=== PATIENT | male | born 1955 | race Caucasian/White ===

== ENCOUNTER → 2016-08-29 | Outpatient (CLI) | payer OTHER ==
[~2016-08-29] MED LIST: ABL15 PO; AMIT75TA2 PO; ESCI1TAB10 PO; LTHCR300 PO; NCDT21 TD; PRD20 PO; VNTHFA/IN INH; WLLSR150 PO
[2016-08-29 14:38] LABS: BASO % 1.1 %; BASO ABS # 0.08 K/uL (0-0.2); COMPLETE YES; EOS % 3.7 %; IG% 0.3 %; LYMPH % 25.2 %; LYMPH ABS # 1.86 K/uL (1.2-3.4); MEAN CELL VOLUME 98.2 fL (80-100); MEAN CORPUSCULAR HEMOGLOBIN 32.4 pg (25-34); MEAN PLATELET VOLUME 9.7 fL (7.4-10.4); MONO % 6.4 %; NEUT % 63.3 %; PLATELET COUNT 374 K/uL (130-400); RED BLOOD COUNT 4.38 M/uL (4.7-6.1); WHITE BLOOD COUNT 7.37 K/uL (4.8-10.8)
[2016-08-29 15:12] LABS: BLOOD UREA NITROGEN 16 mg/dl (7-18); CARBON DIOXIDE 33 mmol/L (21-32); CHLORIDE 106 mmol/L (98-107); POTASSIUM 4.2 mmol/L (3.5-5.1); SODIUM 143 mmol/L (136-145)
== END | disposition home or self-care (01) ==
LOC: C.LAB1850 13:49
PROVIDERS: ATTEND Psychiatry & Neurology Psychiatry
DX: F25.9 Schizoaffective disorder, unspecified (principal); Z51.81 Encounter for therapeutic drug level monitoring; Z79.899 Other long term (current) drug therapy

== ENCOUNTER → 2017-02-05 | Outpatient (CLI) | payer OTHER ==
[2017-02-05 17:27] LABS: THYROID STIMULATING HORMONE 5.95 uIu/ml (0.300-4.500)
== END | disposition home or self-care (01) ==
LOC: C.LAB1850 15:25
PROVIDERS: ATTEND Psychiatry & Neurology Neurology
DX: R25.1 Tremor, unspecified (principal)

== ENCOUNTER → 2017-05-22 | Outpatient (CLI) | payer OTHER ==
[2017-05-22 17:20] LABS: BASO % 0.5 %; BASO ABS # 0.04 K/uL (0-0.2); EOS % 4.1 %; HEMATOCRIT 38.8 % (42-52); HEMOGLOBIN 13.1 g/dL (14.0-18.0); IG# 0.02 K/uL (0.00-0.02); LYMPH % 16.9 %; LYMPH ABS # 1.25 K/uL (1.2-3.4); MEAN CELL VOLUME 97.7 fL (80-100); MEAN CORPUSCULAR HGB CONC 33.8 g/dl (32-36); MEAN PLATELET VOLUME 10.2 fL (7.4-10.4); MONO % 6.9 %; MONO ABS # 0.51 K/uL (0.11-0.59); NEUT % 71.3 %; NEUT ABS # 5.28 K/uL (1.4-6.5); PLATELET COUNT 312 K/uL (130-400); RED CELL DISTRIBUTION WIDTH CV 14.2 % (11.5-14.5); RED CELL DISTRIBUTION WIDTH SD 51.4 fL (36.4-46.3)
[2017-05-22 17:51] LABS: ALBUMIN 3.1 gm/dl (3.4-5.0); ALT/SGPT 36 U/L (12-78); AST/SGOT 23 U/L (15-37); BLOOD UREA NITROGEN 13 mg/dl (7-18); CALCIUM 8.8 mg/dl (8.5-10.1); CARBON DIOXIDE 30 mmol/L (21-32); CHOLESTEROL 132 mg/dl (0-200); CREATININE 1.03 mg/dl (0.60-1.40); GLUCOSE 87 mg/dl (70-99); SODIUM 138 mmol/L (136-145)
[2017-05-22 17:59] LABS: ALKALINE PHOSPHATASE 74 U/L (45-117); LDL CHOLESTEROL CALCULATED 65 mg/dl; TOTAL PROTEIN 6.3 gm/dl (6.4-8.2)
== END | disposition home or self-care (01) ==
LOC: C.LAB1850 16:15
PROVIDERS: ATTEND Physician Assistant
DX: F28 Other psychotic disorder not due to a substance or known physiological condition (principal)

== ENCOUNTER → 2017-05-23 | Outpatient (CLI) | payer OTHER | END | disposition home or self-care (01) | LOC: C.LABBFT 15:46 | PROVIDERS: ATTEND Physician Assistant Medical | DX: D64.9 Anemia, unspecified (principal) ==

== ENCOUNTER 2018-05-28 05:23 | Inpatient (IN) ==
--- NOTE | 2018-05-21 14:33 | Anesthesiology Consultation ---
Date of Service May 21, 2018 Assessment & Plan (1) Encounter for pre-operative examination: Plan: - PCP= 04/29/18= "medically cleared for left nephrectomy.. pending preop labs are stable and pending pulmonary clearance." Preop labs stable. - Pulmonary= 05/15/18= "severe COPD.. s/p prednisone taper 04/2018. "He will need postoperative pulmonary toilet and we would be happy to see him in consult at that time.. some degree of pulmonary arterial pCO2 elevation.. Nonetheless in light of the risk of malignancy of the kidney, this surgery likely needs to be done. I think it is probable he can have the surgery without requiring post- operative mechanical ventilation, but I cannot say that without certainty." Notes history of substance abuse problems; recommend caution with narcotic use. Chart Review Chart Review: Acceptable Risk for Surgery and Patient seen in Pre Admission Testing Teaching & Discussion Pre-Anesthesia Teaching/Discussion Notes: Instructed NPO after midnight before surgery,except medications with 15 cc of water. Medication instructions provided according to the PAT guidelines. History Surgery Operation Date: 05/28/18 07:50 Proposed Procedures p Left Robot Assisted Laparoscopic Partial Nephrectomy, - Diaz Johns MD s Diagnostic Laparoscopic with Enterolysis - Sung Khan, Height/Weight Height: 6 ft Weight: 62.6 kg Allergies Allergy/AdvReac Type Severity Reaction Status Date / Time morphine AdvReac Severe FEELING OF Verified 05/21/18 15:52 "DYING" Medications Home Medications Medication Instructions Recorded Confirmed Last Taken albuterol sulfate 3 ml CONTINUOUS NEBULIZATION QID 02/27/18 05/20/18 03/27/18 PRN amitriptyline 75 mg PO HS 02/27/18 05/20/18 03/27/18 aripiprazole [Abilify] 20 mg PO QAM 02/27/18 05/20/18 03/27/18 bupropion HCl 150 mg PO QAM 02/27/18 05/20/18 03/27/18 escitalopram oxalate 20 mg PO QAM 02/27/18 05/20/18 03/27/18 fluticasone-vilanterol [Breo 1 inh INHALATION DAILY 02/27/18 05/20/18 03/27/18 Ellipta] levothyroxine 50 mcg PO QAM 02/27/18 05/20/1818 primidone 50 mg PO HS 02/27/18 05/20/18 03/27/18 tiotropium bromide [Spiriva 2 puff INHALATION QAM 03/28/18 05/20/18 03/27/18 Respimat] albuterol sulfate [Ventolin HFA] 2 puff INHALATION QID PRN 05/20/18 05/20/18 Unknown fluticasone 2 spray INTRANASAL DAILY PRN 05/20/18 05/20/18 Unknown lithium carbonate 2 tab PO QAM 05/20/18 05/20/18 Unknown lithium carbonate 450 mg PO HS 05/20/18 05/20/18 Unknown Past Medical History Medical History Anxiety Renal mass COPD (chronic obstructive pulmonary disease) STABLE Irritable bowel syndrome Hypoxia Small bowel obstruction (Acute) PARTIAL 03/2018- TREATED CONSERVATIVELY Anemia Depression Hypothyroidism Left renal mass On home oxygen therapy 4L O2 5 TIMES/DAY WITH ACTIVITY Schizo affective schizophrenia FOLLOWS WITH COUNSELOR MONTHLY Past Family History Family History Father Diabetes Past Surgical History Surgical History History of appendectomy WITH EXPLORATORY SURGERY History of colonoscopy History of tooth extraction Past Anesthesia History No Hx of Anesthesia Complications and No Family Hx of Anesthesia Complications History of PONV No Motion Sickness Screening History of Motion Sickness: Yes (RARE) Social History Smoking Status: Former smoker Smoking cigarettes per day: QUIT 2015; PRIOR 1/2PPD X 45 YEARS Do You Dip or Chew Tobacco: No Hx Alcohol Use: Yes Alcohol type: hard liquor alcohol intake frequency: 0-2 drinks per day Alcohol Intake Frequency Comment: 1 WINE COOLER/DAILY Hx Substance Use: No substance use type: does not use Exercise / Class Metabolic Activity III < 4 Walking/Shop/Light housework Review of Systems Patient denies chest pain, shortness of breath, palpitations. Physical Exam Vital Signs VITALS BP 107/72 P 80 TEMP 98.0 SP02 98%RA RESP 20 Full neck and c-spine range of motion. Full TMJ range of motion. TMD 4 finger breaths Mallampati Score 1 Dentition: several missing molars/sides, poor dentition Lungs: diffuse inspiratory/expiratory wheezes Cardiac: regular rate and rhythm, no murmurs noted Spine: normal Carotid arteries: negative bruit Extremities: no edema Testing Electrocardiogram Date: 04/29/18 SR at 82 bpm. Low voltage QRS. Chest X-Ray Date: 05/21/18 Findings: + NAD Emphysema without acute process. Pulmonary Function Test Date: 01/28/18 Severe obstructive pattern. 31% improvement with bronchodilator in FEV1 suggesting partially reversible obstructive airway disease. Laboratory Results Blood Type A Positive 05/21/18 14:42 Antibody Screen NEGATIVE 05/21/18 14:42 Urine Color Dark Yellow 05/21/18 Unknown Urine Appearance Clear (Clear) 05/21/18 Unknown Urine pH 7.5 (4.5-7.5) 05/21/18 Unknown Ur Specific [place] 1.014 (1.000-1.030) 05/21/18 Unknown Urine Protein Negative (Negative) 05/21/18 Unknown Urine Glucose (UA) Negative (Negative) 05/21/18 Unknown Urine Ketones Negative (Negative) 05/21/18 Unknown Urine Nitrite Negative (Negative) 05/21/18 Unknown Ur Leukocyte Esterase Negative (Negative) 05/21/18 Unknown 04/29/18 WBC 8.1 H/H 13.6/42.3 PLATELETS 337 SODIUM 138 POTASSIUM 4.1 CHLORIDE 104 CO2 34 BUN 15 CREATININE 1.33 GLUCOSE 81
--- NOTE | 2018-05-21 14:39 | PAT Medication Instructions ---
Medication Instructions Date of Service May 21, 2018 Home Medications albuterol sulfate 3 ml CONTINUOUS NEBULIZATION QID amitriptyline 75 mg PO HS aripiprazole [Abilify] 20 mg PO QAM bupropion HCl 150 mg PO QAM escitalopram oxalate 20 mg PO QAM fluticasone-vilanterol [Breo 1 inh INHALATION DAILY levothyroxine 50 mcg PO QAM primidone 50 mg PO HS tiotropium bromide [Spiriva 2 puff INHALATION QAM albuterol sulfate [Ventolin HFA] 2 puff INHALATION QID PRN fluticasone 2 spray INTRANASAL DAILY PRN lithium carbonate 2 tab PO QAM lithium carbonate 450 mg PO HS Continue as directed albuterol sulfate 3 ml CONTINUOUS NEBULIZATION QID amitriptyline 75 mg PO HS aripiprazole [Abilify] 20 mg PO QAM bupropion HCl 150 mg PO QAM escitalopram oxalate 20 mg PO QAM fluticasone-vilanterol [Breo 1 inh INHALATION DAILY levothyroxine 50 mcg PO QAM primidone 50 mg PO HS tiotropium bromide [Spiriva 2 puff INHALATION QAM albuterol sulfate [Ventolin HFA] 2 puff INHALATION QID PRN (use if needed; please bring with you to hospital day of surgery if possible) fluticasone 2 spray INTRANASAL DAILY PRN (if needed) lithium carbonate 2 tab PO QAM lithium carbonate 450 mg PO HS Other Notes If you have any questions please call us at [phone] or [phone] or [phone] or [phone]
--- NOTE | 2018-05-21 15:15 | XRay Report ---
XR chest Pre-admission PA/Lat HISTORY: 63 years-old Male pat preoperative exam. Chronic shortness of breath COMPARISON: Chest radiograph 6 04/26/2016 TECHNIQUE: PA and lateral views of the chest FINDINGS: Hyperinflation with diaphragmatic flattening and increased lucency of the lung mendez suggestive of e mphysema. Cardiomediastinal and hilar silhouettes are within normal limits. No pneumothorax, pleural effusion, overt pulmonary edema or focal airspace consolidation. Bones appear grossly intact. IMPRESSION: Emphysema without acute process. The above report was generated using voice recognition software. It may contain grammatical, syntax o r spelling errors. Electronically signed by: Giovanny Raza M.D. 05/21/2018 3:14 PM
[2018-05-21 16:00] LABS: Appearance Urine Clear (Clear); Bilirubin Urine Negative (Negative); Color Urine Dark Yellow; Glucose Urine UA Negative (Negative); Ketones Urine Negative (Negative); Leukocyte Esterase Urine Negative (Negative); Nitrite Urine Negative (Negative); Protein Urine Negative (Negative); Specific Gravity Urine 1.014 (1.000-1.030); Urobilinogen Urine Negative (Negative); pH Urine 7.5 (4.5-7.5)
[2018-05-28] MEDS ORDERED: CEFAZOLIN 2000MG 2,000 MG/15 ML SYR IV SCH (06:00)
[2018-05-28] MEDS ORDERED: ACETAMINOPHEN 1000 MG/100 ML IV IV SCH (06:00)
[2018-05-28] MEDS ORDERED: LR 15ML/HR IV SCH (06:00)
[2018-05-28] MEDS ORDERED: fentaNYL citrate 100 MCG/2 ML VIAL ONE (06:31)
[2018-05-28] MEDS ORDERED: NEOSTIGMINE METHYLSULFATE 5 MG/5 ML SYR ONE (06:31)
[2018-05-28] MEDS ORDERED: ONDANSETRON INJ 2 MG/ML 2 ML VIAL ONE (06:31)
[2018-05-28] MEDS ORDERED: MIDAZOLAM HCL 1 MG/ML 2ML VIAL ONE (06:31)
[2018-05-28] MEDS ORDERED: LIDOCAINE HCL 2% 2 ML VIAL/AMP(20MG/ML) INFIL ONE (06:31)
[2018-05-28] MEDS ORDERED: PROPOFOL IV EMULSION 10 MG/ML 20 ML VIAL IV ONE (06:31)
[2018-05-28] MEDS ORDERED: DEXAMETHASONE SOD INJ 4 MG/ML VIAL ONE (06:31)
[2018-05-28] MEDS ORDERED: GLYCOPYRROLATE 0.2 MG/ML VIAL ONE ×2 (06:31→08:33)
--- NOTE | 2018-05-28 06:45 | History & Physical Bridge Note ---
Date of Service May 28, 2018 History & Physical Bridge Note I have examined the patient, reviewed the History & Physical and in the interval since the performance of the History & Physical I have noted the following changes of clinical significance: no changes noted
[2018-05-28] MEDS ORDERED: BUPIVACAINE 0.5 % 5 MG/1 ML MPF 30ML VIAL ONE (06:51)
[2018-05-28] MEDS ORDERED: ALBUT/IPRATROP 3MG/0.5MG NEB 3 ML VIAL NEB STA (06:57)
[2018-05-28] MEDS ORDERED: ATROPINE SULFATE 0.1 MG/ML 10ML SYR IV PRN (07:05)
[2018-05-28] MEDS ORDERED: ONDANSETRON INJ 2 MG/ML 2 ML VIAL IV PRN (07:05)
[2018-05-28] MEDS ORDERED: ePHEDrine sulfate 50 MG/ML AMP IV PRN (07:05)
[2018-05-28] MEDS ORDERED: fentaNYL citrate 100 MCG/2 ML VIAL IV PRN (07:05)
[2018-05-28] MEDS ORDERED: HYDROmorphone INJ 1 MG/ML SYRINGE IV PRN (07:05)
[2018-05-28] MEDS ORDERED: PHENYLEPHRINE 100MCG/ML 5ML SYR ONE (08:31)
[2018-05-28] MEDS ORDERED: ePHEDrine sulfate 50 MG/ML AMP ONE (08:31)
[2018-05-28] MEDS ORDERED: ROCURONIUM BROMIDE 10 MG/ML 5 ML VIAL ONE (08:33)
--- NOTE | 2018-05-28 09:16 | Operative Report ---
Post Operative Report Pre & Post Diagnosis Operation Date: 05/28/18 07:30 Pre-Op Diagnosis: Left Renal Mass recurrent SBO Procedure Operation Date: 05/28/18 07:30 Actual Procedures p Left Robot-Assisted Laparoscopic Partial Nephrectomy - Dr. Johns(Left) - MD brisa Parry Diagnostic Laparoscopic with Enterolysis;release of SBO;partial small bowel resection - Dr. Khan - Sung Khan DO Surgeon Sung Khan, Public Health Aide celestino Cooper, Diaz Johns Estimated Blood Loss 5 Findings Consistent with Post-Op Diagnosis Specimens portion of small bowel Description of Procedure After informed consent was obtained the patient was taken the operating room and placed in the supine position. After successful intubation a Thayer catheter was placed and the patient was placed in a right lateral decubitus position position by Dr. Johns for his partial nephrectomy. The entire abdominal area as well as flank was sterilely prepped and draped in usual fashion. We began with a supraumbilical incision with a 15 blade scalpel and carried this down through soft tissue using cautery. The anterior rectus fascia was opened using cautery and 2 #0 Vicryl stay sutures were placed. The peritoneum was entered with blunt finger penetration a finger sweep performed. A 12 mm Elmore trocar was placed in the abdomen was insufflated to 18 mmHg. Laparoscope was inserted and the abdomen was examined 360 degrees. There was a area where it was obvious that his small bowel obstructions were occurring. There is a single loop of small bowel tightly adhesed to the lower midline near the terminal ileum. There were also a few adhesions to the large bowel but clearly the small bowel adhesion was the source of his recurrent small bowel obstructions. We placed a left lateral 7 mm port a left upper quadrant 7 mm port and a mid abdominal 5 mm port under direct vision. We used traction countertraction and sharp scissor lysis to tediously take down these adhesions. There came a point where I had no choice but to take some of the serosa as the adhesions were just too adherent. Eventually I was able to take down all of the adhesions. No other intra-abdominal abnormalities were noted. Because of the serosal injury as well as the abnormal appearance to this area of small bowel I decided to resect this small portion of bowel. We were able to slightly extend the camera port and deliver the small bowel out through this. I used a Apportable brown cartridge 60 mm staplers to transect the small bowel on either side of the abnormal area. We then used a clamp cut and tie method using 0 Vicryl ties to take down the mesentery. This piece of small bowel was passed off to be sent to pathology. I then performed a side to side small bowel anastomosis again with a brown cartridge 60 mm ALVARO. The common enterotomy was also closed using the same ALVARO. 3-0 [address] was [address] to place a crotch stitch. 2-0 Vicryl was used to close the mesenteric defect. The anastomosis was widely patent with no evidence of ischemia. This was placed back into the abdominal cavity. We then closed the fascia using 0 Vicryl in a running fashion. We replaced the Elmore trocar and reinsufflated the abdomen we reinserted the camera and looked around the abdomen and saw no other gross abnormalities. Dr. Johns did assist throughout my portion of the case and we subsequently turned the case over to him for him to proceed with a robotic partial nephrectomy. Please see his dictation for the remainder of the case. I attest to the content of the Intraoperative Record and any orders documented therein. Any exceptions are noted below.
[2018-05-28] MEDS ORDERED: PHENYLEPHRINE HCL 10 MG/ML VIAL ONE (09:38)
[2018-05-28] MEDS ORDERED: MANNITOL 25% 12.5 GM/50 ML VIAL IV ONE ×2 (10:38→10:45)
[2018-05-28] MEDS ORDERED: TISSEEL FIBRIN SEALANT 10ML TOP ONE (11:03)
[2018-05-28] MEDS ORDERED: SURGICEL ABSORB HEMOSTAT 2IN X 14IN TOP ONE (11:03)
--- NOTE | 2018-05-28 11:46 | Operative Report ---
Post Operative Report Pre & Post Diagnosis Operation Date: 05/28/18 07:30 Pre-Op Diagnosis: Left Renal Mass, Recurrent Small bowel obstruction Post-Op Diagnosis: Left Renal Mass, Recurrent small bowel obstruction Procedure Operation Date: 05/28/18 07:30 Actual Procedures p Left Robot-Assisted Laparoscopic Partial Nephrectomy - Dr. Johns(Left) - Diaz Johns MD s Diagnostic Laparoscopic with Enterolysis, release of small bowel obstruction, partion small bowel resection - Sung Khan, Surgeon Diaz Johns MD Heating [employer] Cooling Systems Engineer celestino Cooper, Diaz Johns Estimated Blood Loss 105 (Bill= 5mL, Andreas= 100 mL) Findings Consistent with Post-Op Diagnosis Specimens L renal mass, fat overlying tumor Description of Procedure Left robot assisted partial nephrectomy I attest to the content of the Intraoperative Record and any orders documented therein. Any exceptions are noted below.
[2018-05-28] MEDS ORDERED: METOCLOPRAMIDE HCL INJ 5 MG/ML 2 ML VIAL IV PRN (11:57)
--- NOTE | 2018-05-28 11:58 | XRay Report ---
XR KUB CLINICAL HISTORY: PORT KUB FOR INCORRECT COUNT IN OR COMPARISON STUDY: 03/30/2018 FINDINGS: There is a surgical drain in the left upper quadrant. There is a nasogastric tube within th e distal esophagus. There is increased fecal load throughout the colon. There is pre-existing wire wi thin the low soft tissue pelvis as well as overlying the L3-L4 level lumbar spine. These again a shiva cute. IMPRESSION: 1. Surgical drain in the left upper quadrant. 2. Nasogastric tube distal esophagus. 3. No evidence for radiopaque metallic instrument. The above report was generated using voice recognition software. It may contain grammatical, syntax or spelling errors. Electronically signed by: Miguel Mauricio M.D. 05/28/2018 11:56 AM
[2018-05-28 12:18] LABS: Basophils # (auto) 0.02 K/uL (0-0.2); Basophils % (auto) 0.1 %; Eosinophils # (auto) 0.01 K/uL (0-0.5); Eosinophils % (auto) 0.1 %; Hematocrit (blood only) 34.8 % (42-52); Hemoglobin 11.2 g/dL (14.0-18.0); Immature Granulocytes # (auto) 0.05 K/uL (0.00-0.02); Immature Granulocytes % (auto) 0.3 %; Lymphocytes # (auto) 0.53 K/uL (1.2-3.4); Mean Corpuscular Hgb Conc 32.2 g/dL (32-36); Mean Corpuscular Volume 101.2 fL (80-100); Mean Platelet Volume 9.1 fL (7.4-10.4); Monocytes # (auto) 0.23 K/uL (0.11-0.59); Monocytes % (auto) 1.3 %; Neutrophils # (auto) 16.71 K/uL (1.4-6.5); Neutrophils % (auto) 95.2 %; Platelet Count 276 K/uL (130-400); RDW Coefficient of Variation 14.2 % (11.5-14.5); RDW Standard Deviation 52.6 fL (36.4-46.3); Red Blood Count 3.44 M/uL (4.7-6.1); White Blood Count 17.55 K/uL (4.8-10.8)
[2018-05-28 12:39] LABS: BUN Creatinine Ratio 9.8 (10-20); Calcium 8.1 mg/dl (8.5-10.1); Creatinine Clr Calc Pharmacy 56.8 ml/min; Est GFR (African American) 79.7; Est GFR (Non-African American) 68.8; Potassium 4.8 mmol/L (3.5-5.1)
--- NOTE | 2018-05-28 13:09 | Anesthesiology Progress Note ---
Date of Service May 28, 2018 Anesthesia Post Procedure Vital Signs Vital Signs: Temp Pulse Pulse Resp BP Pulse Ox 05/28/18 13:00 87 16 109/62 92 05/28/18 12:50 79 13 108/62 96 05/28/18 12:40 81 14 108/64 98 05/28/18 12:30 79 13 102/61 97 05/28/18 12:20 77 13 98/58 L 98 05/28/18 12:10 79 13 92/51 L 97 05/28/18 12:03 97.9 F 77 77 13 100/60 100 05/28/18 06:11 98.2 F 70 18 134/84 95 Notes Mental Status: alert / awake / arousable and participated in evaluation Patient Amnestic to Procedure: Yes Nausea / Vomiting: adequately controlled Pain: adequately controlled Airway Patency, RR, SpO2: stable & adequate BP & HR: stable & adequate Hydration State: stable & adequate Anesthetic Complications: no major complications apparent and Pt Satisfied with anesthetic care
[2018-05-28] MEDS ORDERED: ALBUTEROL 0.083% NEBU SOLN 3 ML VIAL INH PRN (13:53)
[2018-05-28] MEDS ORDERED: FLUTICASONE PROPIONATE NA SPR 16 GM BTL PRN (13:53)
[2018-05-28] MEDS ORDERED: ALBUTEROL HFA 8 GM INHALER INH PRN (13:53)
--- NOTE | 2018-05-28 14:02 | Progress Note ---
Date of Service May 28, 2018 Subjective Patient seen in PM rounds. Still somnolent, c/o LUQ pain. Mild to mod discomfort. Good respiratory excursion Soft, ND, inc c/d/i, no guarding. S1 S2 Postop labs noted, Cr wnl. Intraop events discussed with patient. A/P Patient POD#0 s/p L robotic partial nephrectomy. Seen borderline hypotension postop will add Toradol PRN to pain regimen. Pending next dose of IV Tylenol. Care d/w nursing. Likely DC NGT tomorrow, start clears. Physical Exam 2 Vital Signs (Past 24 Hours): Last Vital Signs Temp 36.6 C 05/28/18 13:20 Pulse 70 05/28/18 13:20 Resp 14 05/28/18 13:20 BP 102/54 L 05/28/18 13:20 Pulse Ox 91 05/28/18 13:20
[2018-05-28] MEDS ORDERED: ACETAMINOPHEN 1000 MG/100 ML IV IV ONE (14:45)
--- NOTE | 2018-05-28 14:58 | Operative Report ---
DATE OF OPERATION: 05/28/2018 PREOPERATIVE DIAGNOSES: Left 2 cm anterior renal mass, history of small bowel obstruction. POSTOPERATIVE DIAGNOSES: Left 2 cm anterior renal mass, history of small bowel obstruction, bowel adhesions. PROCEDURE: Left-sided robot-assisted laparoscopic partial nephrectomy. SURGEON: Diaz Johns MD. ASSISTANTS: Selena Uribe CRNP. Assistants were present throughout the case for manipulation of laparoscopic instruments, exchange of robotic instruments, suction, retraction of tissues, retrieval of specimen, and overall patient safety. ANESTHESIA: General anesthesia with endotracheal intubation plus local at port sites. Estimated blood loss for this portion of the case is 100 mL. INTRAVENOUS FLUIDS: 1600 mL crystalloid. Specimens sent to pathology are fat overlying the tumor and left renal mass. Drains left in place include a #10 GARLAND drain in the left paracolic gutter and Thayer catheter to gravity drainage. FINDINGS: Excellent renal closure with no bleeding or other abnormalities. Bowel anatomy per general surgical portion of the case. Copious amounts of stool within the descending colon consistent with the patient's history of bowel obstruction and an incomplete prep. Warm ischemia time of 12 minutes. BRIEF HISTORY: Mr. Moore is a pleasant 63-year-old male whom I have seen at the time of a hospitalization for small bowel obstruction when a CT scan imaging demonstrated a left anterior renal mass. Contrast study suggests a renal cell carcinoma. After allowing for an adequate amount of time since the resolution of his last acute bowel episode, patient is being brought in for a robotic partial nephrectomy. A laparoscopic lysis of adhesions is being planned concurrently with Dr. Khan of general surgery. His portion of the surgery initiated the case and will be dictated separately. Please see urologic H and P for further details regarding our portion of the case. Preoperative IV Tylenol was provided for analgesia and cephalosporins used for antibiotic coverage. SCDs used for DVT prophylaxis. OPERATION PROCEDURE: Patient was properly identified and brought into the operative suite after identification of appropriate consent on the chart. General anesthesia with endotracheal intubation was initiated. The patient was prepped and draped in standard fashion for this procedure. Patient was prepped and draped in standard fashion for this procedure that was in a left flank up flexed position of the bed with all pressure points generously padded. Thayer catheter was placed in sterile fashion at the initiation of the case with drainage of clear urine. A Royal trocar was placed near the midline in the upper abdomen by the general surgical service, and laparoscopic lysis of adhesions was undertaken. Small bowel resection was undertaken. Please see the general surgical portion of the case for further details. After this was complete, patient had two 7 mm robotic ports and a 5 mm additional port placed in the subcostal line. Two 12 mm ports were placed under direct visualization laparoscopically for assistance with the robotic portion. The Royal was left in place at the site of closure. A small incision made to allow for resection of the small bowel per the general surgical service. From this point, the surgery was taken over by our service. Robot was brought in and docked, and a 30 degree down lens was used to visualize the abdomen. A set of hot scissors and bipolar were used for manipulation, and the patient was noted to have a firm colon with formed stool in the descending colon. This was likely felt to be due to an incomplete prep from his longstanding history of bowel issues and obstruction. However, the colon was still able to be mobilized without difficulties along the white line of Toldt. The patient's thin body habitus allowed for easy identification of the anatomic structures. The patient was noted to have several left upper quadrant adhesions between the omentum, the bowel, and the abdominal wall, which were easily dropped to allow for access to the retroperitoneum. Spleen was identified and mobilized laterally by division of its attachments to the sidewall. The kidney was identified, and the tumor was clearly visible in Gerota fascia. A significant amount of retroperitoneal inflammation originating from the bowel was noted and appreciated, but this was able to be bypassed without difficulties. The patient's hilum was easily identified, and therefore, the lower pole was partially dissected free simply to allow for lateral traction on the kidney. Hilum was skeletonized. The patient was noted to have an early branching renal artery with a division into an anterior upper pole and posterior lower pole branch early on. The lower pole branch was clearly found to be outside of the feeding area of the patient's tumor, and therefore, the need was not felt to clamp it. The 2 upper pole branches were both dissected free to allow for control using vascular bulldogs. Seeing that the lower pole was going to be left off clamp, decision was made not to place a venous clamp. The Gerota fascia was entered, and a small amount of fat overlying the tumor was dissected free and handed off for pathologic analysis. The edges of the tumor were marked. An intraoperative ultrasound was used to ensure a lack of abnormalities below the surface of the renal parenchyma. The tumor was noted to be primarily exophytic with no significant lateral progression underneath the capsule. Mannitol was then provided intravenously, and the upper pole vessels were double clamped as described. Blanching encompassing the entirety of the renal lesion was noted. Scissors were used to promptly dissect the tumor free. Cold scissors used to promptly divide the capsule and begin the dissection. Venous backbleeding was appreciated but no arterial bleeding was noted. Great care was taken to avoid any violation of the tumor capsule, which was able to be visualized in its deepest aspects and was noted to be intact. After the tumor was dissected free from the kidney, this was placed within the confines of the pelvis for retrieval later in the case. V-Loc sutures backloaded with the Weck clips, and Lapra-Tys that had been placed within the abdomen were used to close the renal defect. Renal artery was unclamped for a total of 12 minutes of warm ischemia time. Excellent hemostasis was appreciated at the level of the renal defect. Specimen was placed within an EndoCatch bag for retrieval at the end of the case and brought up through the Royal port for retrieval later. FloSeal tissue sealant was placed within the confines of the renal defect and around the hilum. This was followed by a layer of Surgicel and then by Tisseel tissue sealant to cover the capsule and the Surgicel. Again, excellent hemostasis was appreciated. Colon was returned to its normal anatomic location. The inferior most robotic port was removed, and #10 GARLAND drain was brought in via this port. This was placed within the paracolic gutter on the left hand side and secured using a permanent suture at the level of the skin. Robotic instruments were removed, and robot was de-docked. Ports were removed, and abdomen was desufflated. The specimen was able to pass via the Royal port defect without the need for further enlargement. Seeing the patient's thin body habitus, all port sites were able to be closed at the level of the fascia using 0 Vicryl suture on a UR-5 or a UR-6 needle. Skin was closed using 4-0 Monocryl and Dermabond at all sites. Flexion was removed from the table prior to the completion of closure. Anesthesia was reversed. The patient was transferred to the recovery room in stable condition. Seeing the patient's history of bowel difficulties, an NG tube was placed at the beginning of the case and will be left in place overnight. FOLLOWUP CARE: Patient will be admitted to the floor for standard postoperative management. We will plan on discontinuation of the NG tube tomorrow with slow dietary advancement. Lab work and advancement of activity over the course of the patient's inpatient stay. I attest to the content of the Intraoperative Record and any orders documented therein. Any exception s are noted below.
[2018-05-28] MEDS ORDERED: FAMOTIDINE 20 MG in SYRINGE 3 ML IV SCH (16:00)
[2018-05-28] MEDS: KETOROLAC TROMETHAMINE 15 MG/ML VIAL IV PRN ×2 (16:18→23:39)
[2018-05-28] MEDS: ARIPiprazole 10 MG TAB PO SCH (16:30)
[2018-05-28] MEDS: ESCITALOPRAM OXALATE 20 MG TAB PO SCH (16:30)
[2018-05-28] MEDS: LITHIUM CARBONATE 450 MG TABCR PO SCH (16:31)
[2018-05-28] MEDS: CEFAZOLIN 2000MG 2,000 MG/15 ML SYR IV SCH ×2 (16:32→23:40)
[2018-05-28] MEDS: LITHIUM CARBONATE SLOW REL 300 MG TAB PO SCH (16:34)
[2018-05-28] MEDS: BuPROPion SR 150 MG TABCR PO SCH (16:36)
[2018-05-28] MEDS: HYDROmorphone INJ 0.5 MG/0.5 ML SYR IV PRN (19:31)
[2018-05-28] MEDS: LACTATED RINGER'S 1,000 ML IV SCH (19:31)
[2018-05-28] MEDS: TIOTROPIUM BROMIDE 5 PUFF/90 MCG INH INH SCH (19:32)
[2018-05-28] MEDS: DOCUSATE SODIUM 100 MG CAP PO SCH (21:51)
[2018-05-28] MEDS: AMITRIPTYLINE HCL 25 MG TAB PO SCH (21:52)
[2018-05-28] MEDS: FAMOTIDINE 20 MG in SYRINGE 3 ML IV SCH (21:52)
[2018-05-28] MEDS: PRIMIDONE 50 MG TAB PO SCH (21:53)
[2018-05-28] MEDS: ACETAMINOPHEN 1,000 MG/100 ML VIAL IV SCH (21:54)
[2018-05-29] MEDS: LACTATED RINGER'S 1,000 ML IV SCH ×2 (05:58→15:23)
[2018-05-29] MEDS: LEVOTHYROXINE SODIUM 50 MCG TABLET PO SCH (06:10)
[2018-05-29] MEDS: ACETAMINOPHEN 1,000 MG/100 ML VIAL IV SCH (06:22)
--- NOTE | 2018-05-29 07:19 | Surgery Progress Note ---
Date of Service May 29, 2018 Assessment & Plan (1) Renal mass: (2) Small bowel obstruction: POD 1 doing well will d/c NGT and start clears increase activity Dr. Wolfe covering for weekend. Subjective pt doing well and states he got rest last night. pain control adequate Physical Exam 2 Vital Signs (Past 24 Hours): Last Vital Signs Temp 36.7 C 05/29/18 04:15 Pulse 78 05/29/18 04:15 Resp 18 05/29/18 04:15 BP 92/51 L 05/29/18 04:15 Pulse Ox 95 05/29/18 04:15 Physical Exam: alert. NAD expected abdominal ttp. NGT with small amount bilious
[2018-05-29 07:47] LABS: Basophils # (auto) 0.02 K/uL (0-0.2); Basophils % (auto) 0.2 %; Eosinophils # (auto) 0.09 K/uL (0-0.5); Eosinophils % (auto) 0.7 %; Hematocrit (blood only) 32.8 % (42-52); Hemoglobin 10.6 g/dL (14.0-18.0); Immature Granulocytes # (auto) 0.04 K/uL (0.00-0.02); Immature Granulocytes % (auto) 0.3 %; Lymphocytes # (auto) 1.19 K/uL (1.2-3.4); Lymphocytes % (auto) 8.9 %; Mean Corpuscular Hgb Conc 32.3 g/dL (32-36); Mean Corpuscular Volume 100.9 fL (80-100); Mean Platelet Volume 8.8 fL (7.4-10.4); Monocytes # (auto) 0.82 K/uL (0.11-0.59); Monocytes % (auto) 6.2 %; Neutrophils # (auto) 11.17 K/uL (1.4-6.5); Neutrophils % (auto) 83.7 %; Platelet Count 290 K/uL (130-400); RDW Standard Deviation 51.6 fL (36.4-46.3); Red Blood Count 3.25 M/uL (4.7-6.1); White Blood Count 13.33 K/uL (4.8-10.8)
[2018-05-29] MEDS: OXYCODONE HCL IR 5 MG TAB (IMMEDIATE RELEASE) PO PRN ×3 (07:59→18:35)
[2018-05-29] MEDS: CEFAZOLIN 2000MG 2,000 MG/15 ML SYR IV SCH (07:59)
[2018-05-29 08:17] LABS: BUN Creatinine Ratio 9.1 (10-20); Creatinine Clr Calc Pharmacy 49.8 ml/min; Est GFR (African American) 67.9; Est GFR (Non-African American) 58.6; Potassium 4.4 mmol/L (3.5-5.1)
[2018-05-29] MEDS: KETOROLAC TROMETHAMINE 15 MG/ML VIAL IV PRN ×3 (09:06→23:05)
[2018-05-29] MEDS: ARIPiprazole 10 MG TAB PO SCH (09:17)
[2018-05-29] MEDS: ESCITALOPRAM OXALATE 20 MG TAB PO SCH (09:17)
[2018-05-29] MEDS: LITHIUM CARBONATE SLOW REL 300 MG TAB PO SCH (09:17)
[2018-05-29] MEDS: DOCUSATE SODIUM 100 MG CAP PO SCH ×2 (09:17→21:12)
[2018-05-29] MEDS: TIOTROPIUM BROMIDE 5 PUFF/90 MCG INH INH SCH (09:18)
[2018-05-29] MEDS: BuPROPion SR 150 MG TABCR PO SCH (09:19)
[2018-05-29] MEDS: FAMOTIDINE 20 MG in SYRINGE 3 ML IV SCH ×2 (09:23→21:14)
--- NOTE | 2018-05-29 10:00 | Urology Progress Note ---
Date of Service May 29, 2018 Assessment & Plan (1) Renal mass: POD #1 s/p L robotic partial nephrectomy. Progressing appropriately. Cr WNL. Pain controlled. Continue clears and monitor for nausea. OOB to chair with assist. Will likely DC Culver later today or tomorrow, will wean IVF with continued toleration of clears. Subjective 63 YO male POD #1 s/p L robotic partial nephrectomy. Patient reports feeling well this morning. +Mild diffuse abdominal pain, offers no other complaints. Denies fever/chills. NG discontinued by general surgery this morning, patient tolerating small sips of clears at this time. States that culver catheter is not bothersome. Review of Systems All systems reviewed & are unremarkable except as noted in HPI & below Physical Exam 2 Vital Signs (Past 24 Hours): Last Vital Signs Temp 36.9 C 05/29/18 08:12 Pulse 70 05/29/18 08:12 Resp 19 05/29/18 08:12 BP 114/64 05/29/18 08:12 Pulse Ox 98 05/29/18 08:12 Physical Exam: WN/WD NAD. Resp effort normal. No edema. No JVD. Abdomen: soft +incision tenderness. Incisions appear well approximated, no warmth or redness, surgical glue intact. GARLAND drain intact, patent. : culver intact, patent, draining straw yellow urine. No gross hematuria noted. A&O x3, appropriate affect.
--- NOTE | 2018-05-29 10:38 | Anesthesiology Progress Note ---
Date of Service May 29, 2018 Anesthesia Post Procedure Vital Signs Vital Signs: Temp Pulse Pulse Pulse Resp BP BP 05/29/18 08:12 36.9 C 70 19 114/64 05/29/18 04:15 36.7 C 78 18 92/51 L 05/28/18 23:37 37.2 C 89 20 98/50 L 05/28/18 19:27 107/58 L 05/28/18 19:13 37.2 C 81 18 105/58 L 05/28/18 16:48 81 14 108/60 05/28/18 15:43 36.6 C 89 12 106/53 L 05/28/18 14:43 91 H 16 108/64 05/28/18 14:13 83 16 101/62 05/28/18 13:45 36.6 C 88 14 92/50 L 05/28/18 13:20 36.6 C 70 14 102/54 L 05/28/18 13:10 86 13 105/58 L 05/28/18 13:00 87 16 109/62 05/28/18 12:50 79 13 108/62 05/28/18 12:40 81 14 108/64 05/28/18 12:30 79 13 102/61 05/28/18 12:20 77 13 98/58 L 05/28/18 12:10 79 13 92/51 L 05/28/18 12:03 36.6 C 77 77 13 100/60 Pulse Ox 05/29/18 08:12 98 05/29/18 04:15 95 05/28/18 23:37 97 05/28/18 19:27 05/28/18 19:13 97 05/28/18 16:48 96 05/28/18 15:43 92 05/28/18 14:43 95 05/28/18 14:13 95 05/28/18 13:45 100 05/28/18 13:20 91 05/28/18 13:10 91 05/28/18 13:00 92 05/28/18 12:50 96 05/28/18 12:40 98 05/28/18 12:30 97 05/28/18 12:20 98 05/28/18 12:10 97 05/28/18 12:03 100 Pain Intensity Medial Abdomen: Pain Intensity: 7 Notes Mental Status: alert / awake / arousable and participated in evaluation Patient Amnestic to Procedure: Yes Nausea / Vomiting: adequately controlled Pain: adequately controlled Airway Patency, RR, SpO2: stable & adequate BP & HR: stable & adequate Hydration State: stable & adequate Anesthetic Complications: no major complications apparent and Pt Satisfied with anesthetic care
[2018-05-29] MEDS ORDERED: CHLORASEPTIC 1.4% SOLN 180 ML BTL MT PRN (11:58)
[2018-05-29] MEDS ORDERED: ACETAMINOPHEN 1,000 MG/100 ML VIAL IV PRN (12:26)
[2018-05-29] MEDS: AMITRIPTYLINE HCL 25 MG TAB PO SCH (21:12)
[2018-05-29] MEDS: LITHIUM CARBONATE 450 MG TABCR PO SCH (21:12)
[2018-05-29] MEDS: HEPARIN SOD 5,000 UNIT/0.5 ML VIAL SQ SCH (21:12)
[2018-05-29] MEDS: PRIMIDONE 50 MG TAB PO SCH (21:12)
[2018-05-30] MEDS: LACTATED RINGER'S 1,000 ML IV SCH (01:22)
[2018-05-30] MEDS: HYDROmorphone INJ 0.5 MG/0.5 ML SYR IV PRN (03:40)
[2018-05-30] MEDS: LEVOTHYROXINE SODIUM 50 MCG TABLET PO SCH (05:38)
[2018-05-30] MEDS: OXYCODONE HCL IR 5 MG TAB (IMMEDIATE RELEASE) PO PRN ×3 (05:43→21:57)
[2018-05-30 06:49] LABS: Basophils # (auto) 0.02 K/uL (0-0.2); Basophils % (auto) 0.2 %; Eosinophils # (auto) 0.32 K/uL (0-0.5); Eosinophils % (auto) 2.8 %; Hematocrit (blood only) 32.7 % (42-52); Hemoglobin 10.7 g/dL (14.0-18.0); Immature Granulocytes # (auto) 0.05 K/uL (0.00-0.02); Immature Granulocytes % (auto) 0.4 %; Lymphocytes # (auto) 1.07 K/uL (1.2-3.4); Lymphocytes % (auto) 9.4 %; Mean Corpuscular Hgb Conc 32.7 g/dL (32-36); Mean Corpuscular Volume 99.7 fL (80-100); Mean Platelet Volume 8.9 fL (7.4-10.4); Monocytes # (auto) 0.54 K/uL (0.11-0.59); Monocytes % (auto) 4.7 %; Neutrophils # (auto) 9.44 K/uL (1.4-6.5); Neutrophils % (auto) 82.5 %; Platelet Count 291 K/uL (130-400); RDW Coefficient of Variation 13.7 % (11.5-14.5); RDW Standard Deviation 49.8 fL (36.4-46.3); Red Blood Count 3.28 M/uL (4.7-6.1); White Blood Count 11.44 K/uL (4.8-10.8)
--- NOTE | 2018-05-30 06:51 | Progress Note ---
Date of Service May 30, 2018 Assessment & Plan (1) Small bowel obstruction: cont full liquids, encourage ambulation await improved GI function to adv diet ileus would not be unexpected Subjective on full liquids- no flatus or bm no emesis Physical Exam 2 Vital Signs (Past 24 Hours): Last Vital Signs Temp 36.7 C 05/29/18 23:15 Pulse 81 05/29/18 23:15 Resp 16 05/29/18 23:15 BP 118/70 05/29/18 23:15 Pulse Ox 96 05/29/18 23:15 abd- some distention, decreased bowel sounds min pain
[2018-05-30 07:28] LABS: Albumin Level 2.3 gm/dl (3.4-5.0); BUN Creatinine Ratio 8.7 (10-20); Calcium 7.9 mg/dl (8.5-10.1); Est GFR (African American) 85.2; Est GFR (Non-African American) 73.5; Magnesium 2.1 mg/dl (1.8-2.4); Potassium 3.9 mmol/L (3.5-5.1)
[2018-05-30 07:30] LABS: Albumin Globulin Ratio 0.9 (0.9-2); Bilirubin,Total 0.3 mg/dl (0.2-1); Globulin 2.5 gm/dl (2.5-4.0); Phosphorus 2.1 mg/dl (2.5-4.9); Total Protein 4.8 gm/dl (6.4-8.2)
[2018-05-30] MEDS: KETOROLAC TROMETHAMINE 15 MG/ML VIAL IV PRN ×2 (07:55→15:47)
[2018-05-30] MEDS ORDERED: POTASSIUM PHOSPHATE 15 MMOL in SODIUM CHLORIDE 0.9% 250 ML IV ONE (08:30)
--- NOTE | 2018-05-30 08:30 | Urology Progress Note ---
Date of Service May 30, 2018 Assessment & Plan (1) Renal mass: POD #2 s/p L robotic partial nephrectomy, lap MOHAN and SB resection Progressing appropriately. Cr WNL. Pain controlled. Will provide dulcolax supp - colon with copious stool intraop likely due to incomplete prep with bowel scarring. Will try regular diet, ambulation. DC IVF with good PO intake. Repeat TOV today. Seen prior unsteadiness and BP (currently improved) will hold on tamsulosin for now. Possible DC later today or tomorrow - significant snowfall expected this PM, if not by midday, likely tomorrow. Patient vocalizes understanding of the treatment plan. Subjective 63 yo male POD#2 s/p L robotic partial nephrectomy, lap MOHAN with SB resection. He reports he is doing well with full liquids, no emesis or nausea, + appetite. He notes no BM yet, ambulatory in halls, comfortable on current pain regimen. Gen Surg notes appreciated. No other c/o. Hb and Cr stable. Thayer placed OVN for inability to void. BP improved. Constitutional: no fever and no chills Eyes: no eye pain Ear, Nose, Mouth, Throat: no ear pain Respiratory: no cough and no hemoptysis Cardiovascular: no chest pain Gastrointestinal: no nausea and no vomiting Genitourinary (Male): no hematuria Musculoskeletal: no neck pain Integumentary: no acne and no boil Physical Exam 2 Vital Signs (Past 24 Hours): Last Vital Signs Temp 36.8 C 05/30/18 06:58 Pulse 83 05/30/18 06:58 Resp 18 05/30/18 06:58 BP 134/77 05/30/18 06:58 Pulse Ox 91 05/30/18 06:58 Constitutional: + thin Neck: trachea midline; no anterior neck swelling Respiratory: normal respiratory effort; no respiratory distress Cardiovascular: Vessels: radial pulses present Gastrointestinal (Abdomen): Inspection/Auscultation: abdomen normal to inspection Percussion/Palpation: abdomen soft; abdomen nontender nondistended, inc c/d/i Skin: normal turgor Neurologic: awake; not obtunded Results & Data Laboratory Results Laboratory Results - last 24 hr 05/30/18 05/30/18 06:34 06:34 WBC 11.44 H RBC 3.28 L Hgb 10.7 L Hct 32.7 L MCV 99.7 MCH 32.6 MCHC 32.7 RDW Std Deviation 49.8 H RDW Coeff of Josie 13.7 Plt Count 291 MPV 8.9 Immature Gran % (Auto) 0.4 Neut % (Auto) 82.5 Lymph % (Auto) 9.4 [place] % (Auto) 4.7 Eos % (Auto) 2.8 Baso % (Auto) 0.2 Immature Gran # (Auto) 0.05 H Neut # (Auto) 9.44 H Lymph # (Auto) 1.07 L [place] # (Auto) 0.54 Eos # (Auto) 0.32 Baso # (Auto) 0.02 Sodium 140 Potassium 3.9 Chloride 106 Carbon Dioxide 29 Anion Gap 5.0 BUN 9 Creatinine 1.07 Est Cr Clr Drug Dosing 60.0 Est GFR ( Amer) 85.2 Est GFR (Non-Af Amer) 73.5 BUN/Creatinine Ratio 8.7 L Glucose 94 Calcium 7.9 L Phosphorus 2.1 L Magnesium 2.1 Total Bilirubin 0.3 AST 23 ALT 22 Alkaline Phosphatase 46 Total Protein 4.8 L Albumin 2.3 L Globulin 2.5 Albumin/Globulin Ratio 0.9
[2018-05-30] MEDS ORDERED: BISACODYL 10 MG SUPP PR STA (08:38)
[2018-05-30] MEDS: ESCITALOPRAM OXALATE 20 MG TAB PO SCH (09:02)
[2018-05-30] MEDS: BuPROPion SR 150 MG TABCR PO SCH (09:02)
[2018-05-30] MEDS: LITHIUM CARBONATE SLOW REL 300 MG TAB PO SCH (09:03)
[2018-05-30] MEDS: ARIPiprazole 10 MG TAB PO SCH (09:03)
[2018-05-30] MEDS: TIOTROPIUM BROMIDE 5 PUFF/90 MCG INH INH SCH (09:04)
[2018-05-30] MEDS: HEPARIN SOD 5,000 UNIT/0.5 ML VIAL SQ SCH ×2 (09:05→20:45)
[2018-05-30] MEDS: FAMOTIDINE 20 MG in SYRINGE 3 ML IV SCH ×2 (09:10→20:44)
[2018-05-30] MEDS: DOCUSATE SODIUM 100 MG CAP PO SCH ×2 (11:30→20:42)
[2018-05-30] MEDS: AMITRIPTYLINE HCL 25 MG TAB PO SCH (20:42)
[2018-05-30] MEDS: LITHIUM CARBONATE 450 MG TABCR PO SCH (20:43)
[2018-05-30] MEDS: PRIMIDONE 50 MG TAB PO SCH (20:43)
[2018-05-31] MEDS: LACTATED RINGER'S 1,000 ML IV SCH (00:02)
[2018-05-31] MEDS: OXYCODONE HCL IR 5 MG TAB (IMMEDIATE RELEASE) PO PRN ×4 (02:11→16:46)
[2018-05-31] MEDS: LEVOTHYROXINE SODIUM 50 MCG TABLET PO SCH (06:30)
[2018-05-31 06:50] LABS: Basophils # (auto) 0.02 K/uL (0-0.2); Basophils % (auto) 0.2 %; Eosinophils % (auto) 2.9 %; Hematocrit (blood only) 37.9 % (42-52); Hemoglobin 12.3 g/dL (14.0-18.0); Immature Granulocytes # (auto) 0.02 K/uL (0.00-0.02); Immature Granulocytes % (auto) 0.2 %; Lymphocytes % (auto) 10.5 %; Mean Corpuscular Hgb Conc 32.5 g/dL (32-36); Mean Platelet Volume 9.3 fL (7.4-10.4); Monocytes # (auto) 0.81 K/uL (0.11-0.59); Monocytes % (auto) 7.7 %; Neutrophils # (auto) 8.27 K/uL (1.4-6.5); Neutrophils % (auto) 78.5 %; Platelet Count 366 K/uL (130-400); RDW Coefficient of Variation 13.7 % (11.5-14.5); RDW Standard Deviation 49.6 fL (36.4-46.3); Red Blood Count 3.83 M/uL (4.7-6.1); White Blood Count 10.52 K/uL (4.8-10.8)
--- NOTE | 2018-05-31 07:41 | Surgery Progress Note ---
Date of Service May 31, 2018 Assessment & Plan (1) Small bowel obstruction: 05/31/2018 POD 3 s/p Left Robot-Assisted Laparoscopic Partial Nephrectomy - Diaz Johns MD s/p Diagnostic Laparoscopic with Enterolysis;release of SBO;partial small bowel resection - Sung Khan, Patient doing very well WBC within normal limits. Afebrile. Pain controlled with PO pain medication. +voiding on own, +passing flatus, +BM (loose) Tolerating regular diet. Incisions clean, dry, intact. dermabond. GARLAND drain in place. Continue ambulation. Return precautions reviewed with patient. Possible discharge later today. Discharge per primary team. 05/30/2018 cont full liquids, encourage ambulation await improved GI function to adv diet ileus would not be unexpected Subjective Patient resting comfortably in bed +voiding on own, +passing flatus, +BM. Pain is controlled with PO pain medication. Physical Exam 2 Vital Signs (Past 24 Hours): Last Vital Signs Temp 36.6 C 05/31/18 07:05 Pulse 82 05/31/18 07:05 Resp 16 05/31/18 07:05 BP 140/90 05/31/18 07:05 Pulse Ox 98 05/31/18 07:05 Gastrointestinal (Abdomen): Inspection/Auscultation: + abdominal surgical incision (abdominal incisions with dermabond in place, clean, dry, intact. No signs of infection. ) and + abdominal surgical drain present (drain (left) with serosang drainage- drain dressing removed, dry- new drain dressing placed. ); abdomen not distended Percussion/Palpation: abdomen soft; abdomen nontender and no guarding
[2018-05-31] MEDS: ARIPiprazole 10 MG TAB PO SCH (08:49)
[2018-05-31] MEDS: DOCUSATE SODIUM 100 MG CAP PO SCH ×2 (08:49→22:18)
[2018-05-31] MEDS: ESCITALOPRAM OXALATE 20 MG TAB PO SCH (08:49)
[2018-05-31] MEDS: BuPROPion SR 150 MG TABCR PO SCH (08:49)
[2018-05-31] MEDS: HEPARIN SOD 5,000 UNIT/0.5 ML VIAL SQ SCH (08:50)
[2018-05-31] MEDS: TIOTROPIUM BROMIDE 5 PUFF/90 MCG INH INH SCH (08:50)
[2018-05-31] MEDS: LITHIUM CARBONATE SLOW REL 300 MG TAB PO SCH (08:50)
[2018-05-31] MEDS: HYDROmorphone INJ 0.5 MG/0.5 ML SYR IV PRN (10:14)
[2018-05-31] MEDS: FAMOTIDINE 20 MG in SYRINGE 3 ML IV SCH ×2 (10:14→22:26)
--- NOTE | 2018-05-31 11:07 | Urology Progress Note ---
Date of Service May 31, 2018 Assessment & Plan (1) Renal mass: POD #3 s/p L robotic partial nephrectomy, lap MOHAN and SB resection Doing well. Labwork stable, pain controlled Will check a bladder scan, but avoid culver if possible. Rx for tamsulosin for outpatient use, patient warned regarding orthostasis, side effects reviewed. He will discuss his past balance issues (he notes he does not get dizzy) with PMD on DC. On discussing DC plan patient notes he drove himself to hospital today. As noted he needs a ride - he will try to arrange. Home care reviewed, encouraged to have someone check on him, limitations emphasized in postop period. Contact service with questions or concerns. DC GARLAND drain. Patient vocalizes understanding of the treatment plan. Subjective 63 yo male POD#3 s/p L robotic partial nephrectomy, lap MOHAN with SB resection. He reports he is doing well with regular, no emesis or nausea, + appetite. + BM , ambulatory in halls, comfortable on current pain regimen. Gen Surg notes appreciated. No other c/o. Hb and Cr stable. He notes he has been voiding spontaneously since his second TOV with slow stream. Notes L flank pain with cough and activity, expected. Physical Exam 2 Vital Signs (Past 24 Hours): Last Vital Signs Temp 36.6 C 05/31/18 07:05 Pulse 82 05/31/18 07:05 Resp 16 05/31/18 07:05 BP 140/90 05/31/18 07:05 Pulse Ox 98 05/31/18 07:05 Constitutional: + thin Neck: trachea midline; no anterior neck swelling Respiratory: normal respiratory effort; no respiratory distress Cardiovascular: Vessels: radial pulses present Gastrointestinal (Abdomen): Inspection/Auscultation: abdomen normal to inspection Percussion/Palpation: abdomen soft; abdomen nontender inc c/d/ i with dermabond Skin: normal turgor Neurologic: awake; not obtunded Results & Data Laboratory Results Laboratory Results - last 24 hr 05/31/18 06:31 WBC 10.52 RBC 3.83 L Hgb 12.3 L Hct 37.9 L MCV 99.0 MCH 32.1 MCHC 32.5 RDW Std Deviation 49.6 H RDW Coeff of Josie 13.7 Plt Count 366 MPV 9.3 Immature Gran % (Auto) 0.2 Neut % (Auto) 78.5 Lymph % (Auto) 10.5 [place] % (Auto) 7.7 Eos % (Auto) 2.9 Baso % (Auto) 0.2 Immature Gran # (Auto) 0.02 Neut # (Auto) 8.27 H Lymph # (Auto) 1.10 L [place] # (Auto) 0.81 H Eos # (Auto) 0.30 Baso # (Auto) 0.02
[2018-05-31] MEDS ORDERED: LIDOCAINE HCL 1% 20 ML VIAL INFIL ONE (21:31)
[2018-05-31] MEDS: AMITRIPTYLINE HCL 25 MG TAB PO SCH (22:17)
[2018-05-31] MEDS: PRIMIDONE 50 MG TAB PO SCH (22:19)
[2018-05-31] MEDS: LITHIUM CARBONATE 450 MG TABCR PO SCH (22:19)
[2018-05-31] MEDS ORDERED: HYDROmorphone INJ 1 MG/ML SYRINGE IV STA (22:38)
[2018-05-31] MEDS ORDERED: LORazepam 1 MG/2 ML VIAL IV ONE (22:45)
--- NOTE | 2018-05-31 23:22 | Procedure Note ---
Procedure Note Date of Service May 31, 2018 Notified by nursing staff of events since patient last seen. Per previous orders patient's GARLAND drain was removed at 11:00 this morning and a sterile dressing placed with gauze and reinforced pending discharge home. Patient's ride arrived later in the evening but at this point the patient was found to be covered in serosanguineous dressing which it drained through his dressing soaking his clothing. Removal of the dressing demonstrated fatty tissue protruding from the patient's incision. This was from the 7 mm inferior most robotic port incision which had been used for placement of the GARLAND drain intraoperatively. Patient was seen by Dr. Howard Wolfe who felt that this represented an omental herniation through the port site and contacted myself. Patient remained quite stable throughout these findings. On evaluation of the patient he was noted to be in no acute distress with good respiratory excursion and stable vital signs. Area in question was inspected and an incarcerated hernia of omental tissue approximately 3-4 cm in length and 2 cm wide was appreciated. This tissue was noted to be non-necrotic and viable. Patient was noted to be exceptionally thin in the operating room with his fascia directly under the skin and very little subcutaneous fat. Seen this previous finding patient was offered correction of this problem at the bedside with intravenous sedation using Dilaudid and Ativan and a local plain anesthesia at the site of the port. Patient was amenable and consent was obtained. Preoperative diagnosis: Omental fat hernia at laparoscopic port site. Postoperative diagnosis: Same. Procedure: Excision of herniated omental fat and repair of port site hernia. Surgeon: Dr. Diaz Johns. Preschool Lead Teacher: Dr. Howadr Wolfe. Anesthesia: Local 15 cc of 1% Xylocaine plain with intravenous sedation with Dilaudid 1 mg IV and Ativan 1 mg IV. Estimated blood loss: 5 cc. Specimen sent to pathology: Excised port site fat. Findings: Excision of bland, viable port site fat with excellent hemostasis and good closure of the hernia site. Complications: None. Brief history: As noted above. Procedure: Patient was properly identified and informed consent was reviewed with the patient and witnessed by nursing staff prior to intervention. Betadine prep was performed and allowed to dry and sterile towels were used for a sterile field. 1% Xylocaine was instilled circumferentially around the port site and in a limited fashion into the omentum after drawing back with a lack of bloody return on the syringe. 2-0 Vicryl ties were used to tie off the plain fat. No large vascular structures, bowel or other worrisome contents were present. 2 ties were placed around the entire pedicle and 2 additional ties were placed after dividing the pedicle into on each half. Fat was excised and sent for pathologic analysis. Skin incision was enlarged slightly to allow for inspection of the fascia. The shortness stump was able to be coaxed into the abdominal cavity after appreciating excellent hemostasis at the site of division. Fascia was clearly visible and instilled with plain lidocaine as well. A [id number] suture was performed using 0 Vicryl suture with complete closure of the fascial defect. 2 interrupted 0 Vicryl sutures were used at the level of the skin to close the skin incision. Excellent hemostasis was appreciated throughout the procedure. Follow-up care: Will provide coverage with Ancef intravenously and Flagyl oral. We will add antibiotics to the patient's discharge medication, monitor the patient overnight and likely discharge home tomorrow when convenient for the patient from a logistical standpoint. Patient tolerated the procedure well without complaints and vocalized good understanding of the events and treatment plan.
[2018-06-01] MEDS: HEPARIN SOD 5,000 UNIT/0.5 ML VIAL SQ SCH ×2 (00:02→08:32)
[2018-06-01] MEDS: CEFAZOLIN 2000MG 2,000 MG/15 ML SYR IV SCH ×3 (01:10→13:44)
[2018-06-01] MEDS: metroNIDAZOLE 500 MG TAB PO SCH ×2 (01:11→08:28)
[2018-06-01] MEDS: LEVOTHYROXINE SODIUM 50 MCG TABLET PO SCH (06:16)
[2018-06-01 06:21] LABS: Basophils # (auto) 0.01 K/uL (0-0.2); Basophils % (auto) 0.1 %; Eosinophils # (auto) 0.24 K/uL (0-0.5); Eosinophils % (auto) 2.9 %; Hematocrit (blood only) 34.2 % (42-52); Hemoglobin 11.2 g/dL (14.0-18.0); Immature Granulocytes # (auto) 0.01 K/uL (0.00-0.02); Immature Granulocytes % (auto) 0.1 %; Lymphocytes # (auto) 0.88 K/uL (1.2-3.4); Lymphocytes % (auto) 10.6 %; Mean Corpuscular Hgb Conc 32.7 g/dL (32-36); Mean Corpuscular Volume 99.1 fL (80-100); Mean Platelet Volume 8.7 fL (7.4-10.4); Monocytes # (auto) 0.78 K/uL (0.11-0.59); Monocytes % (auto) 9.4 %; Neutrophils # (auto) 6.36 K/uL (1.4-6.5); Neutrophils % (auto) 76.9 %; Platelet Count 329 K/uL (130-400); RDW Coefficient of Variation 13.6 % (11.5-14.5); RDW Standard Deviation 49.3 fL (36.4-46.3); Red Blood Count 3.45 M/uL (4.7-6.1); White Blood Count 8.28 K/uL (4.8-10.8)
--- NOTE | 2018-06-01 08:08 | Urology Progress Note ---
Date of Service June 01, 2018 Assessment & Plan (1) Renal mass: POD #4 s/p L robotic partial nephrectomy, lap MOHAN and SB resection, POD#1 s/p excision of herniated fat, closure of port site hernia. Doing well. Labwork stable, pain controlled His postop care and expected course is reviewed. Will proceed with DC home today after lunch, add antibiotic coverage due to hernia reduction. Worrisome signs and symptoms reviewed. Patient vocalizes understanding of the treatment plan. Subjective 63 yo male POD#4 s/p L robotic partial nephrectomy, lap MOHAN with SB resection, POD#1 s/p exision of herniated fat and closure of port site. He reports he is doing well since last night, no f/c/n/v or other new events. His appetite remains unchanged with good activity, no complaints. He has been covered with Ancef and Flagyl since bedside procedure. He denies significant drainage from closed port site. Afebrile, labwork remains stable, no WBC Physical Exam 2 Vital Signs (Past 24 Hours): Last Vital Signs Temp 36.6 C 06/01/18 07:43 Pulse 76 06/01/18 07:43 Resp 16 06/01/18 07:43 BP 137/75 06/01/18 07:43 Pulse Ox 97 06/01/18 07:43 Constitutional: + thin Neck: trachea midline; no anterior neck swelling Respiratory: normal respiratory effort; no respiratory distress Cardiovascular: Vessels: radial pulses present Gastrointestinal (Abdomen): Inspection/Auscultation: abdomen normal to inspection Percussion/Palpation: abdomen soft; abdomen nontender inc c/d/i , LLQ port site with 0 vicryl x 2, no redness or erythema. Skin: normal turgor Neurologic: awake; not obtunded Results & Data Laboratory Results Laboratory Results - last 48 hr 05/31/18 06/01/18 06:31 06:06 WBC 10.52 8.28 RBC 3.83 L 3.45 L Hgb 12.3 L 11.2 L Hct 37.9 L 34.2 L MCV 99.0 99.1 MCH 32.1 32.5 MCHC 32.5 32.7 RDW Std Deviation 49.6 H 49.3 H RDW Coeff of Josie 13.7 13.6 Plt Count 366 329 MPV 9.3 8.7 Immature Gran % (Auto) 0.2 0.1 Neut % (Auto) 78.5 76.9 Lymph % (Auto) 10.5 10.6 [place] % (Auto) 7.7 9.4 Eos % (Auto) 2.9 2.9 Baso % (Auto) 0.2 0.1 Immature Gran # (Auto) 0.02 0.01 Neut # (Auto) 8.27 H 6.36 Lymph # (Auto) 1.10 L 0.88 L [place] # (Auto) 0.81 H 0.78 H Eos # (Auto) 0.30 0.24 Baso # (Auto) 0.02 0.01
[2018-06-01] MEDS: OXYCODONE HCL IR 5 MG TAB (IMMEDIATE RELEASE) PO PRN ×3 (08:26→18:40)
[2018-06-01] MEDS: LITHIUM CARBONATE SLOW REL 300 MG TAB PO SCH (08:28)
[2018-06-01] MEDS: DOCUSATE SODIUM 100 MG CAP PO SCH (08:28)
[2018-06-01] MEDS: BuPROPion SR 150 MG TABCR PO SCH (08:28)
[2018-06-01] MEDS: ESCITALOPRAM OXALATE 20 MG TAB PO SCH (08:28)
[2018-06-01] MEDS: TIOTROPIUM BROMIDE 5 PUFF/90 MCG INH INH SCH (08:29)
[2018-06-01] MEDS: ARIPiprazole 10 MG TAB PO SCH (08:29)
[2018-06-01] MEDS: FAMOTIDINE 20 MG in SYRINGE 3 ML IV SCH (08:44)
--- NOTE | 2018-06-01 09:12 | Surgery Progress Note ---
Date of Service June 01, 2018 Assessment & Plan (1) Small bowel obstruction: POD 4 doing well ok for d/c from my standpoint instructions given. f/u 1-2 weeks. Subjective pt feeling well. fabian diet. no new complaints. pain controlled. Physical Exam 2 Vital Signs (Past 24 Hours): Last Vital Signs Temp 36.6 C 06/01/18 07:43 Pulse 76 06/01/18 07:43 Resp 16 06/01/18 07:43 BP 137/75 06/01/18 07:43 Pulse Ox 97 06/01/18 07:43 Physical Exam: alert/oriented. NAD abd: soft. expected tenderness.
[2018-06-01 15:12] VITALS: PULSE 80; TEMP 97.9; O2SAT 95
[2018-06-01 21:43] VITALS: BP 146/83
--- NOTE | 2018-06-04 10:26 | Coding Query ---
CODING QUERY To promote full compliance with coding requirements relating to patient care, provider participation is requested in all cases of tank officer uncertainty. Please assist us with the question(s) below: Coding Question(s): Patient admitted with intestinal obstruction and renal mass. Procedure -release of adhesions and excision of small intestine. Please check the phrase that describes the serosal injury. Thanks for your help! Romel Hernandez [employer] [facility] Physician's Response(s): The serosal injury was expected based upon the underlying disease process The serosal injury was an unexpected complication Cannot clinically correlate if the serosal injury was expected x____ Other : Please document : The serosa was purposefully cut in order to detach it from the fascia. This was not a complication but was done as part of the procedure. Principal Diagnosis: "that condition established after study, to be chiefly responsible for occasioning the admission of the patient to the hospital for care." Co-Existing Principal Diagnosis: "when two or more diagnoses equally meet the criteria for principal diagnosis as determined by the circumstances of admission , diagnostic work up, and/or therapy provided, and the Alphabetic Index, Tabular List, or another coding guideline does not provide sequencing direction , any one of the diagnoses may be sequenced first." "When the physician has documented what appears to be a current diagnosis in the body of the record, but has not included the diagnosis in the final diagnostic statement, the physician should be asked whether the diagnosis should be added." (Source Coding [facility] 2 QTR90. p3-4) JAIDEN
--- NOTE | 2018-06-17 12:31 | Discharge Summary ---
Date of Service June 17, 2018 Admission HPI Per Admitting Provider Patient with a history of recurrent SBO and L renal mass here for L partial nephrectomy by our service and lap MOHAN by Dr. Khan. Please see H&P for further details Admission Exam (Per Admitting) Constitutional + thin Neck trachea midline; no anterior neck swelling Respiratory normal respiratory effort; no respiratory distress Cardiovascular Vessels: radial pulses present Gastrointestinal (Abdomen) Inspection/Auscultation: abdomen normal to inspection Percussion/Palpation: abdomen soft; abdomen nontender Skin normal turgor Neurologic awake; not obtunded Discharge Data Procedures Performed Operation Date: 05/28/18 07:30 Actual Procedures p Left Robot-Assisted Laparoscopic Partial Nephrectomy - Dr. Johns(Left) - Diaz Johns MD s Diagnostic Laparoscopic with Enterolysis, release of small bowel obstruction, partion small bowel resection - Sung Khan, DO Hospital Course (1) Renal mass: Patient was admitted after L robotic partial nephrectomy, uncomplicated and lap MOHAN with SB resection by Gen Surg. Please see respective OP notes for further details. NGT left in overnight, labs stable postop, diet slowly advanced seen history of SBO. See progress notes for further details. By POD#3 patient was ambulatory, tolerating a regular diet and comfortable on oral pain meds. However, just prior to DC home, seen his thin body habitus he was noted to have herniated a small portion of omentum out his GARLAND site port. This was excised at bedsite and fascia closed. See progress notes and procedure note for further details. Patient was discharged home with antibiotic coverage after lunch the next day. Discharge Instructions See DC instruction list and meds.
--- NOTE | 2018-06-22 09:34 | Coding Query ---
PATHOLOGY To promote full compliance with coding requirements relating to patient care, physician participation is requested in all cases of sight mounter uncertainty. Please assist us with the question(s) below: Please review the Pathology report and please document any relevant diagnosis(es ) below: History of small bowel obstruction Left renal cell carcinoma Thank you MICHELLE Parker [facility] PHYSICIAN: JAIDEN
--- NOTE | 2018-06-22 09:43 | Coding Query ---
CODING QUERY To promote full compliance with coding requirements relating to patient care, provider participation is requested in all cases of chief fishery division uncertainty. Please assist us with the question(s) below: Coding Question(s): Patient s/p partial nephrectomy , before going home found to have small herniated omentum from the GARLAND drain/port site. Please check below the phrase that describes the omental herniation. Thank you. MICHELLE Parker [facility] Physician's Response(s): The omental herniation is an expected complication of the procedure ___X____ The omental herniation is not an expected complication of the procedure Cannot clinicaly correlate if the omental herniation is an expected complication Other: Please document: ___ Principal Diagnosis: "that condition established after study, to be chiefly responsible for occasioning the admission of the patient to the hospital for care." Co-Existing Principal Diagnosis: "when two or more diagnoses equally meet the criteria for principal diagnosis as determined by the circumstances of admission , diagnostic work up, and/or therapy provided, and the Alphabetic Index, Tabular List, or another coding guideline does not provide sequencing direction , any one of the diagnoses may be sequenced first." "When the physician has documented what appears to be a current diagnosis in the body of the record, but has not included the diagnosis in the final diagnostic statement, the physician should be asked whether the diagnosis should be added." (Source Coding Clinic 2 QTR90. p3-4) JAIDEN
== END 2018-06-01 21:43 | disposition home or self-care (01) | DRG 657 ==
LOC: ASU 05:23 → 3W 11:55
DX: F17.200 Nicotine dependence, unspecified, uncomplicated; K43.2 Incisional hernia without obstruction or gangrene; J44.9 Chronic obstructive pulmonary disease, unspecified; C64.2 Malignant neoplasm of left kidney, except renal pelvis; E03.9 Hypothyroidism, unspecified; K56.50 Intestinal adhesions [bands], unspecified as to partial versus complete obstruction; Z88.5 Allergy status to narcotic agent; Y83.8 Other surgical procedures as the cause of abnormal reaction of the patient, or of later complication, without mention of misadventure at the time of the procedure; Z83.3 Family history of diabetes mellitus; Y92.238 Other place in hospital as the place of occurrence of the external cause; M96.89 Other intraoperative and postprocedural complications and disorders of the musculoskeletal system

== ENCOUNTER 2018-06-28 15:34 | Inpatient (IN) ==
[2018-06-28] MEDS ORDERED: methylPREDNISolone 125 MG/2 ML VIAL IV STA (16:20)
[2018-06-28] MEDS ORDERED: ALBUT/IPRATROP 3MG/0.5MG NEB 3 ML VIAL NEB ONE (16:20)
[2018-06-28 16:34] LABS: Hematocrit (blood only) 37.3 % (42-52); Hemoglobin 12.1 g/dL (14.0-18.0); Mean Corpuscular Hgb Conc 32.4 g/dL (32-36); Mean Corpuscular Volume 101.6 fL (80-100); Mean Platelet Volume 9.2 fL (7.4-10.4); Platelet Count 289 K/uL (130-400); RDW Standard Deviation 52.2 fL (36.4-46.3); Red Blood Count 3.67 M/uL (4.7-6.1); White Blood Count 23.44 K/uL (4.8-10.8)
--- NOTE | 2018-06-28 16:54 | XRay Report ---
XR chest 1V portable CLINICAL HISTORY: Atypical chest pain COMPARISON STUDY: No previous studies for comparison. FINDINGS: The patient is hyperinflated. There is no lobar consolidation. There are right lower lung z one interstitial opacities, consistent with an interstitial inflammatory process or asymmetric inters titial edema. No pleural effusions are visualized. IMPRESSION: 1. Right lower lung zone interstitial opacities, consistent with an interstitial inflammatory process or asymmetric interstitial edema. Electronically signed by: Max Blair M.D. 06/28/2018 4:53 PM
[2018-06-28 16:57] LABS: Alanine Aminotransferase 51 U/L (12-78); Alkaline Phosphatase 76 U/L (45-117); BUN Creatinine Ratio 23.7 (10-20); Bilirubin,Total 0.2 mg/dl (0.2-1); Blood Urea Nitrogen 32 mg/dl (7-18); Calcium 7.6 mg/dl (8.5-10.1); Carbon Dioxide 27 mmol/L (21-32); Chloride 104 mmol/L (98-107); Est GFR (African American) 64.3; Est GFR (Non-African American) 55.5; Globulin 3.1 gm/dl (2.5-4.0); Glucose 244 mg/dl (70-99); Total Protein 6.1 gm/dl (6.4-8.2); Troponin I < 0.015 ng/ml (0-0.045)
[2018-06-28 16:59] LABS: Basophils # (auto) 0.04 K/uL (0-0.2); Basophils % (auto) 0.2 %; Eosinophils # (auto) 0.12 K/uL (0-0.5); Eosinophils % (auto) 0.5 %; Immature Granulocytes # (auto) 0.07 K/uL (0.00-0.02); Immature Granulocytes % (auto) 0.3 %; Lymphocytes # (auto) 0.49 K/uL (1.2-3.4); Lymphocytes % (auto) 2.1 %; Monocytes # (auto) 1.08 K/uL (0.11-0.59); Monocytes % (auto) 4.6 %; Neutrophils # (auto) 21.64 K/uL (1.4-6.5); Neutrophils % (auto) 92.3 %
[2018-06-28 17:00] LABS: Potassium 5.1 mmol/L (3.5-5.1); Sodium 138 mmol/L (136-145)
[2018-06-28 17:04] LABS: Aspartate Aminotransferase 28 U/L (15-37); Magnesium 2.2 mg/dl (1.8-2.4)
[2018-06-28 17:13] LABS: Base Excess VBG 1.4 mEq/L; pH VBG 7.4 (7.36-7.41)
[2018-06-28] MEDS ORDERED: VANCOMYCIN CONSULT ACTIVE PRN ×2 (17:21→22:11)
[2018-06-28] MEDS ORDERED: VANCOMYCIN HCL 1,000 MG/270 ML BAG IV STA (17:21)
[2018-06-28] MEDS ORDERED: PIPERACILL/TAZOBAC CONSULT ACTIVE PRN ×2 (17:21→22:11)
[2018-06-28] MEDS: PIPERACILLIN/TAZOBACTAM 4.5 GM/120 ML BAG IV ONE ×2 (17:59→18:24)
[2018-06-28 18:15] LABS: Influenza A virus by PCR Neg for Influ A (Neg); Influenza B virus by PCR Neg for Influ B (Neg)
--- NOTE | 2018-06-28 18:33 | CT Scan Report ---
ADDENDUM Addendum: Correlation is made with a CT scan of the abdomen and pelvis the same day. The queried retroperitoneal/mesenteric mass, likely represents unopacified bowel loops. As stated in the CT report, the examination is difficult to interpret due to the marked paucity of intra-abdominal fat and the lack of bowel opacification Electronically signed by: Max Blair M.D. 06/28/2018 6:[address] ANGIOGRAM OF THE CHEST CLINICAL HISTORY: Atypical chest pain. Possible pulmonary embolism. ANNUAL CHEST X-RAY COMPARISON STUDY: Chest x-ray dated 06/28/2018 TECHNIQUE: Following the IV administration of 93 mL of Optiray-320, CT angiogram of the thorax was pe rformed from the thoracic inlet to the lung bases utilizing the pulmonary embolus protocol. Images ar e reviewed in the axial, sagittal, and coronal planes. IV contrast was administered without complicat ion. MIP imaging was performed. A dose lowering technique was utilized adhering to the principles of ALARA. CT DOSE: FINDINGS: No pathologically enlarged axillary mediastinal or hilar lymph nodes were visualized. There was no evidence of thoracic aortic dilatation. There were no pulmonary artery filling defects to indicate acute pulmonary embolism. No pleural effusions are visualized. There is severe pulmonary emphysema. There are dependent right lower lobe likely atelectatic although an infectious/inflammatory process cannot be excluded. There are scattered bilateral pulmonary nodul es, none of which exceed 4 mm. The visualized portions the upper abdomen reveal an equivocal retroperitoneal/mesenteric mass encasin g superior mesenteric artery branches. IMPRESSION: 1. No evidence of acute pulmonary embolism 2. Severe pulmonary emphysema 3. Scattered tiny bilateral pulmonary nodules, none of which exceed 4 mm. A 12 month follow-up is opt ional 4. Dependent right basilar opacities statistically atelectatic 5. Equivocal retroperitoneal/mesenteric Electronically signed by: Max Blair M.D. 06/28/2018 6:31 PM
--- NOTE | 2018-06-28 18:40 | CT Scan Report ---
CT abd pelvis IV con only CLINICAL HISTORY: Shortness of breath, abdominal pain, leukocytosis. COMPARISON STUDY: 03/28/2018, 02/27/2018 TECHNIQUE: Patient was scanned in a dynamic helical fashion during intravenous administration of 93 c c of Optiray 320. A dose lowering technique was utilized adhering to the principles of ALARA. CT DOSE: 548.45 mGy.cm FINDINGS: Lower chest: There is severe pulmonary emphysema. There are dependent right lower lobe airspace opaci ties, likely atelectatic. Liver: There is a to small to characterize 5 mm hypodensity within the right lobe of the liver unchan ged the prior study and likely benign. Gallbladder: Unremarkable. Spleen: Normal in size and attenuation. Pancreas: Unremarkable. Adrenal glands: Unremarkable. Kidneys: There are postsurgical/posttreatment changes involving the midpole the left kidney. This is the site of a previously suspected renal cell carcinoma. Bowel: Evaluation the bowel is difficult given the lack of orally administered contrast and the diffu se paucity of intra-abdominal fat. There is fecal retention. Clinical correlation regards to constipa tion is recommended. There are no definite transition zones indicate bowel obstruction. The previousl y queried retroperitoneal/mesenteric mass likely represents unopacified bowel loops. The appendix is not visualized. There is no acute diverticulitis. Peritoneum: There is no intraperitoneal free air or abdominal ascites. Vasculature: The abdominal aorta is normal in course and caliber. Adenopathy: None. Pelvic viscera: There is mild bladder distention. There is mild prostamegaly Skeletal structures: No destructive osseous lesions are seen. IMPRESSION: 1. Difficult study to interpret due to the lack of orally administered contrast and the marked composite engineer ior intra-abdominal fat 2. Dependent right lower lobe airspace opacities likely atelectatic 3. No evidence of bowel obstruction. No evidence of free air 4. The queried possible retroperitoneal/mesenteric mass as described on the chest CT likely reflects unopacified bowel loops 5. Posttreatment changes involving the left kidney 6. Pulmonary emphysema 7. Fecal retention. Correlate clinically in regards to constipation. Electronically signed by: Max Blair M.D. 06/28/2018 6:39 PM
--- NOTE | 2018-06-28 20:06 | Emergency Department Note ---
Entered by Allen Toussaint acting as a scribe for History of Present Illness General Chief complaint: Shortness of Breath/Dyspnea Time Seen by Provider: 06/28/18 16:15 Source: patient Limitations: no limitations History of Present Illness Onset (ago): hour(s) 1 Location: chest Pain Consistency: + constant Quality: + constant Exacerbated By: + movement Associated symptoms: + shortness of breath Treatments prior to arrival: other (nebulizer and inhaler) The patient is a 63 year old male who presents to the Emergency Room with complaints of constant SOB starting an hour ago. The patient states he works at night and sleeps during the day. He notes he got up from bed and walked down the steps where he started to feel shortness of breath. He states he used his inhalers and nebulizers but they did not help. The patient notes he has COPD. He states he was at [facility] a week ago to get a partial nephrectomy and get some adhesions removed. He states Dr. Johns and Dr. Khan performed the surgery. The patient denies taking any water pills. Home Medications Home Medications Medication Instructions Recorded Confirmed Type albuterol sulfate 3 ml INHALATION Q4 PRN 02/27/18 06/28/18 History amitriptyline 75 mg PO HS 02/27/18 06/28/18 History aripiprazole [Abilify] 20 mg PO QAM 02/27/18 06/28/18 History bupropion HCl 150 mg PO QAM 02/27/18 06/28/18 History escitalopram oxalate 20 mg PO QAM 02/27/18 06/28/18 History fluticasone-vilanterol [Breo 1 inh INHALATION DAILY 02/27/18 06/28/18 History Ellipta] levothyroxine 50 mcg PO QAM 02/27/18 06/28/18 History primidone 50 mg PO QAM 02/27/18 06/28/18 History tiotropium bromide [Spiriva 2 puff INHALATION QAM 03/28/18 06/28/18 History Respimat] albuterol sulfate [Ventolin HFA] 2 puff INHALATION QID PRN 05/20/18 06/28/18 History fluticasone 2 spray INTRANASAL DAILY PRN 05/20/18 06/28/18 History lithium carbonate 2 tab PO QAM 05/20/18 06/28/18 History lithium carbonate 450 mg PO HS 05/20/18 06/28/18 History tamsulosin 0.4 mg PO HS #30 cap 05/31/18 06/28/18 Rx docusate sodium [Colace] 100 mg PO DAILY 06/28/18 06/28/18 History primidone 100 mg PO HS 06/28/18 06/28/18 History Allergies Allergy/AdvReac Type Severity Reaction Status Date / Time morphine AdvReac Severe FEELING OF Verified 06/28/18 16:10 "DYING" Past Med/Surg History Medical History Anxiety Renal mass COPD (chronic obstructive pulmonary disease) STABLE Irritable bowel syndrome Hypoxia Small bowel obstruction (Acute) PARTIAL 03/2018- TREATED CONSERVATIVELY Anemia Depression Hypothyroidism Left renal mass On home oxygen therapy 4L O2 5 TIMES/DAY WITH ACTIVITY Schizo affective schizophrenia FOLLOWS WITH COUNSELOR MONTHLY Surgical History H/O partial nephrectomy S/P small bowel resection History of appendectomy WITH EXPLORATORY SURGERY History of colonoscopy History of tooth extraction Family History Father Diabetes Social History Current Living Situation: Alone Current Living Situation Comment: [facility] Other Information That Helps Us Care for You: No Feels Safe at Home: Yes Safety Concerns: Feels Safe At This Time Smoking Status: Former smoker Do You Dip or Chew Tobacco: No Second Hand Exposure: No Tobacco Cessation Education Requested by Patient: No Hx Alcohol Use: Yes Alcohol type: other Alcohol Intake Frequency: a few times a week Hx Substance Use: No Beliefs That Will Affect Care: None Preferred Language: Malaysian Communication Ability: Effective Server Assistant Required: Yes Review of Systems See HPI for pertinent positives & negatives. and A total of 10 systems reviewed and were otherwise negative Physical Exam Vital Signs Vital Signs - 24 hr 06/28/18 15:41 06/28/18 15:47 06/28/18 15:56 Temperature 37.1 C Temperature Source Oral Sepsis Recent Fever Within 48 Hours No Sepsis New/Unexplained Change in Mental Status No Sepsis Action Taken by Nursing No Action Required Pulse Rate 104 H 102 H 103 H Pulse Rate [Apical] Pulse Rhythm [Apical] Pulse Strength [Apical] Respiratory Rate 22 20 Respiratory Effort / Characteristics Non-Labored Respiratory Depth Normal Respiratory Pattern Regular Blood Pressure 114/68 114/68 Blood Pressure [Right Arm] Blood Pressure Mean 83 83 Blood Pressure Mean [Right Arm] Blood Pressure Position Sitting Blood Pressure Position [Right Arm] Pulse Oximetry 95 90 94 Oxygen Delivery Method Room Air Nasal Cannula Oxygen Flow Rate 0 06/28/18 16:00 06/28/18 16:06 06/28/18 16:10 Temperature Temperature Source Sepsis Recent Fever Within 48 Hours Sepsis New/Unexplained Change in Mental Status Sepsis Action Taken by Nursing Pulse Rate 102 H 103 H Pulse Rate [Apical] 103 H Pulse Rhythm [Apical] Pulse Strength [Apical] Respiratory Rate 20 20 21 Respiratory Effort / Characteristics Non-Labored Respiratory Depth Normal Respiratory Pattern Regular Blood Pressure Blood Pressure [Right Arm] Blood Pressure Mean Blood Pressure Mean [Right Arm] Blood Pressure Position Blood Pressure Position [Right Arm] Pulse Oximetry 94 95 95 Oxygen Delivery Method Nasal Cannula Oxygen Flow Rate 3 06/28/18 16:20 06/28/18 16:23 06/28/18 16:27 Temperature Temperature Source Sepsis Recent Fever Within 48 Hours Sepsis New/Unexplained Change in Mental Status Sepsis Action Taken by Nursing Pulse Rate 103 H 104 H Pulse Rate [Apical] Pulse Rhythm [Apical] Pulse Strength [Apical] Respiratory Rate 21 17 Respiratory Effort / Characteristics Respiratory Depth Respiratory Pattern Blood Pressure 106/57 L Blood Pressure [Right Arm] Blood Pressure Mean 73 Blood Pressure Mean [Right Arm] Blood Pressure Position Blood Pressure Position [Right Arm] Pulse Oximetry 94 95 95 Oxygen Delivery Method Nasal Cannula Oxygen Flow Rate 3 06/28/18 16:29 06/28/18 16:30 06/28/18 16:31 Temperature Temperature Source Sepsis Recent Fever Within 48 Hours Sepsis New/Unexplained Change in Mental Status Sepsis Action Taken by Nursing Pulse Rate 104 H 105 H Pulse Rate [Apical] 103 H Pulse Rhythm [Apical] Pulse Strength [Apical] Respiratory Rate 18 18 19 Respiratory Effort / Characteristics Non-Labored Respiratory Depth Normal Respiratory Pattern Regular Blood Pressure 101/53 L Blood Pressure [Right Arm] 106/57 L Blood Pressure Mean 69 Blood Pressure Mean [Right Arm] 73 Blood Pressure Position Blood Pressure Position [Right Arm] Sitting Pulse Oximetry 94 95 Oxygen Delivery Method Nasal Cannula Oxygen Flow Rate 3 06/28/18 16:40 06/28/18 16:50 06/28/18 17:00 Temperature Temperature Source Sepsis Recent Fever Within 48 Hours Sepsis New/Unexplained Change in Mental Status Sepsis Action Taken by Nursing Pulse Rate 104 H 102 H 96 H Pulse Rate [Apical] Pulse Rhythm [Apical] Pulse Strength [Apical] Respiratory Rate 19 18 23 Respiratory Effort / Characteristics Respiratory Depth Respiratory Pattern Blood Pressure Blood Pressure [Right Arm] Blood Pressure Mean Blood Pressure Mean [Right Arm] Blood Pressure Position Blood Pressure Position [Right Arm] Pulse Oximetry 95 95 Oxygen Delivery Method Oxygen Flow Rate 06/28/18 17:01 06/28/18 17:05 06/28/18 17:09 Temperature Temperature Source Sepsis Recent Fever Within 48 Hours Sepsis New/Unexplained Change in Mental Status Sepsis Action Taken by Nursing Pulse Rate 99 H Pulse Rate [Apical] 99 H 105 H Pulse Rhythm [Apical] Pulse Strength [Apical] Respiratory Rate 18 18 18 Respiratory Effort / Characteristics Non-Labored Spontaneous Non-Labored Respiratory Depth Normal Respiratory Pattern Regular Blood Pressure 98/47 L Blood Pressure [Right Arm] 104/49 L Blood Pressure Mean 64 Blood Pressure Mean [Right Arm] 67 Blood Pressure Position Blood Pressure Position [Right Arm] Sitting Pulse Oximetry 96 96 99 Oxygen Delivery Method Nasal Cannula Nebulizer Oxygen Flow Rate 2 06/28/18 17:10 06/28/18 17:11 06/28/18 17:20 Temperature Temperature Source Sepsis Recent Fever Within 48 Hours Sepsis New/Unexplained Change in Mental Status Sepsis Action Taken by Nursing Pulse Rate 101 H 101 H 100 H Pulse Rate [Apical] Pulse Rhythm [Apical] Pulse Strength [Apical] Respiratory Rate 20 21 Respiratory Effort / Characteristics Respiratory Depth Respiratory Pattern Blood Pressure 104/49 L Blood Pressure [Right Arm] Blood Pressure Mean 67 Blood Pressure Mean [Right Arm] Blood Pressure Position Blood Pressure Position [Right Arm] Pulse Oximetry 99 95 Oxygen Delivery Method Oxygen Flow Rate 06/28/18 17:30 06/28/18 17:31 06/28/18 17:40 Temperature Temperature Source Sepsis Recent Fever Within 48 Hours Sepsis New/Unexplained Change in Mental Status Sepsis Action Taken by Nursing Pulse Rate 93 H 95 H 100 H Pulse Rate [Apical] Pulse Rhythm [Apical] Pulse Strength [Apical] Respiratory Rate 17 20 16 Respiratory Effort / Characteristics Respiratory Depth Respiratory Pattern Blood Pressure 103/55 L Blood Pressure [Right Arm] Blood Pressure Mean 71 Blood Pressure Mean [Right Arm] Blood Pressure Position Blood Pressure Position [Right Arm] Pulse Oximetry 100 98 Oxygen Delivery Method Oxygen Flow Rate 06/28/18 17:50 06/28/18 18:00 06/28/18 18:01 Temperature Temperature Source Sepsis Recent Fever Within 48 Hours Sepsis New/Unexplained Change in Mental Status Sepsis Action Taken by Nursing Pulse Rate 95 H 91 H Pulse Rate [Apical] Pulse Rhythm [Apical] Pulse Strength [Apical] Respiratory Rate 19 19 Respiratory Effort / Characteristics Respiratory Depth Respiratory Pattern Blood Pressure 122/60 Blood Pressure [Right Arm] Blood Pressure Mean 80 Blood Pressure Mean [Right Arm] Blood Pressure Position Blood Pressure Position [Right Arm] Pulse Oximetry 99 99 Oxygen Delivery Method Oxygen Flow Rate 06/28/18 18:19 06/28/18 18:20 06/28/18 18:30 Temperature Temperature Source Sepsis Recent Fever Within 48 Hours Sepsis New/Unexplained Change in Mental Status Sepsis Action Taken by Nursing Pulse Rate 99 H 93 H Pulse Rate [Apical] Pulse Rhythm [Apical] Pulse Strength [Apical] Respiratory Rate 21 15 Respiratory Effort / Characteristics Respiratory Depth Respiratory Pattern Blood Pressure Blood Pressure [Right Arm] Blood Pressure Mean Blood Pressure Mean [Right Arm] Blood Pressure Position Blood Pressure Position [Right Arm] Pulse Oximetry 96 96 Oxygen Delivery Method Oxygen Flow Rate 06/28/18 18:31 06/28/18 18:40 06/28/18 18:50 Temperature Temperature Source Sepsis Recent Fever Within 48 Hours Sepsis New/Unexplained Change in Mental Status Sepsis Action Taken by Nursing Pulse Rate 95 H 94 H 93 H Pulse Rate [Apical] Pulse Rhythm [Apical] Pulse Strength [Apical] Respiratory Rate 13 17 15 Respiratory Effort / Characteristics Respiratory Depth Respiratory Pattern Blood Pressure 111/60 Blood Pressure [Right Arm] Blood Pressure Mean 77 Blood Pressure Mean [Right Arm] Blood Pressure Position Blood Pressure Position [Right Arm] Pulse Oximetry 98 97 96 Oxygen Delivery Method Oxygen Flow Rate 06/28/18 19:30 06/28/18 20:44 06/28/18 21:01 Temperature Temperature Source Sepsis Recent Fever Within 48 Hours Sepsis New/Unexplained Change in Mental Status Sepsis Action Taken by Nursing Pulse Rate 87 Pulse Rate [Apical] 93 H 81 Pulse Rhythm [Apical] Regular Regular Pulse Strength [Apical] Normal Normal Respiratory Rate 14 18 20 Respiratory Effort / Characteristics Non-Labored Non-Labored Respiratory Depth Normal Normal Respiratory Pattern Regular Regular Blood Pressure 100/58 L Blood Pressure [Right Arm] 108/65 97/58 L Blood Pressure Mean 72 Blood Pressure Mean [Right Arm] 79 71 Blood Pressure Position Blood Pressure Position [Right Arm] Lying Lying Pulse Oximetry 97 95 Oxygen Delivery Method Nasal Cannula Nasal Cannula Oxygen Flow Rate 2 1 06/28/18 22:11 06/28/18 22:29 06/28/18 23:00 Temperature 36.3 C L Temperature Source Oral Sepsis Recent Fever Within 48 Hours Sepsis New/Unexplained Change in Mental Status Sepsis Action Taken by Nursing Pulse Rate Pulse Rate [Apical] 79 78 Pulse Rhythm [Apical] Pulse Strength [Apical] Respiratory Rate 18 16 Respiratory Effort / Characteristics Non-Labored Spontaneous Non-Labored Spontaneous Non-Labored Spontaneous Respiratory Depth Normal Normal Respiratory Pattern Regular Regular Blood Pressure Blood Pressure [Right Arm] 114/69 Blood Pressure Mean Blood Pressure Mean [Right Arm] 84 Blood Pressure Position Blood Pressure Position [Right Arm] Pulse Oximetry 98 97 Oxygen Delivery Method Nasal Cannula Nasal Cannula Nasal Cannula Oxygen Flow Rate 1 1 1 GENERAL: Awake, alert, chronically ill-appearing, in no distress HENT: Normocephalic, atraumatic. Oropharynx with dry mucous membranes and otherwise unremarkable. EYES: Normal conjunctiva. Sclera non-icteric. NECK: Supple. No nuchal rigidity. FROM. No JVD. RESPIRATORY: Scattered wheezes and rhonchi. CARDIAC: Tachycardic rate, normal rhythm. Extremities warm and well perfused. Pulses equal. ABDOMEN: Soft. Slight distention of abdomen but non-tender. No rebound or guarding. No masses. RECTAL: Deferred. MUSCULOSKELETAL: Chest examination reveals no tenderness. The back is symmetrical on inspection without obvious abnormality. There is no CVA tenderness to palpation. No joint edema. LOWER EXTREMITIES: Calves are equal size bilaterally and non-tender. No edema. No discoloration. NEURO: Normal sensorium. No sensory or motor deficits noted. SKIN: No rash or jaundice noted. Appropriately healing surgical wounds. Course 1617: Past medical records reviewed. The patient was evaluated in room B12B, and a complete history and physical examination were performed. 2006: I reviewed the patient's case with Dalia Melendez [facility] Hospitalist. She will evaluate the patient for further management. Administered Medications Discontinued Medications Albuterol (Duoneb) 12 ml NEB ONE ONE Stop: 06/28/18 16:21 Last Admin: 06/28/18 17:04 Dose: 12 ml Piperacillin Sod/Tazobactam Sod (Zosyn) 4.5 gm in 120 mls @ 240 mls/hr IV NOW ONE Stop: 06/28/18 17:50 Last Infusion: 06/28/18 19:00 Dose: 0 mls/hr Admin: 06/28/18 18:24 Dose: 240 mls/hr Vancomycin HCl (Vancomycin Hcl) 1,000 mg in 270 mls @ 125 mls/hr IV NOW STA Stop: 06/28/18 19:30 Last Infusion: 06/28/18 21:14 Dose: 0 mls/hr Admin: 06/28/18 18:59 Dose: 125 mls/hr Methylprednisolone (Solumedrol) 125 mg IV NOW STA Stop: 06/28/18 16:21 Last Admin: 06/28/18 16:27 Dose: 125 mg Medical Decision Making Differential Diagnosis Differential diagnosis: Etiologies such as infections, reactive airway disease, COPD, pneumonia, pleural effusion, pulmonary edema, ARDS, pneumothorax, CHF, cardiac ischemia, cardiac tamponade, dysrhythmia, anemia, pulmonary embolism, musculoskeletal, gastrointestinal process, as well as others were entertained. Medical Records Attestation: I reviewed the patient's medical records. Home Medications Current Medication List: was personally reviewed by me Laboratory Data Attestation: I reviewed the patient's lab results. Result diagrams: 06/28/18 16:12 06/28/18 16:12 Lab Results 06/28/18 06/28/18 06/28/18 Range/Units 16:12 16:12 16:12 WBC 23.44 H (4.8-10.8) K/uL RBC 3.67 L (4.7-6.1) M/uL Hgb 12.1 L (14.0-18.0) g/dL Hct 37.3 L (42-52) % MCV 101.6 H (80-100) fL MCH 33.0 (25-34) pg MCHC 32.4 (32-36) g/dL RDW Std Deviation 52.2 H (36.4-46.3) fL RDW Coeff of Josie 14.0 (11.5-14.5) % Plt Count 289 (130-400) K/uL MPV 9.2 (7.4-10.4) fL Immature Gran % (Auto) 0.3 % Neut % (Auto) 92.3 % Lymph % (Auto) 2.1 % [place] % (Auto) 4.6 % Eos % (Auto) 0.5 % Baso % (Auto) 0.2 % Immature Gran # (Auto) 0.07 H (0.00-0.02) K/uL Neut # (Auto) 21.64 H (1.4-6.5) K/uL Lymph # (Auto) 0.49 L (1.2-3.4) K/uL [place] # (Auto) 1.08 H (0.11-0.59) K/uL Eos # (Auto) 0.12 (0-0.5) K/uL Baso # (Auto) 0.04 (0-0.2) K/uL VBG pH (7.36-7.41) VBG pCO2 (38-50) mmHg VBG pO2 mmHg VBG HCO3 mmol/L VBG O2 Saturation % VBG Base Excess mEq/L Barometric Pressure mm/Hg Sodium 138 (136-145) mmol/L Potassium 5.1 (3.5-5.1) mmol/L Chloride 104 (98-107) mmol/L Carbon Dioxide 27 (21-32) mmol/L Anion Gap 7.0 (3-11) BUN 32 H (7-18) mg/dl Creatinine 1.35 (0.6-1.4) mg/dl Est Cr Clr Drug Dosing 58.0 ml/min Est GFR ( Amer) 64.3 Est GFR (Non-Af Amer) 55.5 BUN/Creatinine Ratio 23.7 H (10-20) Glucose 244 H (70-99) mg/dl Lactate (0.4-2.0) mmol/L Calcium 7.6 L (8.5-10.1) mg/dl Phosphorus 2.4 L (2.5-4.9) mg/dl Magnesium 2.2 (1.8-2.4) mg/dl Total Bilirubin 0.2 (0.2-1) mg/dl AST 28 (15-37) U/L ALT 51 (12-78) U/L Alkaline Phosphatase 76 (45-117) U/L Troponin I < 0.015 (0-0.045) ng/ml Total Protein 6.1 L (6.4-8.2) gm/dl Albumin 3.0 L (3.4-5.0) gm/dl Globulin 3.1 (2.5-4.0) gm/dl Albumin/Globulin Ratio 1.0 (0.9-2) Lipase 116 (73-393) U/L Procalcitonin (0-0.5) ng/ml [place] 1.2 (0.6-1.2) mmol/L Influenza Type A (PCR) (Neg) Influenza Type B (PCR) (Neg) 06/28/18 06/28/18 06/28/18 Range/Units 16:12 17:00 17:28 WBC (4.8-10.8) K/uL RBC (4.7-6.1) M/uL Hgb (14.0-18.0) g/dL Hct (42-52) % MCV (80-100) fL MCH (25-34) pg MCHC (32-36) g/dL RDW Std Deviation (36.4-46.3) fL RDW Coeff of Josie (11.5-14.5) % Plt Count (130-400) K/uL MPV (7.4-10.4) fL Immature Gran % (Auto) % Neut % (Auto) % Lymph % (Auto) % [place] % (Auto) % Eos % (Auto) % Baso % (Auto) % Immature Gran # (Auto) (0.00-0.02) K/uL Neut # (Auto) (1.4-6.5) K/uL Lymph # (Auto) (1.2-3.4) K/uL [place] # (Auto) (0.11-0.59) K/uL Eos # (Auto) (0-0.5) K/uL Baso # (Auto) (0-0.2) K/uL VBG pH 7.40 (7.36-7.41) VBG pCO2 43 (38-50) mmHg VBG pO2 66 mmHg VBG HCO3 26 mmol/L VBG O2 Saturation 93.0 % VBG Base Excess 1.4 mEq/L Barometric Pressure 729.3 mm/Hg Sodium (136-145) mmol/L Potassium (3.5-5.1) mmol/L Chloride (98-107) mmol/L Carbon Dioxide (21-32) mmol/L Anion Gap (3-11) BUN (7-18) mg/dl Creatinine (0.6-1.4) mg/dl Est Cr Clr Drug Dosing ml/min Est GFR ( Amer) Est GFR (Non-Af Amer) BUN/Creatinine Ratio (10-20) Glucose (70-99) mg/dl Lactate (0.4-2.0) mmol/L Calcium (8.5-10.1) mg/dl Phosphorus (2.5-4.9) mg/dl Magnesium (1.8-2.4) mg/dl Total Bilirubin (0.2-1) mg/dl AST (15-37) U/L ALT (12-78) U/L Alkaline Phosphatase (45-117) U/L Troponin I (0-0.045) ng/ml Total Protein (6.4-8.2) gm/dl Albumin (3.4-5.0) gm/dl Globulin (2.5-4.0) gm/dl Albumin/Globulin Ratio (0.9-2) Lipase (73-393) U/L Procalcitonin 0.17 (0-0.5) ng/ml [place] (0.6-1.2) mmol/L Influenza Type A (PCR) Neg for Influ A (Neg) Influenza Type B (PCR) Neg for Influ B (Neg) 06/28/18 Range/Units 17:50 WBC (4.8-10.8) K/uL RBC (4.7-6.1) M/uL Hgb (14.0-18.0) g/dL Hct (42-52) % MCV (80-100) fL MCH (25-34) pg MCHC (32-36) g/dL RDW Std Deviation (36.4-46.3) fL RDW Coeff of Josie (11.5-14.5) % Plt Count (130-400) K/uL MPV (7.4-10.4) fL Immature Gran % (Auto) % Neut % (Auto) % Lymph % (Auto) % [place] % (Auto) % Eos % (Auto) % Baso % (Auto) % Immature Gran # (Auto) (0.00-0.02) K/uL Neut # (Auto) (1.4-6.5) K/uL Lymph # (Auto) (1.2-3.4) K/uL [place] # (Auto) (0.11-0.59) K/uL Eos # (Auto) (0-0.5) K/uL Baso # (Auto) (0-0.2) K/uL VBG pH (7.36-7.41) VBG pCO2 (38-50) mmHg VBG pO2 mmHg VBG HCO3 mmol/L VBG O2 Saturation % VBG Base Excess mEq/L Barometric Pressure mm/Hg Sodium (136-145) mmol/L Potassium (3.5-5.1) mmol/L Chloride (98-107) mmol/L Carbon Dioxide (21-32) mmol/L Anion Gap (3-11) BUN (7-18) mg/dl Creatinine (0.6-1.4) mg/dl Est Cr Clr Drug Dosing ml/min Est GFR ( Amer) Est GFR (Non-Af Amer) BUN/Creatinine Ratio (10-20) Glucose (70-99) mg/dl Lactate 1.4 (0.4-2.0) mmol/L Calcium (8.5-10.1) mg/dl Phosphorus (2.5-4.9) mg/dl Magnesium (1.8-2.4) mg/dl Total Bilirubin (0.2-1) mg/dl AST (15-37) U/L ALT (12-78) U/L Alkaline Phosphatase (45-117) U/L Troponin I (0-0.045) ng/ml Total Protein (6.4-8.2) gm/dl Albumin (3.4-5.0) gm/dl Globulin (2.5-4.0) gm/dl Albumin/Globulin Ratio (0.9-2) Lipase (73-393) U/L Procalcitonin (0-0.5) ng/ml [place] (0.6-1.2) mmol/L Influenza Type A (PCR) (Neg) Influenza Type B (PCR) (Neg) Imaging Data Radiologist's Impression: Radiology results as stated below per my review and the radiologist's interpretation: XR chest 1V portable CLINICAL HISTORY: Atypical chest pain COMPARISON STUDY: No previous studies for comparison. FINDINGS: The patient is hyperinflated. There is no lobar consolidation. There are right lower lung zone interstitial opacities, consistent with an interstitial inflammatory process or asymmetric interstitial edema. No pleural effusions are visualized. IMPRESSION: 1. Right lower lung zone interstitial opacities, consistent with an interstitial inflammatory process or asymmetric interstitial edema. Electronically signed by: Max Blair M.D. 06/28/2018 4:53 PM ADDENDUM Addendum: Correlation is made with a CT scan of the abdomen and pelvis the same day. The queried retroperitoneal/mesenteric mass, likely represents unopacified bowel loops. As stated in the CT report, the examination is difficult to interpret due to the marked paucity of intra-abdominal fat and the lack of bowel opacification Electronically signed by: Max Blair M.D. 06/28/2018 6:[address] ANGIOGRAM OF THE CHEST CLINICAL HISTORY: Atypical chest pain. Possible pulmonary embolism. ANNUAL CHEST X-RAY COMPARISON STUDY: Chest x-ray dated 06/28/2018 TECHNIQUE: Following the IV administration of 93 mL of Optiray-320, CT angiogram of the thorax was performed from the thoracic inlet to the lung bases utilizing the pulmonary embolus protocol. Images are reviewed in the axial, sagittal, and coronal planes. IV contrast was administered without complication. MIP imaging was performed. A dose lowering technique was utilized adhering to the principles of ALARA. CT DOSE: FINDINGS: No pathologically enlarged axillary mediastinal or hilar lymph nodes were visualized. There was no evidence of thoracic aortic dilatation. There were no pulmonary artery filling defects to indicate acute pulmonary embolism. No pleural effusions are visualized. There is severe pulmonary emphysema. There are dependent right lower lobe likely atelectatic although an infectious/inflammatory process cannot be excluded. There are scattered bilateral pulmonary nodules, none of which exceed 4 mm. The visualized portions the upper abdomen reveal an equivocal retroperitoneal/ mesenteric mass encasing superior mesenteric artery branches. IMPRESSION: 1. No evidence of acute pulmonary embolism 2. Severe pulmonary emphysema 3. Scattered tiny bilateral pulmonary nodules, none of which exceed 4 mm. A 12 month follow-up is optional 4. Dependent right basilar opacities statistically atelectatic 5. Equivocal retroperitoneal/mesenteric Electronically signed by: Max Blair M.D. 06/28/2018 6:[address] abd pelvis IV con only CLINICAL HISTORY: Shortness of breath, abdominal pain, leukocytosis. COMPARISON STUDY: 03/28/2018, 02/27/2018 TECHNIQUE: Patient was scanned in a dynamic helical fashion during intravenous administration of 93 cc of Optiray 320. A dose lowering technique was utilized adhering to the principles of ALARA. CT DOSE: 548.45 mGy.cm FINDINGS: Lower chest: There is severe pulmonary emphysema. There are dependent right lower lobe airspace opacities, likely atelectatic. Liver: There is a to small to characterize 5 mm hypodensity within the right lobe of the liver unchanged the prior study and likely benign. Gallbladder: Unremarkable. Spleen: Normal in size and attenuation. Pancreas: Unremarkable. Adrenal glands: Unremarkable. Kidneys: There are postsurgical/posttreatment changes involving the midpole the left kidney. This is the site of a previously suspected renal cell carcinoma. Bowel: Evaluation the bowel is difficult given the lack of orally administered contrast and the diffuse paucity of intra-abdominal fat. There is fecal retention. Clinical correlation regards to constipation is recommended. There are no definite transition zones indicate bowel obstruction. The previously queried retroperitoneal/mesenteric mass likely represents unopacified bowel loops. The appendix is not visualized. There is no acute diverticulitis. Peritoneum: There is no intraperitoneal free air or abdominal ascites. Vasculature: The abdominal aorta is normal in course and caliber. Adenopathy: None. Pelvic viscera: There is mild bladder distention. There is mild prostamegaly Skeletal structures: No destructive osseous lesions are seen. IMPRESSION: 1. Difficult study to interpret due to the lack of orally administered contrast and the marked posterior intra-abdominal fat 2. Dependent right lower lobe airspace opacities likely atelectatic 3. No evidence of bowel obstruction. No evidence of free air 4. The queried possible retroperitoneal/mesenteric mass as described on the chest CT likely reflects unopacified bowel loops 5. Posttreatment changes involving the left kidney 6. Pulmonary emphysema 7. Fecal retention. Correlate clinically in regards to constipation. Electronically signed by: Max Blair M.D. 06/28/2018 6:39 PM ECG Data Attestation: I personally reviewed and interpreted this ECG as follows: Indication: SOB/dyspnea Rate (beats per minute): 102 Findings: + other (normal axis); no acute ischemic change Blood Pressure Blood Pressure Findings: Normal blood pressure Blood Pressure Disposition: further management by hospitalist GISEL Narrative The patient is a 63-year-old gentleman with a past medical history of COPD, schizophrenia, recent partial nephrectomy and lysis of adhesions for bowel obstruction in May who presents emergency department with acute onset shortness of breath per hpi. On arrival the patient is ill-appearing but no acute distress, afebrile with heart rate in the 110s and vital signs otherwise stable. On exam the patient appears clinically dry. He has scattered wheezes and rhonchi. He has mild abdominal distention that is soft and nontender with well-healing postsurgical scars. EKG with sinus tachycardia and otherwise no evidence of ischemia. WBC with leukocytosis of 23K, with neutrophil predominance new from May. VBG unremarkable. Chemistry without acidosis. Lactate within normal limits. Troponin negative. [place] within normal limits. Flu negative. Chest x-ray suspicious for right lower lobe pneumonia, which are further seen on CT and given the patient's leukocytosis likely infectious. CT abdomen pelvis without acute findings. Patient was treated empirically with Zosyn and vancomycin given his leukocytosis and recent hospitalization and surgical procedure/instrumentation. The patient is feeling improved after IV fluid hydration, Solu-Medrol, continuous DuoNeb. Case was discussed with Dr. Melendez, [facility] hospitalist, who will evaluate the patient for admission. Impression & Plan Pneumonia Discharge Plan Visit Data *Final* Discharge Date/Time: 06/28/18 21:42 Chief Complaint: Shortness of Breath/Dyspnea ED Provider: Sai Rodriguez Discharge Problem: Pneumonia Patient Disposition: Admitted As Inpatient Discharge Instructions Interventions: ED Discharge Assessment Last Done: 06/28/18 21:42 The scribe's documentation has been prepared under my direction and personally reviewed by me in its entirety. I confirm that the note above accurately reflects all work, treatment, procedures, and medical decision making performed by me.
--- NOTE | 2018-06-28 20:57 | History & Physical Report ---
Date of Service June 28, 2018 Assessment & Plan (1) COPD exacerbation: Patient with 2-3 days progressive SOB. Diffuse wheezing on physical exam with prolonged expiratory phase. Maintaining saturation. Possible PNA -Admit to medical floor -DuoNebs q 4 hours -Albuterol q2hr PRN -Solumedrol 30mg IV TID -Supplemental O2 as needed (2) Pneumonia: ?PNA vs atelectasis noted on CT. Patient with leukocytosis, WBC=23.4. Denies fevers/chills/sweats/cough. He was recently hospitalized for partial nephrectomy and partial small bowel resection, at risk for PNA -Admit to medical floor as above -Obtain procalcitonin -Sputum gram stain and culture -Follow results of blood cultures -IS q 2 hours while awake -Empiric antibiotics with Vancomycin and Zosyn (3) Anxiety: Patient calm presently. -Continue Escitalopram -Continue Bupropion (4) Hypothyroidism: Chronic. -Continue Synthroid -Check TSH (5) Schizoaffective disorder: Stable mood and affect. Patient appropriate -Continue [place], level therapeutic -Continue Abilify -Continue Amitryptyline -Delirium prevention strategies (6) Anemia: Macrocytic anemia. H/H near baseline. No active bleeding. B12 and Folate have been checked in May 2017 and were within normal limits -Continue to monitor -CBC in AM F/E/N - NSS at 125mL/hr x 2 liters, monitor electrolytes and correct as needed, regular diet as tolerated. Colace and Miralax PRN bowel management. Ppx - Lovenox Code - Full Dispo - Admit to medical floor History of Present Illness Chief Complaint: Shortness of breath Primary Care Provider: Viral Gonzalez MD Mr. Moore is a 63yo male with history of COPD presenting with 2-3 days of progressive shortness of breath. He states he has been wheezing more as well. Denies, cough/fevers/chills/sweats. Denies CP/palpitations/nausea/vomiting/ diarrhea or constipation. Denies sick contacts or recent. He has been taking his Albuterol inhaler at home with mild relief in SOB. Patient with history of left renal mass. He was recently admitted to [facility] and had a robot-assisted laparoscopic partial nephrectomy performed on 05/28/[address] Johns. He also had laparoscopic lysis of adhesions and partial small bowel resection performed by General Surgery for release of a SBO. He was discharged home in stable condition on 06/17/17. He states that he has been doing well since then. He has been eating well, moving his bowels. No other complaints at this time. ER Course: Albuterol, Solumedrol, Vancomycin, Zosyn. Allergies Allergy/AdvReac Type Severity Reaction Status Date / Time morphine AdvReac Severe FEELING OF Verified 06/28/18 16:10 "DYING" Home Medications Home Medications Medication Instructions Recorded Confirmed Type albuterol sulfate 3 ml INHALATION Q4 PRN 02/27/18 06/28/18 History amitriptyline 75 mg PO HS 02/27/18 06/28/18 History aripiprazole [Abilify] 20 mg PO QAM 02/27/18 06/28/18 History bupropion HCl 150 mg PO QAM 02/27/18 06/28/18 History escitalopram oxalate 20 mg PO QAM 02/27/18 06/28/18 History fluticasone-vilanterol [Breo 1 inh INHALATION DAILY 02/27/18 06/28/18 History Ellipta] levothyroxine 50 mcg PO QAM 02/27/18 06/28/18 History primidone 50 mg PO QAM 02/27/18 06/28/18 History tiotropium bromide [Spiriva 2 puff INHALATION QAM 03/28/18 06/28/18 History Respimat] albuterol sulfate [Ventolin HFA] 2 puff INHALATION QID PRN 05/20/18 06/28/18 History fluticasone 2 spray INTRANASAL DAILY PRN 05/20/18 06/28/18 History lithium carbonate 2 tab PO QAM 05/20/18 06/28/18 History lithium carbonate 450 mg PO HS 05/20/18 06/28/18 History tamsulosin 0.4 mg PO HS #30 cap 05/31/18 06/28/18 Rx docusate sodium [Colace] 100 mg PO DAILY 06/28/18 06/28/18 History primidone 100 mg PO HS 06/28/18 06/28/18 History Past Med/Surg History Medical History Anxiety Renal mass COPD (chronic obstructive pulmonary disease) STABLE Irritable bowel syndrome Hypoxia Small bowel obstruction (Acute) PARTIAL 03/2018- TREATED CONSERVATIVELY Anemia Depression Hypothyroidism Left renal mass On home oxygen therapy 4L O2 5 TIMES/DAY WITH ACTIVITY Schizo affective schizophrenia FOLLOWS WITH COUNSELOR MONTHLY Surgical History H/O partial nephrectomy S/P small bowel resection History of appendectomy WITH EXPLORATORY SURGERY History of colonoscopy History of tooth extraction Family History Father Diabetes Social History Current Living Situation: Alone Current Living Situation Comment: [facility] Feels Safe at Home: Yes Smoking Status: Former smoker Cigarettes per Day: QUIT 2015; PRIOR 1/2PPD X 45 YEARS Hx Alcohol Use: Yes Alcohol type: hard liquor Alcohol Intake Frequency: 0-2 drinks per day Hx Substance Use: No Beliefs That Will Affect Care: None Preferred Language: Angolan Review of Systems All systems reviewed & are unremarkable except as noted in HPI & below Physical Exam 2 Vital Signs (Past 24 Hours): Last Vital Signs Temp 37.1 C 06/28/18 15:47 Pulse 81 06/28/18 20:44 Resp 18 06/28/18 20:44 BP 97/58 L 06/28/18 20:44 Pulse Ox 95 06/28/18 20:44 Physical Exam: General: patient resting comfortably, NAD, non-toxic in appearance, AA&O x 4, somnolent but arousable, poorly kempt Skin: warm, dry, intact, no rashes or lesions HEENT: NC/AT, PERRL, EOMI, anicteric sclera, conjunctiva without injection, external ear normal to inspection and nontender, nares patent, dry mucus membranes, dentition intact, no oropharyngeal lesions, neck supple, trachea midline, no LAD, no thyromegaly, no JVD Heart: +S1/S2, regular, no m/r/g Lungs: diminished air entry bilaterally, prolonged expiratory phase with diffuse end expiratory wheezes Abd: +BS, soft, NT/ND, no masses/organomegaly/ascites Ext: warm, 2+ pulses in UE/LE bilaterally, no clubbing/cyanosis or edema Neuro: nonfocal, patient AA&O x 4, speech intact, no facial droop, moving all extremities on command with equal strength 5/5 Results & Data Laboratory Results Lab Results 06/28/18 06/28/18 06/28/18 Range/Units 16:12 16:12 16:12 WBC 23.44 H (4.8-10.8) K/uL RBC 3.67 L (4.7-6.1) M/uL Hgb 12.1 L (14.0-18.0) g/dL Hct 37.3 L (42-52) % MCV 101.6 H (80-100) fL MCH 33.0 (25-34) pg MCHC 32.4 (32-36) g/dL RDW Std Deviation 52.2 H (36.4-46.3) fL RDW Coeff of Josie 14.0 (11.5-14.5) % Plt Count 289 (130-400) K/uL MPV 9.2 (7.4-10.4) fL Immature Gran % (Auto) 0.3 % Neut % (Auto) 92.3 % Lymph % (Auto) 2.1 % [place] % (Auto) 4.6 % Eos % (Auto) 0.5 % Baso % (Auto) 0.2 % Immature Gran # (Auto) 0.07 H (0.00-0.02) K/uL Neut # (Auto) 21.64 H (1.4-6.5) K/uL Lymph # (Auto) 0.49 L (1.2-3.4) K/uL [place] # (Auto) 1.08 H (0.11-0.59) K/uL Eos # (Auto) 0.12 (0-0.5) K/uL Baso # (Auto) 0.04 (0-0.2) K/uL VBG pH (7.36-7.41) VBG pCO2 (38-50) mmHg VBG pO2 mmHg VBG HCO3 mmol/L VBG O2 Saturation % VBG Base Excess mEq/L Barometric Pressure mm/Hg Sodium 138 (136-145) mmol/L Potassium 5.1 (3.5-5.1) mmol/L Chloride 104 (98-107) mmol/L Carbon Dioxide 27 (21-32) mmol/L Anion Gap 7.0 (3-11) BUN 32 H (7-18) mg/dl Creatinine 1.35 (0.6-1.4) mg/dl Est Cr Clr Drug Dosing 58.0 ml/min Est GFR ( Amer) 64.3 Est GFR (Non-Af Amer) 55.5 BUN/Creatinine Ratio 23.7 H (10-20) Glucose 244 H (70-99) mg/dl Lactate (0.4-2.0) mmol/L Calcium 7.6 L (8.5-10.1) mg/dl Magnesium 2.2 (1.8-2.4) mg/dl Total Bilirubin 0.2 (0.2-1) mg/dl AST 28 (15-37) U/L ALT 51 (12-78) U/L Alkaline Phosphatase 76 (45-117) U/L Troponin I < 0.015 (0-0.045) ng/ml Total Protein 6.1 L (6.4-8.2) gm/dl Albumin 3.0 L (3.4-5.0) gm/dl Globulin 3.1 (2.5-4.0) gm/dl Albumin/Globulin Ratio 1.0 (0.9-2) Lipase 116 (73-393) U/L [place] 1.2 (0.6-1.2) mmol/L Influenza Type A (PCR) (Neg) Influenza Type B (PCR) (Neg) 06/28/18 06/28/18 06/28/18 Range/Units 17:00 17:28 17:50 WBC (4.8-10.8) K/uL RBC (4.7-6.1) M/uL Hgb (14.0-18.0) g/dL Hct (42-52) % MCV (80-100) fL MCH (25-34) pg MCHC (32-36) g/dL RDW Std Deviation (36.4-46.3) fL RDW Coeff of Josie (11.5-14.5) % Plt Count (130-400) K/uL MPV (7.4-10.4) fL Immature Gran % (Auto) % Neut % (Auto) % Lymph % (Auto) % [place] % (Auto) % Eos % (Auto) % Baso % (Auto) % Immature Gran # (Auto) (0.00-0.02) K/uL Neut # (Auto) (1.4-6.5) K/uL Lymph # (Auto) (1.2-3.4) K/uL [place] # (Auto) (0.11-0.59) K/uL Eos # (Auto) (0-0.5) K/uL Baso # (Auto) (0-0.2) K/uL VBG pH 7.40 (7.36-7.41) VBG pCO2 43 (38-50) mmHg VBG pO2 66 mmHg VBG HCO3 26 mmol/L VBG O2 Saturation 93.0 % VBG Base Excess 1.4 mEq/L Barometric Pressure 729.3 mm/Hg Sodium (136-145) mmol/L Potassium (3.5-5.1) mmol/L Chloride (98-107) mmol/L Carbon Dioxide (21-32) mmol/L Anion Gap (3-11) BUN (7-18) mg/dl Creatinine (0.6-1.4) mg/dl Est Cr Clr Drug Dosing ml/min Est GFR ( Amer) Est GFR (Non-Af Amer) BUN/Creatinine Ratio (10-20) Glucose (70-99) mg/dl Lactate 1.4 (0.4-2.0) mmol/L Calcium (8.5-10.1) mg/dl Magnesium (1.8-2.4) mg/dl Total Bilirubin (0.2-1) mg/dl AST (15-37) U/L ALT (12-78) U/L Alkaline Phosphatase (45-117) U/L Troponin I (0-0.045) ng/ml Total Protein (6.4-8.2) gm/dl Albumin (3.4-5.0) gm/dl Globulin (2.5-4.0) gm/dl Albumin/Globulin Ratio (0.9-2) Lipase (73-393) U/L [place] (0.6-1.2) mmol/L Influenza Type A (PCR) Neg for Influ A (Neg) Influenza Type B (PCR) Neg for Influ B (Neg) Diagnostic Findings XR chest 1V portable CLINICAL HISTORY: Atypical chest pain COMPARISON STUDY: No previous studies for comparison. FINDINGS: The patient is hyperinflated. There is no lobar consolidation. There are right lower lung zone interstitial opacities, consistent with an interstitial inflammatory process or asymmetric interstitial edema. No pleural effusions are visualized. IMPRESSION: 1. Right lower lung zone interstitial opacities, consistent with an interstitial inflammatory process or asymmetric interstitial edema. Electronically signed by: Max Blair M.D. 06/28/2018 4:53 PM Dictated: 06/28/181651 Transcribed: 06/28/181651 Addendum: Correlation is made with a CT scan of the abdomen and pelvis the same day. The queried retroperitoneal/mesenteric mass, likely represents unopacified bowel loops. As stated in the CT report, the examination is difficult to interpret due to the marked paucity of intra-abdominal fat and the lack of bowel opacification Electronically signed by: Max Blair M.D. 06/28/2018 6:[address] ANGIOGRAM OF THE CHEST CLINICAL HISTORY: Atypical chest pain. Possible pulmonary embolism. ANNUAL CHEST X-RAY COMPARISON STUDY: Chest x-ray dated 06/28/2018 TECHNIQUE: Following the IV administration of 93 mL of Optiray-320, CT angiogram of the thorax was performed from the thoracic inlet to the lung bases utilizing the pulmonary embolus protocol. Images are reviewed in the axial, sagittal, and coronal planes. IV contrast was administered without complication. MIP imaging was performed. A dose lowering technique was utilized adhering to the principles of ALARA. CT DOSE: FINDINGS: No pathologically enlarged axillary mediastinal or hilar lymph nodes were visualized. There was no evidence of thoracic aortic dilatation. There were no pulmonary artery filling defects to indicate acute pulmonary embolism. No pleural effusions are visualized. There is severe pulmonary emphysema. There are dependent right lower lobe likely atelectatic although an infectious/inflammatory process cannot be excluded. There are scattered bilateral pulmonary nodules, none of which exceed 4 mm. The visualized portions the upper abdomen reveal an equivocal retroperitoneal/ mesenteric mass encasing superior mesenteric artery branches. IMPRESSION: 1. No evidence of acute pulmonary embolism 2. Severe pulmonary emphysema 3. Scattered tiny bilateral pulmonary nodules, none of which exceed 4 mm. A 12 month follow-up is optional 4. Dependent right basilar opacities statistically atelectatic 5. Equivocal retroperitoneal/mesenteric Electronically signed by: Max Blair M.D. 06/28/2018 6:31 PM Dictated: 06/28/181838 Transcribed: 06/28/181838 CT abd pelvis IV con only CLINICAL HISTORY: Shortness of breath, abdominal pain, leukocytosis. COMPARISON STUDY: 03/28/2018, 02/27/2018 TECHNIQUE: Patient was scanned in a dynamic helical fashion during intravenous administration of 93 cc of Optiray 320. A dose lowering technique was utilized adhering to the principles of ALARA. CT DOSE: 548.45 mGy.cm FINDINGS: Lower chest: There is severe pulmonary emphysema. There are dependent right lower lobe airspace opacities, likely atelectatic. Liver: There is a to small to characterize 5 mm hypodensity within the right lobe of the liver unchanged the prior study and likely benign. Gallbladder: Unremarkable. Spleen: Normal in size and attenuation. Pancreas: Unremarkable. Adrenal glands: Unremarkable. Kidneys: There are postsurgical/posttreatment changes involving the midpole the left kidney. This is the site of a previously suspected renal cell carcinoma. Bowel: Evaluation the bowel is difficult given the lack of orally administered contrast and the diffuse paucity of intra-abdominal fat. There is fecal retention. Clinical correlation regards to constipation is recommended. There are no definite transition zones indicate bowel obstruction. The previously queried retroperitoneal/mesenteric mass likely represents unopacified bowel loops. The appendix is not visualized. There is no acute diverticulitis. Peritoneum: There is no intraperitoneal free air or abdominal ascites. Vasculature: The abdominal aorta is normal in course and caliber. Adenopathy: None. Pelvic viscera: There is mild bladder distention. There is mild prostamegaly Skeletal structures: No destructive osseous lesions are seen. IMPRESSION: 1. Difficult study to interpret due to the lack of orally administered contrast and the marked posterior intra-abdominal fat 2. Dependent right lower lobe airspace opacities likely atelectatic 3. No evidence of bowel obstruction. No evidence of free air 4. The queried possible retroperitoneal/mesenteric mass as described on the chest CT likely reflects unopacified bowel loops 5. Posttreatment changes involving the left kidney 6. Pulmonary emphysema 7. Fecal retention. Correlate clinically in regards to constipation. Electronically signed by: Max Blair M.D. 06/28/2018 6:39 PM Dictated: 06/28/181830 Transcribed: 02/17/19 1831 ECG Additional Comments: Sinus tachycardia Otherwise normal ECG When compared with ECG of 28-MAR-2018 11:04, Criteria for Septal infarct are no longer Present Code Status & VTE Plan Code Status full VTE Prophylaxis Plan VTE Prophylaxis will be ordered: Yes Critical Care Time Critical Care Time: No _ (1) Pneumonia Aspiration pneumonia type: Laterality: right Lung location: lower lobe of lung Pneumonia type: due to unspecified organism Qualified Code(s): J18.1 - Lobar pneumonia, unspecified organism (2) Hypothyroidism Hypothyroidism type: acquired Qualified Code(s): E03.9 - Hypothyroidism, unspecified (3) Schizoaffective disorder Schizoaffective disorder type: unspecified Qualified Code(s): F25.9 - Schizoaffective disorder, unspecified (4) Anemia Anemia type: unspecified type Qualified Code(s): D64.9 - Anemia, unspecified
[2018-06-28] MEDS ORDERED: ALBUTEROL 0.5% NEB SOLN 2.5 MG/0.5 ML VIAL NEB PRN (22:11)
[2018-06-28] MEDS ORDERED: FLUTICASONE PROPIONATE NA SPR 16 GM BTL NAE PRN (22:11)
[2018-06-28] MEDS ORDERED: POLYETHYLENE (MIRALAX) 17 GM PACK PO PRN (22:11)
[2018-06-28] MEDS ORDERED: ACETAMINOPHEN 325 MG TAB PO PRN (22:11)
[2018-06-28] MEDS ORDERED: VANCOMYCIN HCL 1,000 MG in SODIUM CHLORIDE 0.9% 250 ML IV ONE (22:30)
[2018-06-28 22:53] LABS: Phosphorus 2.4 mg/dl (2.5-4.9)
[2018-06-28] MEDS: ALBUT/IPRATROP 3MG/0.5MG NEB 3 ML VIAL NEB SCH (23:00)
[2018-06-28 23:31] LABS: Prothrombin Time 10.5 Seconds (9.0-12.0)
[2018-06-29] MEDS: LITHIUM CARBONATE 450 MG TABCR PO SCH ×2 (00:09→21:52)
[2018-06-29] MEDS: AMITRIPTYLINE HCL 25 MG TAB PO SCH ×2 (00:09→21:50)
[2018-06-29] MEDS: PRIMIDONE 50 MG TAB PO SCH ×3 (00:10→21:51)
[2018-06-29] MEDS: TAMSULOSIN HCL 0.4 MG CAP PO SCH ×2 (00:10→21:50)
[2018-06-29] MEDS: methylPREDNISolone 30 MG in SYRINGE 0 ML IV SCH ×2 (00:11→07:49)
[2018-06-29] MEDS: PIPERACILLIN/TAZOBACTAM 3.375 GM in DEXTROSE 5% 100 ML IV SCH ×4 (00:26→23:27)
[2018-06-29] MEDS: ALBUT/IPRATROP 3MG/0.5MG NEB 3 ML VIAL NEB SCH ×6 (03:00→23:07)
[2018-06-29] MEDS: LEVOTHYROXINE SODIUM 50 MCG TABLET PO SCH (05:40)
[2018-06-29 05:50] LABS: Basophils # (auto) 0.01 K/uL (0-0.2); Hematocrit (blood only) 35.8 % (42-52); Hemoglobin 11.8 g/dL (14.0-18.0); Immature Granulocytes # (auto) 0.07 K/uL (0.00-0.02); Immature Granulocytes % (auto) 0.3 %; Lymphocytes # (auto) 0.62 K/uL (1.2-3.4); Lymphocytes % (auto) 3.1 %; Mean Corpuscular Volume 99.7 fL (80-100); Mean Platelet Volume 9.2 fL (7.4-10.4); Monocytes # (auto) 0.59 K/uL (0.11-0.59); Monocytes % (auto) 2.9 %; Neutrophils # (auto) 19.01 K/uL (1.4-6.5); Neutrophils % (auto) 93.7 %; Platelet Count 270 K/uL (130-400); RDW Coefficient of Variation 13.8 % (11.5-14.5); RDW Standard Deviation 50.3 fL (36.4-46.3); Red Blood Count 3.59 M/uL (4.7-6.1)
[2018-06-29 06:17] LABS: BUN Creatinine Ratio 22.8 (10-20); Calcium 7.8 mg/dl (8.5-10.1); Creatinine Clr Calc Pharmacy 70.5 ml/min; Est GFR (African American) 100.9; Est GFR (Non-African American) 87.1; Potassium 4.3 mmol/L (3.5-5.1)
[2018-06-29] MEDS ORDERED: SODIUM PHOSPHATE 3 MMOL/1 ML INFUSION IV STA (06:28)
[2018-06-29] MEDS ORDERED: SODIUM PHOSPHATE 6 MMOL in 0.9 % SODIUM CHLORIDE 100 ML IV ONE (06:45)
[2018-06-29] MEDS: ENOXAPARIN INJ 40 MG/0.4 ML SYR SQ SCH (07:48)
[2018-06-29] MEDS: LITHIUM CARBONATE SLOW REL 300 MG TAB PO SCH (07:49)
[2018-06-29] MEDS: ESCITALOPRAM OXALATE 20 MG TAB PO SCH (07:49)
[2018-06-29] MEDS: ARIPiprazole 10 MG TAB PO SCH (07:49)
[2018-06-29] MEDS: DOCUSATE SODIUM 100 MG CAP PO SCH (07:49)
[2018-06-29] MEDS: BuPROPion SR 150 MG TABCR PO SCH (07:49)
[2018-06-29] MEDS ORDERED: VANCOMYCIN HCL 1,000 MG in SODIUM CHLORIDE 0.9% 250 ML IV SCH (12:00)
--- NOTE | 2018-06-29 12:24 | Hospitalist Progress Note ---
Date of Service June 29, 2018 Assessment & Plan (1) COPD exacerbation: Patient with 2-3 days progressive shortness of breath. Diffuse wheezing on physical exam with prolonged expiratory phase continues. Maintaining saturation. CT chest on 06/28 showed right basilar opacities with elevated WBC. Treating for pneumonia as well (see below). - Continue Zosyn - Continue DuoNebs q 4 hours - Continue Albuterol q2hr PRN - Switch steroid to oral - Supplemental O2 as needed (2) Pneumonia: CTA chest on 06/28 showed possible PNA vs atelectasis. Patient with initial leukocytosis, WBC=23.4 on admission. Procalcitonin was 0.17 on admission. Sputum Gram stain from 06/29 showed many Gram(-) coccobaccili. MRSA swab from 06/29 negative. - Follow sputum culture - Follow results of blood cultures from 06/28 - Empiric antibiotics with Zosyn (3) Anxiety: Patient calm presently. - Continued escitalopram - Continued Bupropion (4) Hypothyroidism: Chronic. No signs of hypo-/hyperthyroidism. - Continued home Synthroid 50 mcg (5) Schizoaffective disorder: Stable mood and affect. Patient appropriate. 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 - Continued [place], level therapeutic - Continued Abilify - Continued Amitryptyline - Delirium prevention strategies (6) Anemia: Macrocytic anemia. Hemoglobin near baseline of 12. No active bleeding. B12 and folate were checked in May 2017 and were within normal limits. (7) DVT prophylaxis: Lovenox 40mg daily Subjective Feeling better today. Almost 100% improved from respiratory standpoint. Reports no fevers/chills, chest pain, abdominal pain, nausea, or vomiting. Physical Exam 2 Vital Signs (Past 24 Hours): Last Vital Signs Temp 36.7 C 06/29/18 07:36 Pulse 65 06/29/18 11:02 Resp 14 06/29/18 11:02 BP 97/58 L 06/29/18 09:48 Pulse Ox 94 06/29/18 11:02 Constitutional: WD/WN, vitals as above Eyes: EOM intact bilaterally; no conjunctival abnormality ENMT: external ear and nose normal, oropharynx normal Neck: trachea midline, no thyromegaly normal visual inspection Respiratory: + labored breathing; no respiratory distress Auscultation: + wheezes (Diffuse) Cardiovascular: RRR, no murmur, no edema Gastrointestinal (Abdomen): Inspection/Auscultation: abdomen normal to inspection; abdomen not distended Musculoskeletal: no cyanosis or clubbing, extremities motor strength 5/5 Skin: no rashes, warm and dry Neurologic: moves all extremities and awake Psychiatric: Orientation: alert, oriented to person and cooperative _ (1) Pneumonia Aspiration pneumonia type: Laterality: right Lung location: lower lobe of lung Pneumonia type: due to unspecified organism Qualified Code(s): J18.1 - Lobar pneumonia, unspecified organism (2) Hypothyroidism Hypothyroidism type: acquired Qualified Code(s): E03.9 - Hypothyroidism, unspecified (3) Schizoaffective disorder Schizoaffective disorder type: unspecified Qualified Code(s): F25.9 - Schizoaffective disorder, unspecified (4) Anemia Anemia type: unspecified type Iron deficiency anemia type: Vitamin B12 deficiency anemia type: Folate deficiency anemia type: Bone marrow failure anemia type: Hemolytic anemia type: Other causes of anemia: Chronic kidney disease stage: Qualified Code(s): D64.9 - Anemia, unspecified
[2018-06-30] MEDS: ALBUT/IPRATROP 3MG/0.5MG NEB 3 ML VIAL NEB SCH ×3 (03:20→10:44)
[2018-06-30] MEDS: LEVOTHYROXINE SODIUM 50 MCG TABLET PO SCH (06:03)
[2018-06-30 06:52] LABS: Hematocrit (blood only) 36.5 % (42-52); Hemoglobin 11.8 g/dL (14.0-18.0); Mean Corpuscular Hgb Conc 32.3 g/dL (32-36); Mean Corpuscular Volume 99.2 fL (80-100); Mean Platelet Volume 9.5 fL (7.4-10.4); Platelet Count 284 K/uL (130-400); RDW Coefficient of Variation 14.1 % (11.5-14.5); RDW Standard Deviation 50.7 fL (36.4-46.3); Red Blood Count 3.68 M/uL (4.7-6.1); White Blood Count 13.06 K/uL (4.8-10.8)
[2018-06-30] MEDS: ENOXAPARIN INJ 40 MG/0.4 ML SYR SQ SCH (07:25)
[2018-06-30] MEDS: LITHIUM CARBONATE SLOW REL 300 MG TAB PO SCH (07:25)
[2018-06-30] MEDS: PIPERACILLIN/TAZOBACTAM 3.375 GM in DEXTROSE 5% 100 ML IV SCH (07:25)
[2018-06-30 07:26] LABS: Creatinine Clr Calc Pharmacy 63.6 ml/min; Est GFR (African American) 89.2; Est GFR (Non-African American) 76.9
[2018-06-30] MEDS: ARIPiprazole 10 MG TAB PO SCH (07:26)
[2018-06-30] MEDS: BuPROPion SR 150 MG TABCR PO SCH (07:26)
[2018-06-30] MEDS: ESCITALOPRAM OXALATE 20 MG TAB PO SCH (07:26)
[2018-06-30] MEDS: DOCUSATE SODIUM 100 MG CAP PO SCH (07:26)
[2018-06-30] MEDS: PRIMIDONE 50 MG TAB PO SCH (07:29)
--- NOTE | 2018-06-30 15:34 | Discharge Summary ---
Date of Service June 30, 2018 Admission HPI Per Admitting Provider Mr. Moore is a 63yo male with history of COPD presenting with 2-3 days of progressive shortness of breath. He states he has been wheezing more as well. Denies, cough/fevers/chills/sweats. Denies CP/palpitations/nausea/vomiting/ diarrhea or constipation. Denies sick contacts or recent. He has been taking his Albuterol inhaler at home with mild relief in SOB. Patient with history of left renal mass. He was recently admitted to [facility] and had a robot-assisted laparoscopic partial nephrectomy performed on 05/28/[address] Johns. He also had laparoscopic lysis of adhesions and partial small bowel resection performed by General Surgery for release of a SBO. He was discharged home in stable condition on 06/17/17. He states that he has been doing well since then. He has been eating well, moving his bowels. No other complaints at this time. ER Course: Albuterol, Solumedrol, Vancomycin, Zosyn. Principal Diagnosis COPD exacerbation, possibly due to pneumonia Discharge Exam Constitutional WD/WN, vitals as above Eyes EOM intact bilaterally; no conjunctival abnormality ENMT external ear and nose normal, oropharynx normal Neck trachea midline, no thyromegaly normal visual inspection Respiratory + labored breathing; no respiratory distress Auscultation: + wheezes (Diffuse) Cardiovascular RRR, no murmur, no edema Gastrointestinal (Abdomen) Inspection/Auscultation: abdomen normal to inspection; abdomen not distended Musculoskeletal no cyanosis or clubbing, extremities motor strength 5/5 Skin no rashes, warm and dry Neurologic moves all extremities and awake Psychiatric Orientation: alert, oriented to person and cooperative Discharge Data Allergies Allergy/AdvReac Type Severity Reaction Status Date / Time morphine AdvReac Severe FEELING OF Verified 06/28/18 16:10 "DYING" Consultations 06/28/18 19:37 ED Decision to Admit Stat Ordered Studies 06/28/18 17:19 CT angio chest PE protocol Stat 06/28/18 17:49 CT abd pelvis IV con only Stat Hospital Course (1) COPD exacerbation: Patient with 2-3 days progressive shortness of breath. Diffuse wheezing on physical exam with prolonged expiratory phase on admission. CT chest on showed right basilar opacities with elevated WBC. Treating for pneumonia as well (see below). - Zosyn inpatient -> Switched to Augmentin on discharge x 3 more days. - IV switched to oral steroid on discharge. - Sputum culture from 06/28 grew moderate Gram(-) coccobacilli, possibly H. influenza. Antibiotic should cover this, will follow final culture read and reach out if not sensitive to Augmentin. - Discussed good inhaler usage (2) Pneumonia: CTA chest on 06/28 showed possible PNA vs atelectasis. Patient with initial leukocytosis, WBC=23.4 on admission. Procalcitonin was 0.17 on admission. Sputum Gram stain from 06/29 showed many Gram(-) coccobaccili. MRSA swab from 06/29 negative. - Follow sputum culture (see above) - Follow results of blood cultures from 06/28; no growth on discharge. (3) Anxiety: Patient calm presently. - Continued escitalopram - Continued Bupropion (4) Hypothyroidism: Chronic. No signs of hypo-/hyperthyroidism. - Continued home Synthroid 50 mcg (5) Schizoaffective disorder: Stable mood and affect. Patient appropriate. Has outpatient mental health case checker. - Continued [place], level therapeutic - Continued Abilify - Continued Amitryptyline - Delirium prevention strategies (6) Anemia: Macrocytic anemia. Hemoglobin near baseline of 12. No active bleeding. B12 and folate were checked in May 2017 and were within normal limits. (7) DVT prophylaxis: Lovenox 40mg daily Total Time Total Time Spent Total Time Spent (In Minutes): 40 Total Time Includes: Examination of the Patient, Discharge Planning and Medication Reconciliation Discharge Plan Discharge Items Patient Disposition: Home - Self-Care Reason For Visit: COPD EXACERBATION Discharge Diagnosis: COPD exacerbation Condition: Good Discharge Goals: Decrease discomfort and Improve function Activity: Resume your previous activity Non-emergency contact: Primary Care Provider and [employer] Call non-emergency contact if: your symptoms worsen and your temperature is above 100.5 Follow-up/Referrals: Dane Gonzalez MD [Primary Care Provider] - 07/07/18 2:30 pm (Please, follow up with Dr. Gonzalez on FridayJuly 07 at 2:30 pm. *If you need to change this appointment, call the office at [phone].) Mustapha Valdez DO [Physician] - 07/10/18 8:45 am (Please, follow up at [facility] Pulmonology Office with Dr. Valdez's retail assistant, Xiomara Duke PA-C, on FridayJuly 10 at 8:45 am. *This office is located in [address] of [facility] - big building next to this hospital. If you need to change this appointment, call the office at [phone].) Diet: Regular Addtl Provider Instructions: Mr. Moore, You were admitted to the hospital for shortness of breath that we were concerned was a COPD exacerbation. We were also worried about an area of possible pneumonia on your chest CT scan. We gave you antibiotics and breathing treatments, and your breathing got better in 2 days. We are discharging you on a few more days worth of antibiotics, and we feel your breathing will continue to improve. Take your first dose of antibiotic (Augmentin) tonight, then twice a day until it is gone. I am also giving you a few days of steroids to help reduce the lung inflammation. Take your first dose (2 tablets) tomorrow morning, then take it until it is gone. As we discussed, you should take the Breo Ellipta and the Spiriva every day. These are "maintenance medications" which are meant to make every day's breathing better. They are not meant to be only used when your breathing is bad. They will help you feel better every day. The inhalers that we talked about (the ProAir and Ventolin inhalers) and your nebulizer are all "rescue" medications. (They are all albuterol as the active medication.) They are meant to help improve your breathing when you are feeling extra shortness of breath while at work. Please come back to the hospital if you are having more shortness of breath, cough, fevers, pain, or other concerning symptoms. Prescriptions: New prednisone 20 mg tablet 40 mg PO DAILY 3 Days Qty: 6 RF: 0 amoxicillin-pot clavulanate [Augmentin] 875-125 mg tablet 1 tab PO BID Qty: 6 RF: 0 Continue tiotropium bromide [Spiriva Respimat] 1.25 mcg/actuation Mist 2 puff Inhalation QAM RF: 0 aripiprazole [Abilify] 20 mg Tablet 20 mg PO QAM RF: 0 albuterol sulfate 2.5 mg /3 mL (0.083 %) Solution For Nebulization 3 ml Inhalation Q4 PRN (Reason: Shortness Of Breath Or Wheezing) RF: 0 amitriptyline 75 mg Tablet 75 mg PO HS RF: 0 fluticasone-vilanterol [Breo Ellipta] 200-25 mcg/dose Blister With Device 1 inh INHALATION DAILY RF: 0 bupropion HCl 150 mg Tablet Sustained-Release 12 Hr 150 mg PO QAM RF: 0 escitalopram oxalate 20 mg Tablet 20 mg PO QAM RF: 0 levothyroxine 50 mcg Tablet 50 mcg PO QAM RF: 0 primidone 50 mg Tablet 50 mg PO QAM RF: 0 lithium carbonate 450 mg Tablet Extended Release 450 mg PO HS RF: 0 lithium carbonate 300 mg tablet extended release 2 tab PO QAM RF: 0 albuterol sulfate [Ventolin HFA] 90 mcg/actuation Hfa Aerosol Inhaler 2 puff INHALATION QID PRN (Reason: SHORT OF BREATH) RF: 0 fluticasone 50 mcg/actuation [place],Suspension 2 spray INTRANASAL DAILY PRN (Reason: Congestion) RF: 0 tamsulosin 0.4 mg capsule 0.4 mg PO HS Qty: 30 RF: 2 primidone 50 mg Tablet 100 mg PO HS RF: 0 docusate sodium [Colace] 100 mg capsule 100 mg PO DAILY RF: 0 Stand-Alone Forms: [facility] Discharge Orders: Discharge Order (Routine); Ordered 06/30/18 Ordered By: Mike Johns Admission Data Admit Date/Time: 06/28/18 20:55 Attending Provider: Mike Johns Admit Provider: Eliza Melendez Primary Care Provider: Dane Gonzalez Other Providers: Mike Johns Service: Medical Other Interventions: Discharge Summary Assessment (RN) Last Done: 06/30/18 13:43 DC Date/Time DO NOT enter until pt leaves facility: 06/30/18 14:20
== END 2018-06-30 14:20 | disposition home or self-care (01) | DRG 190 ==
LOC: ED 15:34 → 4W 20:55 → SUATTDRO 20:55 → 4W 21:42

== ENCOUNTER 2018-10-14 13:34 | Inpatient (IN) ==
[2018-10-14] MEDS ORDERED: ALBUT/IPRATROP 3MG/0.5MG NEB 3 ML VIAL INH STA (13:50)
[2018-10-14] MEDS ORDERED: LEVOFLOXACIN/D5W 750 MG/150 ML BAG IV SCH (14:00)
[2018-10-14] MEDS ORDERED: SODIUM CHLORIDE 0.9% 1000ML 1,000 ML IV SCH (14:00)
[2018-10-14] MEDS: MAGNESIUM SULFATE / D5W 1 GM/100 ML BAG IV SCH ×2 (14:07→14:49)
--- NOTE | 2018-10-14 14:22 | XRay Report ---
XR chest 1V portable HISTORY: 63 years-old Male Dyspnea acute shortness of breath COMPARISON: Chest radiograph 06/28/2018, CTA chest 06/28/2018 TECHNIQUE: Portable AP view the chest FINDINGS: Cardiac silhouette is normal in size. Severe emphysema with chronic interstitial coarsening. Patchy a lveolar opacities of the right infrahilar lung and right lung base. Degenerative changes of the shoul ders and spine. No pneumothorax or large pleural effusion. IMPRESSION: 1. Alveolar opacities of the right infrahilar lung and right lung base are suggestive of pneumonia or aspiration pneumonitis. Follow-up imaging to document resolution is recommended. 2. Severe emphysema with chronic interstitial coarsening. The above report was generated using voice recognition software. It may contain grammatical, syntax o r spelling errors. Electronically signed by: Giovanny Raza M.D. 10/14/2018 2:21 PM
[2018-10-14 14:26] LABS: Oxygen Saturation VBG 89.2 %; pH VBG 7.4 (7.36-7.41)
[2018-10-14 14:30] LABS: Basophils # (auto) 0.03 K/uL (0-0.2); Basophils % (auto) 0.2 %; Eosinophils # (auto) 0.13 K/uL (0-0.5); Eosinophils % (auto) 0.9 %; Hematocrit (blood only) 39.3 % (42-52); Hemoglobin 13.2 g/dL (14.0-18.0); Immature Granulocytes # (auto) 0.03 K/uL (0.00-0.02); Immature Granulocytes % (auto) 0.2 %; Lymphocytes # (auto) 0.95 K/uL (1.2-3.4); Lymphocytes % (auto) 6.9 %; Mean Corpuscular Hgb Conc 33.6 g/dL (32-36); Mean Platelet Volume 9.8 fL (7.4-10.4); Monocytes # (auto) 0.57 K/uL (0.11-0.59); Monocytes % (auto) 4.2 %; Neutrophils # (auto) 11.99 K/uL (1.4-6.5); Neutrophils % (auto) 87.6 %; Platelet Count 298 K/uL (130-400); RDW Coefficient of Variation 14.3 % (11.5-14.5); RDW Standard Deviation 51.2 fL (36.4-46.3); Red Blood Count 4.05 M/uL (4.7-6.1)
[2018-10-14 14:42] LABS: Partial Thromboplastin Ratio 0.8; Partial Thromboplastin Time 20.8 Seconds (21.0-31.0); Prothrombin Time 10.1 Seconds (9.0-12.0)
[2018-10-14 14:48] LABS: Alanine Aminotransferase 26 U/L (12-78); Albumin Level 3.2 gm/dl (3.4-5.0); Aspartate Aminotransferase 17 U/L (15-37); BUN Creatinine Ratio 31.9 (10-20); Blood Urea Nitrogen 35 mg/dl (7-18); Calcium 8.6 mg/dl (8.5-10.1); Carbon Dioxide 26 mmol/L (21-32); Chloride 106 mmol/L (98-107); Creatinine Clr Calc Pharmacy 59.3 ml/min; Est GFR (African American) 81.5; Est GFR (Non-African American) 70.3; Glucose 132 mg/dl (70-99); Magnesium 2.2 mg/dl (1.8-2.4); Sodium 139 mmol/L (136-145)
[2018-10-14 14:53] LABS: Albumin Globulin Ratio 1.2 (0.9-2); Alkaline Phosphatase 70 U/L (45-117); Bilirubin,Total 0.2 mg/dl (0.2-1); Globulin 2.8 gm/dl (2.5-4.0); Troponin I < 0.015 ng/ml (0-0.045)
--- NOTE | 2018-10-14 15:20 | History & Physical Report ---
Date of Service October 14, 2018 Assessment & Plan (1) Acute and chronic respiratory failure with hypoxia: (2) COPD (chronic obstructive pulmonary disease): (3) COPD exacerbation: - Admit to med surg with tele - Likely emphysema mixed with chronic respiratory failure. - Hr elevated in low 100s, possibly secondary to albuterol - Solumedrol IV 60 mg Q8h now - pt received levaquin in the ER, will continue on azithromycin for antiinflammatory properties - no QT prolongation on EKG. - CXR appears more fibrotic vs infectious but will cover for possible superimposed infection 1. Alveolar opacities of the right infrahilar lung and right lung base are suggestive of pneumonia or aspiration pneumonitis. Follow-up imaging to document resolution is recommended. 2. Severe emphysema with chronic interstitial coarsening. - WBC minimally elevated 13.7, will trend with am cbc - Continue levalbuterol Q4H and prn sob - Pulmonology consulted, follows with Dr. Valdez as an outpt. - Typically wears 2-5 L O2 with exertion and via oximask as he is a mouth breather, does not wear at night however he would likely benefit from continuous O2. (4) Hypothyroidism: - Continue levothyroxine (5) Schizoaffective disorder: - Continue on multiple psychotropic medications - reviewed with the patient at beside. - Follows with Cristina at [facility] as outpatient - Pt does not currently see a counselor but I have recommended that he follow up with one at [place] as there are counselors there. - Cont abilify 20 mg daily, lexapro 10 mg daily, wellbutrin 150 mg daily, lithium 600 mg QAM and 450 QPM, zoloft 50 mg QAM. Pt reports lexapro was reduced by half and zoloft was started about 1 month ago - possible that he is weaning between medications. - Continue primidone 150 mg HS for benign essential tremor (6) Anxiety: - Meds as above. (7) Anemia: - Hgb stable at 13.2, follow am cbc (8) DVT prophylaxis: - teds, scds, lovenox subq History of Present Illness Primary Care Provider: Viral Gonzalez MD This is a 63 yo M with PMHx of COPD, acute on chronic hypoxic respiratory failure, schizoaffective disorder, anxiety, depression who presents with acute onset of hypoxia. Patient woke up this morning was feeling extremely short of breath like he could not breathe deeply therefore called EMS. Patient denies any recent cough, sputum production, sick contacts, fever, chills. He does take Ventolin and Brio Ellipta inhalers regularly and use them today. Patient did not take any of his other morning medication. He states his breathing has improved since being in the ER. He received a dose of Levaquin IV. Patient denies any chest pain, palpitation, flutter, heaviness, headache. 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 Allergies Allergy/AdvReac Type Severity Reaction Status Date / Time morphine AdvReac Severe FEELING OF Verified 10/14/18 14:35 "DYING" Home Medications Home Medications Medication Instructions Recorded Confirmed Type Breo Ellipta 1 inh INHALATION HS 02/27/18 10/14/18 History albuterol sulfate 3 ml INHALATION Q4 PRN 02/27/18 10/14/18 History amitriptyline 75 mg PO HS 02/27/18 10/14/18 History aripiprazole [Abilify] 20 mg PO QAM 02/27/18 10/14/18 History bupropion HCl 150 mg PO QAM 02/27/18 10/14/18 History escitalopram oxalate 10 mg PO QAM 02/27/18 10/14/18 History levothyroxine 50 mcg PO QAM 02/27/18 10/14/18 History primidone 50 mg PO QPM 02/27/18 10/14/18 History Spiriva Respimat 2 puff INHALATION QAM 03/28/18 10/14/18 History albuterol sulfate [Ventolin HFA] 2 puff INHALATION QID PRN 05/20/18 10/14/18 History fluticasone propionate 2 spray INTRANASAL DAILY PRN 05/20/18 10/14/18 History lithium carbonate 2 tab PO QAM 05/20/18 10/14/18 History lithium carbonate 450 mg PO HS 05/20/18 10/14/18 History primidone 100 mg PO HS 06/28/18 10/14/18 History Zoloft 50 mg PO DAILY 10/14/18 10/14/18 History Past Med/Surg History Medical History Acute and chronic respiratory failure with hypoxia Anxiety Renal mass COPD (chronic obstructive pulmonary disease) STABLE Irritable bowel syndrome Hypoxia Small bowel obstruction (Acute) PARTIAL 03/2018- TREATED CONSERVATIVELY Anemia Depression Hypothyroidism Left renal mass On home oxygen therapy 4L O2 5 TIMES/DAY WITH ACTIVITY Schizo affective schizophrenia FOLLOWS WITH COUNSELOR MONTHLY Surgical History H/O partial nephrectomy left History of appendectomy WITH EXPLORATORY SURGERY History of colonoscopy History of tooth extraction Hx of inguinal hernia repair S/P small bowel resection Family History Father Diabetes Other No family history of adverse response to anesthesia Social History Preferred Language: British Communication Ability: Effective Visual Impairment: Limited Beliefs That Will Affect Care: None Current Living Situation: Alone Current Living Situation Comment: [facility] Feels Safe at Home: Yes Smoking Status: Former smoker Cigarettes Per Day: QUIT 2015; PRIOR 1/2PPD X 45 YEARS Second Hand Exposure: No Hx Alcohol Use: Yes Alcohol type: other Hx Substance Use: No Review of Systems Review of Systems: Constitutional: No fever, sweats or chills Eyes: No diplopia, no worsening or blurred vision ENT: normal hearing, no trouble swallowing Respiratory: As per HPI. + Breathing currently improved. No cough, sputum, dyspnea at rest or on exertion Cardiovascular: No chest pain, tightness or palpitations Abdomen: No pain, nausea, vomiting, diarrhea or constipation Musculoskeletal: No joint pain, calf pain, swelling Neurologic: No weakness, numbness/tingling, or balance problems Psychiatric: No anxiety or depression Skin: No rash or itch Physical Exam Physical Exam: General: awake, alert, no apparent distress Head: Normocephalic, atraumatic ENT: PERRL, EOMI, no pharyngeal exudate, mucous membranes moist Chest: on 5 L via NC, + expiratory wheeze, barrel chest, no rhonchi or rales. Cardiac: Regular rhythm, mildly tachycardic with heart rate at 103 at bedside, no murmur, no JVD, normal peripheral pulses, good capillary refill Abdominal: NABS x 4 quadrants, soft, nontender to palpation, no rebound, guarding or tenderness Extremities: Normal inspection, no peripheral edema or erythema, calfs nontender to palpation Psych: Pleasant mood and affect, fast speaking Neuro: AAO x 3, strength intact bilaterally and related 5/5, no motor deficits, speech is clear, no peripheral sensory deficits Skin: no rash or erythema Results & Data Vital Signs (Past 12 Hours) Vital Signs Temp Pulse Pulse Resp BP Pulse Ox 10/14/18 14:31 103 H 23 97 10/14/18 14:30 104 H 23 108/66 97 10/14/18 14:18 103 H 26 H 90 10/14/18 14:17 102 H 29 H 115/70 93 10/14/18 14:00 111 H 24 88 L 10/14/18 13:50 36.9 C 107 H 22 115/87 91 10/14/18 13:45 111 H 23 90 10/14/18 13:42 91 10/14/18 13:40 112 H 22 115/87 91 Diagnostic Findings XR chest 1V portable HISTORY: 63 years-old Male Dyspnea acute shortness of breath COMPARISON: Chest radiograph 06/28/2018, CTA chest 06/28/2018 TECHNIQUE: Portable AP view the chest FINDINGS: Cardiac silhouette is normal in size. Severe emphysema with chronic interstitial coarsening. Patchy alveolar opacities of the right infrahilar lung and right lung base. Degenerative changes of the shoulders and spine. No pneumothorax or large pleural effusion. IMPRESSION: 1. Alveolar opacities of the right infrahilar lung and right lung base are suggestive of pneumonia or aspiration pneumonitis. Follow-up imaging to document resolution is recommended. 2. Severe emphysema with chronic interstitial coarsening. Code Status & VTE Plan Code Status Full code -discussed with the patient at bedside. Supervising Physician Co-Signing Physician Notes The patient was seen and examined by me and I agree with the assessment and plan done by Magy Horta PA-C. The patient states his shortness of breath started this morning. He denies any cough, fever, chills. He has no acid reflux symptoms or aspiration. Lung sounds are diminished bilaterally with howell expiratory wheezes. Few midline rhonchi with forced cough. No dullness to percussion. No inspiratory rales. Heart rhythm is regular and slightly tachycardic. No significant murmur. Abdomen soft and active bowel sounds, nontender. Extremities reveal no cyanosis clubbing or edema. He appears to have acute exacerbation COPD with acute on chronic respiratory failure. There may be an element of acute bronchitis and he will be treated with a azithromycin in addition to nebulizer treatments and intravenous Solu-Medrol. He has oxygen at home that he uses as needed. Hopefully the oxygen can be weaned off as he improves. (1) Anemia Anemia type: unspecified type Qualified Code(s): D64.9 - Anemia, unspecified (2) Hypothyroidism Hypothyroidism type: acquired Qualified Code(s): E03.9 - Hypothyroidism, unspecified (3) Schizoaffective disorder Schizoaffective disorder type: unspecified Qualified Code(s): F25.9 - Schizoaffective disorder, unspecified (4) COPD (chronic obstructive pulmonary disease) COPD type: emphysema Emphysema type: unspecified Qualified Code(s): J43.9 - Emphysema, unspecified
[2018-10-14] MEDS ORDERED: ONDANSETRON INJ 2 MG/ML 2 ML VIAL IV PRN (15:36)
[2018-10-14] MEDS ORDERED: ACETAMINOPHEN 325 MG TAB PO PRN (15:36)
[2018-10-14] MEDS ORDERED: methylPREDNISolone 60 MG in SYRINGE 0 ML IV SCH (16:00)
[2018-10-14] MEDS ORDERED: LEVALBUTEROL 1.25MG/0.5ML NEB NEB PRN (16:17)
[2018-10-14] MEDS ORDERED: FLUTICASONE PROPIONATE NA SPR 16 GM BTL NAE PRN (16:39)
[2018-10-14] MEDS ORDERED: AZITHROMYCIN 250 MG TAB PO ONE (16:39)
--- NOTE | 2018-10-14 18:13 | Emergency Department Note ---
Entered by Sung Oropeza acting as a scribe for Darrion Gomez MD History of Present Illness General Chief complaint: Shortness of Breath/Dyspnea Time Seen by Provider: 10/14/18 13:42 Source: patient History of Present Illness Onset (ago): minute(s) 30 Location: chest (lungs) Pain Consistency: + constant Quality: + other (shortness of breath) Associated symptoms: + other (appeared blue); no chest pain, no cough and no fever/chills The patient is a 63 year old white male with PMHx COPD, hypothyroidism, schizoaffective disorder, and bowel obstruction who presents to the Emergency Room with complaints of constant shortness of breath beginning 30 minutes ago. The patient reports that he was short of breath after waking up from a nap today. He states that he took an inhaler at home and was told by EMS that he appeared blue. He was given Solu-Medrol and Duoneb by EMS prior to arrival. He denies coughing, fevers, chest pain, history of blood clots, recent travel, leg swelling, abdominal pain, missed medication doses, or recent changes in medications. He states that he does not usually wear oxygen at home, although he occasionally will wear up to 4-5L. He reports that he does not wear CPAP at [facility] and does not have a pulse oximeter. The patient was admitted in June for pneumonia and COPD exacerbation, and he denies any other recent admissions. He states that his skirt maker is Dr. Valdez. Home Medications Home Medications Medication Instructions Recorded Confirmed Type Breo Ellipta 1 inh INHALATION HS 02/27/18 10/14/18 History albuterol sulfate 3 ml INHALATION Q4 PRN 02/27/18 10/14/18 History amitriptyline 75 mg PO HS 02/27/18 10/14/18 History aripiprazole [Abilify] 20 mg PO QAM 02/27/18 10/14/18 History bupropion HCl 150 mg PO QAM 02/27/18 10/14/18 History escitalopram oxalate 10 mg PO QAM 02/27/18 10/14/18 History levothyroxine 50 mcg PO QAM 02/27/18 10/14/18 History primidone 50 mg PO QPM 02/27/18 10/14/18 History Spiriva Respimat 2 puff INHALATION QAM 03/28/18 10/14/18 History albuterol sulfate [Ventolin HFA] 2 puff INHALATION QID PRN 05/20/18 10/14/18 History fluticasone propionate 2 spray INTRANASAL DAILY PRN 05/20/18 10/14/18 History lithium carbonate 2 tab PO QAM 05/20/18 10/14/18 History lithium carbonate 450 mg PO HS 05/20/18 10/14/18 History primidone 100 mg PO HS 06/28/18 10/14/18 History Zoloft 50 mg PO DAILY 10/14/18 10/14/18 History Allergies Allergy/AdvReac Type Severity Reaction Status Date / Time morphine AdvReac Severe FEELING OF Verified 10/14/18 14:35 "DYING" Past Med/Surg History Medical History Acute and chronic respiratory failure with hypoxia Anxiety Renal mass COPD (chronic obstructive pulmonary disease) STABLE Irritable bowel syndrome Hypoxia Small bowel obstruction (Acute) PARTIAL 03/2018- TREATED CONSERVATIVELY Anemia Depression Hypothyroidism Left renal mass On home oxygen therapy 4L O2 5 TIMES/DAY WITH ACTIVITY Schizo affective schizophrenia FOLLOWS WITH COUNSELOR MONTHLY Surgical History H/O partial nephrectomy left History of appendectomy WITH EXPLORATORY SURGERY History of colonoscopy History of tooth extraction Hx of inguinal hernia repair S/P small bowel resection Family History Father Diabetes Other No family history of adverse response to anesthesia Social History Preferred Language: Estonian Communication Ability: Effective Visual Impairment: Limited Pelt [place] Required: No Beliefs That Will Affect Care: None Current Living Situation: Alone Current Living Situation Comment: [facility] Other Information That Helps Us Care for You: No Feels Safe at Home: Yes Safety Concerns: Feels Safe At This Time Smoking Status: Former smoker Tobacco Type: cigarettes Cigarettes Per Day: 10 Do You Dip or Chew Tobacco: No Smoking End Date: 2015 Second Hand Exposure: No Tobacco Cessation Education Requested by Patient: No Hx Alcohol Use: Yes Alcohol type: hard liquor Hx Substance Use: No Review of Systems See HPI for pertinent positives & negatives. and A total of 10 systems reviewed and were otherwise negative Physical Exam Vital Signs Vital Signs - 24 hr 10/14/18 13:40 10/14/18 13:42 10/14/18 13:44 Temperature Temperature Source Sepsis Recent Fever Within 48 Hours Sepsis Action Taken by Nursing Pulse Rate 112 H Pulse Rate [Right Finger] Pulse Rate from SpO2 Sensor 113 H Respiratory Rate 22 Respiratory Effort / Characteristics Labored Respiratory Depth Normal Respiratory Pattern Regular Blood Pressure 115/87 Blood Pressure Mean 96 Pulse Oximetry 91 91 Oxygen Delivery Method Nasal Cannula Nasal Cannula Oxygen Flow Rate 3 4 10/14/18 13:45 10/14/18 13:50 10/14/18 14:00 Temperature 36.9 C Temperature Source Oral Sepsis Recent Fever Within 48 Hours No Sepsis Action Taken by Nursing No Action Required Pulse Rate 111 H 107 H 111 H Pulse Rate [Right Finger] Pulse Rate from SpO2 Sensor 111 H 112 H Respiratory Rate 23 22 24 Respiratory Effort / Characteristics Labored Respiratory Depth Normal Respiratory Pattern Regular Blood Pressure 115/87 Blood Pressure Mean 96 Pulse Oximetry 90 91 88 L Oxygen Delivery Method Nasal Cannula Oxygen Flow Rate 4 10/14/18 14:17 10/14/18 14:18 10/14/18 14:30 Temperature Temperature Source Sepsis Recent Fever Within 48 Hours Sepsis Action Taken by Nursing Pulse Rate 102 H 104 H Pulse Rate [Right Finger] 103 H Pulse Rate from SpO2 Sensor 102 H 104 H Respiratory Rate 29 H 26 H 23 Respiratory Effort / Characteristics Spontaneous Respiratory Depth Respiratory Pattern Blood Pressure 115/70 108/66 Blood Pressure Mean 85 80 Pulse Oximetry 93 90 97 Oxygen Delivery Method Nasal Cannula Oxygen Flow Rate 5 10/14/18 14:31 10/14/18 15:00 10/14/18 15:01 Temperature Temperature Source Sepsis Recent Fever Within 48 Hours Sepsis Action Taken by Nursing Pulse Rate 103 H 103 H 103 H Pulse Rate [Right Finger] Pulse Rate from SpO2 Sensor 103 H 103 H 103 H Respiratory Rate 23 24 22 Respiratory Effort / Characteristics Respiratory Depth Respiratory Pattern Blood Pressure 106/63 Blood Pressure Mean 77 Pulse Oximetry 97 100 100 Oxygen Delivery Method Oxygen Flow Rate 10/14/18 15:30 10/14/18 15:31 Temperature Temperature Source Sepsis Recent Fever Within 48 Hours Sepsis Action Taken by Nursing Pulse Rate 104 H 107 H Pulse Rate [Right Finger] Pulse Rate from SpO2 Sensor 104 H 106 H Respiratory Rate 23 27 H Respiratory Effort / Characteristics Respiratory Depth Respiratory Pattern Blood Pressure 105/59 L Blood Pressure Mean 74 Pulse Oximetry 95 95 Oxygen Delivery Method Oxygen Flow Rate GENERAL: Moderate distress, tachypneic, non-toxic, thin in appearance, wearing glasses. EYE EXAM: Normal conjunctiva. PERRL, no anisocoria and EOM's grossly intact w/o pain. OROPHARYNX: Moist mucus membranes. Grossly normal dentition. NECK: Supple, no nuchal rigidity, no adenopathy, non-tender. No signs of meningismus. LUNGS: Diffuse wheezing throughout, mild tachypnea noted. HEART: NSR, no MRG. ABDOMEN: Abdomen soft, non-tender, normo-active bowel sounds, no masses, no rebound or guarding. BACK: No CVA TTP. SKIN: No rashes and no bruising. UPPER EXTREMITIES: Upper extremities are grossly normal. LOWER EXTREMITIES: No pitting edema. No calf pain. Negative Kannan's sign. NEURO EXAM: A&O x3, cranial nerves II-XII grossly intact, normal speech, moves all 4 extremities on command w/o issue. Course 1345: The patient was evaluated in room B12B. A complete history and physical examination were performed. 1505: I consulted Dr. Shi [facility] Hospitalist. The patient will be reevaluated for hospitalization. Administered Medications Discontinued Medications Albuterol (Duoneb) 12 ml INH NOW STA Stop: 10/14/18 13:51 Last Admin: 10/14/18 14:17 Dose: 12 ml Documented by: [id number] Magnesium Sulfate/Dextrose (Magnesium Sulfate / D5w) 1 gm in 100 mls @ 100 mls/ hr IV Q1H RASHI Stop: 10/14/18 15:59 Last Infusion: 10/14/18 15:53 Dose: 0 mls/hr Documented by: [id number] Admin: 10/14/18 14:49 Dose: 100 mls/hr Documented by: [id number] Infusion: 10/14/18 14:49 Dose: 100 mls/hr Documented by: [id number] Admin: 10/14/18 14:07 Dose: 100 mls/hr Documented by: [id number] Sodium Chloride (Nss 1000ml) 1,000 mls @ 999 mls/hr IV .Q1H1M RASHI Stop: 10/14/18 15:00 Last Infusion: 10/14/18 15:09 Dose: 0 mls/hr Documented by: [id number] Admin: 10/14/18 14:08 Dose: 999 mls/hr Documented by: [id number] Levofloxacin/Dextrose (Levaquin/D5w) 750 mg in 150 mls @ 100 mls/hr IV Q24H COUNTS INCLUDE 234 BEDS AT THE [facility]; Protocol Stop: 10/21/18 13:59 Last Infusion: 10/14/18 15:53 Dose: 0 mls/hr Documented by: [id number] Admin: 10/14/18 14:15 Dose: 100 mls/hr Documented by: [id number] Medical Decision Making Medical Records Attestation: I reviewed the patient's medical records. Home Medications Current Medication List: was personally reviewed by me Laboratory Data Attestation: I reviewed the patient's lab results. Result diagrams: 10/14/18 14:12 10/14/18 14:12 Lab Results 10/14/18 10/14/18 10/14/18 Range/Units 14:11 14:12 14:12 WBC 13.70 H (4.8-10.8) K/uL RBC 4.05 L (4.7-6.1) M/uL Hgb 13.2 L (14.0-18.0) g/dL Hct 39.3 L (42-52) % MCV 97.0 (80-100) fL MCH 32.6 (25-34) pg MCHC 33.6 (32-36) g/dL RDW Std Deviation 51.2 H (36.4-46.3) fL RDW Coeff of Josie 14.3 (11.5-14.5) % Plt Count 298 (130-400) K/uL MPV 9.8 (7.4-10.4) fL Immature Gran % (Auto) 0.2 % Neut % (Auto) 87.6 % Lymph % (Auto) 6.9 % [place] % (Auto) 4.2 % Eos % (Auto) 0.9 % Baso % (Auto) 0.2 % Immature Gran # (Auto) 0.03 H (0.00-0.02) K/uL Neut # (Auto) 11.99 H (1.4-6.5) K/uL Lymph # (Auto) 0.95 L (1.2-3.4) K/uL [place] # (Auto) 0.57 (0.11-0.59) K/uL Eos # (Auto) 0.13 (0-0.5) K/uL Baso # (Auto) 0.03 (0-0.2) K/uL PT 10.1 (9.0-12.0) Seconds INR 1.0 (0.9-1.1) APTT 20.8 L (21.0-31.0) Seconds PTT Ratio 0.8 VBG pH 7.40 (7.36-7.41) VBG pCO2 41 (38-50) mmHg VBG pO2 57 mmHg VBG HCO3 25 mmol/L VBG O2 Saturation 89.2 % VBG Base Excess 0 mEq/L Barometric Pressure 727.1 mm/Hg Sodium (136-145) mmol/L Potassium (3.5-5.1) mmol/L Chloride (98-107) mmol/L Carbon Dioxide (21-32) mmol/L Anion Gap (3-11) BUN (7-18) mg/dl Creatinine (0.6-1.4) mg/dl Est Cr Clr Drug Dosing ml/min Est GFR ( Amer) Est GFR (Non-Af Amer) BUN/Creatinine Ratio (10-20) Glucose (70-99) mg/dl Calcium (8.5-10.1) mg/dl Magnesium (1.8-2.4) mg/dl Total Bilirubin (0.2-1) mg/dl AST (15-37) U/L ALT (12-78) U/L Alkaline Phosphatase (45-117) U/L Troponin I (0-0.045) ng/ml Total Protein (6.4-8.2) gm/dl Albumin (3.4-5.0) gm/dl Globulin (2.5-4.0) gm/dl Albumin/Globulin Ratio (0.9-2) 10/14/18 Range/Units 14:12 WBC (4.8-10.8) K/uL RBC (4.7-6.1) M/uL Hgb (14.0-18.0) g/dL Hct (42-52) % MCV (80-100) fL MCH (25-34) pg MCHC (32-36) g/dL RDW Std Deviation (36.4-46.3) fL RDW Coeff of Josie (11.5-14.5) % Plt Count (130-400) K/uL MPV (7.4-10.4) fL Immature Gran % (Auto) % Neut % (Auto) % Lymph % (Auto) % [place] % (Auto) % Eos % (Auto) % Baso % (Auto) % Immature Gran # (Auto) (0.00-0.02) K/uL Neut # (Auto) (1.4-6.5) K/uL Lymph # (Auto) (1.2-3.4) K/uL [place] # (Auto) (0.11-0.59) K/uL Eos # (Auto) (0-0.5) K/uL Baso # (Auto) (0-0.2) K/uL PT (9.0-12.0) Seconds INR (0.9-1.1) APTT (21.0-31.0) Seconds PTT Ratio VBG pH (7.36-7.41) VBG pCO2 (38-50) mmHg VBG pO2 mmHg VBG HCO3 mmol/L VBG O2 Saturation % VBG Base Excess mEq/L Barometric Pressure mm/Hg Sodium 139 (136-145) mmol/L Potassium 4.0 (3.5-5.1) mmol/L Chloride 106 (98-107) mmol/L Carbon Dioxide 26 (21-32) mmol/L Anion Gap 6.0 (3-11) BUN 35 H (7-18) mg/dl Creatinine 1.11 (0.6-1.4) mg/dl Est Cr Clr Drug Dosing 59.3 ml/min Est GFR ( Amer) 81.5 Est GFR (Non-Af Amer) 70.3 BUN/Creatinine Ratio 31.9 H (10-20) Glucose 132 H (70-99) mg/dl Calcium 8.6 (8.5-10.1) mg/dl Magnesium 2.2 (1.8-2.4) mg/dl Total Bilirubin 0.2 (0.2-1) mg/dl AST 17 (15-37) U/L ALT 26 (12-78) U/L Alkaline Phosphatase 70 (45-117) U/L Troponin I < 0.015 (0-0.045) ng/ml Total Protein 6.0 L (6.4-8.2) gm/dl Albumin 3.2 L (3.4-5.0) gm/dl Globulin 2.8 (2.5-4.0) gm/dl Albumin/Globulin Ratio 1.2 (0.9-2) Imaging Data Radiologist's Impression: Radiology results as stated below per my review and the radiologist's interpretation: XR chest 1V portable HISTORY: 63 years-old Male Dyspnea acute shortness of breath COMPARISON: Chest radiograph 06/28/2018, CTA chest 06/28/2018 TECHNIQUE: Portable AP view the chest FINDINGS: Cardiac silhouette is normal in size. Severe emphysema with chronic interstitial coarsening. Patchy alveolar opacities of the right infrahilar lung and right lung base. Degenerative changes of the shoulders and spine. No pneumothorax or large pleural effusion. IMPRESSION: 1. Alveolar opacities of the right infrahilar lung and right lung base are suggestive of pneumonia or aspiration pneumonitis. Follow-up imaging to document resolution is recommended. 2. Severe emphysema with chronic interstitial coarsening. The above report was generated using voice recognition software. It may contain grammatical, syntax or spelling errors. Electronically signed by: Giovanny Raza M.D. 10/14/2018 2:21 PM ECG Data Attestation: I personally reviewed and interpreted this ECG as follows: Indication: SOB/dyspnea Rate (beats per minute): 111 Rhythm: sinus tachycardia Findings: + other (normal intervals, right axis deviation, no obvious ischemic changes) Blood Pressure Blood Pressure Findings: Normal blood pressure Blood Pressure Disposition: did not require urgent referral MDM Narrative Ancillary records reviewed/Prior records reviewed. Triage nursing summary reviewed. The patient is a 63 year old white male with PMHx COPD, hypothyroidism, schizoaffective disorder, and bowel obstruction who presents to the Emergency Room with complaints of constant shortness of breath beginning 30 minutes ago. Differential diagnosis includes: infections, reactive airway disease, pneumonia, pneumothorax, COPD, CHF, cardiac ischemia, pulmonary embolism, musculoskeletal, gastrointestinal, as well as others were entertained. Patient was seen and evaluated the bedside. The patient had appointment apparently awoke and been very dyspneic and was reportedly blue in color. The patient was administered duo nebs as well as Solu-Medrol in route. On exam the patient is mildly ill in appearance in moderate distress. The patient did have blood work completed along with a blood gas he was given additional hour-long DuoNeb's magnesium and fluids as well as Levaquin. Patient was admitted to the medicine service. Impression & Plan Pneumonia, COPD exacerbation, Respiratory failure with hypoxia Critical Care Time I have personally spent greater than 45 minutes of critical care time in direct management of this patient. This includes bedside care, interpretation of diagnostic studies, and testing, discussion with consultants, patient, and family members, and other require inpatient management activities. This 45 minutes is in excess of all separately billable procedures. Critical Care Time: Yes Total Critical Care Time: 45 Discharge Plan Visit Data *Final* Discharge Date/Time: 10/14/18 16:11 Chief Complaint: Shortness of Breath/Dyspnea ED Provider: Darrion Gomez Discharge Problem: Pneumonia, COPD exacerbation, Respiratory failure with hypoxia Patient Disposition: Admitted As Inpatient Discharge Instructions Interventions: ED Discharge Assessment Last Done: 10/14/18 16:11 Discharge Problem: Pneumonia Qualifiers: Pneumonia type: due to unspecified organism Laterality: right Lung location: unspecified part of lung Qualified Code(s): J18.9 - Pneumonia, unspecified organism Respiratory failure with hypoxia Qualifiers: Chronicity: unspecified Qualified Code(s): J96.91 - Respiratory failure, unspecified with hypoxia The scribe's documentation has been prepared under my direction and personally reviewed by me in its entirety. I confirm that the note above accurately ref lects all work, treatment, procedures, and medical decision making performed by me.
[2018-10-14] MEDS: methylPREDNISolone 60 MG in SYRINGE 0 ML IV SCH (19:15)
[2018-10-14] MEDS: LEVALBUTEROL 1.25MG/0.5ML NEB NEB SCH (20:06)
--- NOTE | 2018-10-14 20:34 | Consultation Report ---
DATE OF CONSULTATION: 10/14/2018 PULMONARY CONSULTATION TIME: 7:40 p.m. REPORT OF CONSULTATION: The patient was seen in room 284 bed 1. He is a 63-year-old male who is known to me from outpatient care. He has severe COPD, which is primarily emphysema. The patient was last seen in my office in July and doing fairly well at that time. He had previously been hospitalized with right lower lobe pneumonia and exacerbation of COPD from 06/28/2018 until 06/30/2018. He did well following that discharge. He states he has been doing well. He does sleep very late in the morning because he often goes to bed late at night. This morning about 11:00 a.m., he awakened and he states he had an imagination that his lungs were smaller. He then developed severe shortness of breath. He was gasping and felt like he was strangling. He denies any vomiting or nausea. He denies reflux. The patient took a Spiriva Respimat not realizing that was not for quick relief. Unfortunately, he did not try his nebulizer which he had at home. I think he may have tried his Ventolin inhaler. Nothing helped. He called 911. He states he was so short of breath he had difficulty giving them his address on the 911 call. He presented to the Emergency Room as such. He has not had any chest pain. He denies chills, fevers or sweats. There has been no sputum production. The patient's heart rate was increased to 112 when first checked and his breathing appeared labored. Gradually he has improved. As part of his evaluation in the Emergency Room, he had a chest x-ray done. This showed a moderate size infiltrate in the right lower lung field suggestive for pneumonia or possible aspiration. His infiltrate he had in June was also in the right lower lobe, but it was less pronounced. Currently, he is feeling better. He is able to talk in full sentences. He is comfortable at rest. He has not expectorated any mucus. PAST SURGICAL HISTORY: 1. Inguinal hernia repair. 2. Appendectomy. 3. Left partial nephrectomy for cancer in May of 2018. 4. Small bowel resection in May of 2018. PAST MEDICAL HISTORY: 1. Schizoaffective disorder. 2. Depression. 3. Anemia. 4. Irritable bowel syndrome. 5. Anxiety. 6. Emphysema. SOCIAL HISTORY: Tobacco none since 2016. Previously one half pack per day for 45 years. ETOH -- between 0 and 2 alcoholic beverages per day. FAMILY HISTORY: Positive for diabetes. 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 MEDICATIONS AT HOME: 1. Neb treatments with albuterol. 2. Ventolin HFA. 3. Amitriptyline. 4. Abilify. 5. Breo Ellipta. 6. Bupropion. 7. Escitalopram. 8. Fluticasone nasal spray. 9. Levothyroxine. 10. [place]. 11. Primidone. 12. Spiriva Respimat. 13. Zoloft. REVIEW OF SYSTEMS: Energy level is only fair. Denies ENT complaints. No trouble swallowing. The patient states he is a vegetarian. I am not sure that he eats a healthy diet. The remainder of the review of systems negative except as noted above. PHYSICAL EXAMINATION: GENERAL: The patient is a 63-year-old male who appeared comfortable. He was cooperative, alert and oriented. He was in no distress at rest. Weight is 61.5 kilograms. BMI is only 18.4. HEENT: The patient wears corrective lenses. Pupils were reactive. Nares mildly congested. Mouth exam showed some remnants of food he was eating from supper. I could not well evaluate the pharynx. No lymph nodes palpable. CHEST: Shows diminished excursions. Heart rate 103. Rhythm regular. Blood pressure 95/62. LUNGS: Lung mendez revealed diffusely diminished breath sounds. They are especially decreased at the right lung base. A few rales are heard in the right lung base. Respiratory rate 20. Temperature 37 degrees. No fevers since coming. Saturation 96% on 3.5 liter nasal cannula. ABDOMEN: Soft. Bowel sounds present. No tenderness to palpation or masses. EXTREMITIES: Showed no cyanosis, clubbing or edema. LABORATORY DATA: White count elevated at 13.7. Hemoglobin 13.2. Platelets 298,000. Coags are unremarkable. Blood gas on nonspecified amount of oxygen and these were venous shows pH 7.40, pCO2 of 41, pO2 of 57. Electrolytes show sodium 139, potassium 4, chloride 106, bicarbonate 26. BUN 35 with a creatinine of 1.1. Albumin 3.2 with total protein 6. IMPRESSIONS: 1. Respiratory failure with hypoxia. 2. Pneumonia, right lower lobe -- community acquired. 3. Severe emphysema. COMMENTS AND RECOMMENDATIONS: The patient is clinically improved. The medication list is not showing any current antibiotics. It appears that he did receive 1 dose of levofloxacin in the Emergency Room. I do believe he needs the usual treatment for community-acquired pneumonia. He does have a very extensive infiltrate. He is ordered methylprednisolone 60 mg IV q. 8. He is ordered Xopenex. We will try and clarify with the pharmacy or the hospitalist team what antibiotic may be ordered for tomorrow, but not showing up as of now. I do follow the patient and will see him in the office following discharge.
[2018-10-14] MEDS ORDERED: PRIMIDONE 50 MG TAB PO SCH (21:00)
[2018-10-14] MEDS: PRIMIDONE 50 MG TAB PO SCH (22:30)
[2018-10-14] MEDS: LITHIUM CARBONATE 450 MG TABCR PO SCH (22:30)
[2018-10-14] MEDS: DOXYCYCLINE HYCLATE 100 MG CAP PO SCH (22:31)
[2018-10-14] MEDS: AMITRIPTYLINE HCL 25 MG TAB PO SCH (22:31)
[2018-10-14] MEDS: guaiFENesin 600 MG TABCR PO SCH (22:31)
[2018-10-15] MEDS: LEVALBUTEROL 1.25MG/0.5ML NEB NEB SCH ×2 (01:55→07:12)
[2018-10-15] MEDS: methylPREDNISolone 60 MG in SYRINGE 0 ML IV SCH ×3 (02:34→18:57)
[2018-10-15] MEDS: LEVOTHYROXINE SODIUM 50 MCG TABLET PO SCH (06:10)
[2018-10-15 06:30] LABS: Hematocrit (blood only) 33.2 % (42-52); Hemoglobin 11.3 g/dL (14.0-18.0); Mean Corpuscular Volume 96.8 fL (80-100); Mean Platelet Volume 9.7 fL (7.4-10.4); Platelet Count 274 K/uL (130-400); RDW Coefficient of Variation 14.4 % (11.5-14.5); RDW Standard Deviation 51.3 fL (36.4-46.3); Red Blood Count 3.43 M/uL (4.7-6.1); White Blood Count 18.34 K/uL (4.8-10.8)
[2018-10-15 07:15] LABS: Albumin Level 2.7 gm/dl (3.4-5.0); BUN Creatinine Ratio 20.6 (10-20); Bilirubin,Total 0.4 mg/dl (0.2-1); Calcium 8.4 mg/dl (8.5-10.1); Creatinine Clr Calc Pharmacy 76.1 ml/min; Est GFR (African American) 83.3; Est GFR (Non-African American) 71.9; Globulin 2.8 gm/dl (2.5-4.0); Potassium 4.2 mmol/L (3.5-5.1); Total Protein 5.5 gm/dl (6.4-8.2)
[2018-10-15] MEDS: LEVALBUTEROL HCL 1.25 MG/3 ML NEB NEB SCH ×3 (08:08→20:35)
[2018-10-15] MEDS: DOXYCYCLINE HYCLATE 100 MG CAP PO SCH ×2 (09:03→20:44)
[2018-10-15] MEDS: cefTRIAXone SODIUM 1,000 MG in DEXTROSE 5% 50 ML IV SCH (09:03)
[2018-10-15] MEDS: guaiFENesin 600 MG TABCR PO SCH ×2 (09:04→20:45)
[2018-10-15] MEDS: BuPROPion SR 150 MG TABCR PO SCH (09:04)
[2018-10-15] MEDS: ESCITALOPRAM OXALATE 10 MG TAB PO SCH (09:04)
[2018-10-15] MEDS: SERTRALINE HCL 50 MG TABLET PO SCH (09:05)
[2018-10-15] MEDS: ARIPiprazole 10 MG TAB PO SCH (09:05)
[2018-10-15] MEDS: LITHIUM CARBONATE SLOW REL 300 MG TAB PO SCH (09:05)
[2018-10-15] MEDS: ENOXAPARIN INJ 40 MG/0.4 ML SYR SQ SCH (09:06)
[2018-10-15] MEDS: SPIRIVA INH SCH (09:07)
--- NOTE | 2018-10-15 18:11 | Progress Note ---
DATE: 10/15/2018 TIME: 5:10 p.m. SUBJECTIVE: The patient indicated that he was feeling better today. He had not had any acute episodes of shortness of breath. He is not coughing and has had no sputum production. However, after I had finished with the patient and gone on to another patient, he had an episode where he became tight and short of breath. I believe it in part was precipitated by anxiety. He had gotten out of bed on his own because he wanted to look in the hallway for a nurse. He had a slight fall in the room. He did not hurt himself. He did, however, get quite tight as soon as this happened. OBJECTIVE: GENERAL: When I first saw the patient, he was comfortable at rest. He was cooperative and alert. He was in no distress. VITAL SIGNS: Temperature 36.6. He has had no fevers. HEART: Heart rate was 94 per minute. Rhythm regular. Blood pressure 102/57. LUNGS: Lung mendez revealed decreased breath sounds. Mild rales heard at the left base. Respiratory rate 20. Saturation on room air was 92%. EXTREMITIES: Showed no cyanosis, clubbing or edema. After I came back and saw the patient was having issues, at that time I listened to him and he was having wheezes bilaterally. There were diminished breath sounds. He did not have a nasal cannula in his room at that time. I checked a pulse ox and it was 83% on room air. He became more comfortable after just a couple of minutes. LABORATORY DATA: White count today up to 18.34. Hemoglobin 11.3. Yesterday's hemoglobin was 13.2. Platelets 274,000. Electrolytes show sodium 140, potassium 4.2, chloride 109, bicarb 28. BUN 23 with a creatinine of 1.09. These are improved from yesterday. IMPRESSION: 1. Acute respiratory failure with hypoxia. 2. Right lower lobe pneumonia ? community acquired. 3. Severe emphysema. COMMENTS AND RECOMMENDATIONS: The patient obviously is still not well. Would continue with the methylprednisolone, ceftriaxone, and doxycycline. Would continue with the neb treatments q. 6. The patient is requesting a Ventolin for rescue. I have no objection to that, but it should not be kept at bedside. It should be kept where nursing would control when he gets it. I would have concern that the patient might excessively utilize it.
[2018-10-15] MEDS: PRIMIDONE 50 MG TAB PO SCH (20:42)
[2018-10-15] MEDS: LITHIUM CARBONATE 450 MG TABCR PO SCH (20:42)
[2018-10-15] MEDS: AMITRIPTYLINE HCL 25 MG TAB PO SCH (20:44)
--- NOTE | 2018-10-15 23:02 | Hospitalist Progress Note ---
Date of Service October 15, 2018 Assessment & Plan (1) Pneumonia: - Admit to med surg with tele - X-ray shows infiltrate which points towards community acquired pneumonia. - Likely emphysema mixed with chronic respiratory failure. - Patient placed on xopenex due to elevated HR. pATIENT WAS ASKING FOR HOME INHALER however explaind to patient easier to administer neb - Solumedrol IV 60 mg Q8h now; will taper down in AM. - pt received levaquin in the ER, will continue on azithromycin for antii nflammatory properties - no QT prolongation on EKG. - CXR appears more fibrotic vs infectious but will cover for possible superimposed infection 1. Alveolar opacities of the right infrahilar lung and right lung base are suggestive of pneumonia or aspiration pneumonitis. Follow-up imaging to document resolution is recommended. 2. Severe emphysema with chronic interstitial coarsening. -Continue antibiotics - Pulmonology consulted, follows with Dr. Valdez as an outpt. (2) Acute and chronic respiratory failure with hypoxia: (3) COPD (chronic obstructive pulmonary disease): (4) COPD exacerbation: - Typically wears 2-5 L O2 with exertion and via oximask as he is a mouth breather, does not wear at night however he would likely benefit from continuous O2. (5) Hypothyroidism: - Continue levothyroxine (6) Schizoaffective disorder: - Continue on multiple psychotropic medications - reviewed with the patient at beside. - Follows with Cristina at [facility] as outpatient - Pt does not currently see a counselor but I have recommended that he follow up with one at [facility] as there are counselors there. - Cont abilify 20 mg daily, lexapro 10 mg daily, wellbutrin 150 mg daily, lithium 600 mg QAM and 450 QPM, zoloft 50 mg QAM. Pt reports lexapro was reduced by half and zoloft was started about 1 month ago - possible that he is weaning between medications. - Continue primidone 150 mg HS for benign essential tremor (7) Anxiety: - Meds as above. (8) Anemia: - Hgb stable at 13.2, down to 11, will monitor. May be hemodilutional. (9) DVT prophylaxis: - teds, scds, lovenox subq Spent 35 minutes in management of patient. This included discussion with building consultant and educating patient. Subjective Patient reports feeling better. He states he normally wheezes at home. Patient currently denies any new symptoms. Patient does not feel at baseline, still short of breath and coughing Review of Systems Review of Systems: All systems reviewed & are unremarkable except as noted in HPI & below Physical Exam Physical Exam: General: awake, alert, no apparent distress Head: Normocephalic, atraumatic ENT: PERRL, EOMI, no pharyngeal exudate, mucous membranes moist Chest: on room air, expiratory wheeze, barrel chest, no rhonchi or rales. Cardiac: Regular rhythm, mildly tachycardic with heart rate at 103 at bedside, no murmur, no JVD, normal peripheral pulses, good capillary refill Abdominal: NABS x 4 quadrants, soft, nontender to palpation, no rebound, guarding or tenderness Extremities: Normal inspection, no peripheral edema or erythema, calfs nontender to palpation Psych: Pleasant mood and affect, fast speaking Neuro: AAO x 3, strength intact bilaterally and related 5/5, no motor deficits, speech is clear, no peripheral sensory deficits Skin: no rash or erythema Results & Data Vital Signs (Past 12 Hours) Vital Signs Temp Pulse Pulse Resp BP Pulse Ox 10/15/18 20:35 80 18 95 10/15/18 20:12 36.8 C 80 20 99/63 L 95 10/15/18 16:05 36.6 C 90 20 102/57 L 92 10/15/18 15:00 81 10/15/18 14:16 65 16 95 10/15/18 12:01 36.4 C L 79 16 98/60 L 99 (1) Anemia Anemia type: unspecified type Qualified Code(s): D64.9 - Anemia, unspecified (2) Hypothyroidism Hypothyroidism type: acquired Qualified Code(s): E03.9 - Hypothyroidism, unspecified (3) Schizoaffective disorder Schizoaffective disorder type: unspecified Qualified Code(s): F25.9 - Schizoaffective disorder, unspecified (4) COPD (chronic obstructive pulmonary disease) COPD type: emphysema Emphysema type: unspecified Qualified Code(s): J43.9 - Emphysema, unspecified (5) Pneumonia Laterality: right Lung location: unspecified part of lung Pneumonia type: due to unspecified organism Qualified Code(s): J18.9 - Pneumonia, unspecified organism
[2018-10-16] MEDS: LEVALBUTEROL HCL 1.25 MG/3 ML NEB NEB SCH ×4 (01:32→18:54)
[2018-10-16] MEDS: methylPREDNISolone 60 MG in SYRINGE 0 ML IV SCH (02:55)
[2018-10-16] MEDS: LEVOTHYROXINE SODIUM 50 MCG TABLET PO SCH (06:02)
[2018-10-16 06:11] LABS: Hematocrit (blood only) 35.9 % (42-52); Mean Corpuscular Hgb Conc 33.4 g/dL (32-36); Mean Corpuscular Volume 98.1 fL (80-100); Mean Platelet Volume 9.8 fL (7.4-10.4); Platelet Count 280 K/uL (130-400); RDW Standard Deviation 53.8 fL (36.4-46.3); Red Blood Count 3.66 M/uL (4.7-6.1); White Blood Count 13.71 K/uL (4.8-10.8)
[2018-10-16 06:51] LABS: Albumin Level 2.9 gm/dl (3.4-5.0); BUN Creatinine Ratio 19.4 (10-20); Calcium 8.8 mg/dl (8.5-10.1); Creatinine Clr Calc Pharmacy 64.5 ml/min; Est GFR (African American) 90.2; Est GFR (Non-African American) 77.9; Potassium 4.5 mmol/L (3.5-5.1)
[2018-10-16 06:54] LABS: Bilirubin,Total 0.2 mg/dl (0.2-1); Total Protein 5.9 gm/dl (6.4-8.2)
[2018-10-16] MEDS: cefTRIAXone SODIUM 1,000 MG in DEXTROSE 5% 50 ML IV SCH (08:33)
[2018-10-16] MEDS: ENOXAPARIN INJ 40 MG/0.4 ML SYR SQ SCH (08:34)
[2018-10-16] MEDS: SPIRIVA INH SCH (08:34)
[2018-10-16] MEDS: guaiFENesin 600 MG TABCR PO SCH ×2 (08:34→21:00)
[2018-10-16] MEDS: ESCITALOPRAM OXALATE 10 MG TAB PO SCH (08:35)
[2018-10-16] MEDS: DOXYCYCLINE HYCLATE 100 MG CAP PO SCH ×2 (08:35→21:00)
[2018-10-16] MEDS: LITHIUM CARBONATE SLOW REL 300 MG TAB PO SCH (08:35)
[2018-10-16] MEDS: ARIPiprazole 10 MG TAB PO SCH (08:35)
[2018-10-16] MEDS: BuPROPion SR 150 MG TABCR PO SCH (08:35)
[2018-10-16] MEDS: SERTRALINE HCL 50 MG TABLET PO SCH (08:36)
[2018-10-16] MEDS ORDERED: methylPREDNISolone 60 MG in SYRINGE 0 ML IV SCH ×3 (10:45→21:00)
--- NOTE | 2018-10-16 11:51 | Progress Note ---
DATE: 10/16/2018 PULMONARY PROGRESS NOTE TIME: 10:45 a.m. SUBJECTIVE: The patient is feeling much better today. He recovered from last evening's shortness of breath episode fairly quickly. He feels refreshed this morning. He states he slept good. Not coughing to any degree. OBJECTIVE: GENERAL: The patient looks comfortable at rest. VITAL SIGNS: Temperature 36.7. HEART: Heart rate 90 per minute, rhythm regular. Blood pressure this morning was 94/55. That is a little lower than he usually is. He is asymptomatic, however. LUNGS: Lung mendez revealed diffusely diminished breath sounds. No active wheeze heard at present. Saturation 93% on room air. Respiratory rate 16. EXTREMITIES: Showed no cyanosis, clubbing, or edema. LABORATORY DATA: White count today 13.71, yesterday was 18.34; hemoglobin 12; platelets 280,000. Electrolytes show sodium 143, potassium 4.5, chloride 111, bicarbonate 27. BUN 20, creatinine 1.02. These are improved. Blood sugar this morning 141. IMPRESSION: 1. Respiratory failure with hypoxia - improved. 2. Pneumonia, right lower lobe - community acquired. 3. Emphysema. COMMENTS AND RECOMMENDATIONS: The patient is looking better. Would change from methylprednisolone to prednisone 40 mg. Would do a 2-step on the patient today. If he does really well he might be ready for discharge today. If not, I would expect he could be likely discharged tomorrow. This would be of course if he does not have any setbacks. He does need to follow up in my office. If he does not go home today, please order a chest x-ray for tomorrow morning that we could assess before discharge.
[2018-10-16] MEDS: PRIMIDONE 50 MG TAB PO SCH (20:59)
[2018-10-16] MEDS: AMITRIPTYLINE HCL 25 MG TAB PO SCH (21:00)
[2018-10-16] MEDS: LITHIUM CARBONATE 450 MG TABCR PO SCH (21:01)
--- NOTE | 2018-10-16 22:53 | Hospitalist Progress Note ---
Date of Service October 16, 2018 Assessment & Plan (1) Pneumonia: - Admit to med surg with tele - X-ray shows infiltrate which points towards community acquired pneumonia. - Likely emphysema mixed with chronic respiratory failure. - Patient placed on xopenex due to elevated HR. pATIENT WAS ASKING FOR HOME INHALER however explaind to patient easier to administer neb - Solumedrol IV 60 mg Q8h now; will taper down in AM. - pt received levaquin in the ER, will continue on azithromycin for antii nflammatory properties - no QT prolongation on EKG. - CXR appears more fibrotic vs infectious but will cover for possible superimposed infection 1. Alveolar opacities of the right infrahilar lung and right lung base are suggestive of pneumonia or aspiration pneumonitis. Follow-up imaging to document resolution is recommended. 2. Severe emphysema with chronic interstitial coarsening. -Continue antibiotics - Pulmonology consulted, follows with Dr. Valdez as an outpt. Switch to oral prednisone. Awaiting 2 step. Would do a 2-step prior to discharge. (2) Acute and chronic respiratory failure with hypoxia: (3) COPD (chronic obstructive pulmonary disease): (4) COPD exacerbation: As noted above, weaned off oxygen. (5) Hypothyroidism: - Continue levothyroxine (6) Schizoaffective disorder: - Continue on multiple psychotropic medications - reviewed with the [place] [facility]. - Follows with Cristina at [facility] as outpatient - Pt does not currently see a counselor but I have recommended that he follow up with one at [place] as there are counselors there. - Cont abilify 20 mg daily, lexapro 10 mg daily, wellbutrin 150 mg daily, lithium 600 mg QAM and 450 QPM, zoloft 50 mg QAM. Pt reports lexapro was reduced by half and zoloft was started about 1 month ago - possible that he is weaning between medications. - Continue primidone 150 mg HS for benign essential tremor (7) Anxiety: - Meds as above. (8) Anemia: - Hgb stable will monitor. (9) DVT prophylaxis: - teds, scds, lovenox subq Spent 25 minutes in management of patient. This included discussion with lactation consultant and educating patient. Subjective Patient is a pleasant 63 yo male who reports feeling better today. His shortness of breath has improved. Patient continues to have intermittent cough Review of Systems Review of Systems: All systems reviewed & are unremarkable except as noted in HPI & below Physical Exam Physical Exam: General: awake, alert, no apparent distress Head: Normocephalic, atraumatic ENT: PERRL, EOMI, no pharyngeal exudate, mucous membranes moist Chest: on room air, decreased expiratory wheeze, barrel chest, no rhonchi or rales. Cardiac: Regular rhythm, regular rate , no murmur, no JVD, normal peripheral pulses, good capillary refill Abdominal: NABS x 4 quadrants, soft, nontender to palpation, no rebound, guarding or tenderness Extremities: Normal inspection, no peripheral edema or erythema, calfs nontender to palpation Psych: Pleasant mood and affect, fast speaking Neuro: AAO x 3, strength intact bilaterally and related 5/5, no motor deficits, speech is clear, no peripheral sensory deficits Skin: no rash or erythema Results & Data Vital Signs (Past 12 Hours) Vital Signs Temp Pulse Pulse Resp BP Pulse Ox 10/16/18 21:11 36.9 C 94 H 18 125/78 95 10/16/18 18:55 97 H 18 97 10/16/18 16:00 93 H 10/16/18 15:52 36.8 C 86 16 118/76 95 10/16/18 14:21 78 18 95 10/16/18 11:10 36.4 C L 80 18 98/62 L 95 (1) Anemia Anemia type: unspecified type Qualified Code(s): D64.9 - Anemia, unspecified (2) Hypothyroidism Hypothyroidism type: acquired Qualified Code(s): E03.9 - Hypothyroidism, unspecified (3) Schizoaffective disorder Schizoaffective disorder type: unspecified Qualified Code(s): F25.9 - Schizoaffective disorder, unspecified (4) COPD (chronic obstructive pulmonary disease) COPD type: emphysema Emphysema type: unspecified Qualified Code(s): J43.9 - Emphysema, unspecified (5) Pneumonia Laterality: right Lung location: unspecified part of lung Pneumonia type: due to unspecified organism Qualified Code(s): J18.9 - Pneumonia, unspecified organism
[2018-10-17] MEDS: LEVALBUTEROL HCL 1.25 MG/3 ML NEB NEB SCH ×4 (02:11→21:13)
[2018-10-17] MEDS: LEVOTHYROXINE SODIUM 50 MCG TABLET PO SCH (06:01)
[2018-10-17 07:02] LABS: Hemoglobin 12.1 g/dL (14.0-18.0); Mean Corpuscular Hgb Conc 32.7 g/dL (32-36); Mean Corpuscular Volume 98.9 fL (80-100); Platelet Count 305 K/uL (130-400); RDW Coefficient of Variation 15.2 % (11.5-14.5); RDW Standard Deviation 55.3 fL (36.4-46.3); Red Blood Count 3.74 M/uL (4.7-6.1); White Blood Count 10.73 K/uL (4.8-10.8)
[2018-10-17 07:35] LABS: Albumin Level 2.9 gm/dl (3.4-5.0); BUN Creatinine Ratio 16.8 (10-20); Calcium 8.6 mg/dl (8.5-10.1); Creatinine Clr Calc Pharmacy 64.3 ml/min; Est GFR (African American) 89.2; Est GFR (Non-African American) 76.9; Potassium 4.2 mmol/L (3.5-5.1)
[2018-10-17 07:37] LABS: Bilirubin,Total 0.3 mg/dl (0.2-1); Globulin 2.8 gm/dl (2.5-4.0); Total Protein 5.7 gm/dl (6.4-8.2)
[2018-10-17] MEDS: SERTRALINE HCL 50 MG TABLET PO SCH (08:53)
[2018-10-17] MEDS: cefTRIAXone SODIUM 1,000 MG in DEXTROSE 5% 50 ML IV SCH (08:53)
[2018-10-17] MEDS: ARIPiprazole 10 MG TAB PO SCH (08:53)
[2018-10-17] MEDS: BuPROPion SR 150 MG TABCR PO SCH (08:54)
[2018-10-17] MEDS: DOXYCYCLINE HYCLATE 100 MG CAP PO SCH ×2 (08:54→21:27)
[2018-10-17] MEDS: guaiFENesin 600 MG TABCR PO SCH ×2 (08:54→21:26)
[2018-10-17] MEDS: LITHIUM CARBONATE SLOW REL 300 MG TAB PO SCH (08:54)
[2018-10-17] MEDS: ESCITALOPRAM OXALATE 10 MG TAB PO SCH (08:54)
[2018-10-17] MEDS: ENOXAPARIN INJ 40 MG/0.4 ML SYR SQ SCH (08:54)
[2018-10-17] MEDS: SPIRIVA INH SCH (08:55)
[2018-10-17] MEDS: predniSONE 20 MG TAB PO SCH (08:55)
--- NOTE | 2018-10-17 13:34 | Progress Note ---
DATE: 10/17/2018 PULMONARY PROGRESS NOTE TIME: 1:15 p.m. SUBJECTIVE: The patient is feeling better. Less short of breath. Minimal cough. He states the speech therapy person spoke with him regarding techniques for swallowing. The patient acknowledged that he has had reflux significantly with some dysphagia in the past, especially for liquids. Denies having the symptoms recently, however. Overall, he is feeling much better. PHYSICAL EXAMINATION: GENERAL: The patient is comfortable at rest. Cooperative, alert and oriented. VITAL SIGNS: Temperature 36.5. Heart rate currently 100 per minute. Rhythm regular. Blood pressure 106/70. LUNGS: Lung mendez revealed mild rales posteriorly, right greater than left. Respiratory rate 18. Saturation 95% on room air. EXTREMITIES: Showed no cyanosis, clubbing or edema. LABORATORY DATA: White count today down to 10.73. White count peaked on October 15 at 18.34. Hemoglobin today 12.1. Platelets 305,000. Electrolytes today, sodium 140, potassium 4.2, chloride 107, bicarbonate 31. BUN 17 with creatinine 1.03. IMPRESSION: 1. Respiratory failure with hypoxia. 2. Right lower lobe pneumonia - community acquired versus aspiration. 3. Emphysema - severe airflow obstruction on pulmonary function test. COMMENTS AND RECOMMENDATIONS: The patient seems to be much improved. He may be ready for discharge. I am going to order a chest x-ray to be done soon to assess this before discharge. I have ordered a 2-step. He has oxygen at home, but this may guide us as to how much oxygen he should use when exerting himself. When he is discharged, would taper the prednisone over the course of about 2 weeks. He should be seen in my office in 1-2 weeks. He obviously will need a followup x-ray until clear.
--- NOTE | 2018-10-17 20:38 | XRay Report ---
XR chest 2V routine CLINICAL HISTORY: 63 years-old Male presenting with f/u lung infiltrates. TECHNIQUE: PA and lateral views of the chest were obtained. COMPARISON: 10/14/2018. FINDINGS: Cardiomediastinal silhouette normal. Previously noted right mid to basilar predominant opacities have significantly decreased and are minimally apparent on the current exam. Lungs remain hyperinflated. No new focal opacity. No pleural effusion or pneumothorax. Osseous structures normal. IMPRESSION: 1. Near-complete resolution of prior right basilar predominant infiltrates. This is compatible with resolving pneumonia. 2. Emphysema. Electronically signed by: Huang Negron M.D. 10/17/2018 8:37 PM
[2018-10-17] MEDS: LITHIUM CARBONATE 450 MG TABCR PO SCH (21:27)
[2018-10-17] MEDS: AMITRIPTYLINE HCL 25 MG TAB PO SCH (21:27)
[2018-10-17] MEDS: PRIMIDONE 50 MG TAB PO SCH (21:28)
--- NOTE | 2018-10-17 23:55 | Hospitalist Progress Note ---
Date of Service October 17, 2018 Assessment & Plan (1) Pneumonia: - Admit to med surg with tele - X-ray shows infiltrate which points towards community acquired pneumonia. - Likely emphysema mixed with chronic respiratory failure. - Patient placed on xopenex due to elevated HR. pATIENT WAS ASKING FOR HOME INHALER however explaind to patient easier to administer neb - Solumedrol IV 60 mg Q8h now; will taper down in AM. - pt received levaquin in the ER, will continue on azithromycin for antii nflammatory properties - no QT prolongation on EKG. - CXR appears more fibrotic vs infectious but will cover for possible superimposed infection 1. Alveolar opacities of the right infrahilar lung and right lung base are suggestive of pneumonia or aspiration pneumonitis. Follow-up imaging to document resolution is recommended. 2. Severe emphysema with chronic interstitial coarsening. -Continue antibiotics - Pulmonology consulted, follows with Dr. Valdez as an outpt. Patient tolerating PO prednisone. Patient is on room air. Will have patient ambulate halls if ok, will consider discharge today or AM. (2) Acute and chronic respiratory failure with hypoxia: (3) COPD (chronic obstructive pulmonary disease): (4) COPD exacerbation: Currently on room air. Improving. (5) Hypothyroidism: - Continue levothyroxine (6) Schizoaffective disorder: - Continue on multiple psychotropic medications - reviewed with the patient at beside. - Follows with Cristina at [facility] as outpatient - Pt does not currently see a counselor but I have recommended that he follow up with one at [facility] as there are counselors there. - Cont abilify 20 mg daily, lexapro 10 mg daily, wellbutrin 150 mg daily, lithium 600 mg QAM and 450 QPM, zoloft 50 mg QAM. Pt reports lexapro was reduced by half and zoloft was started about 1 month ago - possible that he is weaning between medications. - Continue primidone 150 mg HS for benign essential tremor (7) Anxiety: - Meds as above. (8) Anemia: Hemglobin is stable. Will monitor. (9) DVT prophylaxis: - teds, scds, lovenox subq Spent 25 minutes of management of patient. Subjective 63 yo male reports feeling better today. But he does feel somewhat short of loretta ath when he ambulates. He states his wheezing has improved. Review of Systems Review of Systems: All systems reviewed & are unremarkable except as noted in HPI & below Physical Exam Physical Exam: General: awake, alert, no apparent distress Head: Normocephalic, atraumatic ENT: PERRL, EOMI, no pharyngeal exudate, mucous membranes moist Chest: on room air, decreased expiratory wheeze, barrel chest, no rhonchi or rales. Cardiac: Regular rhythm, regular rate , no murmur, no JVD, normal peripheral pulses, good capillary refill Abdominal: NABS x 4 quadrants, soft, nontender to palpation, no rebound, guarding or tenderness Extremities: Normal inspection, no peripheral edema or erythema, calfs nontender to palpation Psych: Pleasant mood and affect, fast speaking Neuro: AAO x 3, strength intact bilaterally and related 5/5, no motor deficits, speech is clear, no peripheral sensory deficits Skin: no rash or erythema Results & Data Vital Signs (Past 12 Hours) Vital Signs Temp Pulse Pulse Pulse Pulse Pulse Pulse 10/17/18 21:13 86 10/17/18 19:00 37.0 C 100 H 10/17/18 16:00 105 H 10/17/18 15:38 36.6 C 68 10/17/18 13:59 85 10/17/18 13:17 104 H 78 78 74 10/17/18 12:00 36.5 C 82 Resp Resp Resp Resp Resp BP BP 10/17/18 21:13 16 10/17/18 19:00 18 125/88 10/17/18 16:00 10/17/18 15:38 20 101/68 10/17/18 13:59 18 10/17/18 13:17 24 26 H 20 18 10/17/18 12:00 18 106/70 Pulse Ox Pulse Ox Pulse Ox Pulse Ox Pulse Ox 10/17/18 21:13 97 10/17/18 19:00 94 10/17/18 16:00 10/17/18 15:38 92 10/17/18 13:59 93 10/17/18 13:17 92 85 L 92 93 10/17/18 12:00 95 (1) Anemia Anemia type: unspecified type Qualified Code(s): D64.9 - Anemia, unspecified (2) Hypothyroidism Hypothyroidism type: acquired Qualified Code(s): E03.9 - Hypothyroidism, unspecified (3) Schizoaffective disorder Schizoaffective disorder type: unspecified Qualified Code(s): F25.9 - Schizoaffective disorder, unspecified (4) COPD (chronic obstructive pulmonary disease) COPD type: emphysema Emphysema type: unspecified Qualified Code(s): J43.9 - Emphysema, unspecified (5) Pneumonia Laterality: right Lung location: unspecified part of lung Pneumonia type: due to unspecified organism Qualified Code(s): J18.9 - Pneumonia, unspecified organism
[2018-10-18] MEDS: LEVALBUTEROL HCL 1.25 MG/3 ML NEB NEB SCH ×4 (02:14→19:15)
[2018-10-18] MEDS: LEVOTHYROXINE SODIUM 50 MCG TABLET PO SCH (06:35)
[2018-10-18] MEDS: cefTRIAXone SODIUM 1,000 MG in DEXTROSE 5% 50 ML IV SCH (08:38)
[2018-10-18] MEDS: SPIRIVA INH SCH (08:39)
[2018-10-18] MEDS: guaiFENesin 600 MG TABCR PO SCH (08:39)
[2018-10-18] MEDS: BuPROPion SR 150 MG TABCR PO SCH (08:39)
[2018-10-18] MEDS: ARIPiprazole 10 MG TAB PO SCH (08:39)
[2018-10-18] MEDS: ESCITALOPRAM OXALATE 10 MG TAB PO SCH (08:39)
[2018-10-18] MEDS: ENOXAPARIN INJ 40 MG/0.4 ML SYR SQ SCH (08:40)
[2018-10-18] MEDS: predniSONE 20 MG TAB PO SCH (08:40)
[2018-10-18] MEDS: SERTRALINE HCL 50 MG TABLET PO SCH (08:40)
[2018-10-18] MEDS: DOXYCYCLINE HYCLATE 100 MG CAP PO SCH ×2 (08:40→17:44)
[2018-10-18] MEDS: LITHIUM CARBONATE SLOW REL 300 MG TAB PO SCH (09:34)
--- NOTE | 2018-10-18 14:24 | Progress Note ---
DATE: 10/18/2018 TIME: 12:50 p.m. SUBJECTIVE: The patient feels very good. Denies shortness of breath. Cough is essentially gone. OBJECTIVE: GENERAL: The patient is comfortable at rest. CARDIAC: Rate 90 per minute. Rhythm regular. Blood pressure 133/78. LUNGS: Lung mendez clear. Decreased breath sounds. Saturation on room air 93%. LABORATORY DATA: Chest x-ray done yesterday shows approximately 90% clearance of the previously noted right lower lobe pneumonia. Significant emphysema noted. IMPRESSIONS: 1. Respiratory failure with hypoxia. 2. Right lower lobe pneumonia ? community acquired ? nearly resolved. 3. Severe emphysema. COMMENTS AND RECOMMENDATIONS: No objection to discharge. The patient had a 2-step done. He desaturates down to 85%. He does well with 2 liters. He should be encouraged to use this when exerting himself. The patient has been on ceftriaxone for 4 days and doxycycline for the same. He should complete a 7-day course of doxycycline. The patient's prednisone is currently at 40 mg daily and can be tapered gradually. Would not take him below 10 mg until he is seen in the office. He should be seen in 1-2 weeks.
--- NOTE | 2018-10-26 07:03 | Discharge Summary ---
Date of Service October 18, 2018 Admission HPI Per Admitting Provider This is a 63 yo M with PMHx of COPD, acute on chronic hypoxic respiratory failure, schizoaffective disorder, anxiety, depression who presents with acute onset of hypoxia. Patient woke up this morning was feeling extremely short of breath like he could not breathe deeply therefore called EMS. Patient denies any recent cough, sputum production, sick contacts, fever, chills. He does take Ventolin and Brio Ellipta inhalers regularly and use them today. Patient did not take any of his other morning medication. He states his breathing has improved since being in the ER. He received a dose of Levaquin IV. Patient denies any chest pain, palpitation, flutter, heaviness, headache. 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 Principal Diagnosis COPD exacerbation Discharge Exam General: awake, alert, no apparent distress Head: Normocephalic, atraumatic ENT: PERRL, EOMI, no pharyngeal exudate, mucous membranes moist Chest: on room air, clear, barrel chest, no rhonchi or rales. Cardiac: Regular rhythm, regular rate , no murmur, no JVD, normal peripheral pulses, good capillary refill Abdominal: NABS x 4 quadrants, soft, nontender to palpation, no rebound, guarding or tenderness Extremities: Normal inspection, no peripheral edema or erythema, calfs nontender to palpation Psych: Pleasant mood and affect, fast speaking Neuro: AAO x 3, strength intact bilaterally and related 5/5, no motor deficits, speech is clear, no peripheral sensory deficits Skin: no rash or erythema Discharge Data Allergies Allergy/AdvReac Type Severity Reaction Status Date / Time morphine AdvReac Severe FEELING OF Verified 10/14/18 14:35 "DYING" Consultations 10/14/18 15:07 ED Decision to Admit Stat 10/14/18 15:39 Consult Pulmonology Routine 10/14/18 15:40 Consult Case Management - Discharge Planning Routine Hospital Course (1) Pneumonia: - Admit to med surg with tele - X-ray shows infiltrate which points towards community acquired pneumonia. - Likely emphysema mixed with chronic respiratory failure. - Patient placed on xopenex due to elevated HR. pATIENT WAS ASKING FOR HOME INHALER however explaind to patient easier to administer neb -Patient required Solumedrol IV and wa stapered to prednisone. - pt received levaquin in the ER, will continue on azithromycin for antiinflammatory properties - no QT prolongation on EKG. - CXR appears more fibrotic vs infectious but will cover for possible superimposed infection 1. Alveolar opacities of the right infrahilar lung and right lung base are suggestive of pneumonia or aspiration pneumonitis. Follow-up imaging to document resolution is recommended. 2. Severe emphysema with chronic interstitial coarsening. -Continue antibiotics - Pulmonology consulted, follows with Dr. Valdez as an outpt. Patient tolerating PO prednisone. Patient is on room air. Patient ambulated the halls and felt back to his baseline. Patient will continue on doxy and cefuroxime. (2) Acute and chronic respiratory failure with hypoxia: (3) COPD (chronic obstructive pulmonary disease): (4) COPD exacerbation: Currently on room air. Improving. (5) Hypothyroidism: - Continue levothyroxine (6) Schizoaffective disorder: - Continue on multiple psychotropic medications - reviewed with the patient at [facility]. - Follows with Cristina at [facility] as outpatient - Pt does not currently see a counselor but I have recommended that he follow up with one at [facility] as there are counselors there. - Cont abilify 20 mg daily, lexapro 10 mg daily, wellbutrin 150 mg daily, lithium 600 mg QAM and 450 QPM, zoloft 50 mg QAM. Pt reports lexapro was reduced by half and zoloft was started about 1 month ago - possible that he is weaning between medications. - Continue primidone 150 mg HS for benign essential tremor (7) Anxiety: - Meds as above. (8) Anemia: Hemglobin is stable. Will monitor. (9) DVT prophylaxis: - teds, scds, lovenox subq Total Time Total Time Spent Total Time Spent (In Minutes): 32 Total Time Includes: Examination of the Patient, Discharge Planning and Medication Reconciliation Discharge Plan Discharge Items Patient Disposition: Home - Self-Care Reason For Visit: ACUTE HYPOXIC RESPIRATORY FAILURE Discharge Diagnosis: COPD exacerbation Discharge Goals: Decrease discomfort Activity: Resume your previous activity Non-emergency contact: Primary Care Provider Call non-emergency contact if: you have any medication questions Follow-up/Referrals: Dane Gonzalez MD [Primary Care Provider] - Diet: Regular Addtl Provider Instructions: Followup with PCP in 1-2 weeks Followup with Pulmonary in 1-2 weeks. Continue doxycycline tonight. Take ceufroxime tomorrow morning. Prescriptions: New doxycycline hyclate 100 mg Capsule 100 mg PO BID Qty: 6 RF: 0 cefuroxime axetil 500 mg tablet 500 mg PO BID Qty: 6 RF: 0 prednisone 10 mg tablet 10 mg PO DAILY Qty: 20 RF: 0 Continued Spiriva Respimat 1.25 mcg/actuation Mist 2 puff Inhalation QAM RF: 0 aripiprazole [Abilify] 20 mg Tablet 20 mg PO QAM RF: 0 albuterol sulfate 2.5 mg /3 mL (0.083 %) Solution For Nebulization 3 ml Inhalation Q4 PRN (Reason: Shortness Of Breath Or Wheezing) RF: 0 amitriptyline 75 mg Tablet 75 mg PO HS RF: 0 Breo Ellipta 200-25 mcg/dose Blister With Device 1 inh INHALATION HS RF: 0 bupropion HCl 150 mg Tablet Sustained-Release 12 Hr 150 mg PO QAM RF: 0 escitalopram oxalate 20 mg Tablet 10 mg PO QAM RF: 0 levothyroxine 50 mcg Tablet 50 mcg PO QAM RF: 0 primidone 50 mg Tablet 50 mg PO QPM RF: 0 lithium carbonate 450 mg Tablet Extended Release 450 mg PO HS RF: 0 lithium carbonate 300 mg tablet extended release 2 tab PO QAM RF: 0 albuterol sulfate [Ventolin HFA] 90 mcg/actuation Hfa Aerosol Inhaler 2 puff INHALATION QID PRN (Reason: SHORT OF BREATH) RF: 0 fluticasone propionate 50 mcg/actuation [place],Suspension 2 spray INTRANASAL DAILY PRN (Reason: Congestion) RF: 0 primidone 50 mg Tablet 100 mg PO HS RF: 0 Zoloft 50 mg 50 mg PO DAILY RF: 0 Stand-Alone Forms: [facility] Discharge Orders: Discharge Order (Routine); Ordered 10/18/18 Ordered By: Delfino Cervantes Admission Data Admit Date/Time: 10/14/18 15:36 Attending Provider: Delfino Cervantes Admit Provider: Howard Shi Primary Care Provider: Dane Gonzalez Other Providers: Mustapha Valdez ; Howard Shi Service: Telemetry Medical Other Interventions: Discharge Summary Assessment (RN) Last Done: 10/18/18 16:18 DC Date/Time DO NOT enter until pt leaves facility: 10/18/18 19:30
== END 2018-10-18 19:30 | disposition home or self-care (01) | DRG 189 ==
LOC: ED 13:34 → 2N 15:36 → SUATTDRO 15:36 → 2N 16:11

== ENCOUNTER 2022-08-16 17:20 | Inpatient (IN) ==
[2022-08-16 17:59] LABS: Base Excess VBG 4.9 mEq/L; HCO3 VBG 33 mmol/L; Oxygen Saturation VBG < 60.0 %; PCO2 VBG 62 mmHg (38-50); PO2 VBG 22 mmHg; pH VBG 7.33 (7.36-7.41)
--- NOTE | 2022-08-16 18:02 | XRay Report ---
XR chest 1V portable CLINICAL HISTORY: sob TECHNIQUE: Single frontal radiograph of the chest was obtained. Comparison: Comparison is made to chest radiograph 01/30/2019 FINDINGS: No lines and tubes are seen. The cardiomediastinal silhouette is normal. Extensive emphysematous daivs ges are seen with biapical scarring. No evidence of pleural effusion or pneumothorax. IMPRESSION: No acute abnormalities and in particular no radiographic evidence of pneumonia. ACT 112: Negative or not required by law. Electronically signed by: Reyes Mitchell M.D. 08/16/2022 6:00 PM
[2022-08-16 18:05] LABS: Basophils # (auto) 0.06 K/uL (0-0.2); Basophils % (auto) 0.7 %; Eosinophils # (auto) 0.15 K/uL (0-0.50); Eosinophils % (auto) 1.8 %; Hematocrit (blood only) 42.2 % (42.0-52.0); Hemoglobin 14.9 g/dl (14.0-18.0); Immature Granulocytes # (auto) 0.02 K/uL (0.01-0.20); Immature Granulocytes % (auto) 0.2 %; Lymphocytes # (auto) 1.07 K/uL (1.2-3.4); Lymphocytes % (auto) 12.5 %; Mean Corpuscular Hemoglobin 33.3 pg (25.0-34.0); Mean Corpuscular Hgb Conc 35.3 g/dL (32.0-36.0); Mean Corpuscular Volume 94.4 fL (80.0-100.0); Mean Platelet Volume 9.5 fL (9.4-12.4); Monocytes # (auto) 0.55 K/uL (0.11-0.59); Monocytes % (auto) 6.4 %; Neutrophils # (auto) 6.68 K/uL (1.40-6.50); Neutrophils % (auto) 78.4 %; Platelet Count 326 K/uL (130-400); RDW Coefficient of Variation 13.2 % (11.5-14.5); RDW Standard Deviation 46.3 fL (36.4-46.3); Red Blood Count 4.47 M/uL (4.70-6.10); White Blood Count 8.53 K/ul (4.8-10.8)
[2022-08-16 18:13] LABS: Lithium 0.5 mmol/L (0.6-1.2)
[2022-08-16 18:18] LABS: Acetaminophen < 3 ug/ml (10-30); Salicylate < 3.0 mg/dl (3.0-30)
[2022-08-16 18:20] LABS: Albumin Globulin Ratio 1.7 (0.9-2); Albumin Level 4.2 gm/dl (3.4-5.0); BUN Creatinine Ratio 21.3 (10-20); Bilirubin,Total 0.3 mg/dl (0.2-1.0); Calcium 9.1 mg/dl (8.6-10.3); Creatinine Clr Calc Pharmacy 64.6 ml/min; Est GFR (African American) 102.5 ml/min; Est GFR (Non-African American) 88.5 ml/min; Globulin 2.5 gm/dl (2.5-4.0); Magnesium 1.9 mg/dl (1.7-2.4); Potassium 3.9 mmol/L (3.5-5.1); Total Protein 6.7 gm/dl (6.0-8.3)
[2022-08-16 18:25] LABS: Troponin I High Sensitivity 7.3 pg/ml (0-20)
--- NOTE | 2022-08-16 19:49 | Emergency Department Note ---
History of Present Illness General Chief complaint: Mental Health Evaluation Stated complaint: MENTAL HEALTH EVAL Time Seen by Provider: 08/16/22 17:25 History of Present Illness Provider complaint: Mental health evaluation 67-year-old male presents emergency department for mental health evaluation. Patient states he is not having any thoughts of wanting hurt himself but his therapist wanted him to be evaluated. Patient states he is a patient with COPD and has seen some mild difficulty breathing. Home Medications Medication Instructions Recorded Confirmed Type lithium carbonate 450 mg 450 mg PO HS 11/27/19 08/16/22 History tablet,extended release colestipol 1 gram tablet 2 g PO BID #60 tabs 04/20/21 08/16/22 Rx Portable Oxygen #1 ea 06/15/21 08/16/22 Rx albuterol sulfate 90 mcg/actuation 2 puff inhalation Q6H PRN SOB #18 10/18/21 08/16/22 Rx aerosol inhaler grams fluticasone propionate 50 1 spray intranasal BID #30 mL 10/22/21 08/16/22 Rx mcg/actuation nasal spray,suspension (Allergy Relief (fluticasone)) azelastine 137 mcg (0.1 %) nasal 2 spray intranasal BID #30 mL 10/23/21 08/16/22 Rx spray aerosol 5-hydroxytryptophan (5-HTP) 100 mg 100 mg PO HS 11/21/21 08/16/22 History capsule (5-HTP) biotin 10,000 mcg capsule 10,000 mcg PO HS 11/21/21 08/16/22 History cholecalciferol (vitamin D3) 125 125 mcg PO HS 11/21/21 08/16/22 History mcg (5,000 unit) capsule copper gluconate 2 mg tablet 2 mg PO HS 11/21/21 08/16/22 History ferrous sulfate 325 mg (65 mg 325 mg PO HS 11/21/21 08/16/22 History iron) tablet (Feosol) melatonin 3 mg capsule 3 mg PO HS 11/21/21 08/16/22 History phenylalanine 500 mg tablet 1,000 mg PO QAM 11/21/21 08/16/22 History (L-Phenylalanine) prasterone (dhea) 50 mg capsule 100 mg PO QAM 11/21/21 08/16/22 History (DHEA) taurine 1,000 mg capsule 1,000 mg PO QAM 11/21/21 08/16/22 History aripiprazole 30 mg tablet (Abilify) 30 mg PO HS 01/17/22 08/16/22 History ascorbic acid (vitamin C) 500 mg 500 mg PO BID 01/17/22 08/16/22 History capsule caffeine 200 mg tablet 200 mg PO PRN PRN Unknown 01/17/22 08/16/22 History [id number] 333 mg-133 3 tab PO HS 01/17/22 08/16/22 History mg-5 mg tablet cholestyramine (with sugar) 4 gram 2 ea PO QA 01/17/22 08/16/22 History powder for susp in a packet daquan extract 500 mg capsule 500 mg PO HS 01/17/22 08/16/22 History multivitamin 1 tab PO HS 01/17/22 08/16/22 History quetiapine 25 mg tablet (Seroquel) 25 mg PO HS 01/17/22 08/16/22 History skullcap 100 mg capsule 1,000 mg PO HS 01/17/22 08/16/22 History theanine 200 mg capsule 400 mg PO HS 01/17/22 08/16/22 History turmeric 400 mg capsule 800 mg PO HS 01/17/22 08/16/22 History vitamin B complex 1 tab PO HS 01/17/22 08/16/22 History vitamin E mixed-tocotrienol 120 0 cap PO QA 01/17/22 08/16/22 History unit-17 mg capsule primidone 250 mg tablet 250 mg PO BID 30 days #60 tabs 02/06/22 08/16/22 Rx ondansetron 4 mg disintegrating 4 mg PO Q6H PRN nausea and 04/20/22 08/16/22 Rx tablet vomiting #14 tabs meclizine 12.5 mg tablet 12.5 mg PO TID PRN dizziness #30 05/20/22 08/16/22 Rx tabs dicyclomine 10 mg capsule 10 mg PO BID PRN Abdominal 08/16/22 08/16/22 History Discomfort escitalopram oxalate 20 mg tablet 20 mg PO QAM 08/16/22 08/16/22 History (Lexapro) fluticasone furoate 100 1 inh inhalation QA 08/16/22 08/16/22 History mcg-vilanterol 25 mcg/dose inhalation powder (Breo Ellipta) levothyroxine 88 mcg tablet 88 mcg PO DAILYBB 08/16/22 08/16/22 History pantoprazole 40 mg tablet,delayed 40 mg PO QAM 08/16/22 08/16/22 History release tamsulosin 0.4 mg capsule 0.4 mg PO HS 08/16/22 08/16/22 History tiotropium bromide 1.25 2 puff inhalation QAM 08/16/22 08/16/22 History mcg/actuation mist for inhalation (Spiriva Respimat) tyrosine 500 mg capsule 1,000 mg PO QAM 08/16/22 08/16/22 History Allergies Allergy/AdvReac Type Severity Reaction Status Date / Time morphine AdvReac Severe FEELING OF Verified 08/16/22 21:43 "DYING" azithromycin AdvReac Mild Diarrhea Verified 08/16/22 21:43 gabapentin AdvReac Mild drowsiness Verified 08/16/22 21:43 Past Med/Surg History Medical History (Updated 08/16/22 @ 23:17 by Darryn Regalado) Anemia Anxiety and depression Clear cell carcinoma of kidney COPD (chronic obstructive pulmonary disease) STABLE COPD with emphysema Deviated nasal septum Essential tremor Herpes simplex History of colon polyps Hx of small bowel obstruction Hypothyroidism Hypoxia On home oxygen therapy O2 AT 2L PRN SHORT OF BREATH Respiratory failure with hypoxia Schizo affective schizophrenia FOLLOWS WITH COUNSELOR MONTHLY Tubular adenoma of colon Surgical History H/O partial nephrectomy LEFT History of appendectomy WITH EXPLORATORY SURGERY History of colonoscopy History of tonsillectomy History of tooth extraction Hx of inguinal hernia repair BILATERAL 10/07/2012 - Dr. Johns S/P small bowel resection Diagnostic lap with enterolysis; release of SBO 05/28/18 - Dr. Khan Family History Father Lymphoma Mother Neoplasm of brain Family/Other Cardiac arrest Other Diabetes Myocardial infarction No family history of adverse response to anesthesia Social History Smoking Status: Never smoker Tobacco Type: Cigarettes Age Started Using Tobacco: 17; Age Quit Using Tobacco: 59; packs per day: 1; Second Hand Exposure: No; Hx Alcohol Use: Yes Alcohol type: wine Alcohol Intake Frequency Comment: Drinks non-alcoholic beer Hx Substance Use: No (Medical Marijuana) Preferred Language: Slovenian Communication Ability: Effective Visual Impairment: Limited Janitorial Account Manager Required: No Beliefs That Will Affect Care: None marital status: Single Current Living Situation: Alone Current Living Situation Comment: town house Feels Safe at Home: Yes Seatbelt Use: always Gender Identity: Male Assistive Devices: Glasses and Oxygen - Continuous Physical Exam Vital Signs Vital Signs - 24 hr 08/16/22 17:22 08/16/22 17:40 08/16/22 17:50 Temperature 36.7 C Temperature Source Temporal Artery Scan Pulse Rate 104 H 91 H Pulse Rate [Right Finger] 91 H Pulse Rate from SpO2 Sensor Respiratory Rate 18 Blood Pressure 144/84 H Blood Pressure [Right Arm] 157/102 H Blood Pressure Mean 104 Blood Pressure Mean [Right Arm] 120 Pulse Oximetry 96 99 Oxygen Delivery Method Room Air Room Air Sepsis Recent Fever Within 48 Hours No Sepsis New/Unexplained Change in Mental Status No Sepsis Action Taken by Nursing No Action Required 08/16/22 17:41 08/16/22 17:50 08/16/22 18:00 Temperature Temperature Source Pulse Rate 92 H 86 83 Pulse Rate [Right Finger] Pulse Rate from SpO2 Sensor 92 H 86 84 Respiratory Rate 19 15 15 Blood Pressure Blood Pressure [Right Arm] Blood Pressure Mean Blood Pressure Mean [Right Arm] Pulse Oximetry 99 98 99 Oxygen Delivery Method Sepsis Recent Fever Within 48 Hours Sepsis New/Unexplained Change in Mental Status Sepsis Action Taken by Nursing 08/16/22 18:10 08/16/22 18:20 08/16/22 18:30 Temperature Temperature Source Pulse Rate 84 80 85 Pulse Rate [Right Finger] Pulse Rate from SpO2 Sensor 85 81 84 Respiratory Rate 20 13 11 L Blood Pressure Blood Pressure [Right Arm] Blood Pressure Mean Blood Pressure Mean [Right Arm] Pulse Oximetry 98 98 97 Oxygen Delivery Method Sepsis Recent Fever Within 48 Hours Sepsis New/Unexplained Change in Mental Status Sepsis Action Taken by Nursing 08/16/22 18:40 08/16/22 18:50 08/16/22 18:55 Temperature Temperature Source Pulse Rate 78 79 81 Pulse Rate [Right Finger] Pulse Rate from SpO2 Sensor 79 79 81 Respiratory Rate 14 11 L 10 L Blood Pressure Blood Pressure [Right Arm] Blood Pressure Mean Blood Pressure Mean [Right Arm] Pulse Oximetry 97 97 96 Oxygen Delivery Method Room Air Sepsis Recent Fever Within 48 Hours Sepsis New/Unexplained Change in Mental Status Sepsis Action Taken by Nursing 08/16/22 18:55 08/16/22 19:00 08/16/22 19:30 Temperature Temperature Source Pulse Rate 78 94 H Pulse Rate [Right Finger] Pulse Rate from SpO2 Sensor 76 93 H Respiratory Rate 14 20 Blood Pressure 132/77 Blood Pressure [Right Arm] Blood Pressure Mean 95 Blood Pressure Mean [Right Arm] Pulse Oximetry 96 97 Oxygen Delivery Method Sepsis Recent Fever Within 48 Hours Sepsis New/Unexplained Change in Mental Status Sepsis Action Taken by Nursing 08/16/22 20:00 08/16/22 20:30 08/16/22 21:00 Temperature Temperature Source Pulse Rate 85 98 H 93 H Pulse Rate [Right Finger] Pulse Rate from SpO2 Sensor 86 95 H 93 H Respiratory Rate 14 14 13 Blood Pressure Blood Pressure [Right Arm] Blood Pressure Mean Blood Pressure Mean [Right Arm] Pulse Oximetry 98 96 98 Oxygen Delivery Method Sepsis Recent Fever Within 48 Hours Sepsis New/Unexplained Change in Mental Status Sepsis Action Taken by Nursing 08/16/22 21:24 08/16/22 21:24 08/16/22 21:30 Temperature Temperature Source Pulse Rate 98 H 98 H Pulse Rate [Right Finger] Pulse Rate from SpO2 Sensor 100 H 98 H Respiratory Rate 20 16 Blood Pressure 145/77 H Blood Pressure [Right Arm] Blood Pressure Mean 99 Blood Pressure Mean [Right Arm] Pulse Oximetry 98 98 Oxygen Delivery Method Sepsis Recent Fever Within 48 Hours Sepsis New/Unexplained Change in Mental Status Sepsis Action Taken by Nursing 08/16/22 21:38 Temperature Temperature Source Pulse Rate 98 H Pulse Rate [Right Finger] Pulse Rate from SpO2 Sensor Respiratory Rate Blood Pressure Blood Pressure [Right Arm] Blood Pressure Mean Blood Pressure Mean [Right Arm] Pulse Oximetry Oxygen Delivery Method Sepsis Recent Fever Within 48 Hours Sepsis New/Unexplained Change in Mental Status Sepsis Action Taken by Nursing Physical Exam GENERAL: oriented to person, place, and time. appears well-developed and well- nourished. HENT: Exam performed. - Head: Normocephalic and atraumatic. EYES: Conjunctivae and EOM are normal. Right eye exhibits no discharge. Left eye exhibits no discharge. No scleral icterus. NECK: Normal range of motion. Neck supple. No JVD present. CV: Normal rate, regular rhythm, normal heart sounds and intact distal pulses. There is no peripheral edema. Palpable radial pulses bue. PULM/CHEST: Effort normal and breath sounds normal. No respiratory distress. No stridor. no wheezes. no rales. ABD: The abdomen is soft. There is no tenderness. NEURO: Motor and sensation grossly intact. SKIN: Skin is warm and dry. He is not diaphoretic. PSYCH: Patient denies suicidal ideation. Course Course 1725: The patient was evaluated in room A5. A complete history and physical exam was performed 1944: Vital signs stable. Patient in no acute respiratory distress. Patient medically cleared. Labs and imaging within normal limits. substation manager Felisa met with the patient and went over the reports that were sent by therapist and the patient has an actual plan on where to kill himself by jumping off of a bridge and made multiple suicidal statements. 302 upheld and patient will be placed for inpatient psychiatric treatment. Patient placed in observation at this time pending placement. 2311: Patient excepted to 3 S. Administered Medications Discontinued Medications Acetaminophen (Acetaminophen 325 Mg Tab) 650 mg PO NOW STA Stop: 08/16/22 22:08 Last Admin: 08/16/22 22:13 Dose: 650 mg Documented By: Medical Decision Making Laboratory Data Attestation: I reviewed the patient's lab results. 08/16/22 17:49 08/16/22 17:49 Lab Results 08/16/22 08/16/22 08/16/22 Range/Units 17:49 17:49 17:49 WBC 8.53 (4.8-10.8) K/ul RBC 4.47 L (4.70-6.10) M/uL Hgb 14.9 (14.0-18.0) g/dl Hct 42.2 (42.0-52.0) % MCV 94.4 (80.0-100.0) fL MCH 33.3 (25.0-34.0) pg MCHC 35.3 (32.0-36.0) g/dL RDW Std Deviation 46.3 (36.4-46.3) fL RDW Coeff of Josie 13.2 (11.5-14.5) % Plt Count 326 (130-400) K/uL MPV 9.5 (9.4-12.4) fL Immature Gran % (Auto) 0.2 % Neut % (Auto) 78.4 % Lymph % (Auto) 12.5 % [place] % (Auto) 6.4 % Eos % (Auto) 1.8 % Baso % (Auto) 0.7 % Neut # (Auto) 6.68 H (1.40-6.50) K/uL Lymph # (Auto) 1.07 L (1.2-3.4) K/uL [place] # (Auto) 0.55 (0.11-0.59) K/uL Eos # (Auto) 0.15 (0-0.50) K/uL Baso # (Auto) 0.06 (0-0.2) K/uL Immature Gran # (Auto) 0.02 (0.01-0.20) K/uL VBG pH (7.36-7.41) VBG pCO2 (38-50) mmHg VBG pO2 mmHg VBG HCO3 mmol/L VBG O2 Saturation % VBG Base Excess mEq/L Sodium 137 (136-145) mmol/L Potassium 3.9 (3.5-5.1) mmol/L Chloride 102 (98-107) mmol/L Carbon Dioxide 30 (21-32) mmol/L Anion Gap 5 (3-11) BUN 19 (6-23) mg/dl Creatinine 0.89 (0.6-1.4) mg/dl Est Cr Clr Drug Dosing 64.6 ml/min Est GFR ( Amer) 102.5 ml/min Est GFR (Non-Af Amer) 88.5 ml/min BUN/Creatinine Ratio 21.3 H (10-20) Glucose 114 H (70-99(Fasting)) mg/dl Calcium 9.1 (8.6-10.3) mg/dl Magnesium 1.9 (1.7-2.4) mg/dl Total Bilirubin 0.3 (0.2-1.0) mg/dl AST 33 (13-39) U/L ALT 39 (7-52) U/L Alkaline Phosphatase 131 H (34-104) U/L Troponin I High Sens 7.3 (0-20) pg/ml Total Protein 6.7 (6.0-8.3) gm/dl Albumin 4.2 (3.4-5.0) gm/dl Globulin 2.5 (2.5-4.0) gm/dl Albumin/Globulin Ratio 1.7 (0.9-2) TSH 2.909 (0.300-4.500) uIu/ml Urine Color Urine Appearance (Clear) Urine pH (4.5-7.5) Ur Specific [place] (1.000-1.030) Urine Protein (Negative) Urine Glucose (UA) (Negative) Urine Ketones (Negative) Urine Blood (Negative) Urine Nitrite (Negative) Urine Bilirubin (Negative) Urine Urobilinogen (Negative) Ur Leukocyte Esterase (Negative) Salicylates (3.0-30) mg/dl Urine Opiates Screen (Neg) Ur Methadone, Qual (Neg) Acetaminophen (10-30) ug/ml Urine Barbiturates (Neg) Ur Phencyclidine (PCP) (Neg) U Amphetamin/Meth Scrn (Neg) MDMA (Ecstasy) Screen (Neg) U Benzodiazepines Scrn (Neg) [place] (0.6-1.2) mmol/L Ur Cocaine Metabolite (Neg) U Marijuana (THC) Screen (Neg) Ethyl Alcohol mg/dL (<10.0) mg/dl SARS-CoV-2, RNA, NAAT (NEGATIVE) 08/16/22 08/16/22 08/16/22 Range/Units 17:49 17:49 17:49 WBC (4.8-10.8) K/ul RBC (4.70-6.10) M/uL Hgb (14.0-18.0) g/dl Hct (42.0-52.0) % MCV (80.0-100.0) fL MCH (25.0-34.0) pg MCHC (32.0-36.0) g/dL RDW Std Deviation (36.4-46.3) fL RDW Coeff of Josie (11.5-14.5) % Plt Count (130-400) K/uL MPV (9.4-12.4) fL Immature Gran % (Auto) % Neut % (Auto) % Lymph % (Auto) % [place] % (Auto) % Eos % (Auto) % Baso % (Auto) % Neut # (Auto) (1.40-6.50) K/uL Lymph # (Auto) (1.2-3.4) K/uL [place] # (Auto) (0.11-0.59) K/uL Eos # (Auto) (0-0.50) K/uL Baso # (Auto) (0-0.2) K/uL Immature Gran # (Auto) (0.01-0.20) K/uL VBG pH 7.33 L (7.36-7.41) VBG pCO2 62 H (38-50) mmHg VBG pO2 22 mmHg VBG HCO3 33 mmol/L VBG O2 Saturation < 60.0 % VBG Base Excess 4.9 mEq/L Sodium (136-145) mmol/L Potassium (3.5-5.1) mmol/L Chloride (98-107) mmol/L Carbon Dioxide (21-32) mmol/L Anion Gap (3-11) BUN (6-23) mg/dl Creatinine (0.6-1.4) mg/dl Est Cr Clr Drug Dosing ml/min Est GFR ( Amer) ml/min Est GFR (Non-Af Amer) ml/min BUN/Creatinine Ratio (10-20) Glucose (70-99(Fasting)) mg/dl Calcium (8.6-10.3) mg/dl Magnesium (1.7-2.4) mg/dl Total Bilirubin (0.2-1.0) mg/dl AST (13-39) U/L ALT (7-52) U/L Alkaline Phosphatase (34-104) U/L Troponin I High Sens (0-20) pg/ml Total Protein (6.0-8.3) gm/dl Albumin (3.4-5.0) gm/dl Globulin (2.5-4.0) gm/dl Albumin/Globulin Ratio (0.9-2) TSH (0.300-4.500) uIu/ml Urine Color Urine Appearance (Clear) Urine pH (4.5-7.5) Ur Specific [place] (1.000-1.030) Urine Protein (Negative) Urine Glucose (UA) (Negative) Urine Ketones (Negative) Urine Blood (Negative) Urine Nitrite (Negative) Urine Bilirubin (Negative) Urine Urobilinogen (Negative) Ur Leukocyte Esterase (Negative) Salicylates < 3.0 L (3.0-30) mg/dl Urine Opiates Screen (Neg) Ur Methadone, Qual (Neg) Acetaminophen < 3 L (10-30) ug/ml Urine Barbiturates (Neg) Ur Phencyclidine (PCP) (Neg) U Amphetamin/Meth Scrn (Neg) MDMA (Ecstasy) Screen (Neg) U Benzodiazepines Scrn (Neg) [place] 0.5 L (0.6-1.2) mmol/L Ur Cocaine Metabolite (Neg) U Marijuana (THC) Screen (Neg) Ethyl Alcohol mg/dL < 10.0 (<10.0) mg/dl SARS-CoV-2, RNA, NAAT (NEGATIVE) 08/16/22 08/16/22 08/16/22 Range/Units 19:46 19:46 Unknown WBC (4.8-10.8) K/ul RBC (4.70-6.10) M/uL Hgb (14.0-18.0) g/dl Hct (42.0-52.0) % MCV (80.0-100.0) fL MCH (25.0-34.0) pg MCHC (32.0-36.0) g/dL RDW Std Deviation (36.4-46.3) fL RDW Coeff of Josie (11.5-14.5) % Plt Count (130-400) K/uL MPV (9.4-12.4) fL Immature Gran % (Auto) % Neut % (Auto) % Lymph % (Auto) % [place] % (Auto) % Eos % (Auto) % Baso % (Auto) % Neut # (Auto) (1.40-6.50) K/uL Lymph # (Auto) (1.2-3.4) K/uL [place] # (Auto) (0.11-0.59) K/uL Eos # (Auto) (0-0.50) K/uL Baso # (Auto) (0-0.2) K/uL Immature Gran # (Auto) (0.01-0.20) K/uL VBG pH (7.36-7.41) VBG pCO2 (38-50) mmHg VBG pO2 mmHg VBG HCO3 mmol/L VBG O2 Saturation % VBG Base Excess mEq/L Sodium (136-145) mmol/L Potassium (3.5-5.1) mmol/L Chloride (98-107) mmol/L Carbon Dioxide (21-32) mmol/L Anion Gap (3-11) BUN (6-23) mg/dl Creatinine (0.6-1.4) mg/dl Est Cr Clr Drug Dosing ml/min Est GFR ( Amer) ml/min Est GFR (Non-Af Amer) ml/min BUN/Creatinine Ratio (10-20) Glucose (70-99(Fasting)) mg/dl Calcium (8.6-10.3) mg/dl Magnesium (1.7-2.4) mg/dl Total Bilirubin (0.2-1.0) mg/dl AST (13-39) U/L ALT (7-52) U/L Alkaline Phosphatase (34-104) U/L Troponin I High Sens (0-20) pg/ml Total Protein (6.0-8.3) gm/dl Albumin (3.4-5.0) gm/dl Globulin (2.5-4.0) gm/dl Albumin/Globulin Ratio (0.9-2) TSH (0.300-4.500) uIu/ml Urine Color Yellow Urine Appearance Clear (Clear) Urine pH 6.0 (4.5-7.5) Ur Specific [place] 1.013 (1.000-1.030) Urine Protein Negative (Negative) Urine Glucose (UA) Negative (Negative) Urine Ketones Negative (Negative) Urine Blood Negative (Negative) Urine Nitrite Negative (Negative) Urine Bilirubin Negative (Negative) Urine Urobilinogen Negative (Negative) Ur Leukocyte Esterase Negative (Negative) Salicylates (3.0-30) mg/dl Urine Opiates Screen Neg (Neg) Ur Methadone, Qual Neg (Neg) Acetaminophen (10-30) ug/ml Urine Barbiturates Pos H (Neg) Ur Phencyclidine (PCP) Neg (Neg) U Amphetamin/Meth Scrn Neg (Neg) MDMA (Ecstasy) Screen Pos H (Neg) U Benzodiazepines Scrn Neg (Neg) [place] (0.6-1.2) mmol/L Ur Cocaine Metabolite Neg (Neg) U Marijuana (THC) Screen Pos H (Neg) Ethyl Alcohol mg/dL (<10.0) mg/dl SARS-CoV-2, RNA, NAAT NEGATIVE (NEGATIVE) Imaging Data Attestation: I personally reviewed and interpreted this imaging study as follows: My Impression: Chest x-ray: Emphysematous changes Radiologist's Impression: Chest X-Ray 08/16/22 17:41 XR chest 1V portable CLINICAL HISTORY: sob TECHNIQUE: Single frontal radiograph of the chest was obtained. Comparison: Comparison is made to chest radiograph 01/30/2019 FINDINGS: No lines and tubes are seen. The cardiomediastinal silhouette is normal. Extensive emphysematous changes are seen with biapical scarring. No evidence of pleural effusion or pneumothorax. IMPRESSION: No acute abnormalities and in particular no radiographic evidence of pneumonia. ACT 112: Negative or not required by law. Electronically signed by: Reyes Mitchell M.D. 08/16/2022 6:00 PM ECG Data Attestation: I personally reviewed and interpreted this ECG as follows: Indication: + SOB/dyspnea Rate (beats per minute): 88 Rhythm: + normal sinus ECG Intervals/blocks: + Normal QRS, + Normal [place] and + Normal QT-c ECG ST segments: + Normal ST segments MDM Narrative 1725: The patient was evaluated in room A5. A complete history and physical exam was performed 1944: Vital signs stable. Patient in no acute respiratory distress. Patient medically cleared. Labs and imaging within normal limits. substation manager Felisa met with the patient and went over the reports that were sent by therapist and the patient has an actual plan on where to kill himself by jumping off of a bridge and made multiple suicidal statements. 302 upheld and patient will be placed for inpatient psychiatric treatment. Patient placed in observation at this time pending placement. 2311: Patient excepted to 3 S. Observation note Indication: Psych eval/placement Patient, with COPD, schizoaffective disorder, anxiety, depression was first seen at 1725 hrs and the observation time began at 1945 hrs and was necessary in order to have psych evaluation completed . Upon re-evaluation, 3 hours and 26 minutes of observation revealed that the patient should be admitted to 3 S. Disposition date and time August 16, 2022 2311. Impression & Plan Depression with suicidal ideation Discharge Plan Visit Data Chief Complaint: Mental Health Evaluation Stated Complaint: MENTAL HEALTH EVAL ED Provider: Darryn Regalado Discharge Problem: Depression with suicidal ideation Patient Disposition: Admitted As Inpatient Forms Stand Alone Forms: My [facility], Suicide Prevention Resources Prescriptions Prescriptions: No Action (DME) Portable Oxygen Misc See Rx Instructions .Route Qty: 1 0RF Rx Instructions: 2L via nc with exertion. [id number] Please provide POC albuterol sulfate 90 mcg/actuation HFA aerosol inhaler 2 puff inhalation Q6H PRN (Reason: SOB) Qty: 18 5RF fluticasone propionate [Allergy Relief (fluticasone)] 50 mcg/actuation spray,suspension 1 spray intranasal BID Qty: 30 2RF Rx Instructions: administer into each nostril meclizine 12.5 mg tablet 12.5 mg PO TID PRN (Reason: dizziness) Qty: 30 1RF primidone 250 mg tablet 250 mg PO BID 30 Days Qty: 60 5RF aripiprazole [Abilify] 30 mg tablet 30 mg PO HS quetiapine [Seroquel] 25 mg tablet 25 mg PO HS caffeine 200 mg tablet 200 mg PO PRN PRN (Reason: Unknown) Rx Instructions: takes up to 10 tablets/day cholestyramine (with sugar) 4 gram powder in packet 2 ea PO QAM ascorbic acid (vitamin C) 500 mg capsule 500 mg PO BID multivitamin Tablet 1 tab PO HS vitamin B complex Tablet 1 tab PO HS skullcap 100 mg capsule 1,000 mg PO HS [id number] mg tablet 3 tab PO HS daquan extract 500 mg capsule 500 mg PO HS vitamin E mixed-tocotrienol 120-17 unit-mg capsule 0 cap PO QAM Rx Instructions: 200-400 iu daily...per pt turmeric 400 mg capsule 800 mg PO HS theanine 200 mg capsule 400 mg PO HS colestipol 1 gram tablet 2 g PO BID Qty: 60 2RF DHEA 50 mg capsule 100 mg PO QAM biotin 10,000 mcg capsule 10,000 mcg PO HS ferrous sulfate [Feosol] 325 mg (65 mg iron) tablet 325 mg PO HS L-Phenylalanine 500 mg tablet 1,000 mg PO QAM cholecalciferol (vitamin D3) 125 mcg (5,000 unit) capsule 125 mcg PO HS copper gluconate 2 mg tablet 2 mg PO HS 5-hydroxytryptophan (5-HTP) [5-HTP] 100 mg capsule 100 mg PO HS taurine 1,000 mg capsule 1,000 mg PO QAM melatonin 3 mg capsule 3 mg PO HS azelastine 137 mcg (0.1 %) aerosol,spray 2 spray INTNAS BID Qty: 30 5RF Patient Comments: USES PRN NASAL CONGESTION Rx Instructions: administer into each nostril lithium carbonate 450 mg tablet extended release 450 mg PO HS fluticasone furoate-vilanterol [Breo Ellipta] 100-25 mcg/dose blister with device 1 inh inhalation QAM Spiriva Respimat 1.25 mcg/actuation mist 2 puff INHALATION QAM pantoprazole 40 mg tablet,delayed release (DR/EC) 40 mg PO QAM escitalopram oxalate [Lexapro] 20 mg tablet 20 mg PO QAM dicyclomine 10 mg capsule 10 mg PO BID PRN (Reason: Abdominal Discomfort) levothyroxine 88 mcg tablet 88 mcg PO DAILYBB tamsulosin 0.4 mg capsule 0.4 mg PO HS tyrosine 500 mg Capsule 1,000 mg PO QAM Rx Instructions: administer on an empty stomach ondansetron 4 mg tablet,disintegrating 4 mg PO Q6H PRN (Reason: nausea and vomiting) Qty: 14 0RF Referrals Referrals: Viral Gonzalez MD [Primary Care Provider] -
[2022-08-16 20:06] LABS: Appearance Urine Clear (Clear); Bilirubin Urine Negative (Negative); Blood Urine Negative (Negative); Color Urine Yellow; Glucose Urine UA Negative (Negative); Ketones Urine Negative (Negative); Leukocyte Esterase Urine Negative (Negative); Nitrite Urine Negative (Negative); Protein Urine Negative (Negative); Specific Gravity Urine 1.013 (1.000-1.030); Urobilinogen Urine Negative (Negative)
[2022-08-16 20:32] LABS: Amphetamines+Metham, Urine Neg (Neg); Barbiturates, Urine Pos (Neg); Benzodiazepine, Urine Neg (Neg); Cocaine, Urine Neg (Neg); MDMA (Ecstacy), Urine Pos (Neg); Methadone, Urine Neg (Neg); Opiate, Urine Neg (Neg); Phencyclidine, Urine Neg (Neg)
[2022-08-16] MEDS ORDERED: ACETAMINOPHEN 325 MG TAB PO STA (22:07)
[2022-08-17] MEDS ORDERED: BISMUTH SUBSALICYLATE LIQD 236 ML PO PRN (01:19)
[2022-08-17] MEDS ORDERED: ACETAMINOPHEN 325 MG TAB PO PRN (01:19)
[2022-08-17] MEDS ORDERED: ALUMINUM/MAGNESIUM SUSP 30 ML UDC PO PRN (01:19)
[2022-08-17] MEDS ORDERED: SODIUM CHLORIDE 0.65% NA SOLN 45 ML (OCEAN) PRN (01:19)
[2022-08-17] MEDS ORDERED: MAGNESIUM HYDROXIDE SUSP 30 ML UDC PO PRN (01:19)
[2022-08-17] MEDS ORDERED: hydrOXYzine HCl 25 MG TAB PO PRN ×2 (01:19)
[2022-08-17] MEDS ORDERED: ARIPiprazole 15 MG TAB PO SCH (01:30)
[2022-08-17] MEDS ORDERED: LITHIUM CARBONATE 450 MG TABCR PO SCH ×2 (01:40→12:30)
[2022-08-17] MEDS ORDERED: QUEtiapine FUMARATE 25 MG TABLET PO SCH (01:45)
[2022-08-17] MEDS ORDERED: ALBUTEROL HFA 8 GM INHALER INH PRN (04:59)
[2022-08-17] MEDS ORDERED: ESCITALOPRAM OXALATE 20 MG TAB PO SCH (09:00)
--- NOTE | 2022-08-17 13:16 | History & Physical ---
Date of Service August 17, 2022 Impression / Recommendations Brody CELIS is a 67 y/o man with a long psychiatric history diagnosed as schizoaffective disorder. He reports obsessive thoughts and a need to answer questions exhaustively, which he believes is the reason "people keep thinking I'm saying I'm suicidal". 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 He has multiple significant medical problems including meningiomas for which he has a follow-up MR scheduled next week. Reviewed with pt his current medication regimen, which includes 2 antipsychotic medications both ordered at bedtime and low-dose lithium with resultant (non- trough) subtherapeutic level of 0.5 mmol/L. Reviewed the inadvisability of using more than one antipsychotic except under very unusual circumstances. Reviewed the known risks of using lithium at any dose, which are often far outweighed by benefits but since he's unlikely to accrue any benefit at such a low blood level the risk-benefit calculus would suggest either stopping it or increasing to a therapeutic level. Pt elected to stop quetiapine and increase lithium to 900 mg/day. We also discussed the possibility that a highter dose of escitalopram might help with his obsessive thoughts, but it appeared inadvisable to make so many changes at once. In my view, pt does not meet criteria for involuntary admission. While I believe he'd benefit from inpatient medication adjustment, he strongly wishes to return home. I've agreed to accede to this desire for discharge. (1) Schizoaffective disorder, bipolar type: (2) Generalized anxiety disorder: Plan The patient was admitted to the [facility] ([facility]) on q15 min checks (behavioral with suicide precautions) for safety. The patient will participate in group, recreational, and milieu therapies and will be offered additional individual and family sessions as clinically appropriate. His status will be changed to observation then he will be discharged. Will discontinue quetiapine. Will increase lithium to 450 mg BID Inventory Assets Strengths: has local supports, motivated for (outpatient) treatment, fair insight, intelligent employed, Needs: safety and stabilization, medication adjustment Suicide Risk Level Suicide Risk Level: Low (q15 min observation checks) Suicide Risk Level Comments: Pt denies any suicidal thoughts, currently or recently Risk Factors Assessment Male: Yes : Yes Do You Have Access To A Gun?: No Health Problems: Yes Mental Health Diagnoses: Yes Substance Use Disorders: No Previous Attempt: No Family History of Suicide: No Previous Psychiatric Hospitalization: Yes Hopelessness: No Protective Factors Assessment Employed: Yes ([employer]) Good Rapport with Provider: Yes Psychiatric History Identifying Data PHILLIP CELIS is a 67-year-old M who currently lives in an apartment alone, has a history of schizoaffective disorder, and was admitted on 08/16/22 23:06 on a 302 involuntary commitment for suicidal statements. Chief Complaint "I just say too much". History of Present Illness As part of my review of the medical record, I read the following ED psychiatric pillowcase cleaner note: "The patient reports he has suicidal thoughts that go through my head, where I would do something that wouldnt make me suffer anymore than I already to, but denies any specific plan or intent to act on them. The patient reports he has COPD, emphysema, brain tumors and lung nodules and has shortness of breath. The patient asked Dr. Regalado to let me off the hook, like a worm when asked what brought him to the ER. 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 The patient states his PA at [employer] called ahead and sent him in because of the suicidal statements and he reports he is careful about what he says about his thoughts, but again states he has no intent in acting on them. The patient denies thoughts of harming others, drug or alcohol use (admits to having a medical marijuana card but states he never gets high from it) and denies access to weapons. Medical clearance explained, 302 petitioning statement received from Cristina Rodríguez PA-C with [employer] and reads: Pt was seen for an apt today. He stated, I wish I were . 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 He stated, The first chance I get for suicide that Im not hurting someone else Im going to take it. I wonder what it would be like to be . My everyday experience is not worth living. Pt has poor ADLs. He is impulsive. Pt has anorexia with documented weight loss. Due to the above, it is medically necessary that pt requires inpatient care." the following note by a second ED psychiatric pillowcase cleaner: "Phillip stated he saw his provider today, Cristina at [facility] and during visit "she always asks about suicide and I told her I think and have thoughts enter my mind. I think she went overboard. I'm not planning to kill myself. The thoughts enter my mind and I dispel them by going for a drive or watch news. The thoughts just enter and just occur to me. I don't dwell on it." Phillip stated he was 302'd two years ago after telling a [employer] feeder driver he was going to kills himself that specific night. He stated "I only told the [employer] person that back then as a pretend way to make stress go away." He stated he was 302'd a second time "because I told crisis I wanted to kill myself." Phillip stated he has been hospitalized at [facility]. He stated he sees Cristina at [facility] for medication management. Phillip stated he takes his medication "religiously." He has a BCM/Daisy through [place] [facility]. Phillip was advised his lithium level was low and he stated "I've tried repeatedly for a higher dosage but she won't prescribe it." Phillip stated he is diagnosed with Schizoaffective Disorder. He stated he has struggled with mental health for over 20 years. Phillip stated "I'm not planning on killing myself but if I get the opportunity I might do it. It's just a form of abstract thinking. When I say opportunity I mean theoretical opportunity. I've had the opportunities I could theoretically crash my car. You know that bridge in [place]? That one near the [place]. I could jump. I don't really enjoy living that much but don't want to end my life. I have COPD and health problems and it would be nice to be free from those things. I don't really enjoy living but don't want to end my life." Phillip denies HI or aggression history. He denies SIB. He denies hallucinations, paranoia, or delusional thinking. He stated he lives alone and drives for [employer]. He stated he uses medical marijuana. He denies alcohol use. He denies abuse or trauma history. He stated he has no family or local supports. He stated he has "a remote friend in [facility]." He stated he has COPD, Meningioma diagnosed 3-4 years ago, and IBS. Phillip stated he is not agreeable with recommendation for inpatient mental health treatment. He acknowledged that he is aware his provider completed a 302 petitioning statement. Spoke with Dr. Regalado - he is not comfortable with discharge due to high risk statements. Spoke with patient and updated on 302 being pursued. Patient stated "is there anyway I can just leave. It's a Friday night and a big weekend for [employer] driving." Explained concerns for his safety and next step of contacting mental health delegate." and the following psychiatric liaison RN note: "Pt. hyperverbal but pleasant and cooperative. Compliant with staff. Oriented x4. Pt. denying suicidal ideation but contradicts statements. Pt. states that he has thoughts about suicide and creates plans but denies being suicidal or has a desire to carry out any plans. He states he tells people about his thoughts and that's what gets him in trouble and has him come into the h ospital. Pt. stated he was inpatient twice around 2017, once at [facility] and once at [facility]. ROIs obtained for current providers Cristina Rodríguez at [facility] for psych medication management, and Viral Gonzalez, pcp. ROIs also for [employer], Zeenat and Dasha Palacios (friend). Current medications reviewed with pt. Denies any drug or alcohol abuse. Pt states he has medical marijuana card." Pt endorses recent history essentially as above. He says he's ruminated about suicide ("along with all sorts of things") for years. These thoughts take the form of intrusive, unwanted thoughts of things he "could do" that would end his life. He finds himself obsessively reviewing things he "might possibly do" under various sets of circumstances that he thinks "are very unlikely... but within the realm of possibility". He often has the thought that he "will" kill himself if exactly some set of circumstances presents itself, but finds these thoughts ego-dystonic and denies any wish to kill himself. Pt evidences an unusually high degree of uncertainty about things that would ordinarily be unambiguous. For example, if asked if he's ever been convicted of a crime he really gave it serious thought before responding, then several minutes later abruptly pointed out that he'd briefly been detained in [place] in the 1969's because someone thought he "didn't look right". He also attempts to cover all eventualities, however remote, when answering questions. He understands that some of his [employer] customers have complained that he talks too much and gave an example of his usual spiel to a new passenger - this was highly overinclusive, and touched on such topics as whether the temperature were comfortable, or perhaps too cold, or maybe too hot; that bottled water was available in the back seat or by request; and on and on. Pt clearly recognizes this as excessive and problematic ("I should really probably just say 'hello, let me know if I can anything to make you more comfortable' or something like that") but seems powerless to avoid trying to cover every situation he can envision arising. Pt also notes that he has often "gotten into trouble for saying too much". He does not recall having discussed the possibility of OCD with anyone in the past. Pt reports 4 lifetime psychiatric admissions and doesn't recall any previous diagnoses other than schizoaffective disorder. He has used many medications, especially antipsychotics and mood stabilizers. He thinks lithium has been the most helpful, at least when he used to take 900 mg/day. He says he's been asking his prescriber to increase the dose from the current 450 mg/day dose. Instead, he says, quetiapine got added to his existing aripiprazole (which he's taken "for years") "to augment it". He reports no change in mood, sleep, appetite, energy, interest, enjoyment, focus/concentration, or activity level recently. Past Psychiatric History Current Psychiatric Diagnosis: Schizoaffective Disorder Previous Psych Admissions: 4, most recently 2019 to [facility] Do You Have Access To A Gun?: No History of Previous Suicide Attempt: No Allergies Allergy/AdvReac Type Severity Reaction Status Date / Time morphine AdvReac Severe FEELING OF Verified 08/16/22 21:43 "DYING" azithromycin AdvReac Mild Diarrhea Verified 08/16/22 21:43 gabapentin AdvReac Mild drowsiness Verified 08/16/22 21:43 Home Medications Medication Instructions Recorded Confirmed Type colestipol 1 gram tablet 2 g PO BID #60 tabs 04/20/21 08/16/22 Rx Portable Oxygen #1 ea 06/15/21 08/16/22 Rx albuterol sulfate 90 mcg/actuation 2 puff inhalation Q6H PRN SOB #18 10/18/21 08/16/22 Rx aerosol inhaler grams fluticasone propionate 50 1 spray intranasal BID #30 mL 10/22/21 08/16/22 Rx mcg/actuation nasal spray,suspension (Allergy Relief (fluticasone)) azelastine 137 mcg (0.1 %) nasal 2 spray intranasal BID #30 mL 10/23/21 08/16/22 Rx spray aerosol 5-hydroxytryptophan (5-HTP) 100 mg 100 mg PO HS 11/21/21 08/16/22 History capsule (5-HTP) cholecalciferol (vitamin D3) 125 125 mcg PO HS 11/21/21 08/16/22 History mcg (5,000 unit) capsule copper gluconate 2 mg tablet 2 mg PO HS 11/21/21 08/16/22 History ferrous sulfate 325 mg (65 mg 325 mg PO HS 11/21/21 08/16/22 History iron) tablet (Feosol) melatonin 3 mg capsule 3 mg PO HS 11/21/21 08/16/22 History aripiprazole 30 mg tablet (Abilify) 30 mg PO HS 01/17/22 08/16/22 History gyoazax-merkumoxx-ikeb 333 mg-133 3 tab PO HS 01/17/22 08/16/22 History mg-5 mg tablet cholestyramine (with sugar) 4 gram 2 ea PO QAM 01/17/22 08/16/22 History powder for susp in a packet turmeric 400 mg capsule 800 mg PO HS 01/17/22 08/16/22 History vitamin B complex 1 tab PO HS 01/17/22 08/16/22 History primidone 250 mg tablet 250 mg PO BID 30 days #60 tabs 02/06/22 08/16/22 Rx ondansetron 4 mg disintegrating 4 mg PO Q6H PRN nausea and 04/20/22 08/16/22 Rx tablet vomiting #14 tabs meclizine 12.5 mg tablet 12.5 mg PO TID PRN dizziness #30 05/20/22 08/16/22 Rx tabs dicyclomine 10 mg capsule 10 mg PO BID PRN Abdominal 08/16/22 08/16/22 History Discomfort escitalopram oxalate 20 mg tablet 20 mg PO QAM 08/16/22 08/16/22 History (Lexapro) fluticasone furoate 100 1 inh inhalation QAM 08/16/22 08/16/22 History mcg-vilanterol 25 mcg/dose inhalation powder (Breo Ellipta) levothyroxine 88 mcg tablet 88 mcg PO DAILYBB 08/16/22 08/16/22 History pantoprazole 40 mg tablet,delayed 40 mg PO QAM 08/16/22 08/16/22 History release tamsulosin 0.4 mg capsule 0.4 mg PO HS 08/16/22 08/16/22 History tiotropium bromide 1.25 2 puff inhalation QAM 08/16/22 08/16/22 History mcg/actuation mist for inhalation (Spiriva Respimat) lithium carbonate 450 mg 450 mg PO BID 30 days #60 tabs 08/17/22 Rx tablet,extended release Family History Family History of: Doesn't Know Family Mental Health History Comment: mother- alcoholism Alcohol History Hx of Alcohol Use Over the Past 12 Months: No AUDIT Total Score: 0 Smoking Use Have You Smoked or Used Tobacco Products in the Last 30 Days: No tobacco type: cigarettes Smoking Status: Never smoker Substance History Hx of Prescription Med Misuse Over the Past 12 Months: No Hx of Over the Counter Med Misuse Over the Past 12 Months: No Hx of Inhalent Misuse Over the Past 12 Months: No Hx of Organic Substance Use Over the Past 12 Months: Yes (medical marijuana - daily) Hx of Illegal Substances/Street Drug Use Over Past 12 Months: No Problems as a Result of Past Substance Use: None Identified Personal History Living Arrangements: Apartment Highest Grade Completed: Some College Highest Grade Completed Comment: High School. 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) Marital Status: Single Number Of Children: 0 Beliefs That Will Affect Care: None Current Legal Problems: No Legal Problems Comment: 1973 was in senior care for "a few hours" because I looked suspicious in [place] Hx Legal Problems: No Patient History Medical History Abnormal brain MRI Abnormal CT scan of lung Abnormal weight loss CRESENCIO (acute kidney injury) Anemia Clear cell carcinoma of kidney Collagenous colitis COPD (chronic obstructive pulmonary disease) STABLE Deviated nasal septum Essential tremor Generalized anxiety disorder Herpes simplex History of colon polyps Hx of small bowel obstruction Hypothyroidism Hypoxia Irritable bowel syndrome Meningioma Multiple pulmonary nodules On home oxygen therapy O2 AT 2L PRN SHORT OF BREATH Prediabetes Respiratory failure with hypoxia Rising PSA level Scar condition and fibrosis of skin Schizoaffective disorder, bipolar type Tubular adenoma of colon Weak urine stream Surgical History H/O partial nephrectomy LEFT History of appendectomy WITH EXPLORATORY SURGERY History of colonoscopy History of tonsillectomy History of tooth extraction Hx of inguinal hernia repair BILATERAL 10/07/2012 - Dr. Johns S/P small bowel resection Diagnostic lap with enterolysis; release of SBO 05/28/18 - Dr. Khan Family History Father Lymphoma Mother Neoplasm of brain Family/Other Cardiac arrest Other Diabetes Myocardial infarction No family history of adverse response to anesthesia Social History Smoking Status: Never smoker Tobacco Type: Cigarettes Age Started Using Tobacco: 17; Age Quit Using Tobacco: 59; packs per day: 1; Second Hand Exposure: No; Hx Alcohol Use: Yes Alcohol type: wine Alcohol Intake Frequency Comment: Drinks non-alcoholic beer Hx Substance Use: No (Medical Marijuana) Preferred Language: Turkish Communication Ability: Effective Visual Impairment: Limited Chief Of Hospital Medicine Required: No Beliefs That Will Affect Care: None marital status: Single Current Living Situation: Alone Current Living Situation Comment: town house Feels Safe at Home: Yes Seatbelt Use: always Gender Identity: Male Assistive Devices: Glasses and Oxygen - Continuous Review of Systems Psychiatric: no depression, no hopelessness, no anhedonia, no abnormal sleep pattern, no change in appetite, no suicidal ideation, no anxiety, no panic attacks, no paranoia and no hallucinations Physical Exam Psychiatric: Orientation: alert, oriented to person, oriented to place, oriented to time and cooperative Apperance: appropriately dressed and + disheveled very thin Eye Contact: good eye contact Motor Behavior: steady gait and station exhibits both an essential hand tremor and orobuccolingual dyskinetic movements Speech: normal rate/rhythm/volume of speech hyper-precise Affect: + constricted affect Mood: + anxious mood; no depressed mood Thought Process: + circumstantial thought process; no flight of ideas and no looseness of associations markedly overinclusive Thought Content: + obsessions and + loneliness; no delusions and no worthlessness Suicidal Thoughts: denies suicidal thoughts, denies suicidal plan and denies suicidal intent Homicidal Thoughts: denies homicidal thoughts Hallucinations: no auditory hallucinations and no visual hallucinations C ognition: recent memory grossly intact, remote memory grossly intact, attention grossly intact and language grossly intact Estimated Intelligence: + above average estimated intelligence Insight: + fair insight Judgment: + limited judgement Vital Signs (Past 24 Hours): Last Vital Signs Temp 36.9 C 08/17/22 06:37 Pulse 77 08/17/22 06:38 Resp 16 08/17/22 06:37 BP 99/63 L 08/17/22 06:38 Pulse Ox 98 08/17/22 01:46 O2 Del Method Room Air 08/17/22 01:46 Exam Statement: A physical exam was performed in the ED for the purposes of medical clearance. I accept that physical as correct and adequate for the purposes of the inpatient physical exam. Results & Data ([facility]) Laboratory Results Laboratory Results - last 24 hr 08/16/22 08/16/22 08/16/22 17:49 17:49 17:49 WBC 8.53 RBC 4.47 L Hgb 14.9 Hct 42.2 MCV 94.4 MCH 33.3 MCHC 35.3 RDW Std Deviation 46.3 RDW Coeff of Josie 13.2 Plt Count 326 MPV 9.5 Immature Gran % (Auto) 0.2 Neut % (Auto) 78.4 Lymph % (Auto) 12.5 [place] % (Auto) 6.4 Eos % (Auto) 1.8 Baso % (Auto) 0.7 Neut # (Auto) 6.68 H Lymph # (Auto) 1.07 L [place] # (Auto) 0.55 Eos # (Auto) 0.15 Baso # (Auto) 0.06 Immature Gran # (Auto) 0.02 VBG pH VBG pCO2 VBG pO2 VBG HCO3 VBG O2 Saturation VBG Base Excess Sodium 137 Potassium 3.9 Chloride 102 Carbon Dioxide 30 Anion Gap 5 BUN 19 Creatinine 0.89 Est Cr Clr Drug Dosing 64.6 Est GFR ( Amer) 102.5 Est GFR (Non-Af Amer) 88.5 BUN/Creatinine Ratio 21.3 H Glucose 114 H Calcium 9.1 Magnesium 1.9 Total Bilirubin 0.3 AST 33 ALT 39 Alkaline Phosphatase 131 H Troponin I High Sens 7.3 Total Protein 6.7 Albumin 4.2 Globulin 2.5 Albumin/Globulin Ratio 1.7 TSH 2.909 Urine Color Urine Appearance Urine pH Ur Specific [place] Urine Protein Urine Glucose (UA) Urine Ketones Urine Blood Urine Nitrite Urine Bilirubin Urine Urobilinogen Ur Leukocyte Esterase Urine Butalbital Salicylates Urine Opiates Screen Ur Methadone, Qual Acetaminophen Urine Barbiturates Ur Phencyclidine (PCP) U Amphetamin/Meth Scrn Urine MDEA MDMA (Ecstasy) Screen MDMA Urine MDMA Urine Amobarbital Urine Pentobarbital Urine Phenobarbital Urine Secobarbital U Benzodiazepines Scrn [place] Ur Cocaine Metabolite U Marijuana (THC) Screen U Marijuana THC Carboxy Drug Screen Comment Ethyl Alcohol mg/dL SARS-CoV-2, RNA, NAAT 08/16/22 08/16/22 08/16/22 17:49 17:49 17:49 WBC RBC Hgb Hct MCV MCH MCHC RDW Std Deviation RDW Coeff of Josie Plt Count MPV Immature Gran % (Auto) Neut % (Auto) Lymph % (Auto) [place] % (Auto) Eos % (Auto) Baso % (Auto) Neut # (Auto) Lymph # (Auto) [place] # (Auto) Eos # (Auto) Baso # (Auto) Immature Gran # (Auto) VBG pH 7.33 L VBG pCO2 62 H VBG pO2 22 VBG HCO3 33 VBG O2 Saturation < 60.0 VBG Base Excess 4.9 Sodium Potassium Chloride Carbon Dioxide Anion Gap BUN Creatinine Est Cr Clr Drug Dosing Est GFR ( Amer) Est GFR (Non-Af Amer) BUN/Creatinine Ratio Glucose Calcium Magnesium Total Bilirubin AST ALT Alkaline Phosphatase Troponin I High Sens Total Protein Albumin Globulin Albumin/Globulin Ratio TSH Urine Color Urine Appearance Urine pH Ur Specific [place] Urine Protein Urine Glucose (UA) Urine Ketones Urine Blood Urine Nitrite Urine Bilirubin Urine Urobilinogen Ur Leukocyte Esterase Urine Butalbital Salicylates < 3.0 L Urine Opiates Screen Ur Methadone, Qual Acetaminophen < 3 L Urine Barbiturates Ur Phencyclidine (PCP) U Amphetamin/Meth Scrn Urine MDEA MDMA (Ecstasy) Screen MDMA Urine MDMA Urine Amobarbital Urine Pentobarbital Urine Phenobarbital Urine Secobarbital U Benzodiazepines Scrn [place] 0.5 L Ur Cocaine Metabolite U Marijuana (THC) Screen U Marijuana THC Carboxy Drug Screen Comment Ethyl Alcohol mg/dL < 10.0 SARS-CoV-2, RNA, NAAT 08/16/22 08/16/22 08/16/22 19:46 19:46 19:46 WBC RBC Hgb Hct MCV MCH MCHC RDW Std Deviation RDW Coeff of Josie Plt Count MPV Immature Gran % (Auto) Neut % (Auto) Lymph % (Auto) [place] % (Auto) Eos % (Auto) Baso % (Auto) Neut # (Auto) Lymph # (Auto) [place] # (Auto) Eos # (Auto) Baso # (Auto) Immature Gran # (Auto) VBG pH VBG pCO2 VBG pO2 VBG HCO3 VBG O2 Saturation VBG Base Excess Sodium Potassium Chloride Carbon Dioxide Anion Gap BUN Creatinine Est Cr Clr Drug Dosing Est GFR ( Amer) Est GFR (Non-Af Amer) BUN/Creatinine Ratio Glucose Calcium Magnesium Total Bilirubin AST ALT Alkaline Phosphatase Troponin I High Sens Total Protein Albumin Globulin Albumin/Globulin Ratio TSH Urine Color Yellow Urine Appearance Clear Urine pH 6.0 Ur Specific [place] 1.013 Urine Protein Negative Urine Glucose (UA) Negative Urine Ketones Negative Urine Blood Negative Urine Nitrite Negative Urine Bilirubin Negative Urine Urobilinogen Negative Ur Leukocyte Esterase Negative Urine Butalbital Pending Salicylates Urine Opiates Screen Neg Ur Methadone, Qual Neg Acetaminophen Urine Barbiturates Pos H Ur Phencyclidine (PCP) Neg U Amphetamin/Meth Scrn Neg Urine MDEA Pending MDMA (Ecstasy) Screen Pos H MDMA Pending Urine MDMA Pending Urine Amobarbital Pending Urine Pentobarbital Pending Urine Phenobarbital Pending Urine Secobarbital Pending U Benzodiazepines Scrn Neg [place] Ur Cocaine Metabolite Neg U Marijuana (THC) Screen Pos H U Marijuana THC Carboxy Pending Drug Screen Comment Pending Ethyl Alcohol mg/dL SARS-CoV-2, RNA, NAAT 08/16/22 Unknown WBC RBC Hgb Hct MCV MCH MCHC RDW Std Deviation RDW Coeff of Josie Plt Count MPV Immature Gran % (Auto) Neut % (Auto) Lymph % (Auto) [place] % (Auto) Eos % (Auto) Baso % (Auto) Neut # (Auto) Lymph # (Auto) [place] # (Auto) Eos # (Auto) Baso # (Auto) Immature Gran # (Auto) VBG pH VBG pCO2 VBG pO2 VBG HCO3 VBG O2 Saturation VBG Base Excess Sodium Potassium Chloride Carbon Dioxide Anion Gap BUN Creatinine Est Cr Clr Drug Dosing Est GFR ( Amer) Est GFR (Non-Af Amer) BUN/Creatinine Ratio Glucose Calcium Magnesium Total Bilirubin AST ALT Alkaline Phosphatase Troponin I High Sens Total Protein Albumin Globulin Albumin/Globulin Ratio TSH Urine Color Urine Appearance Urine pH Ur Specific [place] Urine Protein Urine Glucose (UA) Urine Ketones Urine Blood Urine Nitrite Urine Bilirubin Urine Urobilinogen Ur Leukocyte Esterase Urine Butalbital Salicylates Urine Opiates Screen Ur Methadone, Qual Acetaminophen Urine Barbiturates Ur Phencyclidine (PCP) U Amphetamin/Meth Scrn Urine MDEA MDMA (Ecstasy) Screen MDMA Urine MDMA Urine Amobarbital Urine Pentobarbital Urine Phenobarbital Urine Secobarbital U Benzodiazepines Scrn [place] Ur Cocaine Metabolite U Marijuana (THC) Screen U Marijuana THC Carboxy Drug Screen Comment Ethyl Alcohol mg/dL SARS-CoV-2, RNA, NAAT NEGATIVE Current Inpatient Medications Current Inpatient Medications: Current Inpatient Medications Acetaminophen (Acetaminophen 325 Mg Tab) 650 mg PO Q4H PRN PRN Reason: Headache or Minor Fever Stop: 09/16/22 01:18 Al Hydrox/Mg Hydrox/Simethicone (Aluminum/Magnesium Susp 30 Ml Udc) 30 ml PO Q4H PRN PRN Reason: GI Upset Stop: 09/16/22 01:18 Albuterol (Albuterol Hfa 8 Gm Inhaler) 2 puffs INH Q6 PRN PRN Reason: Shortness Of Breath Stop: 09/16/22 04:58 Aripiprazole (Aripiprazole 15 Mg Tab) 30 mg PO HS RASHI Stop: 09/16/22 01:29 Last Admin: 08/17/22 01:51 Dose: 30 mg Bismuth Subsalicylate (Bismuth Subsalicylate Liqd 236 Ml) 15 ml PO PRN PRN PRN Reason: Loose Stool Stop: 09/16/22 01:18 Escitalopram Oxalate (Escitalopram Oxalate 20 Mg Tab) 20 mg PO QAM RASHI Stop: 09/16/22 08:59 Last Admin: 08/17/22 09:45 Dose: 20 mg Hydroxyzine HCl (Hydroxyzine Hcl 25 Mg Tab) 50 mg PO HSZ PRN PRN Reason: Insomnia Stop: 09/16/22 01:18 Hydroxyzine HCl (Hydroxyzine Hcl 25 Mg Tab) 25 mg PO Q4H PRN PRN Reason: Anxiety Stop: 09/16/22 01:18 [place] Carbonate ([place] Carbonate 450 Mg Tabcr) 450 mg PO BID [facility] Stop: 09/16/22 12:29 Last Admin: 08/17/22 12:29 Dose: 450 mg Magnesium Hydroxide (Magnesium Hydroxide Susp 30 Ml Udc) 30 ml PO DAILY PRN PRN Reason: Constipation Stop: 09/16/22 01:18 Sodium Chloride (Sodium Chloride 0.65% Na Soln 45 Ml ([place])) 1 - 2 sprays NA PRN PRN PRN Reason: Nasal Dryness/Congestion Stop: 09/16/22 01:18
--- NOTE | 2022-08-17 16:40 | Discharge Summary ---
Date of Service August 17, 2022 History of Present Illness As part of my review of the medical record, I read the following ED psychiatric case finisher note: "The patient reports he has suicidal thoughts that go through my head, where I would do something that wouldnt make me suffer anymore than I already to, but denies any specific plan or intent to act on them. The patient reports he has COPD, emphysema, brain tumors and lung nodules and has shortness of breath. The patient asked Dr. Regalado to let me off the hook, like a worm when asked what brought him to the ER. 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 The patient states his PA at [facility] called ahead and sent him in because of the suicidal statements and he reports he is careful about what he says about his thoughts, but again states he has no intent in acting on them. The patient denies thoughts of harming others, drug or alcohol use (admits to having a medical marijuana card but states he never gets high from it) and denies access to weapons. Medical clearance explained, 302 petitioning statement received from Cristina Rodríguez PA-C with [facility] and reads: Pt was seen for an apt today. He stated, I wish I were . I dont have plans to kill myself, but often the thought takes a banbury operator in my mind that the first chance for an easy suicide Im going to take it. He stated, The first chance I get for suicide that Im not hurting someone else Im going to take it. I wonder what it would be like to be . My everyday experience is not worth living. Pt has poor ADLs. He is impulsive. Pt has anorexia with documented weight loss. Due to the above, it is medically necessary that pt requires inpatient care." the following note by a second ED psychiatric case finisher: "[place] stated he saw his provider today, Cristina at [facility] and during visit "she always asks about suicide and I told her I think and have thoughts enter my mind. I think she went overboard. I'm not planning to kill myself. The thoughts enter my mind and I dispel them by going for a drive or watch news. The thoughts just enter and just occur to me. I don't dwell on it." [place] stated he was 302'd two years ago after telling a [employer] tow driver he was going to kills himself that specific night. He stated "I only told the [employer] person that back then as a pretend way to make stress go away." He stated he was 302'd a second time "because I told crisis I wanted to kill myself." [place] stated he has been hospitalized at [place] and [place]. He stated he sees Cristina at [facility] for medication management. [place] stated he takes his medication "religiously." He has a BCM/Daisy through [facility]. Jamaica was advised his lithium level was low and he stated "I've tried repeatedly for a higher dosage but she won't prescribe it." [place] stated he is diagnosed with Schizoaffective Disorder. He stated he has struggled with mental health for over 20 years. [place] stated "I'm not planning on killing myself but if I get the opportunity I might do it. It's just a form of abstract thinking. When I say opportunity I mean theoretical opportunity. I've had the opportunities I could theoretically crash my car. You know that bridge in [place]? That one near the [address]. I could jump. I don't really enjoy living that much but don't want to end my life. I have COPD and health problems and it would be nice to be free from those things. I don't really enjoy living but don't want to end my life." [place] denies HI or aggression history. He denies SIB. He denies hallucinations, paranoia, or delusional thinking. 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 He stated he uses medical marijuana. He denies alcohol use. He denies abuse or trauma history. He stated he has no family or local supports. He stated he has "a remote friend in [facility]." He stated he has COPD, Meningioma diagnosed 3-4 years ago, and IBS. [place] stated he is not agreeable with recommendation for inpatient mental health treatment. He acknowledged that he is aware his provider completed a 302 petitioning statement. Spoke with Dr. Regalado - he is not comfortable with discharge due to high risk statements. Spoke with patient and updated on 302 being pursued. Patient stated "is there anyway I can just leave. It's a Friday night and a big weekend for [employer] driving." Explained concerns for his safety and next step of contacting mental health delegate." and the following psychiatric liaison RN note: "Pt. hyperverbal but pleasant and cooperative. Compliant with staff. Oriented x4. Pt. denying suicidal ideation but contradicts statements. Pt. states that he has thoughts about suicide and creates plans but denies being suicidal or has a desire to carry out any plans. He states he tells people about his thoughts and that's what gets him in trouble and has him come into the hospital. Pt. stated he was inpatient twice around 2017, once at [facility] and once at [facility]. ROIs obtained for current providers Cristina Rodríguez at [facility] for psych medication management, and Viral Gonzalez, pcp. ROIs also for Clerical Grader, Zeenat and Dasha Palacios ( friend). Current medications reviewed with pt. Denies any drug or alcohol abuse. Pt states he has medical marijuana card." Pt endorses recent history essentially as above. He says he's ruminated about suicide ("along with all sorts of things") for years. These thoughts take the form of intrusive, unwanted thoughts of things he "could do" that would end his life. He finds himself obsessively reviewing things he "might possibly do" under various sets of circumstances that he thinks "are very unlikely... but within the realm of possibility". He often has the thought that he "will" kill himself if exactly some set of circumstances presents itself, but finds these thoughts ego-dystonic and denies any wish to kill himself. Pt evidences an unusually high degree of uncertainty about things that would ordinarily be unambiguous. For example, if asked if he's ever been convicted of a crime he really gave it serious thought before responding, then several minutes later abruptly pointed out that he'd briefly been detained in [place] in the 1970's because someone thought he "didn't look right". He also attempts to cover all eventualities, however remote, when answering questions. He understands that some of his [employer] customers have complained that he talks too much and gave an example of his usual spiel to a new passenger - this was highly overinclusive, and touched on such topics as whether the temperature were comfortable, or perhaps too cold, or maybe too hot; that bottled water was available in the back seat or by request; and on and on. Pt clearly recognizes this as excessive and problematic ("I should really probably just say 'hello, let me know if I can anything to make you more comfortable' or something like that") but seems powerless to avoid trying to cover every situation he can envision arising. Pt also notes that he has often "gotten into trouble for saying too much". He does not recall having discussed the possibility of OCD with anyone in the past. Pt reports 4 lifetime psychiatric admissions and doesn't recall any previous diagnoses other than schizoaffective disorder. He has used many medications, especially antipsychotics and mood stabilizers. He thinks lithium has been the most helpful, at least when he used to take 900 mg/day. He says he's been asking his prescriber to increase the dose from the current 450 mg/day dose. Instead, he says, quetiapine got added to his existing aripiprazole (which he's taken "for years") "to augment it". He reports no change in mood, sleep, appetite, energy, interest, enjoyment, focus/concentration, or activity level recently. Physical Exam Psychiatric Orientation: alert, oriented to person, oriented to place, oriented to time and cooperative Apperance: appropriately dressed and + disheveled Eye Contact: good eye contact Motor Behavior: steady gait and station Speech: normal rate/rhythm/volume of speech Affect: + constricted affect Mood: + anxious mood; no depressed mood Thought Process: + circumstantial thought process; no flight of ideas and no looseness of associations Thought Content: + obsessions and + loneliness; no delusions and no worthlessness Suicidal Thoughts: denies suicidal thoughts, denies suicidal plan and denies suicidal intent Homicidal Thoughts: denies homicidal thoughts Hallucinations: no auditory hallucinations and no visual hallucinations Cognition: recent memory grossly intact, remote memory grossly intact, attention grossly intact and language grossly intact Estimated Intelligence: + above average estimated intelligence Insight: + fair insight Judgment: + limited judgement Vital Signs (Past 24 Hours) Last Vital Signs Temp 36.9 C 08/17/22 13:37 Pulse 80 08/17/22 13:37 Resp 16 08/17/22 13:37 BP 137/86 08/17/22 13:37 Pulse Ox 98 08/17/22 13:37 O2 Del Method Room Air 08/17/22 01:46 Principal Diagnosis Schizoaffective Disorder, Bipolar Type Psychiatric Data See daily stay summary. In short, safety was maintained and the patient was cooperative with care. Medication changes included discontinuation of quetiapine and increase of lithium and they tolerated this well. A family session was held and safety plan was completed prior to discharge. Day of Discharge Assessment Today the patient voices readiness for discharge. They note improvement in mood and deny thoughts to harm self or others. Thoughts remain organized and they are improved from admission. There is no evidence of psychosis. They agree to take mediations as prescribed and keep follow-up appointments. They are stable for discharge to outpatient level of care. Transition of Care Transition Of Care Record: was reviewed with the patient Advance Directives Advance Directives Information Provided: No Advance Directives: No Mental Health Advance Directive: No Advance Directives on File: No Living Will: No Power of Billing Supervisor: No Advance Directives Reason:: Declines as Mental Health Visit. Suicide Risk Level Suicide Risk Level Comments: Pt denies any suicidal thoughts, currently or recently Risk Factors Assessment Male: Yes : Yes Do You Have Access To A Gun?: No Health Problems: Yes Mental Health Diagnoses: Yes Substance Use Disorders: No Previous Attempt: No Family History of Suicide: No Previous Psychiatric Hospitalization: Yes Hopelessness: No Protective Factors Assessment Employed: Yes ([employer]) Good Rapport with Provider: Yes Total Time Total Time Spent: Greater Than 30 Minutes Total Time Includes: Examination of the patient, Discharge Planning, Medication Reconciliation, Communication with other providers and As well as ( documentation) Discharge Data Lab Results 08/16/22 08/16/22 08/16/22 17:49 17:49 17:49 WBC 8.53 RBC 4.47 L Hgb 14.9 Hct 42.2 MCV 94.4 MCH 33.3 MCHC 35.3 RDW Std Deviation 46.3 RDW Coeff of Josie 13.2 Plt Count 326 MPV 9.5 Immature Gran % (Auto) 0.2 Neut % (Auto) 78.4 Lymph % (Auto) 12.5 [place] % (Auto) 6.4 Eos % (Auto) 1.8 Baso % (Auto) 0.7 Neut # (Auto) 6.68 H Lymph # (Auto) 1.07 L [place] # (Auto) 0.55 Eos # (Auto) 0.15 Baso # (Auto) 0.06 Immature Gran # (Auto) 0.02 VBG pH VBG pCO2 VBG pO2 VBG HCO3 VBG O2 Saturation VBG Base Excess Sodium 137 Potassium 3.9 Chloride 102 Carbon Dioxide 30 Anion Gap 5 BUN 19 Creatinine 0.89 Est Cr Clr Drug Dosing 64.6 Est GFR ( Amer) 102.5 Est GFR (Non-Af Amer) 88.5 BUN/Creatinine Ratio 21.3 H Glucose 114 H Calcium 9.1 Magnesium 1.9 Total Bilirubin 0.3 AST 33 ALT 39 Alkaline Phosphatase 131 H Troponin I High Sens 7.3 Total Protein 6.7 Albumin 4.2 Globulin 2.5 Albumin/Globulin Ratio 1.7 TSH 2.909 Urine Color Urine Appearance Urine pH Ur Specific [place] Urine Protein Urine Glucose (UA) Urine Ketones Urine Blood Urine Nitrite Urine Bilirubin Urine Urobilinogen Ur Leukocyte Esterase Salicylates Urine Opiates Screen Ur Methadone, Qual Acetaminophen Urine Barbiturates Ur Phencyclidine (PCP) U Amphetamin/Meth Scrn MDMA (Ecstasy) Screen U Benzodiazepines Scrn [place] Ur Cocaine Metabolite U Marijuana (THC) Screen Ethyl Alcohol mg/dL SARS-CoV-2, RNA, NAAT 08/16/22 08/16/22 08/16/22 17:49 17:49 17:49 WBC RBC Hgb Hct MCV MCH MCHC RDW Std Deviation RDW Coeff of Josie Plt Count MPV Immature Gran % (Auto) Neut % (Auto) Lymph % (Auto) [place] % (Auto) Eos % (Auto) Baso % (Auto) Neut # (Auto) Lymph # (Auto) [place] # (Auto) Eos # (Auto) Baso # (Auto) Immature Gran # (Auto) VBG pH 7.33 L VBG pCO2 62 H VBG pO2 22 VBG HCO3 33 VBG O2 Saturation < 60.0 VBG Base Excess 4.9 Sodium Potassium Chloride Carbon Dioxide Anion Gap BUN Creatinine Est Cr Clr Drug Dosing Est GFR ( Amer) Est GFR (Non-Af Amer) BUN/Creatinine Ratio Glucose Calcium Magnesium Total Bilirubin AST ALT Alkaline Phosphatase Troponin I High Sens Total Protein Albumin Globulin Albumin/Globulin Ratio TSH Urine Color Urine Appearance Urine pH Ur Specific [place] Urine Protein Urine Glucose (UA) Urine Ketones Urine Blood Urine Nitrite Urine Bilirubin Urine Urobilinogen Ur Leukocyte Esterase Salicylates < 3.0 L Urine Opiates Screen Ur Methadone, Qual Acetaminophen < 3 L Urine Barbiturates Ur Phencyclidine (PCP) U Amphetamin/Meth Scrn MDMA (Ecstasy) Screen U Benzodiazepines Scrn [place] 0.5 L Ur Cocaine Metabolite U Marijuana (THC) Screen Ethyl Alcohol mg/dL < 10.0 SARS-CoV-2, RNA, NAAT 08/16/22 08/16/22 08/16/22 19:46 19:46 Unknown WBC RBC Hgb Hct MCV MCH MCHC RDW Std Deviation RDW Coeff of Josie Plt Count MPV Immature Gran % (Auto) Neut % (Auto) Lymph % (Auto) [place] % (Auto) Eos % (Auto) Baso % (Auto) Neut # (Auto) Lymph # (Auto) [place] # (Auto) Eos # (Auto) Baso # (Auto) Immature Gran # (Auto) VBG pH VBG pCO2 VBG pO2 VBG HCO3 VBG O2 Saturation VBG Base Excess Sodium Potassium Chloride Carbon Dioxide Anion Gap BUN Creatinine Est Cr Clr Drug Dosing Est GFR ( Amer) Est GFR (Non-Af Amer) BUN/Creatinine Ratio Glucose Calcium Magnesium Total Bilirubin AST ALT Alkaline Phosphatase Troponin I High Sens Total Protein Albumin Globulin Albumin/Globulin Ratio TSH Urine Color Yellow Urine Appearance Clear Urine pH 6.0 Ur Specific [place] 1.013 Urine Protein Negative Urine Glucose (UA) Negative Urine Ketones Negative Urine Blood Negative Urine Nitrite Negative Urine Bilirubin Negative Urine Urobilinogen Negative Ur Leukocyte Esterase Negative Salicylates Urine Opiates Screen Neg Ur Methadone, Qual Neg Acetaminophen Urine Barbiturates Pos H Ur Phencyclidine (PCP) Neg U Amphetamin/Meth Scrn Neg MDMA (Ecstasy) Screen Pos H U Benzodiazepines Scrn Neg [place] Ur Cocaine Metabolite Neg U Marijuana (THC) Screen Pos H Ethyl Alcohol mg/dL SARS-CoV-2, RNA, NAAT NEGATIVE Hospital Course (1) Schizoaffective disorder, bipolar type: (2) Generalized anxiety disorder: Plan The patient was [facility] mental [facility]) on q15 min checks (behavioral with suicide precautions) for safety. The patient will participate in group, recreational, and milieu therapies and will be offered additional individual and family sessions as clinically appropriate. His status will be changed to observation then he will be discharged. Will discontinue quetiapine. Will increase lithium to 450 mg BID Mental Health & Subst Abuse Tx Psychiatrist Name of Psychiatrist: Zohra Rodríguez Psychiatrist's Time of Appointment with Psychiatrist: Bailey resume your normally scheduled appointments. Psychiatric Appointment Comment: [address], [place] [address] Psychiatrist Release of Information: Obtained, Reviewed and Signed Therapist Name of Therapist: None Clerical Grader Name of Clerical Grader: [facility] [place] Phone Number for Clerical Grader: [phone] Case Management Appointment Comment: Please resume your normally scheduled visits. Clerical Grader Release of Information: Obtained, Reviewed and Signed Post Discharge Appointments Primary Care Physician Name Of Family Doctor/PCP: [facility] - Dr. Gonzalez Primary Care Time of Appointment with PCP: Please follow-up with PCP as needed. Provider Appointment Comment: [address] [place] [address] [place] [address] Primary Care Release of Information: Obtained, Reviewed and Signed Contact Information Discharge Discharge Address: [address] [place] [address] Quin Farah, [place] [address] Discharge Plan Discharge Items Patient Disposition: Home - Self-Care Reason For Visit: SCHIZOAFFECTIVE D/O Discharge Diagnosis: Schizoaffective Disorder, Bipolar Type Activity: Resume your previous activity Non-emergency contact: Primary Care Provider and Psychiatrist Call non-emergency contact if: you have any medication questions and your symptoms worsen Follow-up/Referrals: Viral Gonzalez MD [Primary Care Provider] - Diet: Regular Addtl Attending Provider Instructions: SPECIAL CARE INSTRUCTIONS: 1. Follow through with your scheduled aftercare appointments. If unable to keep an appointment, please call to reschedule. 2. Take your medication only as prescribed. Medication should not be changed or stopped without the approval of your doctor. In the event of worsening symptoms or concerns about side effects, contact your doctor immediately. 3. Utilize new healthy coping skills, anger management skills, and stress management skills learned during your hospitalization. Journal feelings and process them with a support person. Identify stressors or situations that may result in relapse, deterioration or inappropriate behaviors and develop a plan to deal with those issues. 4. If your coping skills are ineffective and you are in crisis, contact your outpatient providers for direction. If unable to reach your providers, please call the [facility] CRISIS LINE AT , go to the [facility] walk-in center at [address], [address], [place], or go to the closest Emergency Room. 5. Avoid alcohol and un-prescribed drugs. 6. You have been provided with the Mental Health Advance Directives Pamphlet for your review. 7. Your condition is stable for discharge to outpatient level of care, but recovery is an ongoing process. Ifthoughts to harm yourself or others return, follow the safety plan developed during your stay. Planning for a safe return home includes securing weapons. Our treatment team recommends weaponsbe removed from the home until your outpatient provider reassesses your progress. In rare cases where the items themselvescannot be removed, guns and ammunitionshould be secured separatelyand keys stored by a reliable personoutside of the home. If you were admitted on an involuntary commitment, the police or other legal authorities may be involved in this process. AFTERCARE APPOINTMENTS: * Please call your insurance company prior to your scheduled appointment to confirm your aftercare providers are covered. Take your insurance information to your appointments. WHO TO CALL AND WHEN: Medical Emergencies: For questions or emergencies related to your hospital stay, please contact the Inpatient Behavioral Health Unit at [phone]. A tube carrier is on-call 02/12 for the Behavioral Health Unit for emergencies At any time you feel your situation is an emergency, you may also call 911 immediately. Pending Studies at Discharge: No Stand-Alone Forms: My [facility], Smoking Cessation Medications and DC Order Prescriptions: New lithium carbonate 450 mg Tablet Extended Release 450 mg PO BID 30 Days Qty: 60 0RF Continued (DME) Portable Oxygen Misc See Rx Instructions .Route Qty: 1 0RF Rx Instructions: 2L via nc with exertion. ILENE:99 Please provide POC albuterol sulfate 90 mcg/actuation HFA aerosol inhaler 2 puff inhalation Q6H PRN (Reason: SOB) Qty: 18 5RF fluticasone propionate [Allergy Relief (fluticasone)] 50 mcg/actuation spray,suspension 1 spray intranasal BID Qty: 30 2RF Rx Instructions: administer into each nostril meclizine 12.5 mg tablet 12.5 mg PO TID PRN (Reason: dizziness) Qty: 30 1RF primidone 250 mg tablet 250 mg PO BID 30 Days Qty: 60 5RF aripiprazole [Abilify] 30 mg tablet 30 mg PO HS cholestyramine (with sugar) 4 gram powder in packet 2 ea PO QAM vitamin B complex Tablet 1 tab PO HS [id number] 333-133-5 mg tablet 3 tab PO HS turmeric 400 mg capsule 800 mg PO HS colestipol 1 gram tablet 2 g PO BID Qty: 60 2RF ferrous sulfate [Feosol] 325 mg (65 mg iron) tablet 325 mg PO HS cholecalciferol (vitamin D3) 125 mcg (5,000 unit) capsule 125 mcg PO HS copper gluconate 2 mg tablet 2 mg PO HS 5-hydroxytryptophan (5-HTP) [5-HTP] 100 mg capsule 100 mg PO HS melatonin 3 mg capsule 3 mg PO HS azelastine 137 mcg (0.1 %) aerosol,spray 2 spray INTNAS BID Qty: 30 5RF Patient Comments: USES PRN NASAL CONGESTION Rx Instructions: administer into each nostril fluticasone furoate-vilanterol [Breo Ellipta] 100-25 mcg/dose blister with device 1 inh inhalation QAM Spiriva Respimat 1.25 mcg/actuation mist 2 puff INHALATION QAM pantoprazole 40 mg tablet,delayed release (DR/EC) 40 mg PO QAM escitalopram oxalate [Lexapro] 20 mg tablet 20 mg PO QAM dicyclomine 10 mg capsule 10 mg PO BID PRN (Reason: Abdominal Discomfort) levothyroxine 88 mcg tablet 88 mcg PO DAILYBB tamsulosin 0.4 mg capsule 0.4 mg PO HS ondansetron 4 mg tablet,disintegrating 4 mg PO Q6H PRN (Reason: nausea and vomiting) Qty: 14 0RF Discontinued quetiapine [Seroquel] 25 mg tablet 25 mg PO HS caffeine 200 mg tablet 200 mg PO PRN PRN (Reason: Unknown) Rx Instructions: takes up to 10 tablets/day ascorbic acid (vitamin C) 500 mg capsule 500 mg PO BID multivitamin Tablet 1 tab PO HS skullcap 100 mg capsule 1,000 mg PO HS daquan extract 500 mg capsule 500 mg PO HS theanine 200 mg capsule 400 mg PO HS DHEA 50 mg capsule 100 mg PO QAM biotin 10,000 mcg capsule 10,000 mcg PO HS L-Phenylalanine 500 mg tablet 1,000 mg PO QAM taurine 1,000 mg capsule 1,000 mg PO QAM lithium carbonate 450 mg tablet extended release 450 mg PO HS tyrosine 500 mg Capsule 1,000 mg PO QAM Rx Instructions: administer on an empty stomach Discharge Orders: Discharge Order (Routine); Ordered 08/17/22 Ordered By: Miguel Brady Admission Data Admit Date/Time: 08/16/22 23:06 Attending Provider: Miguel Brady Admit Provider: Miguel Brady Primary Care Provider: Viral Gonzalez Other Providers: Cristina Rodríguez I. Other Interventions: Discharge Summary Assessment (RN) Last Done: 08/17/22 13:37 PSY Interdisciplinary Discharge Planning Last Done: 08/17/22 13:45 Coding Level of Care Code 79206 D/C day mgmt > 30 min Diagnoses Schizoaffective disorder, bipolar type F25.0 Generalized anxiety disorder F41.1 Time Spent (min) 33
--- NOTE | 2022-08-17 21:26 | Electrocardiogram Report ---
Test Reason : Blood Pressure : / mmHG Vent. Rate : 088 BPM Atrial Rate : 088 BPM P-R Int : 152 ms QRS Dur : 090 ms QT Int : 374 ms P-R-T Axes : 086 063 078 degrees QTc Int : 452 ms Normal sinus rhythm Normal ECG When compared with ECG of 11-OCT-2019 20:46, No significant change was found Confirmed by Don Najera ([id number]) on 08/17/2022 9:26:39 PM Referred By: Cristina Rodríguez Confirmed By:Don Najera
== END 2022-08-17 14:16 | disposition home or self-care (01) | DRG 885 ==
LOC: ED 17:20 → 3S 23:06

== ENCOUNTER 2024-05-04 20:43 | Inpatient (IN) ==
--- NOTE | 2024-05-04 21:08 | Emergency Department Note ---
Impression & Plan Lower abdominal pain, COPD (chronic obstructive pulmonary disease), Acute urinary retention, SOB (shortness of breath) ED Provider Note NAME: PHILLIP CELIS AGE: 69 SEX: M : 1955 ARRIVES VIA: Walk-In INFORMANT: [Patient] ED PROVIDER(S): [Patrick Locke MD] CHIEF COMPLAINT: Abdominal pain HISTORY OF PRESENT ILLNESS: The patient is a 69-year-old male who presents with increasing lower abdominal pain and distention. He also feels short of breath with exertion and he states that the abdominal pain seems to also worsen with exertion. He almost feels like he is suffocating. No fever. He does urinate frequently about every hour. No burning with urination. The patient has been referred to urology although, he has not yet been to the appointment. He was referred today to our ER because of his complaints and ongoing issues. The patient has had previous abdominal surgery for a perforated appendix. He also states she has had a partial nephrectomy. PMHx/PSHx/Social Hx: See Below PHYSICAL EXAM: GENERAL: Patient is in no acute distress. HEENT: No acute trauma, normocephalic atraumatic, mucous membranes moist, no nasal congestion. NECK: No stridor, no adenopathy, no meningismus, trachea is midline. LUNGS: Coarse breath sounds bilaterally with breath sounds that are quite diminished. No obvious respiratory distress. HEART: Cannot really assess for cardiac tones as there are significant overriding lung sounds. Heart tones quite distant. ABDOMEN: Somewhat firm, there is some abdominal distention noted. Diffusely mildly tender by my exam. EXTREMITIES: No cyanosis, full range of motion of all the joints without pain or difficulty. No pedal edema. NEUROLOGIC: Oriented x 3, no acute motor or sensory deficits, no focal weakness. SKIN: No jaundice, no diaphoresis. DIFFERENTIAL DIAGNOSIS: Urinary retention, UTI, ascites, bowel obstruction, diverticulitis, pneumonia, electrolyte imbalance, renal or liver failure, among others. EMERGENCY DEPARTMENT PROCEDURES: Postvoid bladder scan showed around 400 cc, moderate retention. MEDICAL DECISION MAKING: There is no leukocytosis or concerning anemia. There is a normal platelet count. There is no renal failure or significant electrolyte abnormality. No concerning liver enzyme elevation. No evidence for pancreatitis. ECG shows a sinus bradycardia, no acute ischemic change. Cardiac enzyme testing x 1 is not consistent with acute cardiac injury. Urinalysis does not show findings of infection. Respiratory bio fire was negative. Chest x-ray shows COPD, no pneumonia or CHF. Bladder scan did show moderate urinary retention. A Thayer catheter was placed with about 600 cc of urine drainage. The patient felt improved after Thayer placement. Abdominal and pelvis CT is currently pending. Patient was given a DuoNeb. A second DuoNeb was given. He was given a liter of IV saline, he received IV Solu-Medrol. Patient presents dyspneic with abdominal distention and pain. He was found to be suffering from a flare of COPD as well as urinary retention. Given the circumstances, I do think a hospital stay would be warranted. I did speak with the patient and case management. The on-call hospitalist was consulted. Prior/Outside records/notes reviewed: Outpatient family practice note from 04/14/2024 describing his complaints, ongoing issues, the plan moving forward. ECG per my interpretation: Indication was shortness of breath. The ECG shows a sinus bradycardia with some PACs. The rate is 58. There is some baseline artifact. No acute ST elevation. No PVCs. The QTc is 398. Continuous Cardiac Monitoring per my interpretation: An order was placed for continuous cardiac monitoring. The monitor shows a rate of 75 with normal sinus rhythm. Imaging/x-ray results per my interpretation: Chest x-ray shows findings of COPD, no CHF or pneumonia. Chronic Medical/Social conditions affecting care: History of COPD. Care/Management discussed with: Case management, the on-call hospitalist. Level of care consideration(s): After review of the information above and other included data: --I believe the patient requires escalation of care to admission DISPOSITION: Admission Past Med/Surg History Problem List (Updated 05/04/24 @ 23:50 by Patrick Locke MD) SOB (shortness of breath) (Acute) Acute urinary retention (Acute) COPD (chronic obstructive pulmonary disease) (Acute) Lower abdominal pain (Acute) Prostate enlargement COVID-19 (Acute) Elevated fasting glucose Anemia Fatigue Schizoaffective disorder, bipolar type (Chronic) Multiple pulmonary nodules Essential tremor (Chronic) Meningioma Tubular adenoma of colon Generalized anxiety disorder (Chronic) Abnormal weight loss Hypothyroidism COPD (chronic obstructive pulmonary disease) (Chronic) STABLE Irritable bowel syndrome Medical History Weak urine stream Prediabetes Scar condition and fibrosis of skin Diarrhea Abnormal CT scan of lung Encounter for completion of form with patient Aphthous ulcer Hx of small bowel obstruction On home oxygen therapy O2 AT 2L PRN SHORT OF BREATH Collagenous colitis Rising PSA level Herpes simplex Drug dependence Deviated nasal septum Clear cell carcinoma of kidney Abnormal brain MRI History of colon polyps Respiratory failure with hypoxia CRESENCIO (acute kidney injury) Hypoxia Surgical History History of tonsillectomy Hx of inguinal hernia repair S/P small bowel resection H/O partial nephrectomy History of colonoscopy History of appendectomy History of tooth extraction Family History Father Lymphoma Mother Neoplasm of brain Family/Other Cardiac arrest Other Diabetes Myocardial infarction No family history of adverse response to anesthesia Social History Smoking Status: Former smoker Tobacco Type: Cigarettes Age Started Using Tobacco: 17; Age Quit Using Tobacco: 59; packs per day: 1; Second Hand Exposure: No; Do You Dip or Chew Tobacco: No; Hx Alcohol Use: Yes Alcohol type: wine Alcohol Intake Frequency Comment: Drinks non-alcoholic beer Hx Substance Use: No (Medical Marijuana) Preferred Language: [place] Communication Ability: Effective Visual Impairment: No Limitations Hearing Ability: Normal Lead Welder Required: No Beliefs That Will Affect Care: None marital status: Single Current Living Situation: Alone Current Living Situation Comment: town house Feels Safe at Home: Yes Childhood Exposure to Second-Hand Smoke: Yes Diet Comment: Meat free caffeine: Yes (pills) Seatbelt Use: always Gender Identity: Male Assistive Devices: Glasses and Oxygen - Continuous Allergies Allergies Allergy/AdvReac Type Severity Reaction Status Date / Time morphine AdvReac Severe FEELING OF Verified 04/15/24 16:33 "DYING" azithromycin AdvReac Intermediate Diarrhea Verified 04/15/24 16:33 gabapentin AdvReac Intermediate drowsiness Verified 04/15/24 16:33 Home Meds Home Medications Medication Instructions Recorded Confirmed copper gluconate 2 mg tablet 2 mg PO HS 11/21/21 04/15/24 ferrous sulfate 325 mg (65 mg 325 mg PO HS 11/21/21 04/15/24 iron) tablet (Feosol) escitalopram oxalate 20 mg tablet 20 mg PO QAM 08/16/22 04/15/24 (Lexapro) cholecalciferol (vitamin D3) 125 62.5 mcg PO DAILY 09/28/22 04/15/24 mcg (5,000 unit) tablet (Vitamin D3) fluticasone propionate 50 1 spray intranasal BID PRN 09/28/22 04/15/24 mcg/actuation nasal Congestion spray,suspension (Allergy Relief (fluticasone)) lithium carbonate 450 mg 450 mg PO BID 09/28/22 04/15/24 tablet,extended release caffeine 200 mg tablet 200 mg PO Q3H 04/11/23 04/15/24 aripiprazole 30 mg tablet 30 mg PO HS 12/29/23 04/15/24 colestipol 1 gram tablet 2 g PO BID PRN Diarrhea 12/29/23 04/15/24 hydroxyzine HCl 10 mg tablet 5 - 10 mg PO DAILY PRN Anxiety 12/29/23 04/15/24 melatonin 3 mg capsule 3 mg PO HS 12/29/23 04/15/24 multivitamin with folic acid 400 1 tab PO DAILY 12/29/23 04/15/24 mcg tablet (Daily-Sigifredo (with folic acid)) pantoprazole 40 mg tablet,delayed 40 mg PO DAILYBB 12/29/23 04/15/24 release bupropion HCl 300 mg 24 hr tablet, 0 mg PO DAILY 01/06/24 04/15/24 extended release turmeric 400 mg capsule 400 mg PO HS 01/15/24 04/15/24 ginkgo biloba 40 mg tablet 40 mg PO DAILY 04/15/24 04/15/24 Previous Rx's Medication Instructions Recorded Portable Oxygen #1 ea 06/15/21 Oxygen Home #1 ea 11/26/22 albuterol sulfate 90 mcg/actuation 2 puff inhalation Q6H PRN 12/31/22 aerosol inhaler Shortness Of Breath #8.5 grams fluticasone furoate 100 1 inh inhalation QAM #60 ea 08/04/23 mcg-vilanterol 25 mcg/dose inhalation powder (Breo Ellipta) tiotropium bromide 1.25 2 puff inhalation QAM #4 grams 08/04/23 mcg/actuation mist for inhalation (Spiriva Respimat) meclizine 12.5 mg tablet See Rx Instructions .Route 09/24/23 .COMPLEX #30 tabs albuterol sulfate 1.25 mg/3 mL 1.25 mg (3 mL) inhalation QID PRN 01/05/24 solution for nebulization shortness of breath or wheezing #75 mL tamsulosin 0.4 mg capsule 0.4 mg PO DAILY #90 caps 03/02/24 ondansetron HCl 4 mg tablet 4 mg PO Q12H PRN nausea and 03/11/24 vomiting #30 tabs levothyroxine 100 mcg tablet 100 mcg PO DAILYBB #90 tabs 03/15/24 amantadine HCl 100 mg capsule 100 mg PO BID #60 caps 03/17/24 primidone 250 mg tablet 250 mg PO BID #60 tabs 03/17/24 lidocaine HCl 2 % mucosal solution 15 ml mucous membrane QID #100 mL 03/18/24 (Lidocaine Viscous) nystatin 100,000 unit/mL oral 5 ml PO QID #200 mL 03/18/24 suspension Results & Data (ED) Vital Signs Vital Signs - 24 hr 05/04/24 20:47 05/04/24 21:12 05/04/24 21:42 Temperature 36.7 C Temperature Source Temporal Artery Scan Pulse Rate 75 62 Pulse Rate [Apical] 60 Pulse Rhythm Regular Pulse Strength Normal Respiratory Rate 18 15 Respiratory Effort / Characteristics Non-Labored Spontaneous Non-Labored Spontaneous Respiratory Depth Normal Normal Respiratory Pattern Regular Regular Blood Pressure 153/92 H Blood Pressure [Right Arm] 133/83 Blood Pressure Mean 112 Blood Pressure Mean [Right Arm] 99 Blood Pressure Position Sitting Pulse Oximetry 98 100 Oxygen Delivery Method Room Air Room Air Sepsis Recent Fever Within 48 Hours No Sepsis New/Unexplained Change in Mental Status N/A Sepsis Action Taken by Nursing No Action Required Home Medications Current Medication List: was personally reviewed by me Laboratory Data Attestation: I reviewed the patient's lab results. 05/04/24 21:09 05/04/24 21:09 Lab Results 05/04/24 05/04/24 Range/Units 21:09 21:30 WBC 9.51 (4.8-10.8) K/ul RBC 4.55 L (4.70-6.10) M/uL Hgb 15.5 (14.0-18.0) g/dl Hct 46.7 (42.0-52.0) % MCV 102.6 H (80.0-100.0) fL MCH 34.1 H (25.0-34.0) pg MCHC 33.2 (32.0-36.0) g/dL RDW Std Deviation 51.9 H (36.4-46.3) fL RDW Coeff of Josie 13.5 (11.5-14.5) % Plt Count 349 (130-400) K/uL MPV 10.2 (9.4-12.4) fL Immature Gran % (Auto) 0.4 % Neut % (Auto) 79.8 % Lymph % (Auto) 10.5 % Dickenson % (Auto) 6.4 % Eos % (Auto) 2.5 % Baso % (Auto) 0.4 % Neut # (Auto) 7.58 H (1.40-6.50) K/uL Lymph # (Auto) 1.00 L (1.20-3.40) K/uL Dickenson # (Auto) 0.61 H (0.11-0.59) K/uL Eos # (Auto) 0.24 (0.00-0.50) K/uL Baso # (Auto) 0.04 (0.00-0.20) K/uL Immature Gran # (Auto) 0.04 (0.01-0.20) K/uL Sodium 136 (136-145) mmol/L Potassium 4.8 (3.5-5.1) mmol/L Chloride 98 (98-107) mmol/L Carbon Dioxide 34 H (21-32) mmol/L Anion Gap 4 (3-11) BUN 22 (6-23) mg/dl Creatinine 1.15 (0.6-1.4) mg/dl Est Cr Clr Drug Dosing 46.7 ml/min eGFR 68.89 BUN/Creatinine Ratio 19.1 (10-20) Glucose 141 H (70-99(Fasting)) mg/dl Calcium 9.2 (8.6-10.3) mg/dl Total Bilirubin 0.4 (0.2-1.0) mg/dl AST 31 (13-39) U/L ALT 38 (7-52) U/L Alkaline Phosphatase 83 (34-104) U/L Troponin I High Sens 5.5 (0-20) pg/ml Total Protein 7.5 (6.0-8.3) gm/dl Albumin 4.6 (3.4-5.0) gm/dl Globulin 2.9 (2.5-4.0) gm/dl Albumin/Globulin Ratio 1.6 (0.9-2) Lipase 45 (11-82) U/L Urine Color Yellow Urine Appearance Clear (Clear) Urine pH 8.5 H (4.5-7.5) Ur Specific Forgan 1.013 (1.000-1.030) Urine Protein Negative (Negative) Urine Glucose (UA) Negative (Negative) Urine Ketones Negative (Negative) Urine Blood Negative (Negative) Urine Nitrite Negative (Negative) Urine Bilirubin Negative (Negative) Urine Urobilinogen Negative (Negative) Ur Leukocyte Esterase Negative (Negative) Adenovirus (PCR) Not Detected (NotDetected) B. pertussis DNA (PCR) Not Detected (NotDetected) B.parapertussis DNA PCR Not Detected (NotDetected) C. pneumoniae DNA (PCR) Not Detected (NotDetected) Coronavirus OC43 (PCR) Not Detected (NotDetected) Coronavirus HKU1 (PCR) Not Detected (NotDetected) Coronavirus 229E (PCR) Not Detected (NotDetected) SARS-CoV-2 (PCR) Not Detected (NotDetected) Coronavirus NL63 (PCR) Not Detected (NotDetected) Human Metapneumovir PCR Not Detected (NotDetected) Influenza Type A (PCR) Not Detected (NotDetected) Influenza Type B (PCR) Not Detected (NotDetected) M. pneumoniae (PCR) Not Detected (NotDetected) Parainfluenza 1 (PCR) Not Detected (NotDetected) Parainfluenza 2 (PCR) Not Detected (NotDetected) Parainfluenza 3 (PCR) Not Detected (NotDetected) Parainfluenza 4 (PCR) Not Detected (NotDetected) RSV (PCR) Not Detected (NotDetected) Entero/Rhino (PCR) Not Detected (NotDetected) Administered Medications Discontinued Medications Albuterol (Albut/Ipratrop 3mg/0.5mg Neb 3 Ml Vial) 3 ml NEB NOW STA; Protocol Stop: 05/04/24 21:05 Last Admin: 05/04/24 21:17 Dose: 3 ml Documented By: CODEY Ioversol (Optiray 320 100ml) 90 ml IV ONCE ONE Stop: 05/04/24 22:21 Last Admin: 05/04/24 22:20 Dose: 90 ml Documented By: ALEJANDRO Lidocaine HCl (Lidocaine 2% Jelly 5 Ml Tube) 5 ml EXT NOW ONE Stop: 05/04/24 21:39 Last Admin: 05/04/24 21:51 Dose: 5 ml Documented By: MED Discharge Plan Visit Data Chief Complaint: Abdominal Pain Stated Complaint: SOB, ABD PAIN, HARD TO WALK, BLOATING ED Provider: Patrick Locke Discharge Problem: Lower abdominal pain, COPD (chronic obstructive pulmonary disease), Acute urinary retention, SOB (shortness of breath) Patient Disposition: Admitted As Inpatient Condition: Fair Forms Stand Alone Forms: [facility] Prescriptions Prescriptions: No Action (DME) Portable Oxygen Misc See Rx Instructions .Route Qty: 1 0RF Rx Instructions: 2L via nc with exertion. ILENE:[id number] Please provide POC (DME) Oxygen Home Liters Per Minute See Rx Instructions .Route Qty: 1 0RF Rx Instructions: oxygen mask and tubing replacement meclizine 12.5 mg tablet See Rx Instructions .ROUTE .COMPLEX Qty: 30 1RF Dose Instruction: Take 1 tablet (12.5mg) by mouth three times a day As Needed for dizziness Rx Instructions: Take 1 tablet (12.5mg) by mouth three times a day As Needed for dizziness. Unable to verify OTC meds at this date/time. albuterol sulfate 1.25 mg/3 mL solution for nebulization 1.25 mg inhalation QID PRN (Reason: shortness of breath or wheezing) Qty: 75 3RF tamsulosin 0.4 mg capsule 0.4 mg PO DAILY Qty: 90 3RF ondansetron HCl 4 mg tablet 4 mg PO Q12H PRN (Reason: nausea and vomiting) Qty: 30 3RF levothyroxine 100 mcg tablet 100 mcg PO DAILYBB Qty: 90 3RF albuterol sulfate 90 mcg/actuation HFA aerosol inhaler 2 puff inhalation Q6H PRN (Reason: Shortness Of Breath) Qty: 8.5 3RF fluticasone furoate-vilanterol [Breo Ellipta] 100-25 mcg/dose blister with device 1 inh inhalation QAM Qty: 60 11RF Spiriva Respimat 1.25 mcg/actuation mist 2 puff INHALATION QAM Qty: 4 11RF turmeric 400 mg capsule 400 mg PO HS Rx Instructions: Unable to verify OTC meds at this date/time. ferrous sulfate [Feosol] 325 mg (65 mg iron) tablet 325 mg PO HS Rx Instructions: Unable to verify OTC meds at this date/time. copper gluconate 2 mg tablet 2 mg PO HS Rx Instructions: Unable to verify OTC meds at this date/time. caffeine 200 mg tablet 200 mg PO Q3H Patient Comments: takes 10 times daily Rx Instructions: Unable to verify OTC meds at this date/time. lidocaine HCl [Lidocaine Viscous] 2 % solution 15 ml mucous membrane QID Qty: 100 1RF nystatin 100,000 unit/mL suspension 5 ml PO QID Qty: 200 0RF Rx Instructions: swish and spit ginkgo biloba 40 mg tablet 40 mg PO DAILY Rx Instructions: give with meal/snack amantadine HCl 100 mg capsule 100 mg PO BID Qty: 60 6RF primidone 250 mg tablet 250 mg PO BID Qty: 60 6RF escitalopram oxalate [Lexapro] 20 mg tablet 20 mg PO QAM lithium carbonate 450 mg tablet extended release 450 mg PO BID cholecalciferol (vitamin D3) [Vitamin D3] 125 mcg (5,000 unit) Tablet 62.5 mcg PO DAILY Rx Instructions: Unable to verify OTC meds at this date/time. fluticasone propionate [Allergy Relief (fluticasone)] 50 mcg/actuation spray,suspension 1 spray intranasal BID PRN (Reason: Congestion) Rx Instructions: administer into each nostril. Unable to verify OTC meds at this date/time. hydroxyzine HCl 10 mg tablet 5 - 10 mg PO DAILY PRN (Reason: Anxiety) pantoprazole 40 mg tablet,delayed release (DR/EC) 40 mg PO DAILYBB aripiprazole 30 mg tablet 30 mg PO HS multivitamin with folic acid [Daily-Sigifredo (with folic acid)] 400 mcg tablet 1 tab PO DAILY Rx Instructions: Unable to verify OTC meds at this date/time. colestipol 1 gram tablet 2 g PO BID PRN (Reason: Diarrhea) melatonin 3 mg capsule 3 mg PO HS Rx Instructions: Unable to verify OTC meds at this date/time. bupropion HCl 300 mg tablet extended release 24 hr 0 mg PO DAILY Rx Instructions: Unable to verify medication at this date/time. Original Directions: 300mg by mouth daily, last filled 11/14/23 x30 day supply Referrals Referrals: Fermin Parikh DO [Primary Care Provider] - Discharge Problem: COPD (chronic obstructive pulmonary disease) Qualifiers: COPD type: unspecified COPD Qualified Code(s): J44.9 - Chronic obstructive pulmonary disease, unspecified
[2024-05-04] MEDS: ALBUT/IPRATROP 3MG/0.5MG NEB 3 ML VIAL NEB STA ×2 (21:17→23:55)
[2024-05-04 21:35] LABS: Basophils # (auto) 0.04 K/uL (0.00-0.20); Basophils % (auto) 0.4 %; Eosinophils # (auto) 0.24 K/uL (0.00-0.50); Eosinophils % (auto) 2.5 %; Hematocrit (blood only) 46.7 % (42.0-52.0); Hemoglobin 15.5 g/dl (14.0-18.0); Immature Granulocytes # (auto) 0.04 K/uL (0.01-0.20); Immature Granulocytes % (auto) 0.4 %; Lymphocytes % (auto) 10.5 %; Mean Corpuscular Hemoglobin 34.1 pg (25.0-34.0); Mean Corpuscular Hgb Conc 33.2 g/dL (32.0-36.0); Mean Corpuscular Volume 102.6 fL (80.0-100.0); Mean Platelet Volume 10.2 fL (9.4-12.4); Monocytes # (auto) 0.61 K/uL (0.11-0.59); Monocytes % (auto) 6.4 %; Neutrophils # (auto) 7.58 K/uL (1.40-6.50); Neutrophils % (auto) 79.8 %; Platelet Count 349 K/uL (130-400); RDW Coefficient of Variation 13.5 % (11.5-14.5); RDW Standard Deviation 51.9 fL (36.4-46.3); Red Blood Count 4.55 M/uL (4.70-6.10); White Blood Count 9.51 K/ul (4.8-10.8)
[2024-05-04 21:46] LABS: Appearance Urine Clear (Clear); Bilirubin Urine Negative (Negative); Blood Urine Negative (Negative); Color Urine Yellow; Glucose Urine UA Negative (Negative); Ketones Urine Negative (Negative); Leukocyte Esterase Urine Negative (Negative); Nitrite Urine Negative (Negative); Protein Urine Negative (Negative); Specific Gravity Urine 1.013 (1.000-1.030); Urobilinogen Urine Negative (Negative); pH Urine 8.5 (4.5-7.5)
[2024-05-04] MEDS: LIDOCAINE 2% JELLY 5 ML TUBE EXT ONE (21:51)
[2024-05-04 21:59] LABS: Albumin Globulin Ratio 1.6 (0.9-2); Albumin Level 4.6 gm/dl (3.4-5.0); BUN Creatinine Ratio 19.1 (10-20); Bilirubin,Total 0.4 mg/dl (0.2-1.0); Calcium 9.2 mg/dl (8.6-10.3); Creatinine Clr Calc Pharmacy 46.7 ml/min; Globulin 2.9 gm/dl (2.5-4.0); Potassium 4.8 mmol/L (3.5-5.1); Total Protein 7.5 gm/dl (6.0-8.3); Troponin I High Sensitivity 5.5 pg/ml (0-20)
[2024-05-04 22:12] LABS: Adenovirus PCR Not Detected (NotDetected); Bordetella parapertussis PCR Not Detected (NotDetected); Bordetella pertussis PCR Not Detected (NotDetected); Chlamydia pneumoniae PCR Not Detected (NotDetected); Coronavirus 229E PCR Not Detected (NotDetected); Coronavirus CoV-2 (COVID19)PCR Not Detected (NotDetected); Coronavirus HKU1 PCR Not Detected (NotDetected); Coronavirus NL63 PCR Not Detected (NotDetected); Coronavirus OC43PCR Not Detected (NotDetected); Human Metapneumovirus PCR Not Detected (NotDetected); Influenza A PCR Not Detected (NotDetected); Influenza B PCR Not Detected (NotDetected); Mycoplasma pneumoniae PCR Not Detected (NotDetected); Parainfluenza Virus 1 PCR Not Detected (NotDetected); Parainfluenza Virus 2 PCR Not Detected (NotDetected); Parainfluenza Virus 3 PCR Not Detected (NotDetected); Parainfluenza Virus 4 PCR Not Detected (NotDetected); Respiratory Syncytial VirusPCR Not Detected (NotDetected); Rhinovirus/Enterovirus PCR Not Detected (NotDetected)
[2024-05-04] MEDS: OPTIRAY 320 100ml IV ONE (22:20)
[2024-05-04] MEDS: methylPREDNISolone 125 MG/2 ML VIAL IV STA (23:52)
[2024-05-04] MEDS: SODIUM CHLORIDE 0.9% 1,000 ML IV ONE (23:54)
--- NOTE | 2024-05-05 00:18 | History & Physical Report ---
Date of Service May 05, 2024 Assessment & Plan (1) Acute on chronic respiratory failure with hypoxia: (2) Acute exacerbation of chronic obstructive pulmonary disease: (3) Anasarca: (4) BPH w urinary obs/LUTS: (5) Acute urinary retention: Plan Acute on chronic respiratory failure with hypoxia/COPD exacerbation/- Received Solu-Medrol 60 mg IV from the ED, will continue 40 mg IV every 8 hours Received DuoNebs x 2 from the ED Duonebs every 4 hours while awake and every 2 hours when necessary. Doxycycline 100 mg IV every 12 hours Pulmicort Respules 0.5 mg inhaled twice daily Mucinex 1200 mg p.o. twice daily Nasal cannula oxygen, titrate to keep pulse ox around 92% Simethicone 80 mg p.o. 4 times daily Anasarca/acute urinary retention/BPH with LUTS- Continue Thayer catheter placed in the ED Follow urine culture and sensitivity Increase tamsulosin from 0.4 to 0.8 mg Received normal saline 1 L from the ED Give furosemide 40 mg IV now, and every morning May need urology consult Stool impaction- Dulcolax suppository now and daily as needed Schizoaffective disorder bipolar type/anxiety and depression- Continue aripiprazole, bupropion, escitalopram, lithium, primidone History of Present Illness Chief Complaint: The patient is referred to the emergency department from an outpatient on-call late this evening, after reporting acute worsening of shortness of breath, lower abdominal pain and distention. Primary Care Provider: Fermin Parikh DO The patient is a 69-year-old male with a past medical history including prostate enlargement, schizoaffective disorder bipolar type, essential tremor, hypothyroidism, COPD, and generalized anxiety disorder. Patient called the on- call service in the outpatient setting due to the above symptoms, and was referred to the ED for assessment. Allergies Allergy/AdvReac Type Severity Reaction Status Date / Time morphine AdvReac Severe FEELING OF Verified 04/15/24 16:33 "DYING" azithromycin AdvReac Intermediate Diarrhea Verified 04/15/24 16:33 gabapentin AdvReac Intermediate drowsiness Verified 04/15/24 16:33 Home Medications Medication Instructions Recorded Confirmed Type Portable Oxygen #1 ea 06/15/21 03/18/24 Rx copper gluconate 2 mg tablet 2 mg PO HS 11/21/21 04/15/24 History ferrous sulfate 325 mg (65 mg 325 mg PO HS 11/21/21 04/15/24 History iron) tablet (Feosol) escitalopram oxalate 20 mg tablet 20 mg PO QAM 08/16/22 04/15/24 History (Lexapro) cholecalciferol (vitamin D3) 125 62.5 mcg PO DAILY 09/28/22 04/15/24 History mcg (5,000 unit) tablet (Vitamin D3) fluticasone propionate 50 1 spray intranasal BID PRN 09/28/22 04/15/24 History mcg/actuation nasal Congestion spray,suspension (Allergy Relief (fluticasone)) lithium carbonate 450 mg 450 mg PO BID 09/28/22 04/15/24 History tablet,extended release Oxygen Home #1 ea 11/26/22 03/18/24 Rx albuterol sulfate 90 mcg/actuation 2 puff inhalation Q6H PRN 12/31/22 04/15/24 Rx aerosol inhaler Shortness Of Breath #8.5 grams caffeine 200 mg tablet 200 mg PO Q3H 04/11/23 04/15/24 History fluticasone furoate 100 1 inh inhalation QAM #60 ea 08/04/23 04/15/24 Rx mcg-vilanterol 25 mcg/dose inhalation powder (Breo Ellipta) tiotropium bromide 1.25 2 puff inhalation QAM #4 grams 08/04/23 04/15/24 Rx mcg/actuation mist for inhalation (Spiriva Respimat) meclizine 12.5 mg tablet See Rx Instructions .Route 09/24/23 04/15/24 Rx .COMPLEX #30 tabs aripiprazole 30 mg tablet 30 mg PO HS 12/29/23 04/15/24 History colestipol 1 gram tablet 2 g PO BID PRN Diarrhea 12/29/23 04/15/24 History hydroxyzine HCl 10 mg tablet 5 - 10 mg PO DAILY PRN Anxiety 12/29/23 04/15/24 History melatonin 3 mg capsule 3 mg PO HS 12/29/23 04/15/24 History multivitamin with folic acid 400 1 tab PO DAILY 12/29/23 04/15/24 History mcg tablet (Daily-Sigifredo (with folic acid)) pantoprazole 40 mg tablet,delayed 40 mg PO DAILYBB 12/29/23 04/15/24 History release albuterol sulfate 1.25 mg/3 mL 1.25 mg (3 mL) inhalation QID PRN 01/05/24 04/15/24 Rx solution for nebulization shortness of breath or wheezing #75 mL bupropion HCl 300 mg 24 hr tablet, 0 mg PO DAILY 01/06/24 04/15/24 History extended release turmeric 400 mg capsule 400 mg PO HS 01/15/24 04/15/24 History tamsulosin 0.4 mg capsule 0.4 mg PO DAILY #90 caps 03/02/24 04/15/24 Rx ondansetron HCl 4 mg tablet 4 mg PO Q12H PRN nausea and 03/11/24 04/15/24 Rx vomiting #30 tabs levothyroxine 100 mcg tablet 100 mcg PO DAILYBB #90 tabs 03/15/24 04/15/24 Rx amantadine HCl 100 mg capsule 100 mg PO BID #60 caps 03/17/24 04/15/24 Rx primidone 250 mg tablet 250 mg PO BID #60 tabs 03/17/24 04/15/24 Rx lidocaine HCl 2 % mucosal solution 15 ml mucous membrane QID #100 mL 03/18/24 04/15/24 Rx (Lidocaine Viscous) nystatin 100,000 unit/mL oral 5 ml PO QID #200 mL 03/18/24 04/15/24 Rx suspension ginkgo biloba 40 mg tablet 40 mg PO DAILY 04/15/24 04/15/24 History Past Med/Surg History Problem List (Updated 05/05/24 @ 02:31 by Solomon Wallace MD) BPH w urinary obs/LUTS Acute on chronic respiratory failure with hypoxia Anasarca SOB (shortness of breath) (Acute) Acute urinary retention (Acute) COPD (chronic obstructive pulmonary disease) (Acute) Lower abdominal pain (Acute) Prostate enlargement COVID-19 (Acute) Elevated fasting glucose Anemia Fatigue Schizoaffective disorder, bipolar type (Chronic) Multiple pulmonary nodules Essential tremor (Chronic) Meningioma Tubular adenoma of colon Generalized anxiety disorder (Chronic) Abnormal weight loss Hypothyroidism COPD (chronic obstructive pulmonary disease) (Chronic) STABLE Irritable bowel syndrome Medical History Weak urine stream Prediabetes Scar condition and fibrosis of skin Diarrhea Abnormal CT scan of lung Encounter for completion of form with patient Aphthous ulcer Hx of small bowel obstruction On home oxygen therapy O2 AT 2L PRN SHORT OF BREATH Collagenous colitis Rising PSA level Herpes simplex Drug dependence Deviated nasal septum Clear cell carcinoma of kidney Abnormal brain MRI History of colon polyps Respiratory failure with hypoxia CRESENCIO (acute kidney injury) Hypoxia Surgical History History of tonsillectomy Hx of inguinal hernia repair S/P small bowel resection H/O partial nephrectomy History of colonoscopy History of appendectomy History of tooth extraction Family History Father Lymphoma Mother Neoplasm of brain Family/Other Cardiac arrest Other Diabetes Myocardial infarction No family history of adverse response to anesthesia Social History Smoking Status: Unknown if ever smoked Tobacco Type: Cigarettes Age Started Using Tobacco: 17; Age Quit Using Tobacco: 59; packs per day: 1; Second Hand Exposure: No; Do You Dip or Chew Tobacco: No; Hx Alcohol Use: No Hx Substance Use: No Preferred Language: Lebanese Communication Ability: Effective Visual Impairment: No Limitations Hearing Ability: Normal Rn Placement Required: No Beliefs That Will Affect Care: None marital status: Single Current Living Situation: Alone Current Living Situation Comment: town house Feels Safe at Home: Yes Childhood Exposure to Second-Hand Smoke: Yes Diet Comment: Meat free caffeine: Yes (pills) Seatbelt Use: always Gender Identity: Male Assistive Devices: Glasses Review of Systems Review of Systems: The patient denies chest pain, palpitations, lower extremity swelling, sore throat, fevers, chills, sweats, nausea, vomiting, diarrhea , constipation, blood in urine or stool, dysuria, urinary frequency or urgency, lightheadedness, dizziness, headache, memory loss, loss of consciousness, rash, abnormal bruising or bleeding, imbalance, focal weakness, numbness or tingling in arms or legs, generalized arthralgias or myalgias, back or neck pain, or night sweats. The review of systems is otherwise negative other than for that already noted above, and at least 10 systems have been reviewed. Physical Exam Physical Exam: The patient is awake, alert and oriented 3, well developed and well nourished, normocephalic and atraumatic, lying in bed and in mild acute respiratory distress. HEENT--PERRL, EOMI, mucous membranes and oropharynx dry. Neck--supple. No JVD. No bruits. Thyroid normal, trachea midline, no adenopathy. Heart--normal S1 and S2. No murmurs, rubs or gallops. Lungs--decreased breath sounds throughout,. Mild respiratory distress, no accessory muscle use. Abdomen--normal bowel sounds and soft. Nontender. Nondistended. Mildly tympanitic Extremities--no cyanosis or clubbing. No edema. Dermatologic--normal skin turgor, normal color, no abnormal lymph nodes, no rash. Neurologic--cranial nerves II through XII grossly intact. Rheumatologic--normal range of motion. Psychiatric--normal affect. Results & Data Results & Data Vital Signs (Past 12 Hours) Vital Signs Temp Pulse Pulse Resp BP BP Pulse Ox 05/04/24 23:58 63 12 123/72 96 05/04/24 21:42 60 15 133/83 100 05/04/24 21:12 62 05/04/24 20:47 36.7 C 75 18 153/92 H 98 O2 Del Method 05/04/24 23:58 Room Air 05/04/24 21:42 Room Air 05/04/24 21:12 05/04/24 20:47 Room Air Laboratory Results Laboratory Results WBC 9.51 K/ul (4.8-10.8) 05/04/24 21:09 RBC 4.55 M/uL (4.70-6.10) L 05/04/24 21:09 Hgb 15.5 g/dl (14.0-18.0) 05/04/24 21:09 Hct 46.7 % (42.0-52.0) 05/04/24 21:09 MCV 102.6 fL (80.0-100.0) H 05/04/24 21:09 MCH 34.1 pg (25.0-34.0) H 05/04/24 21:09 MCHC 33.2 g/dL (32.0-36.0) 05/04/24 21:09 RDW Std Deviation 51.9 fL (36.4-46.3) H 05/04/24 21:09 RDW Coeff of Josie 13.5 % (11.5-14.5) 05/04/24 21:09 Plt Count 349 K/uL (130-400) 05/04/24 21:09 MPV 10.2 fL (9.4-12.4) 05/04/24 21:09 Immature Gran % (Auto) 0.4 % 05/04/24 21:09 Neut % (Auto) 79.8 % 05/04/24 21:09 Lymph % (Auto) 10.5 % 05/04/24 21:09 Lucas % (Auto) 6.4 % 05/04/24 21:09 Eos % (Auto) 2.5 % 05/04/24 21:09 Baso % (Auto) 0.4 % 05/04/24 21:09 Neut # (Auto) 7.58 K/uL (1.40-6.50) H 05/04/24 21:09 Lymph # (Auto) 1.00 K/uL (1.20-3.40) L 05/04/24 21:09 Lucas # (Auto) 0.61 K/uL (0.11-0.59) H 05/04/24 21:09 Eos # (Auto) 0.24 K/uL (0.00-0.50) 05/04/24 21:09 Baso # (Auto) 0.04 K/uL (0.00-0.20) 05/04/24 21:09 Immature Gran # (Auto) 0.04 K/uL (0.01-0.20) 05/04/24 21:09 Sodium 136 mmol/L (136-145) 05/04/24 21:09 Potassium 4.8 mmol/L (3.5-5.1) 05/04/24 21:09 Chloride 98 mmol/L (98-107) 05/04/24 21:09 Carbon Dioxide 34 mmol/L (21-32) H 05/04/24 21:09 Anion Gap 4 (3-11) 05/04/24 21:09 BUN 22 mg/dl (6-23) 05/04/24 21:09 Creatinine 1.15 mg/dl (0.6-1.4) 05/04/24 21:09 Est Cr Clr Drug Dosing 46.7 ml/min 05/04/24 21:09 eGFR 68.89 05/04/24 21:09 BUN/Creatinine Ratio 19.1 (10-20) 05/04/24 21:09 Glucose 141 mg/dl (70-99(Fasting)) H 05/04/24 21:09 Calcium 9.2 mg/dl (8.6-10.3) 05/04/24 21:09 Total Bilirubin 0.4 mg/dl (0.2-1.0) 05/04/24 21:09 AST 31 U/L (13-39) 05/04/24 21:09 ALT 38 U/L (7-52) 05/04/24 21:09 Alkaline Phosphatase 83 U/L (34-104) 05/04/24 21:09 Troponin I High Sens 5.5 pg/ml (0-20) 05/04/24 21:09 Total Protein 7.5 gm/dl (6.0-8.3) 05/04/24 21:09 Albumin 4.6 gm/dl (3.4-5.0) 05/04/24 21:09 Globulin 2.9 gm/dl (2.5-4.0) 05/04/24 21:09 Albumin/Globulin Ratio 1.6 (0.9-2) 05/04/24 21:09 Lipase 45 U/L (11-82) 05/04/24 21:09 Urine Color Yellow 05/04/24 21:30 Urine Appearance Clear (Clear) 05/04/24 21:30 Urine pH 8.5 (4.5-7.5) H 05/04/24 21:30 Ur Specific [place] 1.013 (1.000-1.030) 05/04/24 21:30 Urine Protein Negative (Negative) 05/04/24 21:30 Urine Glucose (UA) Negative (Negative) 05/04/24 21:30 Urine Ketones Negative (Negative) 05/04/24 21:30 Urine Blood Negative (Negative) 05/04/24 21:30 Urine Nitrite Negative (Negative) 05/04/24 21:30 Urine Bilirubin Negative (Negative) 05/04/24 21:30 Urine Urobilinogen Negative (Negative) 05/04/24 21:30 Ur Leukocyte Esterase Negative (Negative) 05/04/24 21:30 Adenovirus (PCR) Not Detected (NotDetected) 05/04/24 21:09 B. pertussis DNA (PCR) Not Detected (NotDetected) 05/04/24 21:09 B.parapertussis DNA PCR Not Detected (NotDetected) 05/04/24 21:09 C. pneumoniae DNA (PCR) Not Detected (NotDetected) 05/04/24 21:09 Coronavirus OC43 (PCR) Not Detected (NotDetected) 05/04/24 21:09 Coronavirus HKU1 (PCR) Not Detected (NotDetected) 05/04/24 21:09 Coronavirus 229E (PCR) Not Detected (NotDetected) 05/04/24 21:09 SARS-CoV-2 (PCR) Not Detected (NotDetected) 05/04/24 21:09 Coronavirus NL63 (PCR) Not Detected (NotDetected) 05/04/24 21:09 Human Metapneumovir PCR Not Detected (NotDetected) 05/04/24 21:09 Influenza Type A (PCR) Not Detected (NotDetected) 05/04/24 21:09 Influenza Type B (PCR) Not Detected (NotDetected) 05/04/24 21:09 M. pneumoniae (PCR) Not Detected (NotDetected) 05/04/24 21:09 Parainfluenza 1 (PCR) Not Detected (NotDetected) 05/04/24 21:09 Parainfluenza 2 (PCR) Not Detected (NotDetected) 05/04/24 21:09 Parainfluenza 3 (PCR) Not Detected (NotDetected) 05/04/24 21:09 Parainfluenza 4 (PCR) Not Detected (NotDetected) 05/04/24 21:09 RSV (PCR) Not Detected (NotDetected) 05/04/24 21:09 Entero/Rhino (PCR) Not Detected (NotDetected) 05/04/24 21:09 Impressions Abdomen/Pelvis CT 05/04/24 20:54 Exam(s): CT ABDOMEN + PELVIS With Contrast IV Amt: 90 cc opti 320 EXAM: CT Abdomen and Pelvis With Intravenous Contrast CLINICAL HISTORY: Reason for exam: lower abd pain. TECHNIQUE: Axial computed tomography images of the abdomen and pelvis with intravenous contrast. Automated exposure control was utilized for the study. A dose lowering technique was utilized adhering to the principles of ALARA. CONTRAST: Patient received 90 cc opti 320 of IV contrast COMPARISON: 01/06/2024 FINDINGS: Motion-induced image degradation limits sensitivity of the exam. Lung bases: Centrilobular emphysema. No mass. No consolidation. ABDOMEN: Evaluation of the abdomen/pelvis is difficult given the paucity of intra-abdominal fat with a crowding of the Liver: Diffuse steatosis. Question chronic liver parenchymal disease. Several small hypodense hepatic lesions are similar to prior exam favor cysts. No solid mass. Gallbladder and bile ducts: A somewhat distended bladder. No calcified stones. No ductal dilation. Pancreas: Not well visualized. No discernible mass or ductal dilation. Spleen: Unremarkable. No splenomegaly. Adrenals: No discernible mass. Kidneys and ureters: A 1.1 cm left renal cortical cyst.. No solid mass. No hydronephrosis. Stomach and bowel: Edematous appearing thickness of the gastroesophageal wall.. Mild/moderately distended gas/fluid-filled small bowel loops are seen. Demonstrates abundant fecal debris in a 10.5 cm distended cecum/ascending colon and rest of the colon, suggestive of an impacted stool. PELVIS: Appendix: Not visualized. Bladder: A Thayer's catheter in situ. Increased wall thickness of the urinary bladder. Reproductive: Mild/moderate prostatomegaly. ABDOMEN and PELVIS: Intraperitoneal space: Edematous appearing mesentery. No free air. No significant fluid collection. Bones/joints: No acute fracture. No dislocation. At L5-S1 level: Moderately advanced degenerative spondylitic changes seen. Facet osteoarthropathy. Soft tissues: Diffuse body wall edema/anasarca. Vasculature: Calcified atherosclerosis of the tortuous/elongated aortoiliac vasculature and branch vessels. No abdominal aortic aneurysm. Lymph nodes: No discernible individually significantly enlarged lymph nodes. Small lymph nodes are visualized. IMPRESSION: Suboptimally evaluated due to patient's characteristics . Edematous appearing thickness of the gastroesophageal wall. Diffuse mesenteric edema. Diffuse body wall edema/anasarca. Mild/moderately distended gas filled small bowel loops and abundant fecal debris in a distended cecum/ascending colon and rest of the colon is suggestive of an impacted stool. Correlate clinically. A decompressed urinary bladder with a Thayer's catheter and increased wall thickness. . Electronically signed by: Lauren Lema MD, JUANCHO 05/05/24 00:31 AM Code Status & VTE Plan Code Status Full code VTE Prophylaxis Plan VTE Prophylaxis will be ordered: Yes PG Care Time/CCT Total # of Minutes Spent Total Time Spent with Patient: Total time spent is greater than 50% in coordination of care (as documented) at patient's floor/unit and/or counseling patient: Coding Level of Care Code 91184 INT INP/OBS CARE 3/75MIN Diagnoses Acute on chronic respiratory failure with hypoxia J96.21 Acute exacerbation of chronic obstructive pulmonary disease J44.1 Anasarca R60.1 BPH w urinary obs/LUTS N40.1; N13.8 Acute urinary retention R33.8
--- NOTE | 2024-05-05 00:32 | CT Scan Report ---
Exam(s): CT ABDOMEN + PELVIS With Contrast IV Amt: 90 cc opti 320 EXAM: CT Abdomen and Pelvis With Intravenous Contrast CLINICAL HISTORY: Reason for exam: lower abd pain. TECHNIQUE: Axial computed tomography images of the abdomen and pelvis with intravenous contrast. Automated exposure control was utilized for the study. A dose lowering technique was utilized adhering to the principles of ALARA. CONTRAST: Patient received 90 cc opti 320 of IV contrast COMPARISON: 01/06/2024 FINDINGS: Motion-induced image degradation limits sensitivity of the exam. Lung bases: Centrilobular emphysema. No mass. No consolidation. ABDOMEN: Evaluation of the abdomen/pelvis is difficult given the paucity of intra-abdominal fat with a crowding of the Liver: Diffuse steatosis. Question chronic liver parenchymal disease. Several small hypodense hepatic lesions are similar to prior exam favor cysts. No solid mass. Gallbladder and bile ducts: A somewhat distended bladder. No calcified stones. No ductal dilation. Pancreas: Not well visualized. No discernible mass or ductal dilation. Spleen: Unremarkable. No splenomegaly. Adrenals: No discernible mass. Kidneys and ureters: A 1.1 cm left renal cortical cyst.. No solid mass. No hydronephrosis. Stomach and bowel: Edematous appearing thickness of the gastroesophageal wall.. Mild/moderately distended gas/fluid-filled small bowel loops are seen. Demonstrates abundant fecal debris in a 10.5 cm distended cecum/ascending colon and rest of the colon, suggestive of an impacted stool. PELVIS: Appendix: Not visualized. Bladder: A Thayer's catheter in situ. Increased wall thickness of the urinary bladder. Reproductive: Mild/moderate prostatomegaly. ABDOMEN and PELVIS: Intraperitoneal space: Edematous appearing mesentery. No free air. No significant fluid collection. Bones/joints: No acute fracture. No dislocation. At L5-S1 level: Moderately advanced degenerative spondylitic changes seen. Facet osteoarthropathy. Soft tissues: Diffuse body wall edema/anasarca. Vasculature: Calcified atherosclerosis of the tortuous/elongated aortoiliac vasculature and branch vessels. No abdominal aortic aneurysm. Lymph nodes: No discernible individually significantly enlarged lymph nodes. Small lymph nodes are visualized. IMPRESSION: Suboptimally evaluated due to patient's characteristics . Edematous appearing thickness of the gastroesophageal wall. Diffuse mesenteric edema. Diffuse body wall edema/anasarca. Mild/moderately distended gas filled small bowel loops and abundant fecal debris in a distended cecum/ascending colon and rest of the colon is suggestive of an impacted stool. Correlate clinically. A decompressed urinary bladder with a Thayer's catheter and increased wall thickness. . Electronically signed by: Lauren Lema MD, JUANCHO 05/05/24 00:31 AM
[2024-05-05] MEDS ORDERED: hydrOXYzine HCl 10 MG TAB PO PRN (01:47)
[2024-05-05] MEDS ORDERED: ONDANSETRON INJ 2 MG/ML 2 ML VIAL IV PRN (01:47)
[2024-05-05] MEDS ORDERED: FUROSEMIDE 40 MG/4 ML VIAL IV ONE (02:33)
[2024-05-05] MEDS ORDERED: bisacodyL 10 MG SUPP PR PRN (02:39)
[2024-05-05] MEDS: DOXYCYCLINE HYCLATE 100 MG in DEXTROSE 5% MINI-B 100 ML IV SCH (03:15)
--- NOTE | 2024-05-05 03:18 | XRay Report ---
Exam(s): XR CXR 1 VIEW EXAM: XR Chest, 1 View CLINICAL HISTORY: Reason for exam: abd pain. TECHNIQUE: Frontal view of the chest. COMPARISON: 01/11/2024 FINDINGS: Limited exam. Lower portions of the chest is excluded from the image. Patient is also rotated. Lungs: Hyperinflated lungs, compatible with emphysema. No consolidation. Pleural space: No pneumothorax. Heart: Unremarkable. No cardiomegaly. Mediastinum: Unremarkable. Bones/joints: No acute fracture.. IMPRESSION: Limited exam. Pulmonary emphysema. No consolidation or focal pulmonary lesions are visible. . Electronically signed by: Lauren Lema MD, DABR 05/05/24 03:17 AM
[2024-05-05] MEDS: FUROSEMIDE 40 MG/4 ML VIAL IV ONE (03:29)
[2024-05-05] MEDS: bisacodyL 10 MG SUPP PR STA (03:30)
[2024-05-05] MEDS: BUDESONIDE 0.5 MG/2 ML VIAL (PULMICORT) NEB SCH (05:21)
[2024-05-05] MEDS: ALBUT/IPRATROP 3MG/0.5MG NEB 3 ML VIAL NEB SCH (05:21)
[2024-05-05] MEDS: LEVOTHYROXINE SODIUM 100 MCG TABLET PO SCH (05:52)
[2024-05-05] MEDS: PANTOprazole 40 MG TAB PO SCH (05:52)
[2024-05-05] MEDS ORDERED: methylPREDNISolone 10 mg/mL (For Ped Dose < 7mg) IV SCH (08:00)
[2024-05-05 08:44] LABS: BUN Creatinine Ratio 20.8 (10-20); Calcium 8.7 mg/dl (8.6-10.3); Creatinine Clr Calc Pharmacy 57.7 ml/min; Potassium 4.1 mmol/L (3.5-5.1)
[2024-05-05] MEDS: methylPREDNISolone 40 MG in SYRINGE 0 ML IV SCH ×2 (08:45→20:27)
[2024-05-05] MEDS: ESCITALOPRAM OXALATE 20 MG TAB PO SCH (08:46)
[2024-05-05] MEDS: TAMSULOSIN HCL 0.4 MG CAP PO SCH (08:46)
[2024-05-05] MEDS: MULTIVITAMIN TAB PO SCH (08:46)
[2024-05-05] MEDS: HEPARIN SOD 5,000 UNIT/0.5 ML VIAL SQ SCH (08:48)
[2024-05-05] MEDS: buPROPion HCl 75 MG TABLET PO SCH (08:58)
[2024-05-05] MEDS: LITHIUM CARBONATE 450 MG TABCR PO SCH (08:59)
[2024-05-05] MEDS: PRIMIDONE 250 MG TAB PO SCH (08:59)
[2024-05-05] MEDS: FLUTICASONE/VILANTEROL 100/25MCG 14 PUFFS/INHALER INH SCH (09:00)
[2024-05-05] MEDS: CHOLECALCIFEROL 125 MCG (5,000 UNITS) TAB PO SCH (09:01)
[2024-05-05] MEDS: guaiFENesin 600 MG TABCR PO SCH (09:03)
--- NOTE | 2024-05-05 09:24 | Electrocardiogram Report ---
Test Reason : Blood Pressure : */* mmHG Vent. Rate : 58 BPM Atrial Rate : 58 BPM P-R Int : 160 ms QRS Dur : 84 ms QT Int : 406 ms P-R-T Axes : 87 70 81 degrees QTcB Int : 398 ms Sinus bradycardia with Premature supraventricular complexes Indeterminate axis Pulmonary disease pattern Abnormal ECG When compared with ECG of 11-Jan-2024 23:30, Premature supraventricular complexes are now Present Confirmed by Karlo Nvaarro ([id number]) on 05/05/2024 9:23:28 AM Referred By: Gabino Bey Confirmed By: Karlo Navarro
[2024-05-05] MEDS: FUROSEMIDE 40 MG/4 ML VIAL IV SCH (10:36)
[2024-05-05] MEDS: SIMETHICONE 80 MG CHEW PO SCH (10:37)
[2024-05-05] MEDS: POLYETHYLENE (MIRALAX) 17 GM PACK PO SCH (11:19)
--- NOTE | 2024-05-05 15:46 | Hospitalist Progress Note ---
Date of Service May 05, 2024 Assessment & Plan (1) Acute on chronic respiratory failure with hypoxia: (2) Anasarca: (3) BPH w urinary obs/LUTS: (4) Acute urinary retention: Plan Weakness // Ambulatory Dysfunction - Patient needing help from 2 people to walk to the bathroom and c/o imbalance with ambulation - Will order PT/OT for evaluation Acute on chronic respiratory failure with hypoxia // COPD exacerbation - Respiratory status improved and currently has Oxygen saturation > 90% at room air - Will decrease Solumedrol to 40mg IV to BID If still improving, can decrease further to Prednisone 40 mg daily to begin taper - Change Duoneb to q2h prn and continue Pulmicort - Continue Doxycycline 100 mg IV every 12 hours - Mucinex 1200 mg p.o. twice daily - Simethicone 80 mg p.o. 4 times daily Anasarca // acute urinary retention // BPH with LUTS - Thayer catheter placed in the ED - Discussed with Urology, who notes KALINA not showing significant retention, therefore voiding trial can be attempted - Continue Tamsulosin 0.4 mg daily - Follow urine culture and sensitivity - Furosemide 40 mg IV now, and every morning - Voiding trial today as detailed above Stool impaction - Dulcolax suppository now and daily as needed - Added Miralax renetta daily; can increase as necessary Schizoaffective disorder bipolar type // anxiety and depression - Continue aripiprazole, bupropion, escitalopram, lithium, primidone - [place] level of 1.2 Admission and Anticipated Discharge Date Admission Date: May 05, 2024 Supervising Physician Co-Signing Physician Notes Attending attestation Pt seen and examined in concert with Dr. Haider Roberts. In agreement with the documented findings as noted in the resident documentation with any exceptions or additions as noted here. Resting in chair at beside with continued gradual improvement in presenting symptoms. On examination, S1/S2 nl RRR no MCG. CTAB. Abd NT/ND BS+ve Acute on chronic respiratory failure in the setting of COPD exacerbation - continue doxycycline and steroid therapy as noted and transition likely tomorrow. Ambulatory dysfunction/generalized weakness - PT/OT consultation pending Schizoaffective disorder, bipolar type w/ anxiety & depression - continue current medication regimen, encourage re-connect w/ primary psychiatric team on discharge Else see resident documentation as noted. Subjective Patient evaluated at bedside and found to be AAOx3, afebrile, and in NAD. He refers improvement in his SOB and is currently breathing at room air. Nursing states patient has been very weak and needs help from 2 people to help with going to the bathroom due to imbalance. No chest pain, fevers, chills, or any other symptom. Physical Exam Physical Exam: General -- AAOx3, afebrile, NAD Heart--normal S1 and S2. No murmurs, rubs or gallops. Lungs--decreased breath sounds throughout, Expiratory wheezing in bilateral lung mendez, no accessory muscle use. Abdomen--normal bowel sounds and soft. Nontender. Mild distension. Extremities--no cyanosis or clubbing. No edema. Neurologic--cranial nerves II through XII grossly intact. Results & Data Results & Data Vital Signs (Past 12 Hours) Vital Signs Temp Pulse Pulse Pulse Pulse Resp Resp 05/05/24 11:49 05/05/24 11:37 36.6 C 74 16 05/05/24 10:48 88 88 78 22 05/05/24 09:23 05/05/24 07:56 36.8 C 85 18 05/05/24 05:21 75 18 Resp Resp BP BP Pulse Ox Pulse Ox Pulse Ox 05/05/24 11:49 05/05/24 11:37 101/68 95 05/05/24 10:48 18 16 96 92 05/05/24 09:23 98/58 L 05/05/24 07:56 95/62 L 92 05/05/24 05:21 94 Pulse Ox O2 Del Method 05/05/24 11:49 Room Air 05/05/24 11:37 Room Air 05/05/24 10:48 93 05/05/24 09:23 05/05/24 07:56 Room Air 05/05/24 05:21 Room Air Resident Activity Tracking Resident Involvement: Resident Care Provided Care Provided: Adult Hospital Medicine
[2024-05-05] MEDS: ALBUT/IPRATROP 3MG/0.5MG NEB 3 ML VIAL NEB PRN (18:15)
[2024-05-05] MEDS: ACETAMINOPHEN 325 MG TAB PO PRN (19:29)
[2024-05-05] MEDS: ARIPiprazole 15 MG TAB PO SCH (20:26)
[2024-05-05] MEDS: MELATONIN 3 MG TAB PO SCH (20:26)
[2024-05-06 08:02] LABS: Albumin Globulin Ratio 1.6 (0.9-2); Albumin Level 3.6 gm/dl (3.4-5.0); BUN Creatinine Ratio 23.7 (10-20); Bilirubin,Total 0.5 mg/dl (0.2-1.0); Calcium 8.8 mg/dl (8.6-10.3); Creatinine Clr Calc Pharmacy 59.5 ml/min; Globulin 2.2 gm/dl (2.5-4.0); Magnesium 1.9 mg/dl (1.7-2.4); Potassium 4.5 mmol/L (3.5-5.1); Total Protein 5.8 gm/dl (6.0-8.3)
[2024-05-06 08:05] LABS: Basophils # (auto) 0.05 K/uL (0.00-0.20); Basophils % (auto) 0.5 %; Eosinophils # (auto) 0.04 K/uL (0.00-0.50); Eosinophils % (auto) 0.4 %; Hematocrit (blood only) 39.2 % (42.0-52.0); Hemoglobin 12.9 g/dl (14.0-18.0); Immature Granulocytes # (auto) 0.06 K/uL (0.01-0.20); Immature Granulocytes % (auto) 0.6 %; Lymphocytes # (auto) 0.84 K/uL (1.20-3.40); Lymphocytes % (auto) 8.1 %; Mean Corpuscular Hemoglobin 33.2 pg (25.0-34.0); Mean Corpuscular Hgb Conc 32.9 g/dL (32.0-36.0); Mean Platelet Volume 10.1 fL (9.4-12.4); Monocytes # (auto) 0.34 K/uL (0.11-0.59); Monocytes % (auto) 3.3 %; Neutrophils # (auto) 9.07 K/uL (1.40-6.50); Neutrophils % (auto) 87.1 %; Platelet Count 296 K/uL (130-400); RDW Coefficient of Variation 13.7 % (11.5-14.5); RDW Standard Deviation 50.9 fL (36.4-46.3); Red Blood Count 3.88 M/uL (4.70-6.10)
[2024-05-06] MEDS: TAMSULOSIN HCL 0.4 MG CAP PO SCH (08:19)
[2024-05-06] MEDS: DOXYCYCLINE HYCLATE 100 MG CAP PO SCH (13:34)
--- NOTE | 2024-05-06 17:34 | Hospitalist Progress Note ---
Date of Service May 06, 2024 Assessment & Plan (1) Acute on chronic respiratory failure with hypoxia: (2) Anasarca: (3) BPH w urinary obs/LUTS: (4) Acute urinary retention: Plan Weakness // Ambulatory Dysfunction - Patient needing help from 2 people to walk to the bathroom and c/o imbalance with ambulation - Will order PT/OT for evaluation OT [facility] acute rehab PT eval still pending Acute on chronic respiratory failure with hypoxia // COPD exacerbation - Respiratory status improved and currently has Oxygen saturation > 90% at room air - Solumedrol changes to Prednisone 40 mg PO to begin taper. - Duoneb q2h prn and continue Pulmicort - Continue Doxycycline 100 mg PO bid - Mucinex 1200 mg p.o. twice daily - Simethicone 80 mg p.o. 4 times daily Anasarca // acute urinary retention // BPH with LUTS - Thayer catheter dc and patient voiding spotaneously - Continue Tamsulosin 0.4 mg daily - Furosemide 40 mg IV now, and every morning Stool impaction - Dulcolax suppository now and daily as needed - Added Miralax renetta daily; can increase as necessary Schizoaffective disorder bipolar type // anxiety and depression - Continue aripiprazole, bupropion, escitalopram, lithium, primidone - [place] level of 1.2 Admission and Anticipated Discharge Date Admission Date: May 05, 2024 Supervising Physician Co-Signing Physician Notes Attending attestation Pt seen and examined in concert with Dr. Haider Roberts. In agreement with the documented findings as noted in the resident documentation with any exceptions or additions as noted here. Resting in chair at beside with continued gradual improvement in presenting symptoms. Does feel that his mood disorder negatively impacts his health with a concern for h/o suicidal ideation with none present (active or passive) now or during this admission. On examination, S1/S2 nl RRR no MCG. CTAB. Abd NT/ND BS+ve Acute on chronic respiratory failure in the setting of COPD exacerbation - transitioned to PO doxycycline and prednisone to complete course. Ambulatory dysfunction/generalized weakness - PT/OT consultation pending Schizoaffective disorder, bipolar type w/ anxiety & depression - continue current medication regimen, encourage re-connect w/ primary psychiatric team on discharge Else see resident documentation as noted. Subjective No overnight changes. Feeling well w/ regards to respiratory status. Still weak. No new sxs. Physical Exam Physical Exam: General -- AAOx3, afebrile, NAD Heart--normal S1 and S2. No murmurs, rubs or gallops. Lungs--improved breath sounds but still decreased in lower lung mendez, with expiratory wheezing in bilateral lung mendez, no accessory muscle use. Abdomen--normal bowel sounds and soft. Nontender. Mild distension. Extremities--no cyanosis or clubbing. No edema. Results & Data Results & Data Vital Signs (Past 12 Hours) Vital Signs Temp Pulse Pulse Resp BP Pulse Ox O2 Del Method 05/06/24 16:32 71 05/06/24 14:49 36.7 C 86 16 105/67 94 Room Air 05/06/24 10:45 75 18 98/63 L 96 Room Air 05/06/24 07:32 60 19 116/69 99 Nebulizer 05/06/24 07:26 69 18 93 Room Air 05/06/24 07:05 60 Resident Activity Tracking Resident Involvement: Resident Care Provided Care Provided: Adult Hospital Medicine
[2024-05-07] MEDS: predniSONE 20 MG TAB PO SCH (09:06)
[2024-05-07 09:59] LABS: Basophils # (auto) 0.05 K/uL (0.00-0.20); Basophils % (auto) 0.6 %; Eosinophils # (auto) 0.23 K/uL (0.00-0.50); Eosinophils % (auto) 2.7 %; Hematocrit (blood only) 40.2 % (42.0-52.0); Hemoglobin 13.2 g/dl (14.0-18.0); Immature Granulocytes # (auto) 0.03 K/uL (0.01-0.20); Immature Granulocytes % (auto) 0.4 %; Lymphocytes # (auto) 1.09 K/uL (1.20-3.40); Lymphocytes % (auto) 12.9 %; Mean Corpuscular Hemoglobin 33.2 pg (25.0-34.0); Mean Corpuscular Hgb Conc 32.8 g/dL (32.0-36.0); Mean Platelet Volume 10.2 fL (9.4-12.4); Monocytes # (auto) 0.67 K/uL (0.11-0.59); Monocytes % (auto) 7.9 %; Neutrophils # (auto) 6.41 K/uL (1.40-6.50); Neutrophils % (auto) 75.5 %; Platelet Count 296 K/uL (130-400); RDW Coefficient of Variation 13.8 % (11.5-14.5); RDW Standard Deviation 51.7 fL (36.4-46.3); Red Blood Count 3.98 M/uL (4.70-6.10); White Blood Count 8.48 K/ul (4.8-10.8)
[2024-05-07 10:25] LABS: Albumin Globulin Ratio 1.6 (0.9-2); Albumin Level 3.8 gm/dl (3.4-5.0); BUN Creatinine Ratio 30.4 (10-20); Bilirubin,Total 0.4 mg/dl (0.2-1.0); Calcium 8.5 mg/dl (8.6-10.3); Creatinine Clr Calc Pharmacy 49.5 ml/min; Globulin 2.4 gm/dl (2.5-4.0); Magnesium 1.8 mg/dl (1.7-2.4); Potassium 4.2 mmol/L (3.5-5.1); Total Protein 6.2 gm/dl (6.0-8.3)
--- NOTE | 2024-05-07 15:43 | Hospitalist Progress Note ---
Date of Service May 07, 2024 Assessment & Plan (1) Acute on chronic respiratory failure with hypoxia: (2) Anasarca: (3) BPH w urinary obs/LUTS: (4) Acute urinary retention: Plan Weakness // Ambulatory Dysfunction - Patient needing help from 2 people to walk to the bathroom and c/o imbalance with ambulation - Will order PT/OT for evaluation PT/OT recc acute rehab; pending placement Acute on chronic respiratory failure with hypoxia // COPD exacerbation - Respiratory status improved and currently has Oxygen saturation > 90% at room air - Solumedrol changes to Prednisone 40 mg PO to begin taper. - Duoneb q2h prn and continue Breo - Continue Doxycycline 100 mg PO bid - Mucinex 1200 mg p.o. twice daily - Simethicone 80 mg p.o. 4 times daily Anasarca // acute urinary retention // BPH with LUTS - Thayer catheter dc and patient voiding spontaneously - Continue Tamsulosin 0.4 mg daily - Furosemide 40 mg IV now, and every morning Stool impaction - Dulcolax suppository now and daily as needed - Added Miralax renetta daily; can increase as necessary Schizoaffective disorder bipolar type // anxiety and depression - Continue aripiprazole, bupropion, escitalopram, lithium, primidone - [place] level of 1.2 Admission and Anticipated Discharge Date Admission Date: May 05, 2024 Supervising Physician Co-Signing Physician Notes ATTESTATION I also saw the patient and confirmed fisher portions of the history and exam. I agree with the impression and plan in the resident documentation, and as summarized below. Seated in bed side chair talking on phone. Talks on phone and to me in full and complete sentences without pause. EXAM VSS - 92% on room air Lungs with exp wheeze in all mendez CV RRR DATA Labs HgB 13.2 WBC 8.8 BUN 34, Cr 1.12 IMPRESSION & PLAN Acute on chronic respiratory failure in the setting of COPD exacerbation Tighter on exam than I would have guessed given he is on room air and talks without difficulty; he may be nearer his baseline than we think Continue doxycycline and prednisone. Ambulatory dysfunction/generalized weakness PT/OT consultation recommending inpatient rehabilitation to which he is agreeable Case management notes reviewed Schizoaffective disorder, bipolar type w/ anxiety & depression Continue current medication regimen Additional per resident documentation Subjective No overnight changes. Feeling well w/ regards to respiratory status but still has some occasional [place]. Still weak. No new sxs. Physical Exam Physical Exam: General -- AAOx3, afebrile, NAD Heart--normal S1 and S2. No murmurs, rubs or gallops. Lungs--improved breath sounds but still decreased in lower lung mendez, with expiratory wheezing in bilateral lung mendez, no accessory muscle use. Breathing at room air Abdomen--normal bowel sounds and soft. Nontender. Mild distension. Extremities--no cyanosis or clubbing. No edema. Results & Data Results & Data Vital Signs (Past 12 Hours) Vital Signs Temp Pulse Pulse Resp BP Pulse Ox O2 Del Method 05/07/24 15:23 75 05/07/24 12:00 36.8 C 74 18 100/64 97 Room Air 05/07/24 11:40 Room Air 05/07/24 07:59 36.7 C 75 20 135/76 95 Room Air 05/07/24 07:34 61 05/07/24 07:13 63 16 95 Room Air Resident Activity Tracking Resident Involvement: Resident Care Provided Care Provided: Adult Hospital Medicine
[2024-05-08 09:10] LABS: Hematocrit (blood only) 42.2 % (42.0-52.0); Hemoglobin 13.9 g/dl (14.0-18.0); Mean Corpuscular Hemoglobin 33.5 pg (25.0-34.0); Mean Corpuscular Hgb Conc 32.9 g/dL (32.0-36.0); Mean Corpuscular Volume 101.7 fL (80.0-100.0); Platelet Count 319 K/uL (130-400); RDW Coefficient of Variation 13.8 % (11.5-14.5); RDW Standard Deviation 52.1 fL (36.4-46.3); Red Blood Count 4.15 M/uL (4.70-6.10); White Blood Count 9.07 K/ul (4.8-10.8)
[2024-05-08] MEDS ORDERED: SIMETHICONE 80 MG CHEW PO PRN (09:26)
[2024-05-08] MEDS: POLYETHYLENE (MIRALAX) 17 GM PACK PO SCH (09:31)
--- NOTE | 2024-05-08 13:17 | Discharge Summary ---
Date of Service May 08, 2024 Admission HPI Per Admitting Provider The patient is a 69-year-old male with a past medical history including prostate enlargement, schizoaffective disorder bipolar type, essential tremor, hypothyroidism, COPD, and generalized anxiety disorder. Patient called the on- call service in the outpatient setting due to the above symptoms, and was referred to the ED for assessment. Admission Exam Per Admitting Provider The patient is awake, alert and oriented 3, well developed and well nourished, normocephalic and atraumatic, lying in bed and in mild acute respiratory distress. HEENT--PERRL, EOMI, mucous membranes and oropharynx dry. Neck--supple. No JVD. No bruits. Thyroid normal, trachea midline, no adenopathy. Heart--normal S1 and S2. No murmurs, rubs or gallops. Lungs--decreased breath sounds throughout,. Mild respiratory distress, no accessory muscle use. Abdomen--normal bowel sounds and soft. Nontender. Nondistended. Mildly tympanitic Extremities--no cyanosis or clubbing. No edema. Dermatologic--normal skin turgor, normal color, no abnormal lymph nodes, no rash. Neurologic--cranial nerves II through XII grossly intact. Rheumatologic--normal range of motion. Psychiatric--normal affect. Principal Diagnosis COPD exac Discharge Exam General:Alert and oriented, no acute distress, HEENT: Normocephalic, moist oral mucosa, Cardio: Regular rate and rhythm, Resp:Lungs clear to auscultation b/l, slight wheeze heard in the bases GI: Soft and nontender, nondistended, bowel sounds active Skin: Warm, dry Discharge Data Allergies Allergy/AdvReac Type Severity Reaction Status Date / Time morphine AdvReac Severe FEELING OF Verified 04/15/24 16:33 "DYING" azithromycin AdvReac Intermediate Diarrhea Verified 04/15/24 16:33 gabapentin AdvReac Intermediate drowsiness Verified 04/15/24 16:33 Consultations 05/04/24 23:47 ED Decision to Admit Stat Ordered Studies 05/04/24 20:54 CT abd pelvis IV con only Stat Hospital Course (1) Acute on chronic respiratory failure with hypoxia: (2) Anasarca: (3) BPH w urinary obs/LUTS: (4) Acute urinary retention: Plan Pt is a 69 yo male who presented to the hospital with weakness and COPD exac, treated and now pending placement at rehab on discharge. Ambulatory Dysfunction - Patient needing help from 2 people to walk to the bathroom and c/o imbalance with ambulation - Will order PT/OT for evaluation PT/OT recc acute rehab; to go to rehab on discharge Acute on chronic respiratory failure with hypoxia secondary to COPD exacerbation - Respiratory status improved and currently has Oxygen saturation > 90% at room air - initial Solumedrol changed to Prednisone 40 mg PO, continue prednisone 40 m for 5 more days - Doxycycline 100 mg PO bid in the hospital, continue for 3 more days on discharge Anasarca // acute urinary retention // BPH with LUTS - Thayer catheter d/c'ed and patient voiding spontaneously - Continue Tamsulosin 0.4 mg daily - Furosemide 40 mg IV given here, discontinue on discharge Schizoaffective disorder bipolar type - [place] level of 1.2 during hospital stay Total Time Total Time Spent Total Time Spent (In Minutes): 25 minutes Discharge Plan Discharge Items Patient Disposition: Transfer Inpatient Rehab Fac Reason For Visit: ACUTE ON CHRONIC RESP FAILURE W/HYPOXIA, COPD EX Discharge Diagnosis: COPD exacerbation, acute urinary retention Condition on Discharge: Fair Activity: Per Instructions section Non-emergency contact: Primary Care Provider Call non-emergency contact if: your symptoms worsen and your temperature is above 101.5 Follow-up/Referrals: Fermin Parikh, [Primary Care Provider] - Diet: Heart Healthy Addtl Attending Provider Instructions: You were admitted to the hospital due to shortness of breath and noted difficulty urinating by yourself. With regards to your breathing, you were treated with intravenous steroids, antibiotics, and nebulizer therapies for your breathing with successful improvement in your symptoms. Since you were occasionally feeling some shortness of breath with movement, we also did what is called a 2-step, which is a test where we see how your oxygen levels and breathing does when you are moving around. This test determined that you did not need additional oxygen since your levels stayed in good range even with movement. For this reason, we will be discharging you today with an oral form of the medications we are giving you to manage your COPD exacerbation. Below you will find what these medications are, as well as a guide of how to take them: Doxycycline 100 mg BID for 3 more days Prednisone 40 mg for 5 more days Please continue using your inhalers as you were advised to by your primary care physician With regards to your urinary retention, we initially inserted a catheter to help you empty your bladder. Afterwards, we removed your catheter and allowed you to urinate by yourself, which was successful. Due to this, we will be discharging you with your usual dose of Tamsulosin 0.4mg daily. We advise you to continue following up with your primary care provider and your urologist as you have been. A discharge summary will be sent to your primary care physician to ensure continuity of care. Please bring this discharge summary with you to your next office appointment so that your provider can review it at that time. Follow-up appointments: Keep all your follow-up appointments as already scheduled. If you cannot make an appointment, notify your provider. Medications: Your medication list has been reviewed and reconciled upon discharge to ensure accuracy and continuity of care. An updated list of all your medications is included with your hospital discharge paperwork. Please review this list closely, and make note of any changes. Take your medications as instructed; do not skip a dose of your medicines. Make sure all of your doctors know every medicine you are taking (including [id number] medicines, vitamins, and supplements). Call your primary care provider before taking any new medicines (including over- the-counter medicines, vitamins, and supplements), because some of these may interact with your current medications, or may make your symptoms worse. Tell your primary care provider if you cannot afford your medications. CONTACT YOUR PRIMARY CARE PROVIDER if you experience any of the following: Worsening of symptoms Fever, chills, or fatigue Difficulty following your treatment plan, or difficulty taking medications CALL 911 OR GO TO THE EMERGENCY DEPARTMENT if you experience any of the following: Sudden, severe abdominal pain or nausea/vomiting Severe chest pain, or chest pain that radiates (moves) to your jaw or arm Sudden, severe shortness of breath or difficulty breathing Thank you for allowing us to participate in your care. Pending Studies at Discharge: No Stand-Alone Forms: My [facility] Skilled Items Patient informed of condition?: Yes DNR: No Discharge Level of Care: Acute rehab Communicable Disease: No Discharge Prognosis: Stable Lines: None Urinary Catheter: No Medications and DC Order Prescriptions: New doxycycline hyclate 100 mg Capsule 100 mg PO BID 3 Days Qty: 6 0RF prednisone 20 mg Tablet 40 mg PO QAM 5 Days Qty: 10 0RF Continued (DME) Portable Oxygen Misc See Rx Instructions .Route Qty: 1 0RF Rx Instructions: 2L via nc with exertion. ILENE:[id number] Please provide POC (DME) Oxygen Home Liters Per Minute See Rx Instructions .Route Qty: 1 0RF Rx Instructions: oxygen mask and tubing replacement meclizine 12.5 mg tablet See Rx Instructions .ROUTE .COMPLEX Qty: 30 1RF Dose Instruction: Take 1 tablet (12.5mg) by mouth three times a day As Needed for dizziness Rx Instructions: Take 1 tablet (12.5mg) by mouth three times a day As Needed for dizziness. Unable to verify OTC meds at this date/time. albuterol sulfate 1.25 mg/3 mL solution for nebulization 1.25 mg inhalation QID PRN (Reason: shortness of breath or wheezing) Qty: 75 3RF tamsulosin 0.4 mg capsule 0.4 mg PO DAILY Qty: 90 3RF ondansetron HCl 4 mg tablet 4 mg PO Q12H PRN (Reason: nausea and vomiting) Qty: 30 3RF levothyroxine 100 mcg tablet 100 mcg PO DAILYBB Qty: 90 3RF albuterol sulfate 90 mcg/actuation HFA aerosol inhaler 2 puff inhalation Q6H PRN (Reason: Shortness Of Breath) Qty: 8.5 3RF fluticasone furoate-vilanterol [Breo Ellipta] 100-25 mcg/dose blister with device 1 inh inhalation QAM Qty: 60 11RF Spiriva Respimat 1.25 mcg/actuation mist 2 puff INHALATION QAM Qty: 4 11RF turmeric 400 mg capsule 400 mg PO HS Rx Instructions: Unable to verify OTC meds at this date/time. ferrous sulfate [Feosol] 325 mg (65 mg iron) tablet 325 mg PO HS Rx Instructions: Unable to verify OTC meds at this date/time. copper gluconate 2 mg tablet 2 mg PO HS Rx Instructions: Unable to verify OTC meds at this date/time. caffeine 200 mg tablet 200 mg PO Q3H Patient Comments: takes 10 times daily Rx Instructions: Unable to verify OTC meds at this date/time. lidocaine HCl [Lidocaine Viscous] 2 % solution 15 ml mucous membrane QID Qty: 100 1RF nystatin 100,000 unit/mL suspension 5 ml PO QID Qty: 200 0RF Rx Instructions: swish and spit ginkgo biloba 40 mg tablet 40 mg PO DAILY Rx Instructions: give with meal/snack amantadine HCl 100 mg capsule 100 mg PO BID Qty: 60 6RF primidone 250 mg tablet 250 mg PO BID Qty: 60 6RF escitalopram oxalate [Lexapro] 20 mg tablet 20 mg PO QAM lithium carbonate 450 mg tablet extended release 450 mg PO BID cholecalciferol (vitamin D3) [Vitamin D3] 125 mcg (5,000 unit) Tablet 62.5 mcg PO DAILY Rx Instructions: Unable to verify OTC meds at this date/time. fluticasone propionate [Allergy Relief (fluticasone)] 50 mcg/actuation spray,suspension 1 spray intranasal BID PRN (Reason: Congestion) Rx Instructions: administer into each nostril. Unable to verify OTC meds at this date/time. hydroxyzine HCl 10 mg tablet 5 - 10 mg PO DAILY PRN (Reason: Anxiety) pantoprazole 40 mg tablet,delayed release (DR/EC) 40 mg PO DAILYBB aripiprazole 30 mg tablet 30 mg PO HS multivitamin with folic acid [Daily-Sigifredo (with folic acid)] 400 mcg tablet 1 tab PO DAILY Rx Instructions: Unable to verify OTC meds at this date/time. colestipol 1 gram tablet 2 g PO BID PRN (Reason: Diarrhea) melatonin 3 mg capsule 3 mg PO HS Rx Instructions: Unable to verify OTC meds at this date/time. bupropion HCl 300 mg tablet extended release 24 hr 0 mg PO DAILY Rx Instructions: Unable to verify medication at this date/time. Original Directions: 300mg by mouth daily, last filled 11/14/23 x30 day supply Discharge Orders: Discharge Order (Routine); Ordered 05/08/24 Ordered By: Emelyn Cuevas Admission Data Admit Date/Time: 05/05/24 00:17 Attending Provider: Forest Pearl Admit Provider: Solomon Wallace Primary Care Provider: Fermin Parikh Other Providers: Solomon Wallace; [facility] Supervising Physician Co-Signing Physician Notes ATTESTATION I also saw the patient and confirmed fisher portions of the history and exam. I agree with the impression and plan in the resident documentation, and as summarized below. Semi-reclined in bed. Talks to me in full and complete sentences without pause. He has no complaints today except for some mild bloating. EXAM VSS - 92% on room air Lungs with exp wheeze in all mendez, although less wheeze and improved air movement today as compared to yesterday's exam CV RRR DATA Labs HgB 13.9 WBC 9.07 IMPRESSION & PLAN Acute on chronic respiratory failure in the setting of COPD exacerbation Continued improvement Continue doxycycline and prednisone course Ambulatory dysfunction/generalized weakness PT/OT consultation recommending inpatient rehabilitation to which he is agreeable [facility] today Schizoaffective disorder, bipolar type w/ anxiety & depression Continue current medication regimen Additional per resident documentation Resident Activity Tracking Resident Involvement: Resident Care Provided Care Provided: Adult Hospital Medicine
--- NOTE | 2024-05-08 17:15 | Hospitalist Progress Note ---
Date of Service May 08, 2024 Assessment & Plan (1) Acute on chronic respiratory failure with hypoxia: (2) Anasarca: (3) BPH w urinary obs/LUTS: (4) Acute urinary retention: Plan Pt is a 69 yo male who presented to the hospital with weakness and COPD exac, treated and now pending placement to rehab on discharge. Ambulatory Dysfunction - Patient needing help from 2 people to walk to the bathroom and c/o imbalance with ambulation - Will order PT/OT for evaluation PT/OT recc acute rehab; to go to rehab on discharge hopefully tomorrow Acute on chronic respiratory failure with hypoxia secondary to COPD exacerbation - Respiratory status improved and currently has Oxygen saturation > 90% at room air - initial Solumedrol changed to Prednisone 40 mg PO, continue prednisone 40 mg for 5 more days at discharge - Doxycycline 100 mg PO bid in the hospital, continue for 3 more days on discharge Anasarca // acute urinary retention // BPH with LUTS - Thayer catheter d/c'ed and patient voiding spontaneously - Continue Tamsulosin 0.4 mg daily - Furosemide 40 mg IV given here, discontinue on discharge Schizoaffective disorder bipolar type - [place] level of 1.2 during hospital stay Admission and Anticipated Discharge Date Admission Date: May 05, 2024 Supervising Physician Co-Signing Physician Notes ATTESTATION I also saw the patient and confirmed fisher portions of the history and exam. I agree with the impression and plan in the resident documentation, and as summarized below. Semi-reclined in bed. Talks to me in full and complete sentences without pause. He has no complaints today except for some mild bloating. EXAM VSS - 92% on room air Lungs with exp wheeze in all mendez, although less wheeze and improved air movement today as compared to yesterday's exam CV RRR DATA Labs HgB 13.9 WBC 9.07 IMPRESSION & PLAN Acute on chronic respiratory failure in the setting of COPD exacerbation Continued improvement Continue doxycycline and prednisone course Ambulatory dysfunction/generalized weakness PT/OT consultation recommending inpatient rehabilitation to which he is agreeable [facility] once transport finalized Schizoaffective disorder, bipolar type w/ anxiety & depression Continue current medication regimen Additional per resident documentation Subjective Pt seen at bedside today. Feeling well overall, no concerns noted. He states his breathing feels pretty good today, no nausea or vomiting with intake, no chest pain. He states he does feel a bit short of breath when he is walking around but no issues at rest. No concerns noted. Review of Systems Review of Systems: Per HPI. Physical Exam Physical Exam: General:Alert and oriented, no acute distress, HEENT: Normocephalic, moist oral mucosa, Cardio: Regular rate and rhythm, Resp:Lungs clear to auscultation b/l, slight wheeze heard in the bases GI: Soft and nontender, nondistended, bowel sounds active Skin: Warm, dry Results & Data Results & Data Vital Signs (Past 12 Hours) Vital Signs Temp Pulse Pulse Resp BP Pulse Ox Pulse Ox 05/08/24 17:00 73 05/08/24 15:51 36.7 C 65 18 107/68 95 05/08/24 11:31 36.5 C 73 18 102/66 92 05/08/24 11:22 77 18 92 05/08/24 09:00 65 05/08/24 08:00 05/08/24 08:00 36.7 C 72 16 99/61 L 94 05/08/24 07:00 92 O2 Del Method O2 Del Method 05/08/24 17:00 05/08/24 15:51 Room Air 05/08/24 11:31 Room Air 05/08/24 11:22 Room Air 05/08/24 09:00 05/08/24 08:00 Room Air 05/08/24 08:00 Room Air 05/08/24 07:00 Nasal Cannula Resident Activity Tracking Resident Involvement: Resident Care Provided Care Provided: Adult Hospital Medicine
[2024-05-09 07:53] VITALS: RESP 18; TEMP 97.9
--- NOTE | 2024-05-09 11:35 | Discharge Summary ---
Date of Service May 09, 2024 Admission HPI Per Admitting Provider The patient is a 69-year-old male with a past medical history including prostate enlargement, schizoaffective disorder bipolar type, essential tremor, hypothyroidism, COPD, and generalized anxiety disorder. Patient called the on- call service in the outpatient setting due to the above symptoms, and was referred to the ED for assessment. Admission Exam Per Admitting Provider General:Alert and oriented, no acute distress, HEENT: Normocephalic, moist oral mucosa, Cardio: Regular rate and rhythm, Resp:Lungs clear to auscultation b/l, slight wheeze heard in the bases GI: Soft and nontender, nondistended, bowel sounds active Skin: Warm, dry Principal Diagnosis COPD exac Discharge Exam General:Alert and oriented, no acute distress, HEENT: Normocephalic, moist oral mucosa, Cardio: Regular rate and rhythm, Resp:Lungs clear to auscultation b/l, slight wheeze heard in the bases GI: Soft and nontender, nondistended, bowel sounds active Skin: Warm, dry Discharge Data Allergies Allergy/AdvReac Type Severity Reaction Status Date / Time morphine AdvReac Severe FEELING OF Verified 04/15/24 16:33 "DYING" azithromycin AdvReac Intermediate Diarrhea Verified 04/15/24 16:33 gabapentin AdvReac Intermediate drowsiness Verified 04/15/24 16:33 Consultations 05/04/24 23:47 ED Decision to Admit Stat Ordered Studies 05/04/24 20:54 CT abd pelvis IV con only Stat Hospital Course (1) Acute on chronic respiratory failure with hypoxia: (2) Anasarca: (3) BPH w urinary obs/LUTS: (4) Acute urinary retention: Plan Pt is a 69 yo male who presented to the hospital with weakness and COPD exac, treated and now pending placement to rehab on discharge. Ambulatory Dysfunction - Patient needing help from 2 people to walk to the bathroom and c/o imbalance with ambulation - Will order PT/OT for evaluation PT/OT recc acute rehab; to go to rehab on discharge Acute on chronic respiratory failure with hypoxia secondary to COPD exacerbation - Respiratory status improved and currently has Oxygen saturation > 90% at room air - initial Solumedrol changed to Prednisone 40 mg PO, continue prednisone 40 mg for 5 more days at discharge - Doxycycline 100 mg PO bid in the hospital, continue for 3 more days on discharge Anasarca // acute urinary retention // BPH with LUTS - Thayer catheter d/c'ed and patient voiding spontaneously - Continue Tamsulosin 0.4 mg daily - Furosemide 40 mg IV given here, discontinue on discharge Schizoaffective disorder bipolar type - [place] level of 1.2 during hospital stay Total Time Total Time Spent Total Time Spent (In Minutes): 20 minutes Discharge Plan Discharge Items Patient Disposition: Transfer Inpatient Rehab Fac Reason For Visit: ACUTE ON CHRONIC RESP FAILURE W/HYPOXIA, COPD EX Discharge Diagnosis: COPD exacerbation, acute urinary retention Condition on Discharge: Fair Activity: Per Instructions section Non-emergency contact: Primary Care Provider Call non-emergency contact if: your symptoms worsen and your temperature is above 101.5 Follow-up/Referrals: Fermin Parikh DO [Primary Care Provider] - Diet: Heart Healthy Addtl Attending Provider Instructions: You were admitted to the hospital due to shortness of breath and noted difficulty urinating by yourself. With regards to your breathing, you were treated with intravenous steroids, antibiotics, and nebulizer therapies for your breathing with successful improvement in your symptoms. Since you were occasionally feeling some shortness of breath with movement, we also did what is called a 2-step, which is a test where we see how your oxygen levels and breathing does when you are moving around. This test determined that you did not need additional oxygen since your levels stayed in good range even with movement. For this reason, we will be discharging you today with an oral form of the medications we are giving you to manage your COPD exacerbation. Below you will find what these medications are, as well as a guide of how to take them: Doxycycline 100 mg BID for 3 more days Prednisone 40 mg for 5 more days Please continue using your inhalers as you were advised to by your primary care physician With regards to your urinary retention, we initially inserted a catheter to help you empty your bladder. Afterwards, we removed your catheter and allowed you to urinate by yourself, which was successful. Due to this, we will be discharging you with your usual dose of Tamsulosin 0.4mg daily. We advise you to continue following up with your primary care provider and your urologist as you have been. A discharge summary will be sent to your primary care physician to ensure continuity of care. Please bring this discharge summary with you to your next office appointment so that your provider can review it at that time. Follow-up appointments: Keep all your follow-up appointments as already scheduled. If you cannot make an appointment, notify your provider. Medications: Your medication list has been reviewed and reconciled upon discharge to ensure accuracy and continuity of care. An updated list of all your medications is included with your hospital discharge paperwork. Please review this list closely, and make note of any changes. Take your medications as instructed; do not skip a dose of your medicines. Make sure all of your doctors know every medicine you are taking (including [id number] medicines, vitamins, and supplements). Call your primary care provider before taking any new medicines (including over- the-counter medicines, vitamins, and supplements), because some of these may interact with your current medications, or may make your symptoms worse. Tell your primary care provider if you cannot afford your medications. CONTACT YOUR PRIMARY CARE PROVIDER if you experience any of the following: Worsening of symptoms Fever, chills, or fatigue Difficulty following your treatment plan, or difficulty taking medications CALL 911 OR GO TO THE EMERGENCY DEPARTMENT if you experience any of the following: Sudden, severe abdominal pain or nausea/vomiting Severe chest pain, or chest pain that radiates (moves) to your jaw or arm Sudden, severe shortness of breath or difficulty breathing Thank you for allowing us to participate in your care. Pending Studies at Discharge: No Stand-Alone Forms: My [facility] Skilled Items Patient informed of condition?: Yes DNR: No Discharge Level of Care: Acute rehab Communicable Disease: No Discharge Prognosis: Stable Lines: None Urinary Catheter: No Medications and DC Order Prescriptions: New doxycycline hyclate 100 mg Capsule 100 mg PO BID 3 Days Qty: 6 0RF prednisone 20 mg Tablet 40 mg PO QAM 5 Days Qty: 10 0RF Continued (DME) Portable Oxygen Misc See Rx Instructions .Route Qty: 1 0RF Rx Instructions: 2L via nc with exertion. ILENE:[id number] Please provide POC (DME) Oxygen Home Liters Per Minute See Rx Instructions .Route Qty: 1 0RF Rx Instructions: oxygen mask and tubing replacement meclizine 12.5 mg tablet See Rx Instructions .ROUTE .COMPLEX Qty: 30 1RF Dose Instruction: Take 1 tablet (12.5mg) by mouth three times a day As Needed for dizziness Rx Instructions: Take 1 tablet (12.5mg) by mouth three times a day As Needed for dizziness. Unable to verify OTC meds at this date/time. albuterol sulfate 1.25 mg/3 mL solution for nebulization 1.25 mg inhalation QID PRN (Reason: shortness of breath or wheezing) Qty: 75 3RF tamsulosin 0.4 mg capsule 0.4 mg PO DAILY Qty: 90 3RF ondansetron HCl 4 mg tablet 4 mg PO Q12H PRN (Reason: nausea and vomiting) Qty: 30 3RF levothyroxine 100 mcg tablet 100 mcg PO DAILYBB Qty: 90 3RF albuterol sulfate 90 mcg/actuation HFA aerosol inhaler 2 puff inhalation Q6H PRN (Reason: Shortness Of Breath) Qty: 8.5 3RF fluticasone furoate-vilanterol [Breo Ellipta] 100-25 mcg/dose blister with device 1 inh inhalation QAM Qty: 60 11RF Spiriva Respimat 1.25 mcg/actuation mist 2 puff INHALATION QAM Qty: 4 11RF turmeric 400 mg capsule 400 mg PO HS Rx Instructions: Unable to verify OTC meds at this date/time. ferrous sulfate [Feosol] 325 mg (65 mg iron) tablet 325 mg PO HS Rx Instructions: Unable to verify OTC meds at this date/time. copper gluconate 2 mg tablet 2 mg PO HS Rx Instructions: Unable to verify OTC meds at this date/time. caffeine 200 mg tablet 200 mg PO Q3H Patient Comments: takes 10 times daily Rx Instructions: Unable to verify OTC meds at this date/time. lidocaine HCl [Lidocaine Viscous] 2 % solution 15 ml mucous membrane QID Qty: 100 1RF nystatin 100,000 unit/mL suspension 5 ml PO QID Qty: 200 0RF Rx Instructions: swish and spit ginkgo biloba 40 mg tablet 40 mg PO DAILY Rx Instructions: give with meal/snack amantadine HCl 100 mg capsule 100 mg PO BID Qty: 60 6RF primidone 250 mg tablet 250 mg PO BID Qty: 60 6RF escitalopram oxalate [Lexapro] 20 mg tablet 20 mg PO QAM lithium carbonate 450 mg tablet extended release 450 mg PO BID cholecalciferol (vitamin D3) [Vitamin D3] 125 mcg (5,000 unit) Tablet 62.5 mcg PO DAILY Rx Instructions: Unable to verify OTC meds at this date/time. fluticasone propionate [Allergy Relief (fluticasone)] 50 mcg/actuation spray,suspension 1 spray intranasal BID PRN (Reason: Congestion) Rx Instructions: administer into each nostril. Unable to verify OTC meds at this date/time. hydroxyzine HCl 10 mg tablet 5 - 10 mg PO DAILY PRN (Reason: Anxiety) pantoprazole 40 mg tablet,delayed release (DR/EC) 40 mg PO DAILYBB aripiprazole 30 mg tablet 30 mg PO HS multivitamin with folic acid [Daily-Sigifredo (with folic acid)] 400 mcg tablet 1 tab PO DAILY Rx Instructions: Unable to verify OTC meds at this date/time. colestipol 1 gram tablet 2 g PO BID PRN (Reason: Diarrhea) melatonin 3 mg capsule 3 mg PO HS Rx Instructions: Unable to verify OTC meds at this date/time. bupropion HCl 300 mg tablet extended release 24 hr 0 mg PO DAILY Rx Instructions: Unable to verify medication at this date/time. Original Directions: 300mg by mouth daily, last filled 11/14/23 x30 day supply Discharge Orders: Discharge Order (Routine); Ordered 05/09/24 Ordered By: Emelyn Parra/Other Patient Handouts: COPD and Heart Disease, Shortness of Breath Coping Admission Data Admit Date/Time: 05/05/24 00:17 Attending Provider: Forest Pearl Admit Provider: Solomon Wallace Primary Care Provider: Fermin Parikh Other Providers: Solomon Wallace; [facility] Other Interventions: Discharge Summary Assessment (RN) Last Done: 05/09/24 13:29 Supervising Physician Co-Signing Physician Notes ATTESTATION I also saw the patient and confirmed fisher portions of the history and exam. I agree with the impression and plan in the resident documentation, and as summarized below. He has no complaints today. EXAM VS as noted. Lungs with end exp wheeze, again improved compared to each previous exam. I am unsure what his baseline exam is. CV RRR IMPRESSION & PLAN Acute on chronic respiratory failure in the setting of COPD exacerbation Continued improvement Continue doxycycline and prednisone course Ambulatory dysfunction/generalized weakness PT/OT consultation recommending inpatient rehabilitation to which he is agreeable [facility] today Schizoaffective disorder, bipolar type w/ anxiety & depression Continue current medication regimen Additional per resident documentation Resident Activity Tracking Resident Involvement: Resident Care Provided Care Provided: Adult Hospital Medicine
[2024-05-09 13:29] VITALS: BP 98/58
[2024-05-09 13:39] VITALS: PULSE 81; O2SAT 92
== END 2024-05-09 14:13 | DRG 190 ==
LOC: ED 20:43 → 2S 05-05 00:17 → SUATTDRO 05-05 00:17 → 2S 05-05 01:20

== ENCOUNTER 2024-05-19 14:09 | Inpatient (IN) ==
[2024-05-19 14:41] LABS: Base Excess VBG 10.5 mEq/L; HCO3 VBG 40 mmol/L; Oxygen Saturation VBG < 60.0 %; PCO2 VBG 76 mmHg (38-50); PO2 VBG < 20 mmHg; pH VBG 7.33 (7.36-7.41)
[2024-05-19 14:47] LABS: Basophils # (auto) 0.07 K/uL (0.00-0.20); Basophils % (auto) 0.5 %; Eosinophils # (auto) 0.15 K/uL (0.00-0.50); Hematocrit (blood only) 45.4 % (42.0-52.0); Hemoglobin 14.9 g/dl (14.0-18.0); Immature Granulocytes % (auto) 0.6 %; Lymphocytes # (auto) 0.73 K/uL (1.20-3.40); Lymphocytes % (auto) 4.7 %; Mean Corpuscular Hemoglobin 33.6 pg (25.0-34.0); Mean Corpuscular Hgb Conc 32.8 g/dL (32.0-36.0); Mean Corpuscular Volume 102.5 fL (80.0-100.0); Mean Platelet Volume 9.5 fL (9.4-12.4); Monocytes # (auto) 0.67 K/uL (0.11-0.59); Monocytes % (auto) 4.3 %; Neutrophils % (auto) 88.9 %; Platelet Count 341 K/uL (130-400); RDW Coefficient of Variation 13.4 % (11.5-14.5); RDW Standard Deviation 51.2 fL (36.4-46.3); Red Blood Count 4.43 M/uL (4.70-6.10); White Blood Count 15.52 K/ul (4.8-10.8)
[2024-05-19 15:03] LABS: Alanine Aminotransferase 101 U/L (7-52); Albumin Globulin Ratio 1.7 (0.9-2); Albumin Level 4.5 gm/dl (3.4-5.0); Alkaline Phosphatase 92 U/L (34-104); Anion Gap 2 (3-11); Aspartate Aminotransferase 52 U/L (13-39); BUN Creatinine Ratio 18.9 (10-20); Bilirubin,Total 0.3 mg/dl (0.2-1.0); Blood Urea Nitrogen 20 mg/dl (6-23); Calcium 9.7 mg/dl (8.6-10.3); Carbon Dioxide 39 mmol/L (21-32); Chloride 99 mmol/L (98-107); Globulin 2.6 gm/dl (2.5-4.0); Glucose 105 mg/dl (70-99(Fasting)); Potassium 4.6 mmol/L (3.5-5.1); Sodium 140 mmol/L (136-145); Total Protein 7.1 gm/dl (6.0-8.3)
--- NOTE | 2024-05-19 15:06 | Emergency Department Note ---
Impression & Plan Acute hypercapnic respiratory failure, Acute exacerbation of chronic obstructive pulmonary disease, Transaminitis ED Provider Note NAME: PHILLIP CELIS AGE: 69 SEX: M : 1955 ARRIVES VIA: Ambulance INFORMANT: Patient, Nursing triage note ED PROVIDER(S): Darrion Gomez MD CHIEF COMPLAINT: Shortness of breath MEDICAL DECISION MAKING: Patient presents due to concern for shortness of breath and feeling as though he is "suffocating." IV was established and blood work was obtained. Patient was requested to be in the room as initially was in triage. This is the patient's third ED visit in about the last week. Patient did receive DuoNeb treatment steroids and was placed on BiPAP as he was noted to have hypercarbia. Patient's blood work with a white count of 15. Patient denies any productive cough no obvious evidence of pneumonia seen on chest x-ray so deferring to procalcitonin. Hemoglobin of 14.9 with a normal platelet count. The patient's kidney function is unremarkable. Bicarb is elevated at 39 likely secondary to a CO2 retention. VBG pH is 7.33 with a VBG pCO2 of 76. This is an acute change from his most recent VBG from 2 days prior where it was 69. Mild transaminitis with an AST and ALT of 52 and 101. Troponin negative. Procalcitonin was added. Linden level is normal. IV fluids ordered. The patient was amenable to inpatient treatment at this time. I did speak the on-call hospitalist Dr. Richardson and the patient was admitted to the medicine service. Procalcitonin is not elevated. Critical Care: I have personally spent 45 minutes of critical care time in direct management of this patient. This includes bedside care, interpretation of diagnostic studies, and testing, discussion with consultants, patient, and family members, and other require inpatient management activities. This 45 minutes is in excess of all separately billable procedures. Discussion w/ other healthcare providers: Dr. Richardson inpatient medicine service Prior /Outside records reviewed: I reviewed a primary care visit from May 17, 2024 the patient was seen for discharge follow-up from the hospital was noted to be hypoxemic and referred to the emergency department for further evaluation and treatment at that time. Patient was seen by Briana Juarez. Differential diagnosis: Reactive airway disease, pneumonia, pneumothorax, COPD, CHF, ACS, pulmonary embolism, musculoskeletal, GERD as well as other pathologies were considered. Diagnostics, as interpreted by me: ECG: Sinus rhythm, rate of 71, normal intervals, right axis deviation no obvious ST elevations. Cardiac monitoring: An order was placed for continuous cardiac monitoring. The monitor shows a rate of 72 with sinus rhythm. Patient was placed on pulse oximetry Medical decision rules: None Imaging studies: I informally interpreted the patient's chest x-ray without obvious pneumonia or pneumothorax with formal report to follow. HPI: Patient presents due to concern for worsening shortness of breath. The patient states that he feels as though he is "suffocating." Patient states that even while being seated he feels very short of breath and does have worsening symptoms with any sort of activity. Patient denies any leg swelling or calf pain. The patient does have a known history of COPD and has been using his medications at home without relief. He does follow with Dr. Piedra with pulmonology. Patient states that he has had cough but it has been nonproductive. Patient states that he is not an active smoker. Patient denies any abdominal pains or nausea vomiting. The patient does endorse poor p.o. intake as he states whenever he tries to eat he feels he gets short of breath. PAST MEDICAL HISTORY: See Below PAST SURGICAL HISTORY: See Below SOCIAL HISTORY: See Below HOME MEDICATIONS: See Below ALLERGIES: See Below VITALS: See Below PHYSICAL EXAMINATION: GENERAL: No apparent distress, BiPAP in place. EYE EXAM: Normal conjunctiva. PERRL, no anisocoria and EOM's grossly intact w/o pain. OROPHARYNX: Moist mucus membranes, grossly normal dentition. NECK: Trachea midline, no stridor. Supple, no nuchal rigidity, no adenopathy, non-tender. No signs of meningismus. FROM of the neck with good chin to chest and neck extension. LUNGS: Diminished breath sounds throughout without obvious rhonchi. Normal chest wall mechanics. HEART: NSR, no MRG. ABDOMEN: Abdomen soft, non-tender, no masses, no rebound or guarding. BACK: No CVA TTP. SKIN: No rashes and no bruising. UPPER EXTREMITIES: Upper extremities are grossly normal. LOWER EXTREMITIES: Grossly normal, no edema. Negative Homans' sign bilaterally. NEURO EXAM: A&O x3, cranial nerves II-XII grossly intact, normal speech, moves all 4 extremities. Past Med/Surg History Problem List (Updated 05/19/24 @ 17:26 by Darrion Gomez MD) Transaminitis (Acute) Acute exacerbation of chronic obstructive pulmonary disease (Acute) Acute hypercapnic respiratory failure (Acute) Acute dehydration (Acute) COPD (chronic obstructive pulmonary disease) (Acute) COPD (chronic obstructive pulmonary disease) (Acute) Dyspnea (Acute) Prostate enlargement COVID-19 (Acute) Elevated fasting glucose Anemia Fatigue Schizoaffective disorder, bipolar type (Chronic) Multiple pulmonary nodules Essential tremor (Chronic) Meningioma Tubular adenoma of colon Generalized anxiety disorder (Chronic) Abnormal weight loss Hypothyroidism COPD (chronic obstructive pulmonary disease) (Chronic) STABLE Irritable bowel syndrome Medical History BPH w urinary obs/LUTS Anasarca SOB (shortness of breath) COPD (chronic obstructive pulmonary disease) Weak urine stream Prediabetes Scar condition and fibrosis of skin Diarrhea Abnormal CT scan of lung Encounter for completion of form with patient Aphthous ulcer Hx of small bowel obstruction On home oxygen therapy O2 AT 2L PRN SHORT OF BREATH Collagenous colitis Rising PSA level Herpes simplex Drug dependence Deviated nasal septum Clear cell carcinoma of kidney Abnormal brain MRI History of colon polyps Respiratory failure with hypoxia CRESENCIO (acute kidney injury) Hypoxia Surgical History History of tonsillectomy Hx of inguinal hernia repair BILATERAL 10/07/2012 - Dr. Johns S/P small bowel resection Diagnostic lap with enterolysis; release of SBO 05/28/18 - Dr. Khan H/O partial nephrectomy LEFT History of colonoscopy History of appendectomy WITH EXPLORATORY SURGERY History of tooth extraction Family History Father Lymphoma Mother Neoplasm of brain Family/Other Cardiac arrest Other Diabetes Myocardial infarction No family history of adverse response to anesthesia Social History Smoking Status: Former smoker Tobacco Type: Cigarettes Age Started Using Tobacco: 17; Age Quit Using Tobacco: 59; packs per day: 1; Second Hand Exposure: No; Do You Dip or Chew Tobacco: No; Hx Alcohol Use: No Hx Substance Use: No Preferred Language: Kinyarwanda Communication Ability: Effective Visual Impairment: No Limitations Hearing Ability: Normal Assistant Broker Required: No Beliefs That Will Affect Care: None marital status: Single Current Living Situation: Alone Current Living Situation Comment: town house Feels Safe at Home: Yes Childhood Exposure to Second-Hand Smoke: Yes Diet Comment: Meat free caffeine: Yes (pills) Seatbelt Use: always Gender Identity: Male Assistive Devices: Other Allergies Allergies Allergy/AdvReac Type Severity Reaction Status Date / Time morphine AdvReac Severe FEELING OF Verified 05/17/24 09:52 "DYING" azithromycin AdvReac Intermediate Diarrhea Verified 05/17/24 09:52 gabapentin AdvReac Intermediate drowsiness Verified 05/17/24 09:52 Home Meds Home Medications Medication Instructions Recorded Confirmed copper gluconate 2 mg tablet 2 mg PO HS 11/21/21 05/19/24 ferrous sulfate 325 mg (65 mg 325 mg PO HS 11/21/21 05/19/24 iron) tablet (Feosol) escitalopram oxalate 20 mg tablet 20 mg PO QAM 08/16/22 05/19/24 (Lexapro) cholecalciferol (vitamin D3) 125 62.5 mcg PO DAILY 09/28/22 05/19/24 mcg (5,000 unit) tablet (Vitamin D3) fluticasone propionate 50 1 spray intranasal BID PRN 09/28/22 05/19/24 mcg/actuation nasal Congestion spray,suspension (Allergy Relief (fluticasone)) lithium carbonate 450 mg 450 mg PO BID 09/28/22 05/19/24 tablet,extended release caffeine 200 mg tablet 200 mg PO Q3H 04/11/23 05/19/24 aripiprazole 30 mg tablet 30 mg PO HS 12/29/23 05/19/24 colestipol 1 gram tablet 2 g PO BID PRN Diarrhea 12/29/23 05/19/24 hydroxyzine HCl 10 mg tablet 5 - 10 mg PO DAILY PRN Anxiety 12/29/23 05/19/24 melatonin 3 mg capsule 3 mg PO HS 12/29/23 05/19/24 multivitamin with folic acid 400 1 tab PO DAILY 12/29/23 05/19/24 mcg tablet (Daily-Sigifredo (with folic acid)) pantoprazole 40 mg tablet,delayed 40 mg PO DAILYBB 12/29/23 05/19/24 release bupropion HCl 300 mg 24 hr tablet, 0 mg PO DAILY 01/06/24 05/19/24 extended release turmeric 400 mg capsule 400 mg PO HS 01/15/24 05/19/24 ginkgo biloba 40 mg tablet 40 mg PO DAILY 04/15/24 05/19/24 meclizine 12.5 mg tablet 12.5 mg PO TID PRN Dizziness 05/19/24 05/19/24 Previous Rx's Medication Instructions Recorded Portable Oxygen #1 ea 06/15/21 Oxygen Home #1 ea 11/26/22 albuterol sulfate 90 mcg/actuation 2 puff inhalation Q6H PRN 12/31/22 aerosol inhaler Shortness Of Breath #8.5 grams fluticasone furoate 100 1 inh inhalation QAM #60 ea 08/04/23 mcg-vilanterol 25 mcg/dose inhalation powder (Breo Ellipta) tiotropium bromide 1.25 2 puff inhalation QAM #4 grams 08/04/23 mcg/actuation mist for inhalation (Spiriva Respimat) albuterol sulfate 1.25 mg/3 mL 1.25 mg (3 mL) inhalation QID PRN 01/05/24 solution for nebulization shortness of breath or wheezing #75 mL tamsulosin 0.4 mg capsule 0.4 mg PO DAILY #90 caps 03/02/24 ondansetron HCl 4 mg tablet 4 mg PO Q12H PRN nausea and 03/11/24 vomiting #30 tabs levothyroxine 100 mcg tablet 100 mcg PO DAILYBB #90 tabs 03/15/24 amantadine HCl 100 mg capsule 100 mg PO BID #60 caps 03/17/24 primidone 250 mg tablet 250 mg PO BID #60 tabs 03/17/24 Results & Data (ED) Vital Signs Vital Signs - 24 hr 05/19/24 14:13 05/19/24 15:10 05/19/24 15:10 Temperature 36.7 C Temperature Source Temporal Artery Scan Pulse Rate 76 68 Pulse Rate [Apical] 68 Respiratory Rate 20 20 Respiratory Effort / Characteristics Non-Labored Spontaneous Non-Labored Spontaneous Respiratory Depth Normal Respiratory Pattern Regular Blood Pressure 119/82 Blood Pressure [Right Arm] Blood Pressure Mean 94 Blood Pressure Mean [Right Arm] Pulse Oximetry 98 98 Oxygen Delivery Method BiPAP Fraction of Inspired Oxygen 30 30 Sepsis Recent Fever Within 48 Hours No Sepsis New/Unexplained Change in Mental Status N/A Sepsis Action Taken by Nursing No Action Required 05/19/24 15:48 05/19/24 15:48 05/19/24 15:48 Temperature Temperature Source Pulse Rate 69 Pulse Rate [Apical] 68 Respiratory Rate 18 20 Respiratory Effort / Characteristics Non-Labored Spontaneous Respiratory Depth Respiratory Pattern Blood Pressure Blood Pressure [Right Arm] 107/76 Blood Pressure Mean Blood Pressure Mean [Right Arm] 86 Pulse Oximetry 100 100 Oxygen Delivery Method BiPAP BiPAP BiPAP Fraction of Inspired Oxygen Sepsis Recent Fever Within 48 Hours Sepsis New/Unexplained Change in Mental Status Sepsis Action Taken by Nursing 05/19/24 16:10 Temperature Temperature Source Pulse Rate 61 Pulse Rate [Apical] Respiratory Rate Respiratory Effort / Characteristics Respiratory Depth Respiratory Pattern Blood Pressure Blood Pressure [Right Arm] Blood Pressure Mean Blood Pressure Mean [Right Arm] Pulse Oximetry Oxygen Delivery Method Fraction of Inspired Oxygen Sepsis Recent Fever Within 48 Hours Sepsis New/Unexplained Change in Mental Status Sepsis Action Taken by Long Term Medications Current Medication List: was personally reviewed by me Laboratory Data Attestation: I reviewed the patient's lab results. 05/19/24 14:33 05/19/24 14:33 Lab Results 05/19/24 Range/Units 14:33 WBC 15.52 H (4.8-10.8) K/ul RBC 4.43 L (4.70-6.10) M/uL Hgb 14.9 (14.0-18.0) g/dl Hct 45.4 (42.0-52.0) % MCV 102.5 H (80.0-100.0) fL MCH 33.6 (25.0-34.0) pg MCHC 32.8 (32.0-36.0) g/dL RDW Std Deviation 51.2 H (36.4-46.3) fL RDW Coeff of Josie 13.4 (11.5-14.5) % Plt Count 341 (130-400) K/uL MPV 9.5 (9.4-12.4) fL Immature Gran % (Auto) 0.6 % Neut % (Auto) 88.9 % Lymph % (Auto) 4.7 % Walsh % (Auto) 4.3 % Eos % (Auto) 1.0 % Baso % (Auto) 0.5 % Neut # (Auto) 13.80 H (1.40-6.50) K/uL Lymph # (Auto) 0.73 L (1.20-3.40) K/uL Walsh # (Auto) 0.67 H (0.11-0.59) K/uL Eos # (Auto) 0.15 (0.00-0.50) K/uL Baso # (Auto) 0.07 (0.00-0.20) K/uL Immature Gran # (Auto) 0.10 (0.01-0.20) K/uL PT 10.4 (9.0-12.0) Seconds INR 1.0 (0.9-1.1) APTT 25 (21-31) Seconds PTT Ratio 0.9 VBG pH 7.33 L (7.36-7.41) VBG pCO2 76 H (38-50) mmHg VBG pO2 < 20 mmHg VBG HCO3 40 mmol/L VBG O2 Saturation < 60.0 % VBG Base Excess 10.5 mEq/L Sodium 140 (136-145) mmol/L Potassium 4.6 (3.5-5.1) mmol/L Chloride 99 (98-107) mmol/L Carbon Dioxide 39 H (21-32) mmol/L Anion Gap 2 L (3-11) BUN 20 (6-23) mg/dl Creatinine 1.06 (0.6-1.4) mg/dl Est Cr Clr Drug Dosing Not Reportable eGFR 75.97 BUN/Creatinine Ratio 18.9 (10-20) Glucose 105 H (70-99(Fasting)) mg/dl Calcium 9.7 (8.6-10.3) mg/dl Total Bilirubin 0.3 (0.2-1.0) mg/dl AST 52 H (13-39) U/L ALT 101 H (7-52) U/L Alkaline Phosphatase 92 (34-104) U/L Troponin I High Sens 6.6 (0-20) pg/ml Total Protein 7.1 (6.0-8.3) gm/dl Albumin 4.5 (3.4-5.0) gm/dl Globulin 2.6 (2.5-4.0) gm/dl Albumin/Globulin Ratio 1.7 (0.9-2) Procalcitonin 0.09 (0-0.5) ng/ml Linden 0.8 (0.6-1.2) mmol/L Administered Medications Discontinued Medications Albuterol (Albut/Ipratrop 3mg/0.5mg Neb 3 Ml Vial) 3 ml NEB NOW STA; Protocol Stop: 05/19/24 15:00 Last Admin: 05/19/24 15:24 Dose: 3 ml Documented By: KATIE Sodium Chloride (Nss) 1,000 mls @ 999 mls/hr IV .Q1H1M ONE Stop: 05/19/24 16:28 Last Infusion: 05/19/24 16:58 Dose: Infused Documented By: Admin: 05/19/24 15:31 Dose: 999 mls/hr Documented By: PAVAN Methylprednisolone (Methylprednisolone 125 Mg/2 Ml Vial) 125 mg IV NOW STA Stop: 05/19/24 15:02 Last Admin: 05/19/24 15:26 Dose: 125 mg Documented By: PAVAN Imaging Data Radiologist's Impression: Chest X-Ray 05/19/24 14:22 XR chest 1V not portable HISTORY: 69 years-old Male Chest pain, nonspecific COMPARISON: 05/17/2024 TECHNIQUE: AP view of the chest FINDINGS: Cardiac mediastinal and hilar silhouettes are unchanged. Emphysema with chronic interstitial coarsening. No pneumothorax, large pleural effusion or overt pulmonary edema. Chronic mid right clavicular fracture deformity. IMPRESSION: Emphysema without acute process. ACT 112: Negative or not required by law. The above report was generated using voice recognition software. It may contain grammatical, syntax or spelling errors. Electronically signed by: Wilber Raza M.D. 05/19/2024 3:17 PM Discharge Plan Visit Data Chief Complaint: Shortness of Breath/Dyspnea Stated Complaint: SOB ED Provider: Darrion Gomez Discharge Problem: Acute hypercapnic respiratory failure, Acute exacerbation of chronic obstructive pulmonary disease, Transaminitis Patient Disposition: Admitted As Inpatient Discharge Instructions Interventions: ED Discharge Assessment Last Done: 05/19/24 17:20
[2024-05-19 15:09] LABS: Troponin I High Sensitivity 6.6 pg/ml (0-20)
--- NOTE | 2024-05-19 15:18 | XRay Report ---
XR chest 1V not portable HISTORY: 69 years-old Male Chest pain, nonspecific COMPARISON: 05/17/2024 TECHNIQUE: AP view of the chest FINDINGS: Cardiac mediastinal and hilar silhouettes are unchanged. Emphysema with chronic interstitial coarseni ng. No pneumothorax, large pleural effusion or overt pulmonary edema. Chronic mid right clavicular fr acture deformity. IMPRESSION: Emphysema without acute process. ACT 112: Negative or not required by law. The above report was generated using voice recognition software. It may contain grammatical, syntax o r spelling errors. Electronically signed by: Wilber Raza M.D. 05/19/2024 3:17 PM
[2024-05-19 15:20] LABS: Partial Thromboplastin Ratio 0.9; Partial Thromboplastin Time 25 Seconds (21-31); Prothrombin Time 10.4 Seconds (9.0-12.0)
[2024-05-19] MEDS: ALBUT/IPRATROP 3MG/0.5MG NEB 3 ML VIAL NEB STA (15:24)
[2024-05-19] MEDS: methylPREDNISolone 125 MG/2 ML VIAL IV STA (15:26)
[2024-05-19] MEDS: SODIUM CHLORIDE 0.9% 1,000 ML IV ONE (15:31)
[2024-05-19] MEDS ORDERED: FLUTICASONE PROPIONATE NA SPR 16 GM BTL NAE PRN (17:19)
[2024-05-19] MEDS: ALBUT/IPRATROP 3MG/0.5MG NEB 3 ML VIAL NEB SCH ×2 (17:27→19:41)
--- NOTE | 2024-05-19 17:44 | History & Physical Report ---
Date of Service May 19, 2024 Assessment & Plan (1) Acute exacerbation of chronic obstructive pulmonary disease: Plan: Solu-Medrol 125mg IV given in ER, continue 40mg IV BID Duonebs q4hWA and PRN Formoterol/budesonide Nebs BID Continue Spiriva or hospital formulary equivalent Azithromycin 500mg PO daily for 3 days Sputum culture (2) Acute hypercapnic respiratory failure: Plan: Continue current BiPAP, repeat VBG, not significantly different to prior VBG while in the ER but will continue BiPAP HS for now but can have breaks for eating while maintaining O2 sats 88-92% Repeat VBG in AM Plan Schizoaffective disorder bipolar type / anxiety and depression - continue aripiprazole, buproprion, escitalopram, lithium, lithium level with AM labs Essential tremor - continue primidone Hypothyroidism - TSH with AM labs, continue levothyroxine VTE Prophylaxis - Lovenox 40mg SQ daily Diet - regular Disposition - admit to PCU Admission and Anticipated Discharge Date Admission Date: May 19, 2024 History of Present Illness Chief Complaint: Shortness of breath Primary Care Provider: DO Doris Concepcionarpan Moore is a 69 year old male with COPD who presents to the ER with shortness of breath. He was recently admitted for the same diagnosis at the end of April and improved with duonebs and steroids. He was discharged to [facility]. Since discharge from [facility] this is his third ER visit for shortness of breath although the patient tells me his shortness of breath has only been getting worse over the last 2 days. No increased sputum production. CT angiogram performed on May 13 showed no PE. He does not appear to have been prescribed a new course of steroids as still taking a taper he received after discharge from [facility]. No chest pain. No fever or chills. No fever or chills. He feels this is similar to prior COPD exacerbations. Denies current smoking. Allergies Allergy/AdvReac Type Severity Reaction Status Date / Time morphine AdvReac Severe FEELING OF Verified 05/17/24 09:52 "DYING" azithromycin AdvReac Intermediate Diarrhea Verified 05/17/24 09:52 gabapentin AdvReac Intermediate drowsiness Verified 05/17/24 09:52 Home Medications Medication Instructions Recorded Confirmed Type Portable Oxygen #1 ea 06/15/21 05/19/24 Rx copper gluconate 2 mg tablet 2 mg PO HS 11/21/21 05/19/24 History ferrous sulfate 325 mg (65 mg 325 mg PO HS 11/21/21 05/19/24 History iron) tablet (Feosol) escitalopram oxalate 20 mg tablet 20 mg PO QAM 08/16/22 05/19/24 History (Lexapro) cholecalciferol (vitamin D3) 125 62.5 mcg PO DAILY 09/28/22 05/19/24 History mcg (5,000 unit) tablet (Vitamin D3) fluticasone propionate 50 1 spray intranasal BID PRN 09/28/22 05/19/24 History mcg/actuation nasal Congestion spray,suspension (Allergy Relief (fluticasone)) lithium carbonate 450 mg 450 mg PO BID 09/28/22 05/19/24 History tablet,extended release Oxygen Home #1 ea 11/26/22 05/19/24 Rx albuterol sulfate 90 mcg/actuation 2 puff inhalation Q6H PRN 12/31/22 05/19/24 Rx aerosol inhaler Shortness Of Breath #8.5 grams caffeine 200 mg tablet 200 mg PO Q3H 04/11/23 05/19/24 History fluticasone furoate 100 1 inh inhalation QAM #60 ea 08/04/23 05/19/24 Rx mcg-vilanterol 25 mcg/dose inhalation powder (Breo Ellipta) tiotropium bromide 1.25 2 puff inhalation QAM #4 grams 08/04/23 05/19/24 Rx mcg/actuation mist for inhalation (Spiriva Respimat) aripiprazole 30 mg tablet 30 mg PO HS 12/29/23 05/19/24 History colestipol 1 gram tablet 2 g PO BID PRN Diarrhea 12/29/23 05/19/24 History hydroxyzine HCl 10 mg tablet 5 - 10 mg PO DAILY PRN Anxiety 12/29/23 05/19/24 History melatonin 3 mg capsule 3 mg PO HS 12/29/23 05/19/24 History multivitamin with folic acid 400 1 tab PO DAILY 12/29/23 05/19/24 History mcg tablet (Daily-Sigifredo (with folic acid)) pantoprazole 40 mg tablet,delayed 40 mg PO DAILYBB 12/29/23 05/19/24 History release albuterol sulfate 1.25 mg/3 mL 1.25 mg (3 mL) inhalation QID PRN 01/05/24 05/19/24 Rx solution for nebulization shortness of breath or wheezing #75 mL bupropion HCl 300 mg 24 hr tablet, 0 mg PO DAILY 01/06/24 05/19/24 History extended release turmeric 400 mg capsule 400 mg PO HS 01/15/24 05/19/24 History tamsulosin 0.4 mg capsule 0.4 mg PO DAILY #90 caps 03/02/24 05/19/24 Rx ondansetron HCl 4 mg tablet 4 mg PO Q12H PRN nausea and 03/11/24 05/19/24 Rx vomiting #30 tabs levothyroxine 100 mcg tablet 100 mcg PO DAILYBB #90 tabs 03/15/24 05/19/24 Rx amantadine HCl 100 mg capsule 100 mg PO BID #60 caps 03/17/24 05/19/24 Rx primidone 250 mg tablet 250 mg PO BID #60 tabs 03/17/24 05/19/24 Rx ginkgo biloba 40 mg tablet 40 mg PO DAILY 04/15/24 05/19/24 History meclizine 12.5 mg tablet 12.5 mg PO TID PRN Dizziness 05/19/24 05/19/24 History Past Med/Surg History Problem List (Updated 05/19/24 @ 17:26 by Darrion Gomez MD) Transaminitis (Acute) Acute exacerbation of chronic obstructive pulmonary disease (Acute) Acute hypercapnic respiratory failure (Acute) Acute dehydration (Acute) COPD (chronic obstructive pulmonary disease) (Acute) COPD (chronic obstructive pulmonary disease) (Acute) Dyspnea (Acute) Prostate enlargement COVID-19 (Acute) Elevated fasting glucose Anemia Fatigue Schizoaffective disorder, bipolar type (Chronic) Multiple pulmonary nodules Essential tremor (Chronic) Meningioma Tubular adenoma of colon Generalized anxiety disorder (Chronic) Abnormal weight loss Hypothyroidism COPD (chronic obstructive pulmonary disease) (Chronic) STABLE Irritable bowel syndrome Medical History BPH w urinary obs/LUTS Anasarca SOB (shortness of breath) COPD (chronic obstructive pulmonary disease) Weak urine stream Prediabetes Scar condition and fibrosis of skin Diarrhea Abnormal CT scan of lung Encounter for completion of form with patient Aphthous ulcer Hx of small bowel obstruction On home oxygen therapy O2 AT 2L PRN SHORT OF BREATH Collagenous colitis Rising PSA level Herpes simplex Drug dependence Deviated nasal septum Clear cell carcinoma of kidney Abnormal brain MRI History of colon polyps Respiratory failure with hypoxia CRESENCIO (acute kidney injury) Hypoxia Surgical History History of tonsillectomy Hx of inguinal hernia repair BILATERAL 10/07/2012 - Dr. Johns S/P small bowel resection Diagnostic lap with enterolysis; release of SBO 05/28/18 - Dr. Khan H/O partial nephrectomy LEFT History of colonoscopy History of appendectomy WITH EXPLORATORY SURGERY History of tooth extraction Family History Father Lymphoma Mother Neoplasm of brain Family/Other Cardiac arrest Other Diabetes Myocardial infarction No family history of adverse response to anesthesia Social History Smoking Status: Former smoker Tobacco Type: Cigarettes Age Started Using Tobacco: 17; Age Quit Using Tobacco: 59; packs per day: 1; Second Hand Exposure: No; Do You Dip or Chew Tobacco: No; Tobacco Cessation Education Requested by Patient: No Hx Alcohol Use: No Hx Substance Use: No Preferred Language: Upper Sorbian Communication Ability: Effective Visual Impairment: No Limitations Hearing Ability: Normal Dental Aide Required: No Beliefs That Will Affect Care: None marital status: Single Current Living Situation: Alone Current Living Situation Comment: [facility] Other Information That Helps Us Care for You: No Feels Safe at Home: Yes Safety Concerns: Feels Safe At This Time Childhood Exposure to Second-Hand Smoke: Yes Diet Comment: Meat free caffeine: Yes (pills) Seatbelt Use: always Gender Identity: Male Assistive Devices: Oxygen - at Night Assistive Devices Comment: oxygen as needed Review of Systems Review of Systems: All systems reviewed & are unremarkable except as noted in HPI & below Physical Exam Constitutional: well developed and + acute distress (respiratory); + not well nourished ENMT: external ear and nose normal, oropharynx normal Respiratory: + labored breathing, + uses accessory mu scles and + tachypneic Auscultation: + crackles (bibasal) and + wheezes (posterior wheezing); breath sounds present and no diminished lung sounds Cardiovascular: RRR, no murmur, no edema Gastrointestinal (Abdomen): normal bowel sounds, soft, nontender, no hepatosplenomegaly Musculoskeletal: no cyanosis or clubbing, extremities motor strength 5/5 Skin: no rashes, warm and dry Neurologic: moves all extremities and awake; not confused Psychiatric: A+Ox3, euthymic affect Results & Data Results & Data Vital Signs (Past 12 Hours) Vital Signs Temp Pulse Pulse Resp BP BP Pulse Ox 05/19/24 16:10 61 05/19/24 15:48 69 20 100 05/19/24 15:48 68 18 107/76 100 05/19/24 15:48 05/19/24 15:10 68 20 98 05/19/24 15:10 68 20 98 05/19/24 14:13 36.7 C 76 119/82 O2 Del Method FiO2 05/19/24 16:10 05/19/24 15:48 BiPAP 05/19/24 15:48 BiPAP 05/19/24 15:48 BiPAP 05/19/24 15:10 30 05/19/24 15:10 BiPAP 30 05/19/24 14:13 Laboratory Results Abnormal lab results 05/19/24 Range/Units 14:33 WBC 15.52 H (4.8-10.8) K/ul RBC 4.43 L (4.70-6.10) M/uL MCV 102.5 H (80.0-100.0) fL RDW Std Deviation 51.2 H (36.4-46.3) fL Neut # (Auto) 13.80 H (1.40-6.50) K/uL Lymph # (Auto) 0.73 L (1.20-3.40) K/uL Stark # (Auto) 0.67 H (0.11-0.59) K/uL VBG pH 7.33 L (7.36-7.41) VBG pCO2 76 H (38-50) mmHg Carbon Dioxide 39 H (21-32) mmol/L Anion Gap 2 L (3-11) Glucose 105 H (70-99(Fasting)) mg/dl AST 52 H (13-39) U/L ALT 101 H (7-52) U/L Diagnostic Findings XR chest 1V not portable HISTORY: 69 years-old Male Chest pain, nonspecific COMPARISON: 05/17/2024 TECHNIQUE: AP view of the chest FINDINGS: Cardiac mediastinal and hilar silhouettes are unchanged. Emphysema with chronic interstitial coarsening. No pneumothorax, large pleural effusion or overt pulmonary edema. Chronic mid right clavicular fracture deformity. IMPRESSION: Emphysema without acute process. Medications Administered ER Medications Given: Duoneb 3ml NEB Solu-Medrol 125mg IV ECG Rate (beats per minute): 71 Rhythm: normal sinus Findings: + PAC Comparison ECG Date: from (May 17, 2024) Change: no significant change Code Status & VTE Plan Code Status Full VTE Prophylaxis Plan VTE Prophylaxis will be ordered: Yes PG Care Time/CCT Total # of Minutes Spent Total Time Spent with Patient: Total time spent is greater than 50% in coordination of care (as documented) at patient's floor/unit and/or counseling patient: Coding Level of Care Code 38191 INT INP/OBS CARE MIN Diagnoses Acute exacerbation of chronic obstructive pulmonary disease J44.1 Acute hypercapnic respiratory failure J96.02
[2024-05-19 18:09] LABS: Base Excess VBG 6.2 mEq/L; HCO3 VBG 34 mmol/L; Oxygen Saturation VBG < 60.0 %; PCO2 VBG 65 mmHg (38-50); PO2 VBG 28 mmHg; pH VBG 7.33 (7.36-7.41)
[2024-05-19] MEDS: AZITHROMYCIN 250 MG TAB PO SCH (19:13)
[2024-05-19] MEDS: FORMOTEROL 20 MCG/2 ML VIAL NEB SCH (19:41)
[2024-05-19] MEDS: BUDESONIDE 0.5 MG/2 ML VIAL (PULMICORT) NEB SCH (19:41)
[2024-05-19] MEDS ORDERED: methylPREDNISolone 125 MG/2 ML VIAL IV SCH (21:00)
[2024-05-19] MEDS: ARIPiprazole 15 MG TAB PO SCH (21:41)
[2024-05-19] MEDS: MELATONIN 3 MG TAB PO SCH (21:41)
[2024-05-19] MEDS: LITHIUM CARBONATE 450 MG TABCR PO SCH (21:41)
[2024-05-19] MEDS: methylPREDNISolone 40 MG in SYRINGE 0 ML IV SCH (21:41)
[2024-05-19] MEDS: FERROUS SULFATE 325 MG TAB PO SCH (21:41)
[2024-05-19] MEDS: AMANTADINE HCL 100 MG CAPSULE PO SCH (21:42)
[2024-05-19] MEDS: PRIMIDONE 250 MG TAB PO SCH (21:42)
[2024-05-20] MEDS: ACETAMINOPHEN 325 MG TAB PO PRN (02:05)
[2024-05-20] MEDS: LEVOTHYROXINE SODIUM 100 MCG TABLET PO SCH (06:29)
[2024-05-20] MEDS: PANTOprazole 40 MG TAB PO SCH (06:29)
[2024-05-20 06:55] LABS: Base Excess VBG 6.4 mEq/L; HCO3 VBG 32 mmol/L; Oxygen Saturation VBG 97.6 %; PCO2 VBG 48 mmHg (38-50); PO2 VBG 132 mmHg; pH VBG 7.43 (7.36-7.41)
[2024-05-20] MEDS: UMECLIDINIUM BROMIDE 62.5MCG/BLISTER 7 PUFFS/INHALER INH SCH (07:28)
[2024-05-20] MEDS: ENOXAPARIN INJ 40 MG/0.4 ML SYR SQ SCH (07:29)
[2024-05-20] MEDS: ESCITALOPRAM OXALATE 20 MG TAB PO SCH (07:30)
[2024-05-20] MEDS: TAMSULOSIN HCL 0.4 MG CAP PO SCH (07:30)
[2024-05-20] MEDS: buPROPion XL 150 MG TABCR PO SCH (07:30)
[2024-05-20 07:40] LABS: Albumin Globulin Ratio 1.8 (0.9-2); Albumin Level 3.4 gm/dl (3.4-5.0); BUN Creatinine Ratio 19.8 (10-20); Bilirubin,Total 0.4 mg/dl (0.2-1.0); Calcium 8.2 mg/dl (8.6-10.3); Creatinine Clr Calc Pharmacy 69.6 ml/min; Globulin 1.9 gm/dl (2.5-4.0); Potassium 4.3 mmol/L (3.5-5.1); Thyroid Stimulating Hormone 1.966 uIu/ml (0.300-4.500); Total Protein 5.3 gm/dl (6.0-8.3)
--- NOTE | 2024-05-20 07:49 | Electrocardiogram Report ---
Test Reason : Blood Pressure : */* mmHG Vent. Rate : 71 BPM Atrial Rate : 71 BPM P-R Int : 150 ms QRS Dur : 80 ms QT Int : 384 ms P-R-T Axes : 81 90 58 degrees QTcB Int : 417 ms Sinus rhythm Rightward axis Borderline ECG When compared with ECG of 17-May-2024 11:54, No significant change Confirmed by Chase Franklin ([id number]) on 05/20/2024 7:48:46 AM Referred By: Confirmed By: Chase Franklin
[2024-05-20 07:51] LABS: Basophils # (auto) 0.04 K/uL (0.00-0.20); Basophils % (auto) 0.3 %; Eosinophils # (auto) 0.07 K/uL (0.00-0.50); Eosinophils % (auto) 0.5 %; Hematocrit (blood only) 34.2 % (42.0-52.0); Hemoglobin 11.4 g/dl (14.0-18.0); Immature Granulocytes # (auto) 0.05 K/uL (0.01-0.20); Immature Granulocytes % (auto) 0.4 %; Lymphocytes # (auto) 1.02 K/uL (1.20-3.40); Lymphocytes % (auto) 7.5 %; Mean Corpuscular Hemoglobin 33.2 pg (25.0-34.0); Mean Corpuscular Hgb Conc 33.3 g/dL (32.0-36.0); Mean Corpuscular Volume 99.7 fL (80.0-100.0); Mean Platelet Volume 9.8 fL (9.4-12.4); Monocytes # (auto) 0.59 K/uL (0.11-0.59); Monocytes % (auto) 4.4 %; Neutrophils # (auto) 11.79 K/uL (1.40-6.50); Neutrophils % (auto) 86.9 %; Platelet Count 270 K/uL (130-400); RDW Coefficient of Variation 13.4 % (11.5-14.5); RDW Standard Deviation 49.2 fL (36.4-46.3); Red Blood Count 3.43 M/uL (4.70-6.10); White Blood Count 13.56 K/ul (4.8-10.8)
[2024-05-20] MEDS: INFLUENZA VACC TS2024-25(65y+)/PF (IIV3) 0.5mL Syr IM ONE (12:05)
[2024-05-20] MEDS: COLESTIPOL HCL 1 GM TAB PO PRN (12:07)
[2024-05-20] MEDS: hydrOXYzine HCl 10 MG TAB PO PRN (21:50)
--- NOTE | 2024-05-20 22:41 | Hospitalist Progress Note ---
Date of Service May 20, 2024 Assessment & Plan (1) Acute exacerbation of chronic obstructive pulmonary disease: Plan: Solu-Medrol 125mg IV given in ER, continue 40mg IV BID Duonebs q4hWA and PRN Formoterol/budesonide Nebs BID Continue Spiriva or hospital formulary equivalent Azithromycin 500mg PO daily for 3 days Sputum culture Reviwed history and physical. Reviwed cbc and BMP. Leukocytosis is improving now down to 13. Continue antibiotics. (2) Acute hypercapnic respiratory failure: Plan: Continue current BiPAP, repeat VBG, not significantly different to prior VBG while in the ER but will continue BiPAP HS for now but can have breaks for eating while maintaining O2 sats 88-92% vbg APPEARS STABLE PH now improved on 05/20 Plan Schizoaffective disorder bipolar type / anxiety and depression - continue aripiprazole, buproprion, escitalopram, lithium, lithium level with AM labs Essential tremor - continue primidone Hypothyroidism - TSH with AM labs, continue levothyroxine VTE Prophylaxis - Lovenox 40mg SQ daily Diet - regular Disposition - admit to PCU Admission and Anticipated Discharge Date Admission Date: May 19, 2024 Subjective Patient reports no new symptoms. Patient states he is feeling much better than before. Still not quite at baseline. Review of Systems Review of Systems: All systems reviewed & are unremarkable except as noted in HPI & below Physical Exam Constitutional: well developed and + acute distress (respiratory); + not well nourished ENMT: external ear and nose normal, oropharynx normal Respiratory: Auscultation: + crackles (bibasal); breath sounds present, no diminished lung sounds and no wheezes (posterior wheezing) Cardiovascular: RRR, no murmur, no edema Gastrointestinal (Abdomen): normal bowel sounds, soft, nontender, no hepatosplenomegaly Musculoskeletal: no cyanosis or clubbing, extremities motor strength 5/5 Skin: no rashes, warm and dry Neurologic: moves all extremities and awake; not confused Psychiatric: A+Ox3, euthymic affect Results & Data Results & Data Vital Signs (Past 12 Hours) Vital Signs Temp Pulse Resp BP Pulse Ox O2 Del Method O2 Flow Rate 05/20/24 22:06 70 18 95 Room Air 05/20/24 20:59 Oxymask 2 05/20/24 19:56 36.7 C 77 20 97/60 L 96 Nasal Cannula 4 05/20/24 19:42 20 Nasal Cannula 1 05/20/24 15:49 69 18 96 Nasal Cannula 1 05/20/24 15:45 36.6 C 87 16 101/69 98 Nasal Cannula 4 05/20/24 11:06 71 18 100 Nasal Cannula 2 05/20/24 11:00 36.7 C 74 18 90/60 L 97 Nasal Cannula 4 PG Care Time/CCT Total # of Minutes Spent Total Time Spent with Patient: Total time spent is greater than 50% in coordination of care (as documented) at patient's floor/unit and/or counseling patient: Coding Level of Care Code 79315 SUB INP/OBS CARE 3/50MIN Diagnoses Acute exacerbation of chronic obstructive pulmonary disease J44.1 Acute hypercapnic respiratory failure J96.02
[2024-05-21 07:15] LABS: Hematocrit (blood only) 32.8 % (42.0-52.0); Hemoglobin 10.9 g/dl (14.0-18.0); Mean Corpuscular Hemoglobin 33.9 pg (25.0-34.0); Mean Corpuscular Hgb Conc 33.2 g/dL (32.0-36.0); Mean Corpuscular Volume 101.9 fL (80.0-100.0); Platelet Count 248 K/uL (130-400); RDW Coefficient of Variation 13.4 % (11.5-14.5); RDW Standard Deviation 50.2 fL (36.4-46.3); Red Blood Count 3.22 M/uL (4.70-6.10); White Blood Count 9.96 K/ul (4.8-10.8)
[2024-05-21 07:42] LABS: BUN Creatinine Ratio 19.8 (10-20); C Reactive Protein 0.5 mg/dl (0-0.5); Calcium 8.2 mg/dl (8.6-10.3); Creatinine Clr Calc Pharmacy 63.1 ml/min; Potassium 4.2 mmol/L (3.5-5.1)
[2024-05-21] MEDS: SODIUM CHLOR 7% 4 ML NEB NEB SCH (19:23)
--- NOTE | 2024-05-21 23:15 | Hospitalist Progress Note ---
Date of Service May 21, 2024 Assessment & Plan (1) Acute exacerbation of chronic obstructive pulmonary disease: Plan: Solu-Medrol 125mg IV given in ER, continue 40mg IV BID Duonebs q4hWA and PRN Formoterol/budesonide Nebs BID Continue Spiriva or hospital formulary equivalent Azithromycin 500mg PO daily for 3 days Sputum culture Reviwed history and physical. Reviwed cbc and BMP. Leukocytosis is improving now down to 13. Continue antibiotics. @ step states he requires 2 liters on ambulation. Patient still wheezes when ambulating. will monitor for another 24 hours. (2) Acute hypercapnic respiratory failure: Plan: Continue current BiPAP, repeat VBG, not significantly different to prior VBG while in the ER but will continue BiPAP HS for now but can have breaks for eating while maintaining O2 sats 88-92% vbg APPEARS STABLE PH now improved on 05/21. still not at baseline. Leukocytosis improved. Plan Schizoaffective disorder bipolar type / anxiety and depression - continue aripiprazole, buproprion, escitalopram, lithium, lithium level with AM labs Essential tremor - continue primidone Hypothyroidism - TSH with AM labs, continue levothyroxine VTE Prophylaxis - Lovenox 40mg SQ daily Diet - regular Disposition - admit to PCU Admission and Anticipated Discharge Date Admission Date: May 19, 2024 Subjective 69 yo male reports no new symptoms. He continues to feel SOB when ambulating. Review of Systems Review of Systems: All systems reviewed & are unremarkable except as noted in HPI & below Physical Exam Constitutional: well developed and + acute distress (respiratory); + not well nourished ENMT: external ear and nose normal, oropharynx normal Respiratory: Auscultation: + crackles (bibasal); breath sounds present, no diminished lung sounds and no wheezes (posterior wheezing) Cardiovascular: RRR, no murmur, no edema Gastrointestinal (Abdomen): normal bowel sounds, soft, nontender, no hepatosplenomegaly Musculoskeletal: no cyanosis or clubbing, extremities motor strength 5/5 Skin: no rashes, warm and dry Neurologic: moves all extremities and awake; not confused Psychiatric: A+Ox3, euthymic affect Results & Data Results & Data Vital Signs (Past 12 Hours) Vital Signs Temp Pulse Pulse Pulse Pulse Pulse Pulse 05/21/24 23:00 73 05/21/24 22:47 36.7 C 75 05/21/24 22:21 67 05/21/24 21:35 05/21/24 19:27 36.8 C 91 H 05/21/24 19:25 64 05/21/24 15:52 102 H 05/21/24 15:38 36.4 C L 89 05/21/24 15:24 68 05/21/24 13:35 05/21/24 13:12 104 H 109 H 104 H 92 H 05/21/24 11:21 92 H Resp Resp Resp Resp Resp BP BP 05/21/24 23:00 05/21/24 22:47 20 125/77 05/21/24 22:21 18 05/21/24 21:35 05/21/24 19:27 20 130/77 05/21/24 19:25 18 05/21/24 15:52 05/21/24 15:38 18 124/73 05/21/24 15:24 20 05/21/24 13:35 05/21/24 13:12 19 14 19 15 05/21/24 11:21 20 Pulse Ox Pulse Ox Pulse Ox Pulse Ox Pulse Ox O2 Del Method O2 Flow Rate 05/21/24 23:00 05/21/24 22:47 97 Oxymask 2 05/21/24 22:21 98 Oxymask 2 05/21/24 21:35 Oxymask 2 05/21/24 19:27 96 Oxymask 2 05/21/24 19:25 97 Oxymask 2 05/21/24 15:52 05/21/24 15:38 92 Room Air 05/21/24 15:24 96 Oxymask 2 05/21/24 13:35 96 05/21/24 13:12 87 L 93 85 L 89 L 05/21/24 11:21 92 Room Air O2 Flow Rate O2 Flow Rate 05/21/24 23:00 05/21/24 22:47 05/21/24 22:21 05/21/24 21:35 05/21/24 19:27 05/21/24 19:25 05/21/24 15:52 05/21/24 15:38 05/21/24 15:24 05/21/24 13:35 05/21/24 13:12 1 2 05/21/24 11:21 PG Care Time/CCT Total # of Minutes Spent Total Time Spent with Patient: Total time spent is greater than 50% in coordination of care (as documented) at patient's floor/unit and/or counseling patient: Coding Level of Care Code 61832 SUB INP/OBS CARE 3/50MIN Diagnoses Acute exacerbation of chronic obstructive pulmonary disease J44.1 Acute hypercapnic respiratory failure J96.02
[2024-05-22 03:03] VITALS: O2SAT 100
[2024-05-22 07:12] LABS: Hematocrit (blood only) 37.5 % (42.0-52.0); Hemoglobin 12.4 g/dl (14.0-18.0); Mean Corpuscular Hemoglobin 33.9 pg (25.0-34.0); Mean Corpuscular Hgb Conc 33.1 g/dL (32.0-36.0); Mean Corpuscular Volume 102.5 fL (80.0-100.0); Mean Platelet Volume 9.6 fL (9.4-12.4); Platelet Count 273 K/uL (130-400); RDW Coefficient of Variation 13.7 % (11.5-14.5); RDW Standard Deviation 52.4 fL (36.4-46.3); Red Blood Count 3.66 M/uL (4.70-6.10); White Blood Count 11.48 K/ul (4.8-10.8)
[2024-05-22 07:18] VITALS: TEMP 97.7
[2024-05-22 07:28] VITALS: RESP 20
[2024-05-22 07:53] LABS: BUN Creatinine Ratio 20.5 (10-20); C Reactive Protein 0.6 mg/dl (0-0.5); Calcium 8.8 mg/dl (8.6-10.3); Creatinine Clr Calc Pharmacy 67.4 ml/min; Potassium 4.4 mmol/L (3.5-5.1)
[2024-05-22 11:28] VITALS: BP 124/73; PULSE 70
--- NOTE | 2024-05-22 13:59 | Discharge Summary ---
Discharge Summary Date of Service May 22, 2024 Principal Dx & Hospital Course #1 = Principal Diagnosis (1) Acute exacerbation of chronic obstructive pulmonary disease: Solu-Medrol 125mg IV given in ER, continue 40mg IV BID Duonebs q4hWA and PRN Formoterol/budesonide Nebs BID Continue Spiriva or hospital formulary equivalent Azithromycin 500mg PO daily for 3 days Sputum culture: negative Reviwed history and physical. Reviwed cbc and BMP. Leukocytosis is improving 2 step states he requires 2 liters on ambulation. (2) Acute hypercapnic respiratory failure: Continue current BiPAP, repeat VBG, not significantly different to prior VBG while in the ER but will continue BiPAP HS for now but can have breaks for eating while maintaining O2 sats 88-92% vbg APPEARS STABLE PH now improved, will discharge Plan Schizoaffective disorder bipolar type / anxiety and depression - continue aripiprazole, buproprion, escitalopram, lithium, lithium level with AM labs Essential tremor - continue primidone Hypothyroidism - TSH with AM labs, continue levothyroxine Admission HPI Per Admitting Provider Jamaica Moore is a 69 year old male with COPD who presents to the ER with shortness of breath. He was recently admitted for the same diagnosis at the end of April and improved with duonebs and steroids. He was discharged to [facility]. Since discharge from [facility] this is his third ER visit for shortness of breath although the patient tells me his shortness of breath has only been getting worse over the last 2 days. No increased sputum production. CT angiogram performed on May 13 showed no PE. He does not appear to have been prescribed a new course of steroids as still taking a taper he received after discharge from [facility]. No chest pain. No fever or chills. No fever or chills. He feels this is similar to prior COPD exacerbations. Denies current smoking. Discharge Exam Constitutional well developed and + acute distress (respiratory); + not well nourished ENMT external ear and nose normal, oropharynx normal Respiratory Auscultation: + crackles (bibasal); breath sounds present (improved), no diminished lung sounds and no wheezes (posterior wheezing) Cardiovascular RRR, no murmur, no edema Gastrointestinal (Abdomen) normal bowel sounds, soft, nontender, no hepatosplenomegaly Musculoskeletal no cyanosis or clubbing, extremities motor strength 5/5 Skin no rashes, warm and dry Neurologic moves all extremities and awake; not confused Psychiatric A+Ox3, euthymic affect Discharge Plan Discharge Items Patient Disposition: Home - Home Health Services Reason For Visit: COPD EXACERBATION Discharge Diagnosis: COPD exacerbation Activity: Resume your previous activity Non-emergency contact: Primary Care Provider Call non-emergency contact if: you have any medication questions Follow-up/Referrals: Fermin Parikh, [Primary Care Provider] - 05/26/24 1:00 pm (Hospital follow up appt on 05/26/24 at 1:[address] Parikh) Diet: Regular Addtl Attending Provider Instructions: YOu completed antibiotics for your COPD flair up. We will keep you on a prednisone taper. You can start this tomorrow morning. Recommend followup with PCP in 1-2 weeks. Pending Studies at Discharge: No Stand-Alone Forms: [employer], Smoking Cessation Medications and DC Order Prescriptions: New prednisone 10 mg tablet 10 mg PO DIRECTED Qty: 20 0RF Rx Instructions: see taper instructions take 4 tablets once daily for 2 days then 3 tabs for 2 days then 2 tabs for 2 days then 1 tab for 2 days Continued (DME) Portable Oxygen Misc See Rx Instructions .Route Qty: 1 0RF Rx Instructions: 2L via nc with exertion. ILENE:[id number] Please provide POC (DME) Oxygen Home Liters Per Minute See Rx Instructions .Route Qty: 1 0RF Rx Instructions: oxygen mask and tubing replacement albuterol sulfate 1.25 mg/3 mL solution for nebulization 1.25 mg inhalation QID PRN (Reason: shortness of breath or wheezing) Qty: 75 3RF tamsulosin 0.4 mg capsule 0.4 mg PO DAILY Qty: 90 3RF ondansetron HCl 4 mg tablet 4 mg PO Q12H PRN (Reason: nausea and vomiting) Qty: 30 3RF levothyroxine 100 mcg tablet 100 mcg PO DAILYBB Qty: 90 3RF albuterol sulfate 90 mcg/actuation HFA aerosol inhaler 2 puff inhalation Q6H PRN (Reason: Shortness Of Breath) Qty: 8.5 3RF Spiriva Respimat 1.25 mcg/actuation mist 2 puff INHALATION QAM Qty: 4 11RF turmeric 400 mg capsule 400 mg PO HS ferrous sulfate [Feosol] 325 mg (65 mg iron) tablet 325 mg PO HS copper gluconate 2 mg tablet 2 mg PO HS caffeine 200 mg tablet 200 mg PO Q3H Patient Comments: takes 10 times daily ginkgo biloba 40 mg tablet 40 mg PO DAILY Rx Instructions: give with meal/snack amantadine HCl 100 mg capsule 100 mg PO BID Qty: 60 6RF primidone 250 mg tablet 250 mg PO BID Qty: 60 6RF escitalopram oxalate [Lexapro] 20 mg tablet 20 mg PO QAM lithium carbonate 450 mg tablet extended release 450 mg PO BID cholecalciferol (vitamin D3) [Vitamin D3] 125 mcg (5,000 unit) Tablet 62.5 mcg PO DAILY fluticasone propionate [Allergy Relief (fluticasone)] 50 mcg/actuation spray,suspension 1 spray intranasal BID PRN (Reason: Congestion) hydroxyzine HCl 10 mg tablet 5 - 10 mg PO DAILY PRN (Reason: Anxiety) pantoprazole 40 mg tablet,delayed release (DR/EC) 40 mg PO DAILYBB aripiprazole 30 mg tablet 30 mg PO HS multivitamin with folic acid [Daily-Sigifredo (with folic acid)] 400 mcg tablet 1 tab PO DAILY colestipol 1 gram tablet 2 g PO BID PRN (Reason: Diarrhea) melatonin 3 mg capsule 3 mg PO HS bupropion HCl 300 mg tablet extended release 24 hr 0 mg PO DAILY meclizine 12.5 mg tablet 12.5 mg PO TID PRN (Reason: Dizziness) Rx Instructions: Take 1 tablet (12.5mg) by mouth three times a day As Needed for dizziness. No Action budesonide-formoterol [Symbicort] 80-4.5 mcg/actuation HFA aerosol inhaler 2 puff inhalation BID Qty: 10.2 3RF Discharge Orders: Discharge Order (Routine); Ordered 05/22/24 Ordered By: Delfino Cervantes Admission Data Admit Date/Time: 05/19/24 16:18 Attending Provider: Delfino Cervantes Admit Provider: Stanley Richardson Primary Care Provider: Fermin Parikh Other Providers: [facility] Fax Other Interventions: Discharge Summary Assessment (RN) Last Done: 05/22/24 11:26 Hospital Stay Data Consultations 05/19/24 15:29 ED Decision to Admit Stat Pending Results Patient Have Any Pending Studies at Discharge: No Discharge Instructions Given to Patient (Per Discharging Provider) YOu completed antibiotics for your COPD flair up. We will keep you on a prednisone taper. You can start this tomorrow morning. Recommend followup with PCP in 1-2 weeks. Total Time Total Time Spent Total Time Spent (In Minutes): 32 Coding Level of Care Code 99984 INP/OBS DISCH >30 MIN Diagnoses Acute exacerbation of chronic obstructive pulmonary disease J44.1 Acute hypercapnic respiratory failure J96.02
== END 2024-05-22 14:38 | disposition home health service (06) | DRG 189 ==
LOC: ED 14:09 → SUATTDRO 16:18 → EDINP 16:18 → 2S 22:09

== ENCOUNTER 2024-06-11 21:33 | Inpatient (IN) ==
[2024-06-11] MEDS: methylPREDNISolone 125 MG/2 ML VIAL IV STA (22:03)
[2024-06-11] MEDS: ALBUT/IPRATROP 3MG/0.5MG NEB 3 ML VIAL INH STA (22:15)
[2024-06-11 22:29] LABS: Hematocrit (blood only) 39.3 % (42.0-52.0); Mean Corpuscular Hemoglobin 33.7 pg (25.0-34.0); Mean Corpuscular Hgb Conc 33.1 g/dL (32.0-36.0); Mean Corpuscular Volume 101.8 fL (80.0-100.0); Mean Platelet Volume 9.8 fL (9.4-12.4); Platelet Count 305 K/uL (130-400); RDW Coefficient of Variation 13.4 % (11.5-14.5); RDW Standard Deviation 50.6 fL (36.4-46.3); Red Blood Count 3.86 M/uL (4.70-6.10); White Blood Count 12.61 K/ul (4.8-10.8)
[2024-06-11 22:48] LABS: Basophils # (auto) 0.05 K/uL (0.00-0.20); Basophils % (auto) 0.4 %; Eosinophils # (auto) 0.13 K/uL (0.00-0.50); Immature Granulocytes # (auto) 0.05 K/uL (0.01-0.20); Immature Granulocytes % (auto) 0.4 %; Lymphocytes # (auto) 0.55 K/uL (1.20-3.40); Lymphocytes % (auto) 4.4 %; Monocytes # (auto) 0.33 K/uL (0.11-0.59); Monocytes % (auto) 2.6 %; Neutrophils % (auto) 91.2 %
[2024-06-11 22:49] LABS: Albumin Globulin Ratio 1.6 (0.9-2); BUN Creatinine Ratio 11.3 (10-20); Bilirubin,Total 0.3 mg/dl (0.2-1.0); Calcium 8.8 mg/dl (8.6-10.3); Creatinine Clr Calc Pharmacy 40.1 ml/min; Globulin 2.5 gm/dl (2.5-4.0); Magnesium 2.3 mg/dl (1.7-2.4); Potassium 4.3 mmol/L (3.5-5.1); Total Protein 6.5 gm/dl (6.0-8.3)
[2024-06-11 22:55] LABS: Troponin I High Sensitivity 7.9 pg/ml (0-20)
[2024-06-11 22:58] LABS: Adenovirus PCR Not Detected (NotDetected); Bordetella parapertussis PCR Not Detected (NotDetected); Bordetella pertussis PCR Not Detected (NotDetected); Chlamydia pneumoniae PCR Not Detected (NotDetected); Coronavirus 229E PCR Not Detected (NotDetected); Coronavirus CoV-2 (COVID19)PCR Not Detected (NotDetected); Coronavirus HKU1 PCR Not Detected (NotDetected); Coronavirus NL63 PCR Not Detected (NotDetected); Coronavirus OC43PCR Not Detected (NotDetected); Human Metapneumovirus PCR Not Detected (NotDetected); Influenza A PCR Not Detected (NotDetected); Influenza B PCR Not Detected (NotDetected); Mycoplasma pneumoniae PCR Not Detected (NotDetected); Parainfluenza Virus 1 PCR Not Detected (NotDetected); Parainfluenza Virus 2 PCR Not Detected (NotDetected); Parainfluenza Virus 3 PCR Not Detected (NotDetected); Parainfluenza Virus 4 PCR Not Detected (NotDetected); Respiratory Syncytial VirusPCR Not Detected (NotDetected); Rhinovirus/Enterovirus PCR Not Detected (NotDetected)
--- NOTE | 2024-06-11 23:04 | Emergency Department Note ---
ED Visit Note The patient was seen and examined with marc. I performed a substantive portion of all aspects of the medical decision making and agree with the history, physical and findings. Please see the note for disposition and details. . .
[2024-06-11 23:14] LABS: Base Excess VBG 8.2 mEq/L; HCO3 VBG 36 mmol/L; Oxygen Saturation VBG < 60.0 %; PCO2 VBG 60 mmHg (38-50); PO2 VBG 36 mmHg; pH VBG 7.38 (7.36-7.41)
--- NOTE | 2024-06-11 23:40 | History & Physical Report ---
Date of Service June 11, 2024 Assessment & Plan (1) Acute on chronic respiratory failure with hypoxia: (2) Acute exacerbation of chronic obstructive pulmonary disease: (3) CRESENCIO (acute kidney injury): (4) Schizoaffective disorder, bipolar type: Plan The patient is a 69-year-old male with a past medical history including multiple admissions for COPD, BPH with LUTS, anemia, schizoaffective disorder bipolar type, multiple pulmonary nodules, essential tremor, generalized anxiety d isorder, hypothyroidism, kgk-vjzl-apn bowel syndrome. Most recent admission to [facility] was from 05/19-05/22/2024 for COPD exacerbation that improved with treatment. Patient had been doing well until earlier this morning, when symptoms recurred as noted. He had used his inhalers, and without significant improvement, he presented to the ED for assessment. #Acute on chronic respiratory failure with hypoxia/COPD exacerbation- Admit to monitored bed BioFire testing negative Doxycycline 100 mg IV every 12 hours Give Solu-Medrol 125 mg IV now, then 40 mg IV every 8 hours Duonebs every 4 hours while awake and every 2 hours when necessary. Mucinex 60 mg p.o. every 12 hours Nasal cannula oxygen, titrate to keep pulse ox around 92% Acute kidney injury- Creatinine 1.41, with base 0.83 Placed on NSS at 80 mL/h x 1 L, and repeat laboratories in the a.m. Schizoaffective disorder bipolar type/generalized anxiety disorder- Continue amantadine, Zyprexa, bupropion, escitalopram, lithium carbonate, primidone Chronic medical issues: Hypothyroidism-continue levothyroxine GERD-continue pantoprazole BPH with LUTS-continue tamsulosin History of Present Illness Chief Complaint: The patient presents to the emergency department with acute onset of shortness of breath, that began this morning upon awaking, and worsening considerably as the day progressed, similar to previous episodes of COPD exacerbation. Primary Care Provider: Fermin Parikh, The patient is a 69-year-old male with a past medical history including multiple admissions for COPD, BPH with LUTS, anemia, schizoaffective disorder bipolar type, multiple pulmonary nodules, essential tremor, generalized anxiety disorder, hypothyroidism, nap-gjry-ehu bowel syndrome. Most recent admission to [facility] was from 05/19-05/22/2024 for COPD exacerbation that improved with t reatment. Patient had been doing well until earlier this morning, when symptoms recurred as noted. He had used his inhalers, and without significant improvement, he presented to the ED for assessment. Allergies Allergy/AdvReac Type Severity Reaction Status Date / Time morphine AdvReac Severe FEELING OF Verified 06/02/24 13:01 "DYING" azithromycin AdvReac Intermediate Diarrhea Verified 06/02/24 13:01 gabapentin AdvReac Intermediate drowsiness Verified 06/02/24 13:01 Home Medications Medication Instructions Recorded Confirmed Type Portable Oxygen #1 ea 06/15/21 05/19/24 Rx copper gluconate 2 mg tablet 2 mg PO HS 11/21/21 06/02/24 History ferrous sulfate 325 mg (65 mg 325 mg PO HS 11/21/21 06/02/24 History iron) tablet (Feosol) escitalopram oxalate 20 mg tablet 20 mg PO QAM 08/16/22 06/02/24 History (Lexapro) cholecalciferol (vitamin D3) 125 62.5 mcg PO DAILY 09/28/22 06/02/24 History mcg (5,000 unit) tablet (Vitamin D3) fluticasone propionate 50 1 spray intranasal BID PRN 09/28/22 06/02/24 History mcg/actuation nasal Congestion spray,suspension (Allergy Relief (fluticasone)) lithium carbonate 450 mg 450 mg PO BID 09/28/22 06/02/24 History tablet,extended release Oxygen Home #1 ea 11/26/22 05/19/24 Rx albuterol sulfate 90 mcg/actuation 2 puff inhalation Q6H PRN 12/31/22 06/02/24 Rx aerosol inhaler Shortness Of Breath #8.5 grams caffeine 200 mg tablet 200 mg PO Q3H 04/11/23 06/02/24 History aripiprazole 30 mg tablet 30 mg PO HS 12/29/23 06/02/24 History colestipol 1 gram tablet 2 g PO BID PRN Diarrhea 12/29/23 06/02/24 History hydroxyzine HCl 10 mg tablet 5 - 10 mg PO DAILY PRN Anxiety 12/29/23 06/02/24 History melatonin 3 mg capsule 3 mg PO HS 12/29/23 06/02/24 History multivitamin with folic acid 400 1 tab PO DAILY 12/29/23 06/02/24 History mcg tablet (Daily-Sigifredo (with folic acid)) bupropion HCl 300 mg 24 hr tablet, 0 mg PO DAILY 01/06/24 06/02/24 History extended release turmeric 400 mg capsule 400 mg PO HS 01/15/24 06/02/24 History tamsulosin 0.4 mg capsule 0.4 mg PO DAILY #90 caps 03/02/24 06/02/24 Rx ondansetron HCl 4 mg tablet 4 mg PO Q12H PRN nausea and 03/11/24 06/02/24 Rx vomiting #30 tabs levothyroxine 100 mcg tablet 100 mcg PO DAILYBB #90 tabs 03/15/24 06/02/24 Rx amantadine HCl 100 mg capsule 100 mg PO BID #60 caps 03/17/24 06/02/24 Rx primidone 250 mg tablet 250 mg PO BID #60 tabs 03/17/24 06/02/24 Rx ginkgo biloba 40 mg tablet 40 mg PO DAILY 04/15/24 06/02/24 History meclizine 12.5 mg tablet 12.5 mg PO TID PRN Dizziness 05/19/24 05/19/24 History prednisone 10 mg tablet 10 mg PO DIRECTED #20 tabs 05/22/24 06/02/24 Rx budesonide-formoterol HFA 80 2 puff inhalation BID #10.2 grams 05/25/24 06/02/24 Rx mcg-4.5 mcg/actuation aerosol inhaler (Symbicort) albuterol sulfate 1.25 mg/3 mL 1.25 mg (3 mL) inhalation QID PRN 05/27/24 Rx solution for nebulization shortness of breath or wheezing #75 mL pantoprazole 40 mg tablet,delayed 40 mg PO DAILYBB #90 tabs 05/28/24 06/02/24 Rx release Past Med/Surg History Problem List (Updated 06/12/24 @ 03:20 by Solomon Wallace MD) CRESENCIO (acute kidney injury) Acute on chronic respiratory failure with hypoxia Food insecurity Patient cannot afford medications Acute exacerbation of chronic obstructive pulmonary disease (Acute) Acute hypercapnic respiratory failure (Acute) COPD (chronic obstructive pulmonary disease) (Acute) COPD (chronic obstructive pulmonary disease) (Acute) Dyspnea (Acute) Prostate enlargement Elevated fasting glucose Anemia Schizoaffective disorder, bipolar type (Chronic) Multiple pulmonary nodules Essential tremor (Chronic) Meningioma Tubular adenoma of colon Generalized anxiety disorder (Chronic) Abnormal weight loss Hypothyroidism Irritable bowel syndrome Medical History (Updated 06/12/24 @ 03:20 by Solomon Wallace MD) Transaminitis Acute dehydration COVID-19 Fatigue BPH w urinary obs/LUTS Anasarca SOB (shortness of breath) COPD (chronic obstructive pulmonary disease) Weak urine stream Prediabetes Scar condition and fibrosis of skin Diarrhea Abnormal CT scan of lung Encounter for completion of form with patient Aphthous ulcer Hx of small bowel obstruction On home oxygen therapy O2 AT 2L PRN SHORT OF BREATH Collagenous colitis Rising PSA level Herpes simplex Drug dependence Deviated nasal septum Clear cell carcinoma of kidney Abnormal brain MRI History of colon polyps Respiratory failure with hypoxia Hypoxia Surgical History History of tonsillectomy Hx of inguinal hernia repair BILATERAL 10/07/2012 - Dr. Johns S/P small bowel resection Diagnostic lap with enterolysis; release of SBO 05/28/18 - Dr. Khan H/O partial nephrectomy LEFT History of colonoscopy History of appendectomy WITH EXPLORATORY SURGERY History of tooth extraction Family History Father Lymphoma Mother Neoplasm of brain Family/Other Cardiac arrest Other Diabetes Myocardial infarction No family history of adverse response to anesthesia Social History Smoking Status: Former smoker Tobacco Type: Cigarettes Age Started Using Tobacco: 17; Age Quit Using Tobacco: 59; packs per day: 1; Second Hand Exposure: No; Do You Dip or Chew Tobacco: No; Hx Alcohol Use: No Hx Substance Use: No Preferred Language: [place] Islander Communication Ability: Effective Visual Impairment: No Limitations Hearing Ability: Normal 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: No Beliefs That Will Affect Care: None marital status: Single Current Living Situation: Alone Current Living Situation Comment: town house Feels Safe at Home: Yes Safety Concerns: Feels Safe At This Time Childhood Exposure to Second-Hand Smoke: Yes Diet Comment: Meat free caffeine: Yes (pills) Seatbelt Use: always Gender Identity: Male Assistive Devices: Other Assistive Devices Comment: oxygen as needed Review of Systems Review of Systems: The patient denies chest pain, palpitations, lower extremity swelling, sore throat, fevers, chills, sweats, nausea, vomiting, diarrhea , constipation, abdominal pain, pelvic pain, blood in urine or stool, dysuria, urinary frequency or urgency, lightheadedness, dizziness, headache, memory loss, loss of consciousness, rash, abnormal bruising or bleeding, imbalance, focal weakness, numbness or tingling in arms or legs, neck pain, or night sweats. The review of systems is otherwise negative other than for that already noted above, and at least 10 systems have been reviewed. Physical Exam Physical Exam: The patient is awake, alert and oriented 3, well developed and well nourished, normocephalic and atraumatic, lying in bed and in mild respiratory distress. HEENT--PERRL, EOMI, mucous membranes and oropharynx dry. Neck--supple. No JVD. No bruits. Thyroid normal, trachea midline, no adenopathy. Heart--normal S1 and S2. No murmurs, rubs or gallops. Lungs--coarse breath sounds with wheezes throughout. Mild respiratory distress, no accessory muscle use. Abdomen--normal bowel sounds and soft. Nontender. Nondistended Extremities--no cyanosis or clubbing. No edema. Dermatologic--normal skin turgor, normal color, no abnormal lymph nodes, no rash. Neurologic--cranial nerves II through XII grossly intact. Rheumatologic--normal range of motion. Psychiatric--normal affect. Results & Data Results & Data Vital Signs (Past 12 Hours) Vital Signs Temp Pulse Pulse Resp BP BP Pulse Ox 06/11/24 22:29 82 17 114/81 100 06/11/24 22:00 83 16 92 06/11/24 21:54 83 06/11/24 21:43 36.5 C 85 27 H 104/80 91 06/11/24 21:43 98 06/11/24 21:43 36.5 C 85 15 104/80 98 O2 Del Method 06/11/24 22:29 Nebulizer 06/11/24 22:00 Room Air 06/11/24 21:54 06/11/24 21:43 Room Air 06/11/24 21:43 Room Air 06/11/24 21:43 Room Air Laboratory Results Laboratory Results WBC 12.61 K/ul (4.8-10.8) H 06/11/24 22:12 RBC 3.86 M/uL (4.70-6.10) L 06/11/24 22:12 Hgb 13.0 g/dl (14.0-18.0) L 06/11/24 22:12 Hct 39.3 % (42.0-52.0) L 06/11/24 22:12 MCV 101.8 fL (80.0-100.0) H 06/11/24 22:12 MCH 33.7 pg (25.0-34.0) 06/11/24 22:12 MCHC 33.1 g/dL (32.0-36.0) 06/11/24 22:12 RDW Std Deviation 50.6 fL (36.4-46.3) H 06/11/24 22:12 RDW Coeff of Josie 13.4 % (11.5-14.5) 06/11/24 22:12 Plt Count 305 K/uL (130-400) 06/11/24 22:12 MPV 9.8 fL (9.4-12.4) 06/11/24 22:12 Immature Gran % (Auto) 0.4 % 06/11/24 22:12 Neut % (Auto) 91.2 % 06/11/24 22:12 Lymph % (Auto) 4.4 % 06/11/24 22:12 [place] % (Auto) 2.6 % 06/11/24 22:12 Eos % (Auto) 1.0 % 06/11/24 22:12 Baso % (Auto) 0.4 % 06/11/24 22:12 Neut # (Auto) 11.50 K/uL (1.40-6.50) H 06/11/24 22:12 Lymph # (Auto) 0.55 K/uL (1.20-3.40) L 06/11/24 22:12 [place] # (Auto) 0.33 K/uL (0.11-0.59) 06/11/24 22:12 Eos # (Auto) 0.13 K/uL (0.00-0.50) 06/11/24 22:12 Baso # (Auto) 0.05 K/uL (0.00-0.20) 06/11/24 22:12 Immature Gran # (Auto) 0.05 K/uL (0.01-0.20) 06/11/24 22:12 VBG pH 7.38 (7.36-7.41) 06/11/24 23:07 VBG pCO2 60 mmHg (38-50) H 06/11/24 23:07 VBG pO2 36 mmHg 06/11/24 23:07 VBG HCO3 36 mmol/L 06/11/24 23:07 VBG O2 Saturation < 60.0 % 06/11/24 23:07 VBG Base Excess 8.2 mEq/L 06/11/24 23:07 Sodium 138 mmol/L (136-145) 06/11/24 22:12 Potassium 4.3 mmol/L (3.5-5.1) 06/11/24 22:12 Chloride 99 mmol/L (98-107) 06/11/24 22:12 Carbon Dioxide 32 mmol/L (21-32) 06/11/24 22:12 Anion Gap 7 (3-11) 06/11/24 22:12 BUN 16 mg/dl (6-23) 06/11/24 22:12 Creatinine 1.41 mg/dl (0.6-1.4) H 06/11/24 22:12 Est Cr Clr Drug Dosing 40.1 ml/min 06/11/24 22:12 eGFR 53.94 06/11/24 22:12 BUN/Creatinine Ratio 11.3 (10-20) 06/11/24 22:12 Glucose 138 mg/dl (70-99(Fasting)) H 06/11/24 22:12 Calcium 8.8 mg/dl (8.6-10.3) 06/11/24 22:12 Magnesium 2.3 mg/dl (1.7-2.4) 06/11/24 22:12 Total Bilirubin 0.3 mg/dl (0.2-1.0) 06/11/24 22:12 AST 29 U/L (13-39) 06/11/24 22:12 ALT 48 U/L (7-52) 06/11/24 22:12 Alkaline Phosphatase 83 U/L (34-104) 06/11/24 22:12 Troponin I High Sens 7.9 pg/ml (0-20) 06/11/24 22:12 B-Natriuretic Peptide 33 pg/ml (0-100) 06/11/24 22:12 Total Protein 6.5 gm/dl (6.0-8.3) 06/11/24 22:12 Albumin 4.0 gm/dl (3.4-5.0) 06/11/24 22:12 Globulin 2.5 gm/dl (2.5-4.0) 06/11/24 22:12 Albumin/Globulin Ratio 1.6 (0.9-2) 06/11/24 22:12 Urine Color Yellow 06/11/24 23:32 Urine Appearance Clear (Clear) 06/11/24 23:32 Urine pH 8.0 (4.5-7.5) H 06/11/24 23:32 Ur Specific [place] 1.013 (1.000-1.030) 06/11/24 23: Urine Protein Negative (Negative) 06/11/24 23: Urine Glucose (UA) Negative (Negative) 06/11/24 23: Urine Ketones Negative (Negative) 06/11/24 23: Urine Blood Negative (Negative) 06/11/24 23: Urine Nitrite Negative (Negative) 06/11/24 23:32 Urine Bilirubin Negative (Negative) 06/11/24 23:32 Urine Urobilinogen Negative (Negative) 06/11/24 23:32 Ur Leukocyte Esterase Trace (Negative) H 06/11/24 23:32 Urine WBC (Auto) 0-5 /hpf (0-5) 06/11/24 23:32 Urine RBC (Auto) 0-2 /hpf (0-2) 06/11/24 23: U Hyaline Cast (Auto) 0-2 /lpf (0-2) 06/11/24 23:32 U Epithel Cells (Auto) 0-2 /hpf (0-2) 06/11/24 23:32 Urine Bacteria (Auto) None Seen (None Seen) 06/11/24 23:32 Adenovirus (PCR) Not Detected (NotDetected) 06/11/24 Unknown B. pertussis DNA (PCR) Not Detected (NotDetected) 06/11/24 Unknown B.parapertussis DNA PCR Not Detected (NotDetected) 06/11/24 Unknown C. pneumoniae DNA (PCR) Not Detected (NotDetected) 06/11/24 Unknown Coronavirus OC43 (PCR) Not Detected (NotDetected) 06/11/24 Unknown Coronavirus HKU1 (PCR) Not Detected (NotDetected) 06/11/24 Unknown Coronavirus 229E (PCR) Not Detected (NotDetected) 06/11/24 Unknown SARS-CoV-2 (PCR) Not Detected (NotDetected) 06/11/24 Unknown Coronavirus NL63 (PCR) Not Detected (NotDetected) 06/11/24 Unknown Human Metapneumovir PCR Not Detected (NotDetected) 06/11/24 Unknown Influenza Type A (PCR) Not Detected (NotDetected) 06/11/24 Unknown Influenza Type B (PCR) Not Detected (NotDetected) 06/11/24 Unknown M. pneumoniae (PCR) Not Detected (NotDetected) 06/11/24 Unknown Parainfluenza 1 (PCR) Not Detected (NotDetected) 06/11/24 Unknown Parainfluenza 2 (PCR) Not Detected (NotDetected) 06/11/24 Unknown Parainfluenza 3 (PCR) Not Detected (NotDetected) 06/11/24 Unknown Parainfluenza 4 (PCR) Not Detected (NotDetected) 06/11/24 Unknown RSV (PCR) Not Detected (NotDetected) 06/11/24 Unknown Entero/Rhino (PCR) Not Detected (NotDetected) 06/11/24 Unknown Impressions Chest X-Ray 06/11/24 21:43 Exam(s): XR CXR 1 VIEW EXAM: XR Chest, 1 View CLINICAL HISTORY: Reason for exam: Dyspnea. TECHNIQUE: Frontal view of the chest. COMPARISON: 05/19/2024. FINDINGS: Lungs: Hyperinflation. No infiltrate. No atelectasis. No CHF. Pleural space: No pleural effusion. No pneumothorax. Heart: Unremarkable. No cardiomegaly. Mediastinum: Unremarkable. Normal mediastinal contour. Bones/joints: Unremarkable. No acute fracture. IMPRESSION: No acute abnormality. Unchanged hyperinflation/emphysema. Electronically signed by: Marcos Ruiz M.D. 06/12/24 00:12 AM Code Status & VTE Plan Code Status Full code VTE Prophylaxis Plan VTE Prophylaxis will be ordered: Yes PG Care Time/CCT Total # of Minutes Spent Total Time Spent with Patient: Total time spent is greater than 50% in coordination of care (as documented) at patient's floor/unit and/or counseling patient: Coding Level of Care Code 79030 INT INP/OBS CARE 3MIN Diagnoses Acute on chronic respiratory failure with hypoxia J96.21 Acute exacerbation of chronic obstructive pulmonary disease J44.1 CRESENCIO (acute kidney injury) N17.9 Schizoaffective disorder, bipolar type F25.0
[2024-06-11 23:50] LABS: Appearance Urine Clear (Clear); Bacteria Urine Automated None Seen (None Seen); Bilirubin Urine Negative (Negative); Blood Urine Negative (Negative); Cast Urine Automated 0-2 /lpf (0-2); Color Urine Yellow; Epithelial Cell Urine Auto 0-2 /hpf (0-2); Glucose Urine UA Negative (Negative); Ketones Urine Negative (Negative); Leukocyte Esterase Urine Trace (Negative); Nitrite Urine Negative (Negative); Protein Urine Negative (Negative); RBC Urine Automated 0-2 /hpf (0-2); Specific Gravity Urine 1.013 (1.000-1.030); Urobilinogen Urine Negative (Negative); WBC Urine Automated 0-5 /hpf (0-5)
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
--- NOTE | 2024-06-12 00:14 | XRay Report ---
Exam(s): XR CXR 1 VIEW EXAM: XR Chest, 1 View CLINICAL HISTORY: Reason for exam: Dyspnea. TECHNIQUE: Frontal view of the chest. COMPARISON: 05/19/2024. FINDINGS: Lungs: Hyperinflation. No infiltrate. No atelectasis. No CHF. Pleural space: No pleural effusion. No pneumothorax. Heart: Unremarkable. No cardiomegaly. Mediastinum: Unremarkable. Normal mediastinal contour. Bones/joints: Unremarkable. No acute fracture. IMPRESSION: No acute abnormality. Unchanged hyperinflation/emphysema. Electronically signed by: Marcos Ruiz M.D. 06/12/24 00:12 AM
[2024-06-12] MEDS: DOXYCYCLINE HYCLATE 100 MG in DEXTROSE 5% MINI-B 100 ML IV STA (01:05)
[2024-06-12] MEDS: SODIUM CHLORIDE 0.9% 1,000 ML IV SCH (01:05)
[2024-06-12] MEDS: PRIMIDONE 250 MG TAB PO SCH (01:24)
[2024-06-12] MEDS: PANTOprazole 40 MG TAB PO SCH (06:20)
[2024-06-12] MEDS: LEVOTHYROXINE SODIUM 100 MCG TABLET PO SCH (06:20)
[2024-06-12] MEDS ORDERED: methylPREDNISolone 10 mg/mL (For Ped Dose < 7mg) IV SCH (07:00)
[2024-06-12 07:26] LABS: Basophils # (auto) 0.03 K/uL (0.00-0.20); Basophils % (auto) 0.3 %; Eosinophils # (auto) 0.03 K/uL (0.00-0.50); Eosinophils % (auto) 0.3 %; Hematocrit (blood only) 34.5 % (42.0-52.0); Hemoglobin 11.4 g/dl (14.0-18.0); Immature Granulocytes # (auto) 0.04 K/uL (0.01-0.20); Immature Granulocytes % (auto) 0.4 %; Lymphocytes # (auto) 0.77 K/uL (1.20-3.40); Lymphocytes % (auto) 7.8 %; Mean Corpuscular Hemoglobin 33.3 pg (25.0-34.0); Mean Corpuscular Volume 100.9 fL (80.0-100.0); Mean Platelet Volume 9.7 fL (9.4-12.4); Monocytes # (auto) 0.43 K/uL (0.11-0.59); Monocytes % (auto) 4.3 %; Neutrophils # (auto) 8.63 K/uL (1.40-6.50); Neutrophils % (auto) 86.9 %; Platelet Count 254 K/uL (130-400); RDW Coefficient of Variation 13.2 % (11.5-14.5); RDW Standard Deviation 49.5 fL (36.4-46.3); Red Blood Count 3.42 M/uL (4.70-6.10); White Blood Count 9.93 K/ul (4.8-10.8)
--- NOTE | 2024-06-12 07:28 | Electrocardiogram Report ---
Test Reason : Blood Pressure : */* mmHG Vent. Rate : 82 BPM Atrial Rate : 82 BPM P-R Int : 158 ms QRS Dur : 94 ms QT Int : 386 ms P-R-T Axes : 83 47 69 degrees QTcB Int : 450 ms Normal sinus rhythm Normal ECG When compared with ECG of 19-May-2024 14:27, No significant change Confirmed by Karlo Navarro ([id number]) on 06/12/2024 7:27:57 AM Referred By: REFERRED SELF Confirmed By: Karlo Navarro
[2024-06-12] MEDS: ALBUT/IPRATROP 3MG/0.5MG NEB 3 ML VIAL NEB SCH (08:05)
[2024-06-12] MEDS: ESCITALOPRAM OXALATE 20 MG TAB PO SCH (09:28)
[2024-06-12] MEDS: methylPREDNISolone 40 MG in SYRINGE 0 ML IV SCH ×2 (09:28→20:20)
[2024-06-12] MEDS: FLUTICASONE/VILANTEROL 100/25MCG 14 PUFFS/INHALER INH SCH (09:28)
[2024-06-12] MEDS: guaiFENesin 600 MG TABCR PO SCH (09:28)
[2024-06-12] MEDS: AMANTADINE HCL 100 MG CAPSULE PO SCH (09:28)
[2024-06-12] MEDS: CHOLECALCIFEROL 125 MCG (5,000 UNITS) TAB PO SCH (09:28)
[2024-06-12] MEDS: buPROPion XL 300 MG TABCR PO SCH (09:28)
[2024-06-12] MEDS: TAMSULOSIN HCL 0.4 MG CAP PO SCH (09:29)
[2024-06-12] MEDS: LITHIUM CARBONATE 450 MG TABCR PO SCH (11:05)
--- NOTE | 2024-06-12 11:59 | Hospitalist Progress Note ---
Date of Service June 12, 2024 Assessment & Plan (1) Acute exacerbation of chronic obstructive pulmonary disease: Plan: improved lower solumedrol from TID dosing to BID dosing suspect we can get him over to PO prednisone tomorrow add long-acting anti-muscarinic cont fluticasone/vilanterol cont duonebs cont mucinex change doxy from IV to PO (2) CRESENCIO (acute kidney injury): Plan: peak Cr 1.4 cont IV Fluids today repeat BMP am 2nd to poor po intake? other? (3) Schizoaffective disorder, bipolar type: Plan: HOLD lithium as lithium level is elevated recheck lithium level in am once level is <1 can resume lithium but at lower dose of 300mg BID Continue amantadine, Zyprexa, bupropion, escitalopram, primidone (4) Severe protein-calorie malnutrition: Plan: 6kg weight loss in the last 1-2 months etiology? TSH wnl h/o collagenous colitis per his PMH - could this be causing such? CT chest 05/2024 -- 8mm LLL nodule (was 2mm prior) - concerning for malignancy - will need potential bx CT abd/pelvis 04/2024 -- "Edematous appearing thickness of the gastroesophageal wall. Diffuse mesenteric edema. Diffuse body wall edema/anasarca. Mild/moderately distended gas filled small bowel loops and abundant fecal debris in a distended cecum/ascending colon and rest of the colon is suggestive of an impacted stool. Correlate clinically." last colonoscopy 2018 - bx + for collagenous colitis will d/w him his bowel habits add MVI add boost add thiamine while awaiting a b1 level (5) Abnormal lithium level in blood: Plan: HOLD lithium repeat lithium level am once <1 resume lithium at lower dose of 300mg BID Plan Chronic medical issues: Hypothyroidism-continue levothyroxine; TSH 1.9 earlier in May GERD-continue pantoprazole BPH with LUTS-continue tamsulosin DVT proph - add heparin 5000 BID Admission and Anticipated Discharge Date Admission Date: June 11, 2024 Subjective feels MUCH better today wheezing/dyspnea improved states he is near his typical baseline reports that he isn't able to afford his controller agents (symbicort, spiriva, etc) has lost weight recently - 5-10 pounds denies pain any location Review of Systems Review of Systems: gen - no fevers or chills cv - no chest pain pulm - mild cough GI - no N/V Physical Exam Physical Exam: gen - very thin, unkempt, but NAD; very pleasant mouth - MMM neck - no JVD heart - RRR, s1 s2 lungs - mild wheezing b/l all lung segments, no rales, no increased work of breathing abd - soft NT ND BS+ ext - no edema, pulses 2+ b/l Results & Data Results & Data Vital Signs (Past 12 Hours) Vital Signs Temp Pulse Pulse Pulse Resp BP BP 06/12/24 11:54 74 20 06/12/24 11:14 36.5 C 71 19 100/62 06/12/24 08:10 36.5 C 58 L 20 94/40 L 06/12/24 08:00 06/12/24 08:00 64 06/12/24 03:28 36.6 C 68 16 100/52 L 06/12/24 01:15 06/12/24 00:43 36.6 C 81 18 108/63 06/12/24 00:37 78 06/12/24 00:00 76 18 114/70 Pulse Ox O2 Del Method 06/12/24 11:54 93 Room Air 06/12/24 11:14 92 Room Air 06/12/24 08:10 91 Room Air 06/12/24 08:00 Room Air 06/12/24 08:00 06/12/24 03:28 92 Room Air 06/12/24 01:15 Room Air 06/12/24 00:43 93 Room Air 06/12/24 00:37 06/12/24 00:00 94 Room Air Laboratory Results Laboratory Results - last 48 hr 06/11/24 06/11/24 06/11/24 22:12 23:07 23:32 WBC 12.61 H RBC 3.86 L Hgb 13.0 L Hct 39.3 L MCV 101.8 H MCH 33.7 MCHC 33.1 RDW Std Deviation 50.6 H RDW Coeff of Josie 13.4 Plt Count 305 MPV 9.8 Immature Gran % (Auto) 0.4 Neut % (Auto) 91.2 Lymph % (Auto) 4.4 [place] % (Auto) 2.6 Eos % (Auto) 1.0 Baso % (Auto) 0.4 Neut # (Auto) 11.50 H Lymph # (Auto) 0.55 L [place] # (Auto) 0.33 Eos # (Auto) 0.13 Baso # (Auto) 0.05 Immature Gran # (Auto) 0.05 VBG pH 7.38 VBG pCO2 60 H VBG pO2 36 VBG HCO3 36 VBG O2 Saturation < 60.0 VBG Base Excess 8.2 Sodium 138 Potassium 4.3 Chloride 99 Carbon Dioxide 32 Anion Gap 7 BUN 16 Creatinine 1.41 H Est Cr Clr Drug Dosing 40.1 eGFR 53.94 BUN/Creatinine Ratio 11.3 Glucose 138 H Calcium 8.8 Magnesium 2.3 Total Bilirubin 0.3 AST 29 ALT 48 Alkaline Phosphatase 83 Troponin I High Sens 7.9 B-Natriuretic Peptide 33 Total Protein 6.5 Albumin 4.0 Globulin 2.5 Albumin/Globulin Ratio 1.6 Urine Color Yellow Urine Appearance Clear Urine pH 8.0 H Ur Specific [place] 1.013 Urine Protein Negative Urine Glucose (UA) Negative Urine Ketones Negative Urine Blood Negative Urine Nitrite Negative Urine Bilirubin Negative Urine Urobilinogen Negative Ur Leukocyte Esterase Trace H Urine WBC (Auto) 0-5 Urine RBC (Auto) 0-2 U Hyaline Cast (Auto) 0-2 U Epithel Cells (Auto) 0-2 Urine Bacteria (Auto) None Seen [place] Adenovirus (PCR) B. pertussis DNA (PCR) B.parapertussis DNA PCR C. pneumoniae DNA (PCR) Coronavirus OC43 (PCR) Coronavirus HKU1 (PCR) Coronavirus 229E (PCR) SARS-CoV-2 (PCR) Coronavirus NL63 (PCR) Human Metapneumovir PCR Influenza Type A (PCR) Influenza Type B (PCR) M. pneumoniae (PCR) Parainfluenza 1 (PCR) Parainfluenza 2 (PCR) Parainfluenza 3 (PCR) Parainfluenza 4 (PCR) RSV (PCR) Entero/Rhino (PCR) 06/11/24 06/12/24 Unknown 07:08 WBC 9.93 RBC 3.42 L Hgb 11.4 L Hct 34.5 L MCV 100.9 H MCH 33.3 MCHC 33.0 RDW Std Deviation 49.5 H RDW Coeff of Josie 13.2 Plt Count 254 MPV 9.7 Immature Gran % (Auto) 0.4 Neut % (Auto) 86.9 Lymph % (Auto) 7.8 [place] % (Auto) 4.3 Eos % (Auto) 0.3 Baso % (Auto) 0.3 Neut # (Auto) 8.63 H Lymph # (Auto) 0.77 L [place] # (Auto) 0.43 Eos # (Auto) 0.03 Baso # (Auto) 0.03 Immature Gran # (Auto) 0.04 VBG pH VBG pCO2 VBG pO2 VBG HCO3 VBG O2 Saturation VBG Base Excess Sodium Potassium Chloride Carbon Dioxide Anion Gap BUN Creatinine Est Cr Clr Drug Dosing eGFR BUN/Creatinine Ratio Glucose Calcium Magnesium 2.0 Total Bilirubin AST ALT Alkaline Phosphatase Troponin I High Sens B-Natriuretic Peptide Total Protein Albumin Globulin Albumin/Globulin Ratio Urine Color Urine Appearance Urine pH Ur Specific [place] Urine Protein Urine Glucose (UA) Urine Ketones Urine Blood Urine Nitrite Urine Bilirubin Urine Urobilinogen Ur Leukocyte Esterase Urine WBC (Auto) Urine RBC (Auto) U Hyaline Cast (Auto) U Epithel Cells (Auto) Urine Bacteria (Auto) [place] 1.3 H Adenovirus (PCR) Not Detected B. pertussis DNA (PCR) Not Detected B.parapertussis DNA PCR Not Detected C. pneumoniae DNA (PCR) Not Detected Coronavirus OC43 (PCR) Not Detected Coronavirus HKU1 (PCR) Not Detected Coronavirus 229E (PCR) Not Detected SARS-CoV-2 (PCR) Not Detected Coronavirus NL63 (PCR) Not Detected Human Metapneumovir PCR Not Detected Influenza Type A (PCR) Not Detected Influenza Type B (PCR) Not Detected M. pneumoniae (PCR) Not Detected Parainfluenza 1 (PCR) Not Detected Parainfluenza 2 (PCR) Not Detected Parainfluenza 3 (PCR) Not Detected Parainfluenza 4 (PCR) Not Detected RSV (PCR) Not Detected Entero/Rhino (PCR) Not Detected PG Care Time/CCT Total # of Minutes Spent Total Time Spent with Patient: Total time spent is greater than 50% in coordination of care (as documented) at patient's floor/unit and/or counseling patient: Coding Level of Care Code 43250 SUB INP/OBS CARE 3/50MIN Diagnoses Acute exacerbation of chronic obstructive pulmonary disease J44.1 CRESENCIO (acute kidney injury) N17.9 Schizoaffective disorder, bipolar type F25.0 Severe protein-calorie malnutrition E43 Abnormal lithium level in blood R78.89
[2024-06-12] MEDS: UMECLIDINIUM BROMIDE 62.5MCG/BLISTER 7 PUFFS/INHALER INH SCH (12:55)
[2024-06-12] MEDS ORDERED: DOXYCYCLINE HYCLATE 100 MG in DEXTROSE 5% MINI-B 100 ML IV SCH (13:00)
[2024-06-12] MEDS: DOXYCYCLINE HYCLATE 100 MG CAP PO SCH (20:20)
[2024-06-12] MEDS: MELATONIN 3 MG TAB PO SCH (20:20)
[2024-06-12] MEDS: FERROUS SULFATE 325 MG TAB PO SCH (20:21)
[2024-06-12] MEDS: ARIPiprazole 15 MG TAB PO SCH (20:23)
[2024-06-13 07:50] LABS: BUN Creatinine Ratio 17.1 (10-20); Calcium 8.5 mg/dl (8.6-10.3); Creatinine Clr Calc Pharmacy 48.1 ml/min
[2024-06-13] MEDS: CEROVITE ADV FORMULA TAB PO SCH (11:21)
[2024-06-13] MEDS: THIAMINE HCL 100 MG TAB PO SCH (11:21)
--- NOTE | 2024-06-13 19:27 | Hospitalist Progress Note ---
Date of Service June 13, 2024 Assessment & Plan (1) Acute exacerbation of chronic obstructive pulmonary disease: Plan: improved but will leave solumedrol at BID dosing today suspect we can wean tomorrow cont umeclidinium daily cont fluticasone/vilanterol cont duonebs cont mucinex cont doxy x [address] Piedra - [facility] [place] pulmonary (2) CRESENCIO (acute kidney injury): Plan: peak Cr 1.4 s/p IV fluids with resolution Cr today 1 suspect pre-renal from recent poor intake (3) Schizoaffective disorder, bipolar type: Plan: Continue amantadine, Zyprexa, bupropion, escitalopram, primidone [place] level <1 today can resume lithium tonight albeit at lower dose of 300mg BID (4) Severe protein-calorie malnutrition: Plan: 6kg weight loss in the last 1-2 months etiology? TSH wnl h/o collagenous colitis per his PMH - could this be causing such? 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 Diffuse mesenteric edema. Diffuse body wall edema/anasarca. Mild/moderately distended gas filled small bowel loops and abundant fecal debris in a distended cecum/ascending colon and rest of the colon is suggestive of an impacted stool. Correlate clinically." last colonoscopy 2018 - bx + for collagenous colitis he wasn't aware of this dx back then either way not having diarrhea or symptoms to suggest colitis cont MVI added boost added thiamine while awaiting a b1 level (5) Abnormal lithium level in blood: Plan: peak lithium level 1.4 lithium held, now level <1 can resume lithium at lower dose of 300mg BID repeat level in 5-7 days Plan Chronic medical issues: Hypothyroidism-continue levothyroxine; TSH 1.9 earlier in May GERD-continue pantoprazole BPH with LUTS-continue tamsulosin DVT proph - heparin 5000 BID Constipation - add senna/miralax Georgine - pt's contact - updated by phone 06/13/24 will d/w social work tomorrow issues with affording his inhalers, food, etc. Admission and Anticipated Discharge Date Admission Date: June 11, 2024 Subjective only complaint is that of dyspnea with exertion none at rest still with cough ongoing constipation no diarrhea we discussed his weight loss he did admit to lack of foot at his house - sometimes due to inability to secure food from the store because of lack of transportation; sometimes due to lack of finances open to [employer] gave permission for me to contact his friend Dasha to give clinical update tele overnight wnl Review of Systems Review of Systems: gen - no fevers or chills cv - no chest pain pulm - dyspnea on exertion GI - no abd pain or N/V Physical Exam Physical Exam: gen - very thin, but NAD; very pleasant mouth - MMM, no thrush neck - no JVD heart - RRR, s1 s2, no murmur lungs - mild-moderate wheezing b/l all lung segments, no rales, no increased work of breathing -- but airation is very good abd - soft NT ND BS+ ext - no edema, pulses 2+ b/l Results & Data Results & Data Vital Signs (Past 12 Hours) Vital Signs Temp Pulse Pulse Resp BP BP Pulse Ox 06/13/24 15:50 36.6 C 83 19 113/71 96 06/13/24 15:18 88 20 98 06/13/24 14:43 86 06/13/24 11:40 36.5 C 76 20 113/67 98 06/13/24 08:37 62 06/13/24 08:23 36.3 C L 68 20 147/81 H 95 06/13/24 08:00 06/13/24 07:56 64 20 91 O2 Del Method O2 Flow Rate 06/13/24 15:50 Oxymask 2 06/13/24 15:18 Oxymask 2 06/13/24 14:43 06/13/24 11:40 Room Air 06/13/24 08:37 06/13/24 08:23 Room Air 06/13/24 08:00 Room Air 06/13/24 07:56 Room Air Laboratory Results Laboratory Results - last 24 hr 06/13/24 06/13/24 07:07 07:13 Sodium 140 Potassium 4.0 Chloride 107 Carbon Dioxide 29 Anion Gap 4 BUN 18 Creatinine 1.05 D Est Cr Clr Drug Dosing 48.1 eGFR 76.84 BUN/Creatinine Ratio 17.1 Glucose 91 Calcium 8.5 L Whole Bld Vitamin B1 Pending [place] 0.8 PG Care Time/CCT Total # of Minutes Spent Total Time Spent with Patient: Total time spent is greater than 50% in coordination of care (as documented) at patient's floor/unit and/or counseling patient: Coding Level of Care Code 68208 SUB INP/OBS CARE 3/50MIN Diagnoses Acute exacerbation of chronic obstructive pulmonary disease J44.1 CRESENCIO (acute kidney injury) N17.9 Schizoaffective disorder, bipolar type F25.0 Severe protein-calorie malnutrition E43 Abnormal lithium level in blood R78.89
[2024-06-13] MEDS: LITHIUM CARBONATE 300 MG TAB PO SCH (21:29)
[2024-06-13] MEDS: ACETAMINOPHEN 325 MG TAB PO PRN (21:30)
[2024-06-14] MEDS: ALBUT/IPRATROP 3MG/0.5MG NEB 3 ML VIAL NEB STA (04:33)
[2024-06-14] MEDS: hydrOXYzine HCl 10 MG TAB PO PRN (05:20)
--- NOTE | 2024-06-14 06:39 | XRay Report ---
EXAM: XR chest 1V portable CLINICAL HISTORY: SOB. TECHNIQUE: An X-ray image of the chest was obtained in AP projection. COMPARISON: X-ray dated 06/11/2024. FINDINGS: Pulmonary Parenchyma: Signs of chest hyperinflation with a low flattened diaphragm, related to COPD. Bilateral hilar vascular congestion was noted. Left middle and lower lung zones show patchy opacities and scattered reticulonodularity was noted. Blunted left costophrenic angle, related to minimal pleural effusion. Blunted right costophenic angle, related to pleural thickening. Heart and Mediastinum: Heart size and shape are normal. No mediastinal widening or masses. No hilar or mediastinal lymphadenopathy. Bony Thorax: Bony thorax appears intact without fractures or deformities. Soft Tissues: Soft tissues overlying the chest wall are unremarkable. IMPRESSION: 1. Changes related to COPD with newly noted left middle and lower lung zones patchy opacities, that may refer to pulmonary infiltrations. Follow-up is advised. 2. Blunted both costopherenic angles. 3. Bilateral hilar vascular congestion noted. Electronically signed by Juan Cuadra 06-14-2024 06:38 AM
[2024-06-14] MEDS: levoFLOXacin 750 MG TAB PO SCH (11:13)
[2024-06-14] MEDS: HEPARIN SOD 5,000 UNIT/0.5 ML VIAL SQ SCH (11:49)
[2024-06-14] MEDS: SODIUM CHLOR 7% 4 ML NEB NEB SCH (12:06)
[2024-06-14] MEDS: hydrOXYzine HCl 25 MG TAB PO PRN (12:40)
[2024-06-14] MEDS: FUROSEMIDE 20 MG TAB PO ONE (13:27)
--- NOTE | 2024-06-14 18:42 | Hospitalist Progress Note ---
Date of Service June 14, 2024 Assessment & Plan (1) Acute exacerbation of chronic obstructive pulmonary disease: Plan: ongoing no change in solumedrol today -- cont 40mg BID IV cont umeclidinium daily cont fluticasone/vilanterol cont duonebs cont mucinex adding saline nebs for significant chest congestion in the context of newly seen pneumonia on CXR today follows with Dr Piedra [place] [facility] [place] - patient reports he sometimes cannot afford his maintenance inhalers made case management aware (Marium Morse) (2) Pneumonia: Plan: left-sided, as seen on today's cxr can't rule out aspiration can't rule out gram negatives change doxy to levaquin 750mg daily x 7 days, first dose now checked MRSA swab --> negative appreciate speech eval (3) CRESENCIO (acute kidney injury): Plan: peak Cr 1.4 most recent Cr 1 resolved pre-renal from recent poor intake ?? repeat BMP am (4) Schizoaffective disorder, bipolar type: Plan: Continue amantadine, Zyprexa, bupropion, escitalopram, primidone see below re: lithium (5) Severe protein-calorie malnutrition: Plan: 6kg weight loss in the last 1-2 months etiology? TSH wnl CT chest 05/2024 -- 8mm LLL nodule (was 2mm prior) - ?concerning for malignancy?? 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 Diffuse mesenteric edema. Diffuse body wall edema/anasarca. Mild/moderately distended gas filled small bowel loops and abundant fecal debris in a distended cecum/ascending colon and rest of the colon is suggestive of an impacted stool. Correlate clinically." last colonoscopy 2018 - bx + for collagenous colitis he wasn't aware of this dx back then either way not having diarrhea or symptoms to suggest colitis cont MVI added boost added thiamine while awaiting a b1 level (6) Abnormal lithium level in blood: Plan: peak lithium level 1.4 lithium held, now level <1 resumed lithium at lower dose of 300mg BID repeat level in 5-7 days (7) Food insecurity: Plan: patient reports lack of $ to pay for groceries, difficulty in getting to the store to obtain food, etc. I made Marium Morse from outpatient case management aware (8) Dysphagia: Plan: appreciate speech therapy consult to have video swallow tomorrow, 06/15/24 Plan Chronic medical issues: Hypothyroidism- continue levothyroxine; TSH 1.9 earlier in May GERD- continue pantoprazole BPH with LUTS- continue tamsulosin Constipation - cont senna/miralax DVT proph - heparin 5000 BID Dasha - pt's contact - updated by phone 06/13/24 Admission and Anticipated Discharge Date Admission Date: June 11, 2024 Subjective this am there was concern that Mr Moore aspirated he developed acute distress leading to repeat cxr which showed left-sided infiltrates about 0700 this am respiratory performed nebs as well as naso-tracheal suctioning they got what looked like orange juice tinged secretions?? oddly he told speech therapy he chokes at home, but he denied this with me during my visit he had just finished his lunch and he ate nearly the entire tray he is coughing but cough is nonproductive denied feeling dyspneic at time of my assessment speech to perform video swallow this week Review of Systems Review of Systems: gen - no fevers or chills cv - no chest pain GI - no N/V ; +BM this am Physical Exam Physical Exam: gen - very thin, but NAD; very pleasant; looks similar to yesterday mouth - MMM, no thrush neck - no JVD heart - RRR, s1 s2, no murmur lungs - mild-moderate wheezing; course BS b/l; rales left side - some of this cleared with coughing; no increased work of breathing abd - soft NT ND BS+ ext - no edema, pulses 2+ b/l psych - a/o x 3 Results & Data Results & Data Vital Signs (Past 12 Hours) Vital Signs Temp Pulse Pulse Resp BP Pulse Ox O2 Del Method 06/14/24 16:53 36.5 C 98 H 20 107/73 97 Nasal Cannula 06/14/24 15:42 84 17 98 Oxymask 06/14/24 14:10 102 H 06/14/24 11:20 103 H 19 93 Oxymask 06/14/24 11:09 37.4 C 103 H 22 107/67 97 Oxymask 06/14/24 10:00 94 H 06/14/24 09:50 Nasal Cannula 06/14/24 08:16 36.7 C 90 20 115/70 96 Oxymask 06/14/24 07:13 78 15 98 Oxymask O2 Flow Rate 06/14/24 16:53 4 06/14/24 15:42 3 06/14/24 14:10 06/14/24 11:20 2 06/14/24 11:09 4 06/14/24 10:00 06/14/24 09:50 4 06/14/24 08:16 06/14/24 07:13 2 Laboratory Results Laboratory Results - last 24 hr 06/14/24 11:50 Nasal Screen MRSA (PCR) Negative Diagnostic Findings Chest X-Ray 06/14/24 04:58 EXAM: XR chest 1V portable CLINICAL HISTORY: SOB. TECHNIQUE: An X-ray image of the chest was obtained in AP projection. COMPARISON: X-ray dated 06/11/2024. FINDINGS: Pulmonary Parenchyma: Signs of chest hyperinflation with a low flattened diaphragm, related to COPD. Bilateral hilar vascular congestion was noted. Left middle and lower lung zones show patchy opacities and scattered reticulonodularity was noted. Blunted left costophrenic angle, related to minimal pleural effusion. Blunted right costophenic angle, related to pleural thickening. Heart and Mediastinum: Heart size and shape are normal. No mediastinal widening or masses. No hilar or mediastinal lymphadenopathy. Bony Thorax: Bony thorax appears intact without fractures or deformities. Soft Tissues: Soft tissues overlying the chest wall are unremarkable. IMPRESSION: 1. Changes related to COPD with newly noted left middle and lower lung zones patchy opacities, that may refer to pulmonary infiltrations. Follow-up is advised. 2. Blunted both costopherenic angles. 3. Bilateral hilar vascular congestion noted. Electronically signed by Juan Cuadra 06-14-2024 06:38 AM PG Care Time/CCT Total # of Minutes Spent Total Time Spent with Patient: Total time spent is greater than 50% in coordination of care (as documented) at patient's floor/unit and/or counseling patient: Coding Level of Care Code 30537 SUB INP/OBS CARE 3/50MIN Diagnoses Acute exacerbation of chronic obstructive pulmonary disease J44.1 Pneumonia J18.9 CRESENCIO (acute kidney injury) N17.9 Schizoaffective disorder, bipolar type F25.0 Severe protein-calorie malnutrition E43 Abnormal lithium level in blood R78.89 Food insecurity Z59.41 Dysphagia R13.10
[2024-06-15 07:50] LABS: BUN Creatinine Ratio 21.6 (10-20); Calcium 8.5 mg/dl (8.6-10.3); Potassium 3.6 mmol/L (3.5-5.1)
--- NOTE | 2024-06-15 11:41 | Fluoroscopy Report ---
MODIFIED BARIUM SWALLOW CLINICAL HISTORY: r/o silent aspiration COMPARISON STUDY: None. FLUOROSCOPY TIME: 2.12 minutes. Ka,r: 4.23 mGy TECHNIQUE: A modified barium swallow was performed in conjunction with Speech Pathology. The patient ingested varying consistencies of barium containing material. Video fluoroscopy was performed. FINDINGS: No tracheal aspiration was identified with thin liquids, nectar thick liquids, pudding or c ookie in pudding consistencies. Multiple episodes of flash penetration were noted without aspiration. No significant esophageal retention was noted. IMPRESSION: 1. No tracheal aspiration identified. Several episodes of penetration with multiple consistencies. 2. Full recommendations by Speech pathology to follow. ACT 112: Negative or not required by law. Electronically signed by: Drake Ochoa M.D. 06/15/2024 11:40 AM
[2024-06-15 12:24] VITALS: TEMP 97.9
[2024-06-15 15:38] VITALS: RESP 20; O2SAT 93
[2024-06-15 15:50] VITALS: BP 122/85; PULSE 81
--- NOTE | 2024-06-16 07:17 | Discharge Summary ---
Discharge Summary Date of Service June 16, 2024 Principal Dx & Hospital Course #1 = Principal Diagnosis (1) Acute exacerbation of chronic obstructive pulmonary disease: 69-year-old with severe COPD admitted with shortness of breath, treated for acute COPD exacerbation and left lower lobe pneumonia. he improved and stated that his breathing was at baseline day of discharge. He has 2 L home oxygen which he uses as needed, hypoxia was at baseline at time of discharge. PT and OT recommended rehab, we discussed this with Mr. Moore who refused and preferred to go home with home health which was arranged. Provided him with a walker. - Prednisone 20 mg x 5 days at discharge then decrease to his previous 10 mg daily - continue budesonideformoterol, albuterol nebulizer and MDI as needed - continue home oxygen which he uses as needed - repeat chest CT in 3 months for pulmonary nodule, see below follows with Dr Piedra - [facility] pulmonary (2) Pneumonia: left-sided infiltrate seen on chest x-ray 2/3 left base pneumonia. MRSA nares was negative he was initially treated with doxycycline for COPD exacerbation and this was changed to levofloxacin 750 mg daily x 5 days for possible he was evaluated by speech therapy and VFSS which was negative for aspiration (3) CRESENCIO (acute kidney injury): peak Cr 1.4 this admission likely prerenal, treated with IV fluids resolved to baseline creatinine of 1 (4) Schizoaffective disorder, bipolar type: Continue amantadine, Zyprexa, bupropion, escitalopram, primidone lithium level was 1.4 on his usual dose of 450 mg twice daily, dose was reduced to 300 mg twice daily follow-up with [facility], recommend repeat lithium level on lower dose (5) Severe protein-calorie malnutrition: 6kg weight loss in the last 1-2 months underweight with BMI of 16.7 TSH wnl pulmonary nodule CT chest 05/2024 -- 8mm LLL nodule (was 2mm prior) - concerning for malignancy I corresponded with Dr Piedra his primary accounts receivable collector today --> advises repeat CT chest in [address] abd/pelvis 04/2024 -- "Edematous appearing thickness of the gastroesophageal wall. Diffuse mesenteric edema. Diffuse body wall edema/anasarca. Mild/moderately distended gas filled small bowel loops and abundant fecal debris in a distended cecum/ascending colon and rest of the colon is suggestive of an impacted stool. Correlate clinically." last colonoscopy 2019 - bx + for collagenous colitis he wasn't aware of this dx back then either way not having diarrhea or symptoms to suggest colitis cont MVI added boost added thiamine while awaiting a b1 level - pending may be pulmonary cachexia as well as food insecurity (6) Abnormal lithium level in blood: (7) Food insecurity: patient reports lack of $ to pay for groceries, difficulty in getting to the store to obtain food, etc. he also has difficulty in affording his medications especially control inhalers discussed with outpatient case management who has seen him in the past, follow-up in clinic (8) Pulmonary nodule: Plan Chronic medical issues: Hypothyroidism- continue levothyroxine; TSH 1.9 earlier in May GERD- continue pantoprazole BPH with LUTS- continue tamsulosin Risk of readmission is high because of severe COPD with frequent exacerbations, functional decline, social determinants of health Notes For Next Care Provider B1 level pending follow-up with [facility], repeat lithium level on reduced dose Medication Changes From Visit 20 mg prednisone for 5 days then reduce down to his previous 10 mg daily finish a course of levofloxacin lithium reduced to 300 mg twice daily Admission HPI Per Admitting Provider The patient is a 69-year-old male with a past medical history including multiple admissions for COPD, BPH with LUTS, anemia, schizoaffective disorder bipolar type, multiple pulmonary nodules, essential tremor, generalized anxiety disorder, hypothyroidism, [id number]-mik bowel syndrome. Most recent admission to [facility] was from 05/19-05/22/2024 for COPD exacerbation that improved with treatment. Patient had been doing well until earlier this morning, when symptoms recurred as noted. He had used his inhalers, and without significant improvement, he presented to the ED for assessment. Discharge Exam PHYSICAL EXAMINATION Last 24h vital signs reviewed, see documentation in flowsheet General: thin man sitting on the edge of the bed HEENT: Normocephalic, atraumatic, pupils round and equal, sclerae anicteric, no conjunctival injection, moist mucus membranes Lungs: Normal respiratory effort. Clear to auscultation bilaterally. prolonged expiratory phase. currently on room air. No RRW Heart: Regular rate and rhythm, no murmurs. No JVD Abdomen: Soft, nontender, nondistended. Bowel sounds present. Extremities: Warm, dry, well-perfused. No extremity edema. Neuro: Alert and oriented x 4, face symmetric, moves 4 extremities well Psych: Normal affect and behavior Discharge Plan Discharge Items Patient Disposition: Home - Home Health Services Reason For Visit: ACUTE ON CHRONIC RESP FAILURE W/ HYPOXIA, COPD EX Discharge Diagnosis: Acute exacerbation of COPD, possible aspiration pneumonia vs pneumonitis Condition on Discharge: Fair Activity: Resume your previous activity Non-emergency contact: Primary Care Provider, Inpatient Coder and Psychiatrist Call non-emergency contact if: you have any medication questions and your symptoms worsen Follow-up/Referrals: [facility]ax [Non-Staff] - Fermin Parikh DO [Primary Care Provider] - 06/22/24 1:00 pm (Hospital follow up schedule June 22 at 1:[address] Parikh) Diet: Regular Addtl Attending Provider Instructions: You were treated for COPD exacerbation and possible pneumonia -continue your nebulizers and inhalers -take levofloxacin (antibiotic) for a few more days -take prednisone 20 mg for five days then reduce to your previous 10 mg daily You will need a repeat chest CT in three months to follow up a pulmonary nodule - we talked to Dr. Piedra about this We reduced your lithium dose to 300 mg twice a day. Your lithium level was at the top of the range, lithium toxicity can be extremely dangerous -follow up with [facility], talk to them about getting another lithium level checked Keep drinking the protein shake every day. We are concerned you might have B1 (thiamine) deficiency - a blood test is pending, however, it is easy to replace. You can buy thiamine at the drug store - you can take 200 mg twice a day for a month, then continue with 100 mg daily after that. Sometimes thiamine comes in 250 mg tabs - that's close enough - you can take that twice a day if you can't find 100 mg or 200 mg tabs. Follow up with Emelyn in Dr. Parikh's office - I think that you have severe lung disease and frequent hospitalizations which prevents you from working and that you should start on an application for SSI at this time Follow up with home health PT and OT Pending Studies at Discharge: Yes (thiamine (b1) level) Stand-Alone Forms: [employer] [place], Smoking Cessation Medications and DC Order Prescriptions: New levofloxacin 750 mg Tablet 750 mg PO DAILY@1100 Qty: 3 0RF lithium carbonate 300 mg tablet extended release 300 mg PO BID Qty: 60 0RF prednisone 20 mg Tablet 20 mg PO QAM Qty: 5 0RF thiamine HCl (vitamin B1) 100 mg Tablet 200 mg PO BID Qty: 120 0RF Rx Instructions: take 2 tabs twice a day for a month then take 1 tab daily after that Continued (DME) Portable Oxygen Misc See Rx Instructions .Route Qty: 1 0RF Rx Instructions: 2L via nc with exertion. ILENE:99 Please provide POC (DME) Oxygen Home Liters Per Minute See Rx Instructions .Route Qty: 1 0RF Rx Instructions: oxygen mask and tubing replacement tamsulosin 0.4 mg capsule 0.4 mg PO DAILY Qty: 90 3RF ondansetron HCl 4 mg tablet 4 mg PO Q12H PRN (Reason: nausea and vomiting) Qty: 30 3RF levothyroxine 100 mcg tablet 100 mcg PO DAILYBB Qty: 90 3RF budesonide-formoterol [Symbicort] 80-4.5 mcg/actuation HFA aerosol inhaler 2 puff inhalation BID Qty: 10.2 3RF albuterol sulfate 1.25 mg/3 mL solution for nebulization 1.25 mg inhalation QID PRN (Reason: shortness of breath or wheezing) Qty: 75 3RF pantoprazole 40 mg tablet,delayed release (DR/EC) 40 mg PO DAILYBB Qty: 90 3RF albuterol sulfate 90 mcg/actuation HFA aerosol inhaler 2 puff inhalation Q6H PRN (Reason: Shortness Of Breath) Qty: 8.5 3RF turmeric 400 mg capsule 400 mg PO HS ferrous sulfate [Feosol] 325 mg (65 mg iron) tablet 325 mg PO HS copper gluconate 2 mg tablet 2 mg PO HS caffeine 200 mg tablet 200 mg PO Q3H Patient Comments: takes 10 times daily ginkgo biloba 40 mg tablet 40 mg PO DAILY Rx Instructions: give with meal/snack amantadine HCl 100 mg capsule 100 mg PO BID Qty: 60 6RF primidone 250 mg tablet 250 mg PO BID Qty: 60 6RF escitalopram oxalate [Lexapro] 20 mg tablet 20 mg PO QAM cholecalciferol (vitamin D3) [Vitamin D3] 125 mcg (5,000 unit) Tablet 62.5 mcg PO DAILY fluticasone propionate [Allergy Relief (fluticasone)] 50 mcg/actuation spray,suspension 1 spray intranasal BID PRN (Reason: Congestion) hydroxyzine HCl 10 mg tablet 5 - 10 mg PO DAILY PRN (Reason: Anxiety) Qty: 30 0RF aripiprazole 30 mg tablet 30 mg PO HS multivitamin with folic acid [Daily-Sigifredo (with folic acid)] 400 mcg tablet 1 tab PO DAILY colestipol 1 gram tablet 2 g PO BID PRN (Reason: Diarrhea) melatonin 3 mg capsule 3 mg PO HS bupropion HCl 300 mg tablet extended release 24 hr 0 mg PO DAILY meclizine 12.5 mg tablet 12.5 mg PO TID PRN (Reason: Dizziness) Rx Instructions: Take 1 tablet (12.5mg) by mouth three times a day As Needed for dizziness. Held prednisone 10 mg tablet 10 mg PO DIRECTED Qty: 20 0RF Hold Instructions: Resume on 06/20/24. resume once you completed five days of prednisone 20 mg Rx Instructions: see taper instructions take 4 tablets once daily for 2 days then 3 tabs for 2 days then 2 tabs for 2 days then 1 tab for 2 days Discontinued lithium carbonate 450 mg tablet extended release 450 mg PO BID Discharge Orders: Discharge Order (Routine); Ordered 06/15/24 Ordered By: Giselle Alston Admission Data Admit Date/Time: 06/11/24 23:39 Attending Provider: Giselle Alston Admit Provider: Solomon Wallace Primary Care Provider: Fermin Parikh Other Providers: Solomon Wallace; [facility] Fax Other Interventions: Discharge Summary Assessment (RN) Last Done: 06/15/24 15:49 Hospital Stay Data Consultations 06/11/24 23:01 ED Decision to Admit Stat Diagnostic Imagining Performed 06/15/24 10:30 Fluoro video [FL video swallow] Routine Pending Results Patient Have Any Pending Studies at Discharge: Yes (thiamine (b1) level) Discharge Instructions Given to Patient (Per Discharging Provider) You were treated for COPD exacerbation and possible pneumonia -continue your nebulizers and inhalers -take levofloxacin (antibiotic) for a few more days -take prednisone 20 mg for five days then reduce to your previous 10 mg daily You will need a repeat chest CT in three months to follow up a pulmonary nodule - we talked to Dr. Piedra about this We reduced your lithium dose to 300 mg twice a day. Your lithium level was at the top of the range, lithium toxicity can be extremely dangerous -follow up with [facility], talk to them about getting another lithium level checked Keep drinking the protein shake every day. We are concerned you might have B1 (thiamine) deficiency - a blood test is pending, however, it is easy to replace. You can buy thiamine at the drug store - you can take 200 mg twice a day for a month, then continue with 100 mg daily after that. Sometimes thiamine comes in 250 mg tabs - that's close enough - you can take that twice a day if you can't find 100 mg or 200 mg tabs. Follow up with Emelyn in Dr. Parikh's office - I think that you have severe lung disease and frequent hospitalizations which prevents you from working and that you should start on an application for SSI at this time Follow up with home health PT and OT Total Time Total Time Spent Total Time Spent (In Minutes): I personally spent: 40 minutes today on clinical care activities including: reviewing chart notes and vital signs reviewing labs reviewing studies discussion with care coordinators - outpatient, inpatient examining and counseling the patient writing orders writing prescriptions, discharge instructions documentation Coding Level of Care Code 06955 INP/OBS DISCH >30 MIN Diagnoses Acute exacerbation of chronic obstructive pulmonary disease J44.1 Pneumonia J18.9 CRESENCIO (acute kidney injury) N17.9 Schizoaffective disorder, bipolar type F25.0 Severe protein-calorie malnutrition E43 Abnormal lithium level in blood R78.89 Food insecurity Z59.41 Pulmonary nodule R91.1
[2024-06-16] MEDS ORDERED: predniSONE 20 MG TAB PO SCH (09:00)
== END 2024-06-15 17:00 | disposition home health service (06) | DRG 193 ==
LOC: ED 21:33 → 4W 23:39 → SUATTDRO 23:39 → 4W 06-12 00:13

== ENCOUNTER 2024-06-23 22:05 | Inpatient (IN) ==
[2024-06-23 22:46] LABS: Basophils # (auto) 0.05 K/uL (0.00-0.20); Basophils % (auto) 0.4 %; Eosinophils # (auto) 0.04 K/uL (0.00-0.50); Eosinophils % (auto) 0.3 %; Hematocrit (blood only) 41.3 % (42.0-52.0); Hemoglobin 13.4 g/dl (14.0-18.0); Immature Granulocytes # (auto) 0.08 K/uL (0.01-0.20); Immature Granulocytes % (auto) 0.6 %; Lymphocytes # (auto) 0.57 K/uL (1.20-3.40); Lymphocytes % (auto) 4.3 %; Mean Corpuscular Hemoglobin 33.8 pg (25.0-34.0); Mean Corpuscular Hgb Conc 32.4 g/dL (32.0-36.0); Mean Corpuscular Volume 104.3 fL (80.0-100.0); Monocytes # (auto) 0.75 K/uL (0.11-0.59); Monocytes % (auto) 5.6 %; Neutrophils # (auto) 11.87 K/uL (1.40-6.50); Neutrophils % (auto) 88.8 %; Platelet Count 386 K/uL (130-400); RDW Coefficient of Variation 13.8 % (11.5-14.5); Red Blood Count 3.96 M/uL (4.70-6.10); White Blood Count 13.36 K/ul (4.8-10.8)
[2024-06-23 23:03] LABS: Albumin Globulin Ratio 1.4 (0.9-2); Albumin Level 3.9 gm/dl (3.4-5.0); BUN Creatinine Ratio 13.8 (10-20); Bilirubin,Total 0.4 mg/dl (0.2-1.0); Calcium 10.2 mg/dl (8.6-10.3); Creatinine Clr Calc Pharmacy 36.2 ml/min; Globulin 2.8 gm/dl (2.5-4.0); Potassium 4.6 mmol/L (3.5-5.1); Total Protein 6.7 gm/dl (6.0-8.3)
[2024-06-23 23:08] LABS: Troponin I High Sensitivity 12.5 pg/ml (0-20)
--- NOTE | 2024-06-23 23:34 | XRay Report ---
Exam(s): XR CXR 1 VIEW EXAM: XR Chest, 1 View CLINICAL HISTORY: Reason for exam: Chest pain, nonspecific. TECHNIQUE: Frontal view of the chest. COMPARISON: Prior chest x-ray from June 11 2024. FINDINGS: Lungs: There is hyperinflation lungs and flattened diaphragms. No consolidation. Pleural space: Unremarkable. No pneumothorax. Heart: Unremarkable. No cardiomegaly. Mediastinum: Unremarkable. Normal mediastinal contour. Bones/joints: Unremarkable. No acute fracture. IMPRESSION: No evidence of an acute cardiopulmonary process. Electronically signed by: Elena Soto MD 06/23/24 23:33 PM
[2024-06-23 23:41] LABS: INR 1.2 (0.9-1.1); Partial Thromboplastin Ratio 1.2; Partial Thromboplastin Time 32 Seconds (21-31)
[2024-06-23] MEDS: methylPREDNISolone 125 MG/2 ML VIAL IV STA (23:45)
[2024-06-23] MEDS: ALBUT/IPRATROP 3MG/0.5MG NEB 3 ML VIAL NEB STA (23:45)
[2024-06-23 23:47] LABS: Magnesium 2.1 mg/dl (1.7-2.4)
--- NOTE | 2024-06-24 00:16 | Emergency Department Note ---
ED Visit Note I was consulted by the Advanced Practice Provider. I personally made/approved the management plan and take responsibility for the patient management. I performed a substantive portion of the visit. This includes the aspects of: -History/Physical/Personally seeing the patient -MDM .
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
[2024-06-24] MEDS: SODIUM CHLORIDE 0.9% 1,000 ML IV SCH ×2 (01:02→23:05)
[2024-06-24] MEDS ORDERED: hydrOXYzine HCl 10 MG TAB PO PRN (03:34)
[2024-06-24] MEDS ORDERED: ONDANSETRON INJ 2 MG/ML 2 ML VIAL IV PRN (03:34)
[2024-06-24] MEDS ORDERED: MECLIZINE 12.5 MG TAB PO PRN (03:34)
[2024-06-24] MEDS ORDERED: FLUTICASONE PROPIONATE NA SPR 16 GM BTL PRN (03:34)
[2024-06-24] MEDS ORDERED: ONDANSETRON 4 MG OD TAB PO PRN (04:09)
[2024-06-24] MEDS: ALBUMIN 25% 25 GM/100 ML VIAL IV SCH (05:11)
[2024-06-24] MEDS: SODIUM CHLORIDE 0.9% 1,000 ML IV ONE (05:44)
[2024-06-24 06:20] LABS: Hematocrit (blood only) 33.1 % (42.0-52.0); Hemoglobin 10.6 g/dl (14.0-18.0); Mean Corpuscular Hemoglobin 34.2 pg (25.0-34.0); Mean Corpuscular Volume 106.8 fL (80.0-100.0); Mean Platelet Volume 9.6 fL (9.4-12.4); Platelet Count 286 K/uL (130-400); RDW Coefficient of Variation 13.7 % (11.5-14.5); RDW Standard Deviation 53.4 fL (36.4-46.3); White Blood Count 12.39 K/ul (4.8-10.8)
[2024-06-24 06:50] LABS: Basophils # (auto) 0.01 K/uL (0.00-0.20); Basophils % (auto) 0.1 %; Immature Granulocytes # (auto) 0.06 K/uL (0.01-0.20); Immature Granulocytes % (auto) 0.5 %; Lymphocytes # (auto) 0.41 K/uL (1.20-3.40); Lymphocytes % (auto) 3.3 %; Monocytes # (auto) 0.33 K/uL (0.11-0.59); Monocytes % (auto) 2.7 %; Neutrophils # (auto) 11.58 K/uL (1.40-6.50); Neutrophils % (auto) 93.4 %
[2024-06-24 07:09] LABS: Albumin Level 3.1 gm/dl (3.4-5.0); Bilirubin,Total 0.3 mg/dl (0.2-1.0); Calcium 8.5 mg/dl (8.6-10.3); Magnesium 1.9 mg/dl (1.7-2.4); Potassium 4.5 mmol/L (3.5-5.1)
[2024-06-24 07:36] LABS: Albumin Globulin Ratio 1.5 (0.9-2); BUN Creatinine Ratio 16.7 (10-20); Creatinine Clr Calc Pharmacy 40.1 ml/min; Globulin 2.1 gm/dl (2.5-4.0); Total Protein 5.2 gm/dl (6.0-8.3)
[2024-06-24] MEDS ORDERED: methylPREDNISolone 10 mg/mL (For Ped Dose < 7mg) IV SCH (08:00)
--- NOTE | 2024-06-24 08:01 | XRay Report ---
EXAM: XR chest 1V portable CLINICAL HISTORY: Hypoxia. TECHNIQUE: X-ray image of the chest is obtained in AP projection. COMPARISON: 06/21/2024 CT, 06/21/2024 CR. FINDINGS: Pulmonary Parenchyma: Pulmonary Parenchyma: Bilateral emphysematous changes of both lungs with flattening of both hemidiaphragm. A small pulmonary nodule is seen in the left middle lung zone. No evidence of lung collapse or consolidation Minimal blunting of the left costophrenic angle suggesting minimal left-sided pleural effusion/thickening. Heart and Mediastinum: Heart size and shape are normal. No mediastinal widening or masses. No hilar or mediastinal lymphadenopathy. Bony Thorax: Suspected old right clavicular fracture. Bony thorax appears intact without fractures or deformities. Soft Tissues: Soft tissues overlying the chest wall are unremarkable. IMPRESSION: 1. Bilateral emphysematous changes. (Stable). 2. Left middle lung zone tiny nodule. (stable). 3. Minimal blunting of the left costophrenic angle suggesting minimal left-sided pleural effusion/thickening (slight interval progression in comparison with the previous study). Electronically signed by Juan Cuadra 06-24-2024 08:01 AM
[2024-06-24] MEDS: HEPARIN SOD 5,000 UNIT/0.5 ML VIAL SQ SCH (08:20)
[2024-06-24] MEDS: methylPREDNISolone 40 MG in SYRINGE 0 ML IV SCH (08:21)
[2024-06-24] MEDS: ESCITALOPRAM OXALATE 20 MG TAB PO SCH (08:21)
[2024-06-24] MEDS: PRIMIDONE 250 MG TAB PO SCH (08:21)
[2024-06-24] MEDS: LITHIUM CARBONATE SLOW REL 300 MG TAB PO SCH (08:21)
[2024-06-24] MEDS: AMANTADINE HCL 100 MG CAPSULE PO SCH (08:21)
[2024-06-24] MEDS: THIAMINE HCL 100 MG TAB PO SCH (08:22)
[2024-06-24] MEDS: buPROPion XL 300 MG TABCR PO SCH (08:22)
[2024-06-24] MEDS: DOXYCYCLINE HYCLATE 100 MG CAP PO SCH (08:22)
[2024-06-24] MEDS: guaiFENesin 600 MG TABCR PO SCH (08:22)
[2024-06-24] MEDS: TAMSULOSIN HCL 0.4 MG CAP PO SCH (08:22)
[2024-06-24] MEDS: CHOLECALCIFEROL 125 MCG (5,000 UNITS) TAB PO SCH (08:22)
[2024-06-24] MEDS: MULTIVITAMIN TAB PO SCH (08:22)
[2024-06-24] MEDS: FLUTICASONE/VILANTEROL 100/25MCG 14 PUFFS/INHALER INH SCH (08:23)
[2024-06-24] MEDS: PANTOprazole 40 MG TAB PO SCH (08:23)
[2024-06-24] MEDS: LEVOTHYROXINE SODIUM 100 MCG TABLET PO SCH (08:23)
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
--- NOTE | 2024-06-24 15:15 | Electrocardiogram Report ---
Test Reason : Blood Pressure : */* mmHG Vent. Rate : 86 BPM Atrial Rate : 86 BPM P-R Int : 154 ms QRS Dur : 88 ms QT Int : 380 ms P-R-T Axes : 87 86 82 degrees QTcB Int : 454 ms Poor data quality, interpretation may be adversely affected Normal sinus rhythm Possible Left atrial enlargement Septal infarct , age undetermined Abnormal ECG When compared with ECG of 21-Jun-2024 00:55, Septal infarct is now Present Confirmed by Duke Blakely ([id number]) on 06/24/2024 3:14:38 PM Referred By: REFERRED SELF Confirmed By: Duke Blakely
[2024-06-24] MEDS: OPTIRAY 320 125ml IV ONE (15:59)
--- NOTE | 2024-06-24 16:21 | XCELERA ---
[id number]
--- NOTE | 2024-06-24 16:23 | CT Scan Report ---
CT pulmonary angiogram with IV contrast History: Chest pain COMPARISON: CT from 06/21/2024 TECHNIQUE: CT angiography of the chest was performed without IV contrast followed by IV contrast, including 3D post processing CTA image reconstruction. Dose reduction techniques were achieved by using automatic exposure control and/or adjustment of mA and/or kV according to patient size and/or use of iterative reconstruction technique. FINDINGS: Diagnostic quality: Adequate There is no evidence for pulmonary embolism. The heart is not enlarged. There is no pericardial effusion. There are no abnormally enlarged hilar or mediastinal lymph nodes. The central tracheobronchial tree is clear. Severe centrilobular predominant emphysema. There is mild bibasilar subsegmental atelectasis. Few, scattered 3 to 4 mm pulmonary nodules in the right lower lobe are unchanged. Pleural-parenchymal thickening of the lung apices bilaterally again seen. Focal atelectatic band in the lingula. There is no pleural effusion. Limited visualized upper abdomen. No destructive osseous changes are seen. IMPRESSION: No evidence for pulmonary embolism. Severe emphysema. Stable sub-5 mm pulmonary nodules. Electronically signed by Viral Sanders 06-24-2024 4:23 PM
[2024-06-24 18:56] LABS: Appearance Urine Clear (Clear); Bilirubin Urine Negative (Negative); Blood Urine Negative (Negative); Color Urine Yellow; Glucose Urine UA Negative (Negative); Ketones Urine Negative (Negative); Leukocyte Esterase Urine Negative (Negative); Nitrite Urine Negative (Negative); Protein Urine Negative (Negative); Specific Gravity Urine 1.018 (1.000-1.030); Urobilinogen Urine Negative (Negative); pH Urine 6.5 (4.5-7.5)
[2024-06-24] MEDS: ARIPiprazole 15 MG TAB PO SCH (20:39)
[2024-06-24] MEDS: FERROUS SULFATE 325 MG TAB PO SCH (20:40)
[2024-06-24] MEDS: MELATONIN 3 MG TAB PO SCH (20:40)
[2024-06-24] MEDS: ALBUT/IPRATROP 3MG/0.5MG NEB 3 ML VIAL NEB SCH (20:44)
[2024-06-24] MEDS ORDERED: COPPER GLUCONATE 2 MG PO SCH (21:00)
[2024-06-25] MEDS: ALBUMIN 25% 25 GM/100 ML VIAL IV ONE (02:18)
[2024-06-25] MEDS: SODIUM CHLORIDE 0.9% 500 ML IV SCH (04:31)
[2024-06-25 04:33] LABS: Base Excess VBG 4.2 mEq/L; HCO3 VBG 30 mmol/L; Oxygen Saturation VBG 98.1 %; PCO2 VBG 50 mmHg (38-50); PO2 VBG 167 mmHg; pH VBG 7.39 (7.36-7.41)
[2024-06-25 04:40] LABS: Hematocrit (blood only) 29.3 % (42.0-52.0); Hemoglobin 9.6 g/dl (14.0-18.0); Mean Corpuscular Hemoglobin 33.9 pg (25.0-34.0); Mean Corpuscular Hgb Conc 32.8 g/dL (32.0-36.0); Mean Corpuscular Volume 103.5 fL (80.0-100.0); Mean Platelet Volume 9.8 fL (9.4-12.4); Platelet Count 300 K/uL (130-400); RDW Coefficient of Variation 13.8 % (11.5-14.5); RDW Standard Deviation 52.7 fL (36.4-46.3); Red Blood Count 2.83 M/uL (4.70-6.10); White Blood Count 9.63 K/ul (4.8-10.8)
[2024-06-25 04:58] LABS: BUN Creatinine Ratio 19.2 (10-20); Calcium 8.2 mg/dl (8.6-10.3); Creatinine Clr Calc Pharmacy 51.1 ml/min; Phosphorus 2.3 mg/dl (2.5-4.9); Potassium 4.3 mmol/L (3.5-5.1)
[2024-06-25 05:00] LABS: Basophils # (auto) 0.02 K/uL (0.00-0.20); Basophils % (auto) 0.2 %; Eosinophils # (auto) 0.05 K/uL (0.00-0.50); Eosinophils % (auto) 0.5 %; Immature Granulocytes # (auto) 0.04 K/uL (0.01-0.20); Immature Granulocytes % (auto) 0.4 %; Lymphocytes # (auto) 0.47 K/uL (1.20-3.40); Lymphocytes % (auto) 4.9 %; Monocytes # (auto) 0.24 K/uL (0.11-0.59); Monocytes % (auto) 2.5 %; Neutrophils # (auto) 8.81 K/uL (1.40-6.50); Neutrophils % (auto) 91.5 %; RBC Morphology Unremarkable
[2024-06-25 05:06] LABS: INR 1.2 (0.9-1.1)
[2024-06-25] MEDS: POT PHOSPHATE MONOBASIC W/ SOD TAB PO SCH (08:36)
[2024-06-25] MEDS: SENNA 8.6 MG TAB PO SCH (08:36)
[2024-06-25] MEDS: PHYTONADIONE 5 MG TAB PO STA (08:37)
[2024-06-25] MEDS: POLYETHYLENE (MIRALAX) 17 GM PACK PO SCH (08:39)
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
--- NOTE | 2024-06-25 12:22 | Palliative Care Consultation ---
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 discussions as detailed above in note (must be >16min) 20 min in subsequent review and synthesis of assessment and plan 20 min communicating with other providers regarding the patient's case: primary tea,m nursing, care mgt, OP care mgt Advanced Care Planning 29195 Advanced Care Planning 30 Min 43824 Advanced Care Planning Additional 30 [place] [address] IN/OBS CONSULT LVL 5,80M (25 - SIGNIFICANT, SEPARATELY IDENTIFIABLE ) Patient Type New Medical Decision Making High Complexity Diagnoses Dyspnea and respiratory abnormalities R06.00; R06.89 Air hunger R09.89 Weakness generalized R53.1 Tremors of nervous system R25.1 Advanced care planning/counseling discussion Z71.89 Palliative care by specialist Z51.5 Additional Codes Advanced Care Planning - 69574 Advanced Care Planning 30 Min: 88106 Advanced Care Planning 30 Min ([id number]) Advanced Care Planning - 11644 Advanced Care Planning Additional 30 Min: 15222 Advanced Care Planning Additional 30 Min ([id number]) Time Spent (min) 125 Comment IP consult [id number] & ACP [id number]
[2024-06-25] MEDS: methylPREDNISolone 30 MG in SYRINGE 0 ML IV SCH (17:16)
[2024-06-25] MEDS: ACETAMINOPHEN 325 MG TAB PO PRN (20:39)
[2024-06-25] MEDS: LORazepam 0.5 MG TAB PO PRN (20:39)
[2024-06-26 04:35] LABS: BUN Creatinine Ratio 24.7 (10-20); Calcium 8.5 mg/dl (8.6-10.3); Creatinine Clr Calc Pharmacy 61.1 ml/min; Potassium 4.1 mmol/L (3.5-5.1)
[2024-06-26 04:46] LABS: INR 1.1 (0.9-1.1); Prothrombin Time 11.6 Seconds (9.0-12.0)
[2024-06-26] MEDS: DOCUSATE SODIUM 100 MG CAP PO SCH (08:40)
[2024-06-26] MEDS: PHYTONADIONE 5 MG TAB PO STA (08:40)
[2024-06-26] MEDS: MoRPHine SULFATE 10 MG/0.5 ML UDP PO PRN (10:47)
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
[2024-06-26] MEDS: methylPREDNISolone 30 MG in SYRINGE 0 ML IV SCH (20:11)
[2024-06-27] MEDS: DOCUSATE SODIUM/SENNA 50/8.6MG TAB PO SCH (08:51)
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
[2024-06-27] MEDS: ARIPiprazole 10 MG TAB PO SCH (20:03)
[2024-06-28 05:07] LABS: Hematocrit (blood only) 38.4 % (42.0-52.0); Hemoglobin 12.4 g/dl (14.0-18.0); Mean Corpuscular Hemoglobin 33.5 pg (25.0-34.0); Mean Corpuscular Hgb Conc 32.3 g/dL (32.0-36.0); Mean Corpuscular Volume 103.8 fL (80.0-100.0); Mean Platelet Volume 9.3 fL (9.4-12.4); Platelet Count 346 K/uL (130-400); RDW Coefficient of Variation 13.8 % (11.5-14.5); RDW Standard Deviation 53.1 fL (36.4-46.3); White Blood Count 9.43 K/ul (4.8-10.8)
[2024-06-28 05:27] LABS: BUN Creatinine Ratio 20.7 (10-20); Calcium 8.7 mg/dl (8.6-10.3); Creatinine Clr Calc Pharmacy 57.8 ml/min; Phosphorus 3.1 mg/dl (2.5-4.9); Potassium 4.1 mmol/L (3.5-5.1)
[2024-06-28] MEDS: predniSONE 10 MG TABLET PO SCH (08:03)
--- NOTE | 2024-06-28 11:35 | Palliative Care Progress Note ---
Date of Service June 28, 2024 Assessment & Plan (1) Palliative care by specialist: Plan: Met with pt at bedside as a continuation of care initiated by previous palliative care practitioner, Dr Moser. Discussed follow up with outpt palliative care clinic for ongoing symptom management and navigation through the progression of disease after discharge, pt willing. Logistics will need to be sorted once discharge disposition is determined. (2) Air hunger: Plan: Minimal PRN use over weekend. Pt denies any respiratory difficulties at present. He shared that he gets "pretty winded" with any exertion, but "no problems when in bed". He shared that he has not felt the need for Roxanol as the ativan is managing his anxiety. Helped pt differentialte PRN reasons for ativan vs morphine. Encouraged pt to request PRN meds for SULLIVAN/air hunger as needed. continue Roxanol 2mg PO q4h prn/Hold for somnolence or RR less than 14; please document RR with each dose administration. If using a consistent amount then may want to consider possibly trying low dose TDF (12mcg) but caution with his cachexia (3) Dyspnea and respiratory abnormalities: Plan: see above #2 Continue Roxanol 2mg PO q4h prn/Hold for somnolence or RR less than 14; please document RR with each dose administration. If using a consistent amount then may want to consider possibly trying low dose TDF (12mcg) but caution with his cachexia (4) Weakness generalized: Plan: encouraged pt optimize his nutrition and considerPT/OT/IPR after discharge to optimize strength and functional independence Plan as above Admission and Anticipated Discharge Date Admission Date: June 24, 2024 Subjective Assessed pt at bedside, he is awake and alert in NAD. NAEON. He denies any discomfort. No visitors present. . Review of Systems Constitutional: + fatigue and + weakness Respiratory: + dyspnea on exertion Cardiovascular: no chest pain, no chest pain with activity and no dyspnea at rest Gastrointestinal: + early satiety; no abdominal pain and n o nausea Musculoskeletal: c/o generalized weakness and feeling shaky w/exertion Neurologic: + generalized weakness weak/shaky with any exertion Physical Exam Constitutional: + ill appearing, + cachectic, + physical limitations, + frail appearing, cooperative and + malnourished Eyes: PERRL, conjunctivae normal, anicteric sclerae ENMT: Mouth: + muffled voice and + poor dentition Throat: uvula midline vocal tremor Neck: normal visual inspection and trachea midline Respiratory: + labored breathing, + uses accessory mu scles, + cough, + prolonged expiratory phase, + tripod positioning and symmetric chest movement; + not able to speak in complete sentence and no stridor Auscultation: + diminished lung sounds (bilaterally) and + crackles Cardiovascular: Rate/Rhythm: + tachycardic Heart Sounds: normal S2 Vessels: dorsalis pedis pulses present (sl soft) Extremities: + varicosities; no pedal edema Gastrointestinal (Abdomen): Inspection/Auscultation: normal bowel sounds and + scaphoid Percussion/Palpation: abdomen soft; abdomen nontender, no guarding and abdomen not rigid Musculoskeletal: gen weakness Skin: + turgor decreased, + skin tightening, + pallor, + brittle hair and + hair thinning Neurologic: Gen weakness +tremor diminished strength AAOx3 attention intact able to follow discussion explained his understanding of his COPD as incurable and end stage Psychiatric: Thought Process: linear/logical thought process Suicidal Th oughts: denies suicidal thoughts, denies suicidal plan and denies suicidal intent Cognition: recent memory grossly intact, remote memory grossly intact, attention grossly intact and language grossly intact Estimated Intelligence: average estimated intelligence Insight: good insight [facility] neg no delirium Results & Data Vital Signs (Past 12 Hours) Vital Signs Temp Pulse Pulse Resp BP BP Pulse Ox 06/28/24 11:25 37.0 C 89 22 123/96 91 06/28/24 10:42 99 H 21 92 06/28/24 08:13 36.9 C 74 19 119/69 94 06/28/24 08:06 68 15 94 06/28/24 08:00 06/28/24 03:56 36.9 C 62 14 110/70 96 06/28/24 03:00 06/28/24 00:41 64 06/27/24 23:47 36.4 C L 59 L 16 112/66 93 O2 Del Method O2 Del Method 06/28/24 11:25 Room Air 06/28/24 10:42 Room Air 06/28/24 08:13 Room Air 06/28/24 08:06 Room Air 06/28/24 08:00 Room Air 06/28/24 03:56 Room Air 06/28/24 03:00 Room Air 06/28/24 00:41 06/27/24 23:47 Room Air Laboratory Results Abnormal lab results 06/28/24 Range/Units 04:38 RBC 3.70 L (4.70-6.10) M/uL Hgb 12.4 L (14.0-18.0) g/dl Hct 38.4 L (42.0-52.0) % MCV 103.8 H (80.0-100.0) fL RDW Std Deviation 53.1 H (36.4-46.3) fL MPV 9.3 L (9.4-12.4) fL Carbon Dioxide 36 H (21-32) mmol/L Anion Gap 2 L (3-11) BUN/Creatinine Ratio 20.7 H (10-20) Glucose 110 H (70-99(Fasting)) mg/dl Diagnostic Findings Chest X-Ray 06/24/24 05:37 EXAM: XR chest 1V portable CLINICAL HISTORY: Hypoxia. TECHNIQUE: X-ray image of the chest is obtained in AP projection. COMPARISON: 06/21/2024 CT, 06/21/2024 CR. FINDINGS: Pulmonary Parenchyma: Pulmonary Parenchyma: Bilateral emphysematous changes of both lungs with flattening of both hemidiaphragm. A small pulmonary nodule is seen in the left middle lung zone. No evidence of lung collapse or consolidation Minimal blunting of the left costophrenic angle suggesting minimal left-sided pleural effusion/thickening. Heart and Mediastinum: Heart size and shape are normal. No mediastinal widening or masses. No hilar or mediastinal lymphadenopathy. Bony Thorax: Suspected old right clavicular fracture. Bony thorax appears intact without fractures or deformities. Soft Tissues: Soft tissues overlying the chest wall are unremarkable. IMPRESSION: 1. Bilateral emphysematous changes. (Stable). 2. Left middle lung zone tiny nodule. (stable). 3. Minimal blunting of the left costophrenic angle suggesting minimal left-sided pleural effusion/thickening (slight interval progression in comparison with the previous study). Electronically signed by Juan Cuadra 06-24-2024 08:01 AM Chest CTA 06/24/24 13:37 CT pulmonary angiogram with IV contrast History: Chest pain COMPARISON: CT from 06/21/2024 TECHNIQUE: CT angiography of the chest was performed without IV contrast followed by IV contrast, including 3D post processing CTA image reconstruction. Dose reduction techniques were achieved by using automatic exposure control and/or adjustment of mA and/or kV according to patient size and/or use of iterative reconstruction technique. FINDINGS: Diagnostic quality: Adequate There is no evidence for pulmonary embolism. The heart is not enlarged. There is no pericardial effusion. There are no abnormally enlarged hilar or mediastinal lymph nodes. The central tracheobronchial tree is clear. Severe centrilobular predominant emphysema. There is mild bibasilar subsegmental atelectasis. Few, scattered 3 to 4 mm pulmonary nodules in the right lower lobe are unchanged. Pleural-parenchymal thickening of the lung apices bilaterally again seen. Focal atelectatic band in the lingula. There is no pleural effusion. Limited visualized upper abdomen. No destructive osseous changes are seen. IMPRESSION: No evidence for pulmonary embolism. Severe emphysema. Stable sub-5 mm pulmonary nodules. Electronically signed by Viral Sanders 06-24-2024 4:23 PM Medications Administered Current Inpatient Medications Acetaminophen (Acetaminophen 325 Mg Tab) 650 mg PO Q4H PRN PRN Reason: Pain or Fever Stop: 07/24/24 03:33 Last Admin: 06/27/24 05:23 Dose: 650 mg Albuterol (Albut/Ipratrop 3mg/0.5mg Neb 3 Ml Vial) 3 ml NEB QIDR [facility]; Protocol Stop: 07/24/24 18:59 Last Admin: 06/28/24 14:33 Dose: 3 ml Amantadine HCl (Amantadine Hcl 100 Mg Capsule) 100 mg PO BID RASHI Stop: 07/24/24 08:59 Last Admin: 06/28/24 08:03 Dose: 100 mg Aripiprazole (Aripiprazole 10 Mg Tab) 30 mg PO HS RASHI Stop: 07/27/24 20:59 Last Admin: 06/27/24 20:03 Dose: 30 mg Bupropion HCl (Bupropion Xl 300 Mg Tabcr) 300 mg PO DAILY RASHI Stop: 07/24/24 08:59 Last Admin: 06/28/24 08:04 Dose: 300 mg Docusate Sodium (Docusate Sodium 100 Mg Cap) 100 mg PO DAILY RASHI Stop: 07/26/24 08:59 Last Admin: 06/28/24 08:10 Dose: 100 mg Doxycycline Hyclate (Doxycycline Hyclate 100 Mg Cap) 100 mg PO BID [facility] Stop: 07/01/24 08:59 Last Admin: 06/28/24 08:04 Dose: 100 mg Escitalopram Oxalate (Escitalopram Oxalate 20 Mg Tab) 20 mg PO QAM RASHI Stop: 07/24/24 08:59 Last Admin: 06/28/24 08:04 Dose: 20 mg Ferrous Sulfate (Ferrous Sulfate 325 Mg Tab) 325 mg PO HS RASHI Stop: 07/24/24 20:59 Last Admin: 06/27/24 20:04 Dose: 325 mg Fluticasone Propionate (Fluticasone Propionate Na Spr 16 Gm Btl) 1 sprays NA BID PRN PRN Reason: Congestion Stop: 07/24/24 03:33 Fluticasone/Vilanterol (Fluticasone/Vilanterol 100/25mcg 14 Puffs/Inhaler) 1 puffs INH DAILY [facility]; Protocol Stop: 07/24/24 08:59 Last Admin: 06/28/24 08:10 Dose: 1 puffs Guaifenesin (Guaifenesin 600 Mg Tabcr) 600 mg PO Q12 RASHI Stop: 07/24/24 08:59 Last Admin: 06/28/24 08:04 Dose: 600 mg Heparin Sodium (Porcine) (Heparin Sod 5,000 Unit/0.5 Ml Vial) 5,000 units SQ Q12 RASHI Stop: 07/24/24 08:59 Last Admin: 06/28/24 08:10 Dose: 5,000 units Levothyroxine Sodium (Levothyroxine Sodium 100 Mcg Tablet) 100 mcg PO DAILYBB [facility] Stop: 07/24/24 06:29 Last Admin: 06/28/24 06:33 Dose: 100 mcg [place] Carbonate ([place] Carbonate Slow Rel 300 Mg Tab) 300 mg PO BID [facility] Stop: 07/24/24 08:59 Last Admin: 06/28/24 08:02 Dose: 300 mg Lorazepam (Lorazepam 0.5 Mg Tab) 0.25 mg PO Q6H PRN PRN Reason: Anxiety, insomnia, restless Stop: 07/25/24 13:38 Last Admin: 06/28/24 08:15 Dose: 0.25 mg Meclizine HCl (Meclizine 12.5 Mg Tab) 12.5 mg PO TID PRN PRN Reason: Dizziness Stop: 07/24/24 03:33 Melatonin (Melatonin 3 Mg Tab) 3 mg PO HS RASHI Stop: 07/24/24 20:59 Last Admin: 06/27/24 20:02 Dose: 3 mg Morphine Sulfate (Morphine Sulfate 10 Mg/0.5 Ml Udp) 2 mg PO Q4H PRN PRN Reason: dspnea, air hunger, RR>18 Stop: 07/09/24 13:31 Last Admin: 06/28/24 10:09 Dose: 2 mg Multivitamins (Multivitamin Tab) 1 tab PO DAILY RASHI Stop: 07/24/24 08:59 Last Admin: 06/28/24 08:04 Dose: 1 tab Ondansetron HCl (Ondansetron 4 Mg Od Tab) 4 mg PO Q12H PRN PRN Reason: nausea and vomiting Stop: 07/24/24 04:08 Pantoprazole Sodium (Pantoprazole 40 Mg Tab) 40 mg PO DAILYBB RASHI Stop: 07/24/24 06:29 Last Admin: 06/28/24 06:32 Dose: 40 mg Potassium Phosphate (Pot Phosphate Monobasic W/ Sod Tab) 1 tab PO TID RASHI Stop: 07/25/24 08:59 Last Admin: 06/28/24 08:10 Dose: 1 tab Prednisone (Prednisone 10 Mg Tablet) 30 mg PO QAM RASHI Stop: 07/28/24 08:59 Last Admin: 06/28/24 08:03 Dose: 30 mg Primidone (Primidone 250 Mg Tab) 250 mg PO BID RASHI Stop: 07/24/24 08:59 Last Admin: 06/28/24 08:03 Dose: 250 mg Senna/Docusate Sodium (Docusate Sodium/Senna 50/8.6mg Tab) 1 tab PO QAM RASHI Stop: 07/27/24 08:59 Last Admin: 06/28/24 08:10 Dose: 1 tab Tamsulosin HCl (Tamsulosin Hcl 0.4 Mg Cap) 0.4 mg PO DAILY RASHI Stop: 07/24/24 08:59 Last Admin: 06/28/24 08:04 Dose: 0.4 mg Thiamine HCl (Thiamine Hcl 100 Mg Tab) 200 mg PO BID RASHI Stop: 07/24/24 08:59 Last Admin: 06/28/24 08:04 Dose: 200 mg Vitamin D (Cholecalciferol 125 Mcg (5,000 Units) Tab) 62.5 mcg PO DAILY RASHI Stop: 07/24/24 08:59 Last Admin: 06/28/24 08:04 Dose: 62.5 mcg PG Care Time/CCT Total # of Minutes Spent Total Time Spent with Patient: Total time spent is greater than 50% in coordination of care (as documented) at patient's floor/unit and/or counseling patient: Coding [place] [address] SUB INP/OBS CARE 06/05MIN Patient Type Established History Problem Focused Exam Problem Focused Medical Decision Making Low Complexity Diagnoses Palliative care by specialist Z51.5 Air hunger R09.89 Dyspnea and respiratory abnormalities R06.00; R06.89 Weakness generalized R53.1
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
[2024-07-01] MEDS: FERROUS SULFATE 325 MG TAB PO SCH (08:22)
[2024-07-01] MEDS: LORazepam 0.5 MG TAB PO SCH (09:36)
--- NOTE | 2024-07-01 10:32 | Palliative Care Progress Note ---
Date of Service July 02, 2024 Assessment & Plan (1) Palliative care by specialist: Plan: Met with pt at bedside as a continuation of care initiated by previous palliative care practitioner, Dr Moser. Discussed follow up with outpt palliative care clinic for ongoing symptom management and navigation through the progression of disease after discharge, pt willing. Logistics will need to be sorted once discharge disposition is determined. (2) Air hunger: Plan: Minimal PRN use noted although pt continues to complain that he gets "pretty winded" with any exertion. He shared that he has not felt the need for Roxanol as the ativan is managing his anxiety. Again reinforced different PRN reasons for ativan vs morphine. Encouraged pt to request PRN meds for [place]/air hunger as needed. He has not used roxanol since 06/28. continue Roxanol 2mg PO q4h prn/Hold for somnolence or RR less than 14; please document RR with each dose administration. If using a consistent amount then may want to consider possibly trying low dose TDF (12mcg) but caution with his cachexia (3) Dyspnea and respiratory abnormalities: Plan: see above #2 Continue Roxanol 2mg PO q4h prn/Hold for somnolence or RR less than 14; please document RR with each dose administration. If using a consistent amount then may want to consider possibly trying low dose TDF (12mcg) but caution with his cachexia (4) Weakness generalized: Plan: encouraged pt optimize his nutrition and considerPT/OT/IPR after discharge to optimize strength and functional independence Plan as above Admission and Anticipated Discharge Date Admission Date: June 24, 2024 Subjective Assessed pt at bedside. He was awake and alert, NAD on RA. No visitors present. 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 Review of Systems Review of Systems: All systems reviewed & are unremarkable except as noted in Subjective Physical Exam Physical Exam: GENERAL: 69 yo cachectic appearing WM. A&O x3. No distress. LUNGS: No accessory muscle use. Poor air exchange. No wheezes, rhonchi or rales appreciated. CARDIOVASCULAR: Regular rate and rhythm. ABDOMEN: Soft, non-tender and non-distended. Bowel sounds normoactive x 4 quad. EXTREMITIES: No edema. Non-tender. Peripheral pulses +2/4. PSYCHIATRIC: Cooperative. Appropriate mood and affect. SKIN: Warm, dry, intact. No rashes or lesions. Results & Data Vital Signs (Past 12 Hours) Vital Signs Temp Pulse Resp BP Pulse Ox Pulse Ox O2 Del Method 07/01/24 10:31 83 20 92 Room Air 07/01/24 08:34 36.5 C 89 16 101/67 95 Room Air 07/01/24 08:00 Oxymask 07/01/24 08:00 94 07/01/24 07:27 36.6 C 70 16 99/63 L 91 Oxymask 07/01/24 07:12 70 19 92 Room Air O2 Del Method O2 Flow Rate O2 Flow Rate 07/01/24 10:31 07/01/24 08:34 07/01/24 08:00 2 07/01/24 08:00 Oxymask 2 07/01/24 07:27 2 07/01/24 07:12 Diagnostic Findings Chest X-Ray 06/24/24 05:37 EXAM: XR chest 1V portable CLINICAL HISTORY: Hypoxia. TECHNIQUE: X-ray image of the chest is obtained in AP projection. COMPARISON: 06/21/2024 CT, 06/21/2024 CR. FINDINGS: Pulmonary Parenchyma: Pulmonary Parenchyma: Bilateral emphysematous changes of both lungs with flattening of both hemidiaphragm. A small pulmonary nodule is seen in the left middle lung zone. No evidence of lung collapse or consolidation Minimal blunting of the left costophrenic angle suggesting minimal left-sided pleural effusion/thickening. Heart and Mediastinum: Heart size and shape are normal. No mediastinal widening or masses. No hilar or mediastinal lymphadenopathy. Bony Thorax: Suspected old right clavicular fracture. Bony thorax appears intact without fractures or deformities. Soft Tissues: Soft tissues overlying the chest wall are unremarkable. IMPRESSION: 1. Bilateral emphysematous changes. (Stable). 2. Left middle lung zone tiny nodule. (stable). 3. Minimal blunting of the left costophrenic angle suggesting minimal left-sided pleural effusion/thickening (slight interval progression in comparison with the previous study). Electronically signed by Juan Cuadra 06-24-2024 08:01 AM Chest CTA 06/24/24 13:37 CT pulmonary angiogram with IV contrast History: Chest pain COMPARISON: CT from 06/21/2024 TECHNIQUE: CT angiography of the chest was performed without IV contrast followed by IV contrast, including 3D post processing CTA image reconstruction. Dose reduction techniques were achieved by using automatic exposure control and/or adjustment of mA and/or kV according to patient size and/or use of iterative reconstruction technique. FINDINGS: Diagnostic quality: Adequate There is no evidence for pulmonary embolism. The heart is not enlarged. There is no pericardial effusion. There are no abnormally enlarged hilar or mediastinal lymph nodes. The central tracheobronchial tree is clear. Severe centrilobular predominant emphysema. There is mild bibasilar subsegmental atelectasis. Few, scattered 3 to 4 mm pulmonary nodules in the right lower lobe are unchanged. Pleural-parenchymal thickening of the lung apices bilaterally again seen. Focal atelectatic band in the lingula. There is no pleural effusion. Limited visualized upper abdomen. No destructive osseous changes are seen. IMPRESSION: No evidence for pulmonary embolism. Severe emphysema. Stable sub-5 mm pulmonary nodules. Electronically signed by Viral Sanders 06-24-2024 4:23 PM Medications Administered Current Inpatient Medications Acetaminophen (Acetaminophen 325 Mg Tab) 650 mg PO Q4H PRN PRN Reason: Pain or Fever Stop: 07/24/24 03:33 Last Admin: 06/27/24 05:23 Dose: 650 mg Albuterol (Albut/Ipratrop 3mg/0.5mg Neb 3 Ml Vial) 3 ml NEB QIDR PRN; Protocol PRN Reason: Shortness Of Breath Or Wheezing Stop: 07/24/24 18:59 Amantadine HCl (Amantadine Hcl 100 Mg Capsule) 100 mg PO BID RASHI Stop: 07/24/24 08:59 Last Admin: 07/02/24 20:44 Dose: 100 mg Aripiprazole (Aripiprazole 10 Mg Tab) 30 mg PO HS RASHI Stop: 07/27/24 20:59 Last Admin: 07/02/24 20:44 Dose: 30 mg Bupropion HCl (Bupropion Xl 300 Mg Tabcr) 300 mg PO DAILY RASHI Stop: 07/24/24 08:59 Last Admin: 07/02/24 08:27 Dose: 300 mg Docusate Sodium (Docusate Sodium 100 Mg Cap) 100 mg PO DAILY RASHI Stop: 07/26/24 08:59 Last Admin: 07/02/24 08:30 Dose: 100 mg Escitalopram Oxalate (Escitalopram Oxalate 20 Mg Tab) 20 mg PO QAM RASHI Stop: 03/15/25 08:59 Last Admin: 07/02/24 08:26 Dose: 20 mg Ferrous Sulfate (Ferrous Sulfate 325 Mg Tab) 325 mg PO Q48H RASHI Stop: 07/31/24 08:59 Last Admin: 07/01/24 08:22 Dose: 325 mg Fluticasone Propionate (Fluticasone Propionate Na Spr 16 Gm Btl) 1 sprays NA BID PRN PRN Reason: Congestion Stop: 07/24/24 03:33 Fluticasone/Vilanterol (Fluticasone/Vilanterol 100/25mcg 14 Puffs/Inhaler) 1 puffs INH DAILY [facility]; Protocol Stop: 07/24/24 08:59 Last Admin: 07/02/24 08:23 Dose: 1 puffs Guaifenesin (Guaifenesin 600 Mg Tabcr) 600 mg PO Q12 RASHI Stop: 07/24/24 08:59 Last Admin: 07/02/24 20:44 Dose: 600 mg Heparin Sodium (Porcine) (Heparin Sod 5,000 Unit/0.5 Ml Vial) 5,000 units SQ Q12 RASHI Stop: 07/24/24 08:59 Last Admin: 07/02/24 20:45 Dose: 5,000 units Levothyroxine Sodium (Levothyroxine Sodium 100 Mcg Tablet) 100 mcg PO DAILYBB [facility] Stop: 07/24/24 06:29 Last Admin: 07/02/24 05:53 Dose: 100 mcg [place] Carbonate ([place] Carbonate Slow Rel 300 Mg Tab) 300 mg PO BID [facility] Stop: 07/24/24 08:59 Last Admin: 07/02/24 20:44 Dose: 300 mg Lorazepam (Lorazepam 0.5 Mg Tab) 0.5 mg PO BID RASHI Stop: 07/31/24 08:59 Last Admin: 07/02/24 20:44 Dose: 0.5 mg Meclizine HCl (Meclizine 12.5 Mg Tab) 12.5 mg PO TID PRN PRN Reason: Dizziness Stop: 07/24/24 03:33 Melatonin (Melatonin 3 Mg Tab) 3 mg PO HS [facility] Stop: 07/24/24 20:59 Last Admin: 07/02/24 20:44 Dose: 3 mg Morphine Sulfate (Morphine Sulfate 10 Mg/0.5 Ml Udp) 2 mg PO Q4H PRN PRN Reason: dspnea, air hunger, RR>18 Stop: 07/09/24 13:31 Last Admin: 06/28/24 10:09 Dose: 2 mg Multivitamins (Multivitamin Tab) 1 tab PO DAILY RASHI Stop: 07/24/24 08:59 Last Admin: 07/02/24 08:27 Dose: 1 tab Ondansetron HCl (Ondansetron 4 Mg Od Tab) 4 mg PO Q12H PRN PRN Reason: nausea and vomiting Stop: 07/24/24 04:08 Pantoprazole Sodium (Pantoprazole 40 Mg Tab) 40 mg PO DAILYBB RASHI Stop: 07/24/24 06:29 Last Admin: 07/02/24 05:53 Dose: 40 mg Prednisone (Prednisone 20 Mg Tab) 20 mg PO QAM RASHI Stop: 07/31/24 08:59 Last Admin: 07/02/24 08:25 Dose: 20 mg Primidone (Primidone 250 Mg Tab) 250 mg PO BID RASHI Stop: 07/24/24 08:59 Last Admin: 07/02/24 20:44 Dose: 250 mg Senna/Docusate Sodium (Docusate Sodium/Senna 50/8.6mg Tab) 1 tab PO QAM [facility] Stop: 07/27/24 08:59 Last Admin: 07/02/24 08:30 Dose: 1 tab Tamsulosin HCl (Tamsulosin Hcl 0.4 Mg Cap) 0.4 mg PO DAILY RASHI Stop: 07/24/24 08:59 Last Admin: 07/02/24 08:27 Dose: 0.4 mg Vitamin D (Cholecalciferol 125 Mcg (5,000 Units) Tab) 62.5 mcg PO DAILY RASHI Stop: 07/24/24 08:59 Last Admin: 07/02/24 08:26 Dose: 62.5 mcg PG Care Time/CCT Total # of Minutes Spent Total Time Spent with Patient: Total time spent is greater than 50% in coordination of care (as documented) at patient's floor/unit and/or counseling patient: C[place] [address] SUB INP/OBS CARE 06/05MIN Patient Type Established History Problem Focused Exam Problem Focused Medical Decision Making Straight Forward Diagnoses Palliative care by specialist Z51.5 Air hunger R09.89 Dyspnea and respiratory abnormalities R06.00; R06.89 Weakness generalized R53.1
[2024-07-01] MEDS: LORazepam 0.5 MG TAB PO STA (10:39)
[2024-07-01] MEDS: predniSONE 20 MG TAB PO SCH (10:40)
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
[2024-07-04 06:11] LABS: Hematocrit (blood only) 39.2 % (42.0-52.0); Mean Corpuscular Hgb Conc 33.2 g/dL (32.0-36.0); Mean Corpuscular Volume 102.6 fL (80.0-100.0); Platelet Count 318 K/uL (130-400); RDW Coefficient of Variation 13.9 % (11.5-14.5); RDW Standard Deviation 52.3 fL (36.4-46.3); Red Blood Count 3.82 M/uL (4.70-6.10); White Blood Count 9.05 K/ul (4.8-10.8)
[2024-07-04 06:34] LABS: BUN Creatinine Ratio 25.6 (10-20); Calcium 9.2 mg/dl (8.6-10.3); Creatinine Clr Calc Pharmacy 59.8 ml/min; Potassium 4.4 mmol/L (3.5-5.1)
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
[2024-07-04] MEDS: ALBUT/IPRATROP 3MG/0.5MG NEB 3 ML VIAL NEB PRN (15:41)
[2024-07-05] MEDS: predniSONE 10 MG TABLET PO SCH (09:09)
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
[2024-07-08 20:43] VITALS: RESP 16
[2024-07-09 07:26] VITALS: BP 107/71; PULSE 74; TEMP 97.2
[2024-07-09 08:11] LABS: Hematocrit (blood only) 35.7 % (42.0-52.0); Hemoglobin 11.7 g/dl (14.0-18.0); Mean Corpuscular Hemoglobin 33.7 pg (25.0-34.0); Mean Corpuscular Hgb Conc 32.8 g/dL (32.0-36.0); Mean Corpuscular Volume 102.9 fL (80.0-100.0); Mean Platelet Volume 9.8 fL (9.4-12.4); Platelet Count 318 K/uL (130-400); RDW Coefficient of Variation 13.9 % (11.5-14.5); RDW Standard Deviation 52.8 fL (36.4-46.3); Red Blood Count 3.47 M/uL (4.70-6.10); White Blood Count 12.01 K/ul (4.8-10.8)
[2024-07-09 08:31] LABS: BUN Creatinine Ratio 25.3 (10-20); Calcium 8.5 mg/dl (8.6-10.3); Creatinine Clr Calc Pharmacy 59.3 ml/min; Potassium 4.2 mmol/L (3.5-5.1); Prothrombin Time 10.9 Seconds (9.0-12.0)
[2024-07-09 09:25] VITALS: O2SAT 94
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
== END 2024-07-09 14:37 | DRG 190 ==
LOC: ED 22:05 → EDINP 06-24 00:34 → SUATTDRO 06-24 00:34 → 1E 06-24 03:34 → 3N 06-29 00:55

== ENCOUNTER 2024-09-06 14:35 | Inpatient (IN) ==
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
[2024-09-06 15:01] LABS: HCO3 VBG 33 mmol/L; Oxygen Saturation VBG 96.3 %; PCO2 VBG 54 mmHg (38-50); PO2 VBG 70 mmHg
[2024-09-06 15:08] LABS: Basophils # (auto) 0.04 K/uL (0.00-0.20); Basophils % (auto) 0.4 %; Eosinophils # (auto) 0.36 K/uL (0.00-0.50); Eosinophils % (auto) 3.2 %; Hematocrit (blood only) 39.9 % (42.0-52.0); Hemoglobin 12.9 g/dl (14.0-18.0); Immature Granulocytes # (auto) 0.07 K/uL (0.01-0.20); Immature Granulocytes % (auto) 0.6 %; Lymphocytes # (auto) 0.68 K/uL (1.20-3.40); Mean Corpuscular Hgb Conc 32.3 g/dL (32.0-36.0); Mean Platelet Volume 9.9 fL (9.4-12.4); Monocytes # (auto) 0.74 K/uL (0.11-0.59); Monocytes % (auto) 6.5 %; Neutrophils # (auto) 9.42 K/uL (1.40-6.50); Neutrophils % (auto) 83.3 %; Platelet Count 366 K/uL (130-400); RDW Coefficient of Variation 13.1 % (11.5-14.5); RDW Standard Deviation 49.2 fL (36.4-46.3); Red Blood Count 3.91 M/uL (4.70-6.10); White Blood Count 11.31 K/ul (4.8-10.8)
--- NOTE | 2024-09-06 15:21 | XRay Report ---
XR chest 1V portable CLINICAL HISTORY: Sepsis. COMPARISON STUDY: Chest CT June 24, 2024. Chest radiograph July 21, 2024. FINDINGS: Lung volumes are normal. Lungs are clear. There is underlying emphysema. There is no pneumo thorax or pleural effusion. Cardiac size is normal. Mediastinal contours are normal. There is no evid ence for pulmonary edema. IMPRESSION: 1. No acute cardiopulmonary findings. No change in appearance of the chest. 2. Emphysema. ACT 112: Negative or not required by law. Electronically signed by: Drake Ochoa M.D. 09/06/2024 3:20 PM
[2024-09-06 15:31] LABS: Alanine Aminotransferase 34 U/L (7-52); Alkaline Phosphatase 148 U/L (34-104); Anion Gap 4 (3-11); Aspartate Aminotransferase 23 U/L (13-39); BUN Creatinine Ratio 24.7 (10-20); Bilirubin,Total 0.3 mg/dl (0.2-1.0); Blood Urea Nitrogen 19 mg/dl (6-23); Calcium 9.4 mg/dl (8.6-10.3); Carbon Dioxide 33 mmol/L (21-32); Chloride 99 mmol/L (98-107); Glucose 180 mg/dl (70-99(Fasting)); Magnesium 1.9 mg/dl (1.7-2.4); Potassium 4.6 mmol/L (3.5-5.1); Sodium 136 mmol/L (136-145)
[2024-09-06 15:58] LABS: INR 1.2 (0.9-1.1); Partial Thromboplastin Ratio 1.2; Partial Thromboplastin Time 32 Seconds (21-31); Prothrombin Time 13.3 Seconds (9.0-12.0)
[2024-09-06 16:09] LABS: Influenza A virus by PCR Negative (Neg); Influenza B virus by PCR Negative (Neg); RSV by PCR Negative (Neg); SARS CoV2 RNA(COVID-19) Ceph NEGATIVE (Negative)
[2024-09-06] MEDS: dexAMETHasone**PF** 10 MG/ML VIAL IV ONE (16:25)
[2024-09-06] MEDS: cefTRIAXone SODIUM 2,000 MG/50 ML BAG IV STA (16:26)
[2024-09-06] MEDS: ALBUT/IPRATROP 3MG/0.5MG NEB 3 ML VIAL NEB STA (16:28)
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
[2024-09-06] MEDS ORDERED: MECLIZINE 12.5 MG TAB PO PRN (18:16)
[2024-09-06] MEDS ORDERED: MAGNESIUM HYDROXIDE SUSP 30 ML UDC PO PRN (18:27)
[2024-09-06] MEDS ORDERED: ALUMINUM/MAGNESIUM SUSP 30 ML UDC PO PRN (18:27)
[2024-09-06] MEDS ORDERED: POLYETHYLENE (MIRALAX) 17 GM PACK PO PRN (18:27)
[2024-09-06] MEDS ORDERED: ONDANSETRON INJ 2 MG/ML 2 ML VIAL IV PRN (18:27)
[2024-09-06] MEDS ORDERED: MELATONIN 3 MG TAB PO PRN (18:27)
[2024-09-06] MEDS: AZITHROMYCIN 250 MG TAB PO ONE (19:52)
[2024-09-06] MEDS: AMANTADINE HCL 100 MG CAPSULE PO SCH (19:53)
[2024-09-06] MEDS: PRIMIDONE 250 MG TAB PO SCH (19:54)
[2024-09-06] MEDS: ENOXAPARIN INJ 30 MG/0.3 ML SYR SQ SCH (19:55)
[2024-09-06] MEDS: methylPREDNISolone 60 MG in SYRINGE 0 ML IV SCH (20:26)
[2024-09-06] MEDS: ALBUT/IPRATROP 3MG/0.5MG NEB 3 ML VIAL INH SCH (20:50)
[2024-09-06] MEDS ORDERED: PRIMIDONE 250 MG TAB PO SCH (21:00)
[2024-09-06] MEDS: MELATONIN 3 MG TAB PO SCH (21:33)
[2024-09-06] MEDS: LITHIUM CARBONATE SLOW REL 300 MG TAB PO SCH (21:33)
[2024-09-06] MEDS: ARIPiprazole 15 MG TAB PO SCH (21:33)
[2024-09-06] MEDS: guaiFENesin 600 MG TABCR PO SCH (21:33)
[2024-09-06] MEDS: FLUTICASONE PROPIONATE NA SPR 16 GM BTL PRN (21:33)
[2024-09-06 21:35] LABS: Appearance Urine Clear (Clear); Bilirubin Urine Negative (Negative); Blood Urine Negative (Negative); Color Urine Yellow; Glucose Urine UA Negative (Negative); Ketones Urine Negative (Negative); Leukocyte Esterase Urine Negative (Negative); Nitrite Urine Negative (Negative); Protein Urine Negative (Negative); Specific Gravity Urine 1.013 (1.000-1.030); Urobilinogen Urine Negative (Negative); pH Urine 6.5 (4.5-7.5)
[2024-09-06] MEDS: LORazepam 0.5 MG TAB PO SCH (21:36)
[2024-09-06] MEDS: oxyCODONE HCL IR 5 MG TAB (IMMEDIATE RELEASE) PO SCH (21:36)
[2024-09-06] MEDS: FLUTICASONE/VILANTEROL 100/25MCG 14 PUFFS/INHALER INH SCH (21:49)
[2024-09-07] MEDS: LEVOTHYROXINE SODIUM 100 MCG TABLET PO SCH (05:58)
[2024-09-07] MEDS: PANTOprazole 40 MG TAB PO SCH (05:59)
[2024-09-07 07:07] LABS: Hematocrit (blood only) 35.9 % (42.0-52.0); Hemoglobin 11.6 g/dl (14.0-18.0); Mean Corpuscular Hemoglobin 32.9 pg (25.0-34.0); Mean Corpuscular Hgb Conc 32.3 g/dL (32.0-36.0); Mean Corpuscular Volume 101.7 fL (80.0-100.0); Mean Platelet Volume 9.8 fL (9.4-12.4); Platelet Count 341 K/uL (130-400); RDW Coefficient of Variation 12.9 % (11.5-14.5); RDW Standard Deviation 48.3 fL (36.4-46.3); Red Blood Count 3.53 M/uL (4.70-6.10); White Blood Count 12.82 K/ul (4.8-10.8)
[2024-09-07 07:26] LABS: Calcium 8.9 mg/dl (8.6-10.3); Creatinine Clr Calc Pharmacy 63.3 ml/min; Potassium 4.5 mmol/L (3.5-5.1)
[2024-09-07 07:29] LABS: Basophils # (auto) 0.04 K/uL (0.00-0.20); Basophils % (auto) 0.3 %; Immature Granulocytes # (auto) 0.07 K/uL (0.01-0.20); Immature Granulocytes % (auto) 0.5 %; Lymphocytes # (auto) 0.69 K/uL (1.20-3.40); Lymphocytes % (auto) 5.4 %; Monocytes % (auto) 2.3 %; Neutrophils # (auto) 11.72 K/uL (1.40-6.50); Neutrophils % (auto) 91.5 %; RBC Morphology Unremarkable
[2024-09-07] MEDS: DOCUSATE SODIUM/SENNA 50/8.6MG TAB PO SCH (08:12)
[2024-09-07] MEDS: DOCUSATE SODIUM 100 MG CAP PO SCH (08:12)
[2024-09-07] MEDS: TAMSULOSIN HCL 0.4 MG CAP PO SCH (08:13)
[2024-09-07] MEDS: MIDODRINE HCL 10 MG TAB PO SCH (08:13)
[2024-09-07] MEDS: buPROPion XL 300 MG TABCR PO SCH (08:13)
[2024-09-07] MEDS: ESCITALOPRAM OXALATE 20 MG TAB PO SCH (08:14)
[2024-09-07] MEDS: AZITHROMYCIN 250 MG TAB PO SCH (08:14)
[2024-09-07] MEDS: FINASTERIDE 5 MG TAB PO SCH (08:15)
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
--- NOTE | 2024-09-07 11:40 | Hospitalist Progress Note ---
Date of Service September 07, 2024 Assessment & Plan (1) Acute on chronic respiratory failure with hypoxia and hypercapnia: (2) End stage COPD: (3) Weakness generalized: (4) Tremors of nervous system: (5) Hypotension: (6) Severe protein-calorie malnutrition: (7) Schizoaffective disorder, bipolar type: (8) Multiple pulmonary nodules: (9) Anemia: (10) Generalized anxiety disorder: (11) Hypothyroidism: Plan 69 yo male PMHx end stage COPD, pulmonary nodules, anemia, schizoaffective disorder (bipolar type), essential tremor, GISELE, hypothyroidism, irritable bowel disease admitted for COPD exacerbation. #Acute on chronic hypoxic, hypercapnic respiratory failure Continue supplemental oxygen with O2 goal 88-92% Duoneb q6h scheduled Solumedrol 60mg q6h Azithromycin Mucinex Flutter valve, incentive spirometry Patient's disease is end stage - would recommend engaging with palliative care again during this admission #Schizoaffective disorder/GISELE/Mental Health Continue home medications Concern for tardive dyskinesia - outpatient recommended follow up with neurology and/or psychiatry #Hypothyroidism Continue Synthroid #Generalized Weakness/Protein-Calorie Malnutrition PT/OT Nutrition consult - liberalize diet, boost and ice cream supplementation #BPH Continue tamsulosin #GERD Pantoprazole Admission and Anticipated Discharge Date Admission Date: September 06, 2024 Supervising Physician Co-Signing Physician Notes ATTESTATION I also saw the patient and confirmed fisher portions of the history and exam. I agree with the impression and plan in the resident documentation, and as summarized below. Feels better this morning - breathing is less effort. EXAM 107/68, 61, 18, 95% on 2 lpm Pleasant. Cachectic appearance. Tremors appreciated, less so than yesterday Lungs with increased movement of air, prolonged exp phase CV distant, regular. DATA Labs WBC 12.82 HgB 11.6 renal function 19/0.77 glucose 180 Imaging CXR no acute findings Micro Blood cultures pending IMPRESSION & PLAN Acute on chronic hypercapnic RF with hypoxia Advanced COPD Severe protein-calorie malnutrition Supplemental oxygen Continue IV steroids, if continues to improve, begin tapering tomorrow Continue azithromycin Appreciate palliative consultation Additional per resident documentation Subjective Patient seen and evaluated at bedside this morning. No acute events overnight. States he feels he is improving. VSS, on 2L NC. Expresses desire not to return to [facility] at discharge. Review of Systems Review of Systems: reviewed, per HPI Physical Exam Physical Exam: Constitutional: ill-appearing, no acute distress, cachectic HEENT: NCAT, no conjunctival injection CV: extremities well-perfused, no LE edema Resp:lung sounds diminished, no increased work of breathing GI: nondistended MSK: no gross deformities appreciated Skin: warm, dry, no rash appreciated Neuro: alert, oriented, no focal neurologic deficit appreciated Results & Data Results & Data Vital Signs (Past 12 Hours) Vital Signs Temp Pulse Pulse Resp BP Pulse Ox O2 Del Method 09/07/24 11:29 36.4 C L 61 18 107/68 95 Nasal Cannula 09/07/24 09:56 Nasal Cannula 09/07/24 07:22 36.2 C L 68 18 102/67 99 Nasal Cannula 09/07/24 07:09 69 16 98 Nasal Cannula 09/07/24 06:50 69 09/07/24 06:00 105/66 09/07/24 02:49 36.4 C L 62 18 98/62 L 98 Nasal Cannula 09/07/24 00:23 66 16 99 Nasal Cannula O2 Flow Rate 09/07/24 11:29 2 09/07/24 09:56 4 09/07/24 07:22 2 09/07/24 07:09 2 09/07/24 06:50 09/07/24 06:00 09/07/24 02:49 4 09/07/24 00:23 2 Resident Activity Tracking Resident Involvement: Resident Care Provided Care Provided: Adult Hospital Medicine (9) Anemia Anemia type: unspecified type Qualified Code(s): D64.9 - Anemia, unspecified (11) Hypothyroidism Hypothyroidism type: acquired Qualified Code(s): E03.9 - Hypothyroidism, unspecified
[2024-09-07] MEDS: BUDESONIDE 0.5 MG/2 ML VIAL (PULMICORT) NEB SCH (20:50)
--- NOTE | 2024-09-08 12:32 | Hospitalist Progress Note ---
Date of Service September 08, 2024 Assessment & Plan (1) Acute on chronic respiratory failure with hypoxia and hypercapnia: (2) End stage COPD: (3) Weakness generalized: (4) Tremors of nervous system: (5) Hypotension: (6) Severe protein-calorie malnutrition: (7) Schizoaffective disorder, bipolar type: (8) Multiple pulmonary nodules: (9) Anemia: (10) Generalized anxiety disorder: (11) Hypothyroidism: Plan 69 yo male PMHx end stage COPD, pulmonary nodules, anemia, schizoaffective disorder (bipolar type), essential tremor, GISELE, hypothyroidism, irritable bowel disease admitted for COPD exacerbation. #Acute on chronic hypoxic, hypercapnic respiratory failure Continue supplemental oxygen with O2 goal 88-92% Duoneb q6h scheduled Solumedrol 60mg q6h Azithromycin Mucinex Flutter valve, incentive spirometry Patient's disease is end stage - would recommend engaging with palliative care again during this admission #Schizoaffective disorder/GISELE/Mental Health Continue home medications Concern for tardive dyskinesia Meeting with psychiatry inpatient to discuss medication management #Hypothyroidism Continue Synthroid #Generalized Weakness/Protein-Calorie Malnutrition PT/OT Nutrition consult - liberalize diet, boost and ice cream supplementation #BPH Continue tamsulosin #GERD Pantoprazole Admission and Anticipated Discharge Date Admission Date: September 06, 2024 Supervising Physician Co-Signing Physician Notes ATTESTATION I also saw the patient and confirmed fisher portions of the history and exam. I agree with the impression and plan in the resident documentation, and as summarized below. He is breathing easier today. He feels his TD is better today. IMPRESSION & PLAN Acute on chronic hypercapnic RF with hypoxia Advanced COPD Severe protein-calorie malnutrition Supplemental oxygen Transition to prednisone tomorrow Continue azithromycin for five day course Appreciate palliative and psychiatry consultation Case management looking at facilities given patient's insistence not to return to [facility] Additional per resident documentation Subjective Patient seen and evaluated at bedside this morning. No acute events overnight. Met with nutrition, palliative care and psych liason yesterday. Plan to set him up with inpatient psych consult to review medications in light of his probable tardive dyskinesia. Reiterates that he does not want to return to [facility] at discharge. Case managment aware Review of Systems Review of Systems: reviewed, per HPI Physical Exam Physical Exam: Constitutional: ill-appearing, no acute distress, cachectic HEENT: NCAT, no conjunctival injection CV: extremities well-perfused, no LE edema Resp:lung sounds diminished, no increased work of breathing GI: nondistended MSK: no gross deformities appreciated Skin: warm, dry, no rash appreciated Neuro: alert, oriented, no focal neurologic deficit appreciated Results & Data Results & Data Vital Signs (Past 12 Hours) Vital Signs Temp Pulse Pulse Pulse Resp BP BP 09/08/24 12:15 78 18 09/08/24 12:05 36.8 C 74 16 112/72 09/08/24 08:57 09/08/24 08:06 36 C L 55 L 16 116/68 09/08/24 07:27 81 18 09/08/24 05:40 66 09/08/24 03:49 36.6 C 67 18 103/61 09/08/24 01:20 77 Pulse Ox O2 Del Method O2 Flow Rate 09/08/24 12:15 99 Nasal Cannula 2 09/08/24 12:05 98 Nasal Cannula 2 09/08/24 08:57 Nasal Cannula 2 09/08/24 08:06 98 Nasal Cannula 2 09/08/24 07:27 90 Nasal Cannula 2 09/08/24 05:40 09/08/24 03:49 97 Nasal Cannula 3 09/08/24 01:20 Resident Activity Tracking Resident Involvement: Resident Care Provided Care Provided: Adult Hospital Medicine (9) Anemia Anemia type: unspecified type Qualified Code(s): D64.9 - Anemia, unspecified (11) Hypothyroidism Hypothyroidism type: acquired Qualified Code(s): E03.9 - Hypothyroidism, unspecified
--- NOTE | 2024-09-08 12:47 | Palliative Care Progress Note ---
Date of Service September 08, 2024 Assessment & Plan (1) Dyspnea and respiratory abnormalities: Plan: He is now on an all nebulizer regimen, tolerating well. No longer a candidate for MDIs, see pulm Clinic note from 08/09 for full details and reccs (2) Weakness generalized: (3) Severe muscle deconditioning: Plan: awaiting dispo, does not want to return to [facility] Asking for [facility] though not likely to meet their acute IP criteria - i have advised him of this daily but he remains hopeful they will make an exception for him (4) Advanced care planning/counseling discussion: Plan: Met with [place] face to face for 25min at bedside for an ACP discussion: He is nervous about the changes he has been experiencing and the overall declining trajectory He has a lot of distress over the growing realizations of how much he needs to take care of to "handle his affairs" and how he has not started any of this work and now feels overwhelmed. He is going to meet with [employer] later today at 3pm He did not want to complete a POLST but we discussed the form's purpose and intent, to help guide medical teams to assure the right care is delivered to him in the manner/preference he wants for himself. He insists on a repeat swallow study, so will have this done tomorrow most likely. He is persevering about aspiration: Ling from speech came by and agreed to another video swallow likely tomorrow or Friday. I spoke with [place] at length about this conviction he has that hes aspirating all the time. He doesnt want a feeding tube. We agreed that he is ok with some texture and liquid thickness changes but ultimately he wants to eat and drink. Current must haves are vanilla ice cream and ice water. I told him we can see what the repeat study shows but if its unchanged from prior there is no further tx for it other than what he is doing i.e. coughing to clear. He was advised Treav ALFARO from our department will follow him tomorrow and Friday/I am out of office. I am available by pager on Friday for any urgent needs. Care mgt is helping with his placement, he has made clear his refusal to return to [facility] and preferentially identified alternate facilities (please see my note from yesterday for details) (5) Severe protein-calorie malnutrition: (6) Palliative care by specialist: (7) Food insecurity: (8) Patient cannot afford medications: Plan As above Await VFSS Thank you for allowing us to participate in the ongoing care of this patient. Please page with any additional concerns. Veronica Moser DNP Director, Palliative Medicine Admission and Anticipated Discharge Date Admission Date: September 06, 2024 Subjective [place] is tolerating the neb based regimen much better He remains generally weak, PS 3, needs assist for OOB and transfers, cannot mobilize without max assist Breathing feels more comfortable per his perception but anxiety about the same Continues to worry about getting his affairs in order, wants to get back t his home so he can sort through things and figure out what he wants to do with things/who to give things to etc. He asked for a swallow eval and tells me "I know I am aspirating, every time when I take anything to eat or to drink." ENVELOPE PRESS OPERATOR arrived during my visit. We queried [place] about symptoms and he repeatedly said "I know I aspirate" but denies acute distress with taking PO Appetite is at baseline, tolerating diet, has been enjoying a lot of ice water and vanilla ice cream per staff His friends have not brought in his laptop or glasses, so he still has some sensory deprivation adding to his anxiety Review of Systems Review of Systems: All systems reviewed & are unremarkable except as noted in Subjective Physical Exam Constitutional: + ill appearing, + cachectic, + physical limitations, + frail appearing and cooperative Eyes: PERRL, conjunctivae normal, anicteric sclerae ENMT: Ears: no hearing impairment Nose: no external nose abnormality Mouth: + dental caries, + poor dentition and + loose teeth Throat: uvula midline Neck: trachea midline, no thyromegaly Respiratory: + uses accessory muscles (with conversat ion), + cough, able to speak in complete sentences and symmetric chest movement Auscultation: + diminished lung sounds and + rhonchi Cardiovascular: Rate/Rhythm: regular rate and regular rhythm Gastrointestinal (Abdomen): Inspection/Auscultation: normal bowel sounds and + scaphoid Musculoskeletal: gen weakness Skin: flaking plaques facial creases c/w psoriasis, erythematous base Psychiatric: Orientation: alert, oriented x 3 and cooperative Eye Contact: + fair eye contact Motor Behavior: + tremor Speech: + pressured speech Affect: + anxious affect Mood: + anxious mood Thought Process: + tangential thought process and + perseveration Insight: + limited insight Judgment: good judgement CAM[facility] screen negative Results & Data Vital Signs (Past 12 Hours) Vital Signs Temp Pulse Pulse Pulse Resp BP BP 09/08/24 12:15 78 18 09/08/24 12:05 36.8 C 74 16 112/72 09/08/24 08:57 09/08/24 08:06 36 C L 55 L 16 116/68 09/08/24 07:27 81 18 09/08/24 05:40 66 09/08/24 03:49 36.6 C 67 18 103/61 09/08/24 01:20 77 Pulse Ox O2 Del Method O2 Flow Rate 09/08/24 12:15 99 Nasal Cannula 2 09/08/24 12:05 98 Nasal Cannula 2 09/08/24 08:57 Nasal Cannula 2 09/08/24 08:06 98 Nasal Cannula 2 09/08/24 07:27 90 Nasal Cannula 2 09/08/24 05:40 09/08/24 03:49 97 Nasal Cannula 3 09/08/24 01:20 Laboratory Results 09/07/24 09/07/24 09/06/24 Range/Units 17:12 06:38 Unknown WBC 12.82 H (4.8-10.8) K/ul RBC 3.53 L (4.70-6.10) M/uL Hgb 11.6 L (14.0-18.0) g/dl Hct 35.9 L (42.0-52.0) % MCV 101.7 H (80.0-100.0) fL MCH 32.9 (25.0-34.0) pg MCHC 32.3 (32.0-36.0) g/dL RDW Std Deviation 48.3 H (36.4-46.3) fL RDW Coeff of Josie 12.9 (11.5-14.5) % Plt Count 341 (130-400) K/uL MPV 9.8 (9.4-12.4) fL Immature Gran % (Auto) 0.5 % Neut % (Auto) 91.5 % Lymph % (Auto) 5.4 % [place]pson % (Auto) 2.3 % Eos % (Auto) 0.0 % Baso % (Auto) 0.3 % Neut # (Auto) 11.72 H (1.40-6.50) K/uL Lymph # (Auto) 0.69 L (1.20-3.40) K/uL Upson # (Auto) 0.30 (0.11-0.59) K/uL Eos # (Auto) 0.00 (0.00-0.50) K/uL Baso # (Auto) 0.04 (0.00-0.20) K/uL Immature Gran # (Auto) 0.07 (0.01-0.20) K/uL RBC Morphology Unremarkable PT (9.0-12.0) Seconds INR (0.9-1.1) APTT (21-31) Seconds PTT Ratio VBG pH (7.36-7.41) VBG pCO2 (38-50) mmHg VBG pO2 mmHg VBG HCO3 mmol/L VBG O2 Saturation % VBG Base Excess mEq/L Sodium 136 (136-145) mmol/L Potassium 4.5 (3.5-5.1) mmol/L Chloride 98 (98-107) mmol/L Carbon Dioxide 33 H (21-32) mmol/L Anion Gap 5 (3-11) BUN 21 (6-23) mg/dl Creatinine 0.84 (0.6-1.4) mg/dl Est Cr Clr Drug Dosing 63.3 eGFR 94.40 BUN/Creatinine Ratio 25.0 H (10-20) Glucose 147 H (70-99(Fasting)) mg/dl POC Glucose 274 H (70-99) mg/dl Lactate (0.4-2.0) mmol/L Calcium 8.9 (8.6-10.3) mg/dl Magnesium (1.7-2.4) mg/dl Total Bilirubin (0.2-1.0) mg/dl Direct Bilirubin (0-0.2) mg/dl AST (13-39) U/L ALT (7-52) U/L Alkaline Phosphatase (34-104) U/L Troponin I High Sens (0-20) pg/ml Total Protein (6.0-8.3) gm/dl Albumin (3.4-5.0) gm/dl Procalcitonin (0-0.5) ng/ml Urine Color Urine Appearance (Clear) Urine pH (4.5-7.5) Ur Specific [employer] (1.000-1.030) Urine Protein (Negative) Urine Glucose (UA) (Negative) Urine Ketones (Negative) Urine Blood (Negative) Urine Nitrite (Negative) Urine Bilirubin (Negative) Urine Urobilinogen (Negative) Ur Leukocyte Esterase (Negative) Nasal Screen MRSA (PCR) Negative (Negative) [place] 1.1 (0.6-1.2) mmol/L SARS-CoV-2 (PCR) (Negative) Influenza Type A (PCR) (Neg) Influenza Type B (PCR) (Neg) RSV (RT-PCR) (Neg) 09/06/24 09/06/24 09/06/24 Range/Units 20:50 15:18 14:48 WBC 11.31 H (4.8-10.8) K/ul RBC 3.91 L (4.70-6.10) M/uL Hgb 12.9 L (14.0-18.0) g/dl Hct 39.9 L (42.0-52.0) % MCV 102.0 H (80.0-100.0) fL MCH 33.0 (25.0-34.0) pg MCHC 32.3 (32.0-36.0) g/dL RDW Std Deviation 49.2 H (36.4-46.3) fL RDW Coeff of Josie 13.1 (11.5-14.5) % Plt Count 366 (130-400) K/uL MPV 9.9 (9.4-12.4) fL Immature Gran % (Auto) 0.6 % Neut % (Auto) 83.3 % Lymph % (Auto) 6.0 % Upson % (Auto) 6.5 % Eos % (Auto) 3.2 % Baso % (Auto) 0.4 % Neut # (Auto) 9.42 H (1.40-6.50) K/uL Lymph # (Auto) 0.68 L (1.20-3.40) K/uL Upson # (Auto) 0.74 H (0.11-0.59) K/uL Eos # (Auto) 0.36 (0.00-0.50) K/uL Baso # (Auto) 0.04 (0.00-0.20) K/uL Immature Gran # (Auto) 0.07 (0.01-0.20) K/uL RBC Morphology PT 13.3 H (9.0-12.0) Seconds INR 1.2 H (0.9-1.1) APTT 32 H (21-31) Seconds PTT Ratio 1.2 VBG pH 7.40 (7.36-7.41) VBG pCO2 54 H (38-50) mmHg VBG pO2 70 mmHg VBG HCO3 33 mmol/L VBG O2 Saturation 96.3 % VBG Base Excess 7.0 mEq/L Sodium 136 (136-145) mmol/L Potassium 4.6 (3.5-5.1) mmol/L Chloride 99 (98-107) mmol/L Carbon Dioxide 33 H (21-32) mmol/L Anion Gap 4 (3-11) BUN 19 (6-23) mg/dl Creatinine 0.77 (0.6-1.4) mg/dl Est Cr Clr Drug Dosing Not Reportable eGFR 96.91 BUN/Creatinine Ratio 24.7 H (10-20) Glucose 180 H (70-99(Fasting)) mg/dl POC Glucose (70-99) mg/dl Lactate 1.1 (0.4-2.0) mmol/L Calcium 9.4 (8.6-10.3) mg/dl Magnesium 1.9 (1.7-2.4) mg/dl Total Bilirubin 0.3 (0.2-1.0) mg/dl Direct Bilirubin 0.0 (0-0.2) mg/dl AST 23 (13-39) U/L ALT 34 (7-52) U/L Alkaline Phosphatase 148 H (34-104) U/L Troponin I High Sens 9.0 (0-20) pg/ml Total Protein 7.0 (6.0-8.3) gm/dl Albumin 4.0 (3.4-5.0) gm/dl Procalcitonin 0.10 (0-0.5) ng/ml Urine Color Yellow Urine Appearance Clear (Clear) Urine pH 6.5 (4.5-7.5) Ur Specific [employer] 1.013 (1.000-1.030) Urine Protein Negative (Negative) Urine Glucose (UA) Negative (Negative) Urine Ketones Negative (Negative) Urine Blood Negative (Negative) Urine Nitrite Negative (Negative) Urine Bilirubin Negative (Negative) Urine Urobilinogen Negative (Negative) Ur Leukocyte Esterase Negative (Negative) Nasal Screen MRSA (PCR) (Negative) [place] 1.0 (0.6-1.2) mmol/L SARS-CoV-2 (PCR) NEGATIVE (Negative) Influenza Type A (PCR) Negative (Neg) Influenza Type B (PCR) Negative (Neg) RSV (RT-PCR) Negative (Neg) Diagnostic Findings Chest X-Ray 09/06/24 14:52 XR chest 1V portable CLINICAL HISTORY: Sepsis. COMPARISON STUDY: Chest CT June 24, 2024. Chest radiograph July 21, 2024. FINDINGS: Lung volumes are normal. Lungs are clear. There is underlying emphysema. There is no pneumothorax or pleural effusion. Cardiac size is normal. Mediastinal contours are normal. There is no evidence for pulmonary edema. IMPRESSION: 1. No acute cardiopulmonary findings. No change in appearance of the chest. 2. Emphysema. ACT 112: Negative or not required by law. Electronically signed by: Drake Ochoa M.D. 09/06/2024 3:20 PM PG Care Time/CCT Total # of Minutes Spent Total Time Spent with Patient: Total time spent is greater than 50% in coordination of care (as documented) at patient's floor/unit and/or counseling patient: I spent 80 minutes overall addressing this case: 10 min in medical data review/discussion with referring provider(s) and/or preparation for the visit 20 min in direct interaction with the patient/exam 25 min in Advance Care Planning/Goals of Care discussions as detailed above in note (must be >16min) 10 min in subsequent review and synthesis of assessment and plan 15 min communicating with other providers regarding the patient's case: ENVELOPE PRESS OPERATOR, primary team, nursing, care mgt Advanced Care Planning 75914 Advanced Care Planning 30 Min [place] [address] SUB INP/OBS CARE 3/50MIN (25 - SIGNIFICANT, SEPARATELY IDENTIFIABLE ) Patient Type Established Medical Decision Making High Complexity Diagnoses Dyspnea and respiratory abnormalities R06.00; R06.89 Weakness generalized R53.1 Severe muscle deconditioning R29.898 Advanced care planning/counseling discussion Z71.89 Severe protein-calorie malnutrition E43 Palliative care by specialist Z51.5 Food insecurity Z59.41 Patient cannot afford medications Z59.86 Additional Codes Advanced Care Planning - 05691 Advanced Care Planning 30 Min: 94552 Advanced Care Planning 30 Min ([id number]) Comment [id number], [id number]
--- NOTE | 2024-09-09 08:56 | Psychiatric Progress Note ---
Date of Service September 09, 2024 Interval History Chief Complaint "[]". Subjective Subjective Patient was seen & assessed and interval progress reviewed with [treatment team] [nursing and social work] Physical Exam Vital Signs (Past 24 Hours) Last Vital Signs Temp 36.4 C L 09/09/24 07:21 Pulse 69 09/09/24 07:39 Resp 18 09/09/24 07:39 BP 125/71 09/09/24 07:21 Pulse Ox 90 09/09/24 07:39 O2 Del Method Oxymask 09/09/24 07:39 O2 Flow Rate 2 09/09/24 07:39 Results & Data ([facility]) Current Inpatient Medications Current Inpatient Medications: Current Inpatient Medications Acetaminophen (Acetaminophen 325 Mg Tab) 650 mg PO Q4H PRN PRN Reason: Pain or Fever Stop: 10/06/24 18:26 Al Hydrox/Mg Hydrox/Simethicone (Aluminum/Magnesium Susp 30 Ml Udc) 15 ml PO Q4H PRN PRN Reason: Dyspepsia Stop: 10/06/24 18:26 Albuterol (Albut/Ipratrop 3mg/0.5mg Neb 3 Ml Vial) 3 ml INH Q6R RASHI Stop: 10/06/24 18:59 Last Admin: 09/09/24 07:38 Dose: 3 ml Albuterol (Albut/Ipratrop 3mg/0.5mg Neb 3 Ml Vial) 3 ml NEB Q2H PRN PRN Reason: Shortness of Breath/Wheezing Stop: 10/06/24 18:26 Amantadine HCl (Amantadine Hcl 100 Mg Capsule) 100 mg PO DAILY@0900,1800 RASHI Stop: 10/06/24 18:44 Last Admin: 09/09/24 08:54 Dose: 100 mg Aripiprazole (Aripiprazole 15 Mg Tab) 30 mg PO HS RASHI Stop: 10/06/24 20:59 Last Admin: 09/08/24 20:54 Dose: 30 mg Azithromycin (Azithromycin 250 Mg Tab) 250 mg PO QAM RASHI Stop: 09/10/24 09:01 Last Admin: 09/09/24 08:54 Dose: 250 mg Budesonide (Budesonide 0.5 Mg/2 Ml Vial (Pulmicort)) 0.5 mg NEB BIDR RASHI Stop: 10/07/24 18:59 Last Admin: 09/09/24 07:38 Dose: 0.5 mg Bupropion HCl (Bupropion Xl 300 Mg Tabcr) 300 mg PO QAM RASHI Stop: 10/07/24 08:59 Last Admin: 09/09/24 08:54 Dose: 300 mg Docusate Sodium (Docusate Sodium 100 Mg Cap) 100 mg PO QAM RASHI Stop: 10/07/24 08:59 Last Admin: 09/08/24 08:17 Dose: 100 mg Enoxaparin Sodium (Enoxaparin Inj 30 Mg/0.3 Ml Syr) 30 mg SQ Q24H RASHI Stop: 10/06/24 18:59 Last Admin: 09/08/24 20:52 Dose: 30 mg Escitalopram Oxalate (Escitalopram Oxalate 20 Mg Tab) 20 mg PO QAM RASHI Stop: 10/07/24 08:59 Last Admin: 09/09/24 08:54 Dose: 20 mg Finasteride (Finasteride 5 Mg Tab) 5 mg PO QAM RASHI Stop: 10/07/24 08:59 Last Admin: 09/09/24 08:54 Dose: 5 mg Fluticasone Propionate (Fluticasone Propionate Na Spr 16 Gm Btl) 1 sprays NA BID PRN PRN Reason: Congestion Stop: 10/06/24 18:15 Last Admin: 09/06/24 21:33 Dose: 1 sprays Guaifenesin (Guaifenesin 600 Mg Tabcr) 1,200 mg PO BID RASHI Stop: 10/06/24 20:59 Last Admin: 09/09/24 08:54 Dose: 1,200 mg Methylprednisolone 60 mg/ (Syringe) 0.96 mls @ 1.5 mls/min IV Q6H RASHI Stop: 10/06/24 18:59 Last Admin: 09/09/24 08:53 Dose: 1.5 mls/min Levothyroxine Sodium (Levothyroxine Sodium 100 Mcg Tablet) 100 mcg PO DAILYBB RASHI Stop: 10/07/24 06:29 Last Admin: 09/09/24 05:48 Dose: 100 mcg [place] Carbonate ([place] Carbonate Slow Rel 300 Mg Tab) 300 mg PO BID RASHI Stop: 10/06/24 20:59 Last Admin: 09/09/24 08:55 Dose: 300 mg Lorazepam (Lorazepam 0.5 Mg Tab) 0.5 mg PO Q8 RASHI Stop: 10/06/24 21:59 Last Admin: 09/09/24 05:48 Dose: 0.5 mg Magnesium Hydroxide (Magnesium Hydroxide Susp 30 Ml Udc) 30 ml PO Q12H PRN PRN Reason: Constipation Stop: 10/06/24 18:26 Meclizine HCl (Meclizine 12.5 Mg Tab) 12.5 mg PO Q8H PRN PRN Reason: Dizziness Stop: 10/06/24 18:15 Melatonin (Melatonin 3 Mg Tab) 3 mg PO HS RASHI Stop: 10/06/24 20:59 Last Admin: 09/08/24 22:58 Dose: 3 mg Melatonin (Melatonin 3 Mg Tab) 6 mg PO HS PRN PRN Reason: Sleep Stop: 10/06/24 18:26 Midodrine (Midodrine Hcl 10 Mg Tab) 10 mg PO DAILY@0800,1300,1700 [facility] Stop: 10/07/24 07:59 Last Admin: 09/09/24 08:54 Dose: 10 mg Ondansetron HCl (Ondansetron Inj 2 Mg/Ml 2 Ml Vial) 4 mg IV Q6H PRN PRN Reason: Nausea Stop: 10/06/24 18:26 Oxycodone HCl (Oxycodone Hcl Ir 5 Mg Tab (Immediate Release)) 5 mg PO Q4H PRN PRN Reason: Pain 5+ Stop: 09/20/24 18:15 Oxycodone HCl (Oxycodone Hcl Ir 5 Mg Tab (Immediate Release)) 5 mg PO Q12H [facility] Stop: 09/20/24 20:59 Last Admin: 09/08/24 20:51 Dose: 5 mg Pantoprazole Sodium (Pantoprazole 40 Mg Tab) 40 mg PO DAILYBB [facility] Stop: 10/07/24 06:29 Last Admin: 09/09/24 05:48 Dose: 40 mg Polyethylene Glycol (Polyethylene (Miralax) 17 Gm Pack) 17 gm PO DAILY PRN PRN Reason: Constipation Stop: 10/06/24 18:26 Primidone (Primidone 250 Mg Tab) 250 mg PO DAILY@0900,1800 [facility] Stop: 10/06/24 18:59 Last Admin: 09/09/24 08:55 Dose: 250 mg Senna/Docusate Sodium (Docusate Sodium/Senna 50/8.6mg Tab) 1 tab PO QAM [facility] Stop: 10/07/24 08:59 Last Admin: 09/08/24 08:17 Dose: 1 tab Tamsulosin HCl (Tamsulosin Hcl 0.4 Mg Cap) 0.4 mg PO DAILY [facility] Stop: 10/07/24 08:59 Last Admin: 09/09/24 08:54 Dose: 0.4 mg
--- NOTE | 2024-09-09 09:05 | Electrocardiogram Report ---
Test Reason : Blood Pressure : */* mmHG Vent. Rate : 84 BPM Atrial Rate : 84 BPM P-R Int : 154 ms QRS Dur : 92 ms QT Int : 372 ms P-R-T Axes : 87 6 76 degrees QTcB Int : 439 ms Normal sinus rhythm Right atrial enlargement Pulmonary disease pattern Abnormal ECG When compared with ECG of 21-Jul-2024 11:00, No significant change was found Confirmed by Raj Cohen ([id number]) on 09/09/2024 9:05:33 AM Referred By: REFERRED SELF Confirmed By: Raj Cohen
--- NOTE | 2024-09-09 11:23 | Fluoroscopy Report ---
FL video swallow CLINICAL HISTORY: r/o aspiration COMPARISON STUDY: 06/15/2024 TECHNIQUE: The patient was given a barium mixture to drink a very consistencies by speech pathology. Swallowing function was observed fluoroscopically with rapid sequence filming employed. Total fluoros copy time 2.26 minutes. Total dose 3.73mGy FINDINGS: Deglutition was hesitant with persistent tongue quivering. There is pronounced premature sp ill over the base of the tongue with pronounced pharyngeal recess pooling. Repetitive aspiration was demonstrated with the thinner consistencies. Most of these aspiration events were silent although one event triggered a cough response. IMPRESSION: Diffusely demonstrable aspiration with thinner consistencies. Most of the aspiration az nts were silent. Please refer to the speech pathology report for full discussion of the findings. ACT 112: Negative or not required by law. Electronically signed by: Michelle Araiza M.D. 09/09/2024 11:22 AM
--- NOTE | 2024-09-09 12:27 | Hospitalist Progress Note ---
Date of Service September 09, 2024 Assessment & Plan (1) Acute on chronic respiratory failure with hypoxia and hypercapnia: (2) End stage COPD: (3) Weakness generalized: (4) Tremors of nervous system: (5) Hypotension: (6) Severe protein-calorie malnutrition: (7) Schizoaffective disorder, bipolar type: (8) Multiple pulmonary nodules: (9) Anemia: (10) Generalized anxiety disorder: (11) Hypothyroidism: (12) Aspiration into airway: Plan 69 yo male PMHx end stage COPD, pulmonary nodules, anemia, schizoaffective disorder (bipolar type), essential tremor, GISELE, hypothyroidism, irritable bowel disease admitted for COPD exacerbation. #Acute on chronic hypoxic, hypercapnic respiratory failure Continue supplemental oxygen with O2 goal 88-92% Duoneb q6h scheduled Solumedrol 60mg q6h Azithromycin Mucinex Flutter valve, incentive spirometry Patient's disease is end stage Palliative Care consult - appreciate recommendations #Schizoaffective disorder/GISELE/Mental Health Continue home medications Concern for tardive dyskinesia Meeting with psychiatry inpatient to discuss medication management #Hypothyroidism Continue Synthroid #Generalized Weakness/Protein-Calorie Malnutrition PT/OT Nutrition consult - liberalize diet, boost and ice cream supplementation #Aspiration Repeat swallow study with aspiration of thin and thick liquids Appreciate speech therapy recommendations #BPH Continue tamsulosin #GERD Pantoprazole Admission and Anticipated Discharge Date Admission Date: September 06, 2024 Supervising Physician Co-Signing Physician Notes ATTESTATION I also saw the patient and confirmed fisher portions of the history and exam. I agree with the impression and plan in the resident documentation, and as summarized below. Feels OK, although breathing a little tight - he is due for and just about to get a neb treatment as we walk into the room. EXAM VSS, although mildly tachycardic Lungs with diffuse wheeze CV regular by tachycardic IMPRESSION & PLAN Acute on chronic hypercapnic RF with hypoxia Advanced COPD Severe protein-calorie malnutrition Supplemental oxygen Will transition to prednisone tomorrow Continue azithromycin for five day course Appreciate palliative and psychiatry consultation Referral to [facility] per patient request Additional per resident documentation Subjective Patient seen and evaluated at bedside this morning. No acute events overnight. Somewhat lethargic this am. Underwent [employer] evaluation with swallow study which shows gross, repeated aspiration events with thick and thin liquids. Overall VSS. Remains on 2L NC. Review of Systems Review of Systems: reviewed, per HPI Physical Exam 2 Physical Exam: Constitutional: ill-appearing, no acute distress, cachectic HEENT: NCAT, no conjunctival injection CV: extremities well-perfused, no LE edema Resp:lung sounds diminished, no increased work of breathing GI: nondistended MSK: no gross deformities appreciated Skin: warm, dry, no rash appreciated Neuro: alert, oriented, no focal neurologic deficit appreciated Results & Data Results & Data Vital Signs (Past 12 Hours) Vital Signs Temp Pulse Pulse Resp BP Pulse Ox O2 Del Method 09/09/24 12:09 102 H 18 93 Nasal Cannula 09/09/24 11:09 36.4 C L 91 H 120/76 99 Nasal Cannula 09/09/24 09:22 Nasal Cannula 09/09/24 07:39 69 18 90 Oxymask 09/09/24 07:21 36.4 C L 69 125/71 98 Oxymask 09/09/24 05:34 65 09/09/24 02:28 36.7 C 74 18 120/73 95 Nasal Cannula 09/09/24 01:09 77 16 96 Nasal Cannula O2 Flow Rate 09/09/24 12:09 2 09/09/24 11:09 2 09/09/24 09:22 2 09/09/24 07:39 2 09/09/24 07:21 2 09/09/24 05:34 09/09/24 02:28 2 09/09/24 01:09 2 Resident Activity Tracking Resident Involvement: Resident Care Provided Care Provided: Adult Hospital Medicine (9) Anemia Anemia type: unspecified type Qualified Code(s): D64.9 - Anemia, unspecified (11) Hypothyroidism Hypothyroidism type: acquired Qualified Code(s): E03.9 - Hypothyroidism, unspecified
--- NOTE | 2024-09-09 15:33 | Psychiatric Consultation ---
Date of Consultation September 09, 2024 Impression / Recommendations Impression By history, Schizoaffective disorder, GISELE r/o OCD. r/o Drug induced subacute dyskinesia (possible tardive dyskinesia) By history, Essential tremor (1) End stage COPD: (2) Schizoaffective disorder: Schizoaffective disorder type: unspecified Qualified Code(s): F25.9 - Schizoaffective disorder, unspecified Plan Plan: No indication for a psychiatric admission at this time. Recommend Neurology consult to evaluate the patient's tremors and rule out the other movement disorder. May benefit from VMAT2 inhibitors. However, In light of his end stage COPD, benefits of this treatment must be carefully weighed against the risks. Will defer this to pt's regular outpatient psychiatric provider. Continue current medication. Check lithium level. Explore non-pharmacological interventions, such as occupational therapy, to help the patient manage their tremors and improve their ability to perform daily tasks. I spent 120 minutes directly interviewing the patient, reviewing records, labs documenting and discussing with clinical team. Psych History Identifying Data 69 y/o M h/o end stage COPD, malnutrition, Schizoaffective disorder bipolar type. Psychiatry consulted to evaluate for Tardive Dyskinesia. Psychiatric consult note from 06/2024 reviewed. Case discussed with Psych Liaison. Chief Complaint "Medication recommendations for Tardive Dyskinesia". History of Present Illness 69-year-old male with a past medical history of Schizoaffective Disorder, GISELE, r/o OCD, multiple admissions for COPD exacerbations, pulmonary nodules, pneumonia, severe protein calorie malnutrition, prostate enlargement with LUTS, essential tremor, generalized anxiety disorder, hypothyroidism, and irritable bowel syndrome. Psychiatry was consulted to evaluate for possible tardive dyskinesia after pt complained of a tremor which he attributes to side effects of his current medications. Prior psychiatric notes were reviewed, including psych consult dated 07/06/24. HPI: He reports a tremor, with difficulty typing phone numbers due to the tremors, often requiring multiple attempts and frequent use of the backspace fisher. The tremors are affecting his eating and drinking due to the spillage that occurs. He also reported that his handwriting has become small and difficult to read. Pt endorses a family history of Parkinsons disease in his maternal grandfather. He reports taking amantadine for about three months, prescribed by a PA named Melany Kraft, for alertness and for EPS. He takes Primidone for essential tremor. During the interview, he was noted to have significant intention tremor but no tremor at rest. Abnormal involuntary movements of his mouth were noted. No writhing, twisting, jerking movements noted.Med regimen includes Abilify 30 mg qhs, Lexapro 20 mg qhs, Amantadine 100 mg bid, Bupriprion XL 300 mg daily, Lorazepam 0.5 mg q 8 hrs, and lithium 300 mg bid. At this time, he denied active symptoms of depression, yesenia, psychosis, suicidal ideation or homicidal ideation. Additionally, pt reports that he prefers not to go back to [facility] and if continued care is needed he prefers to be referred to other facilities. Outpatient psychiatric follow up is at [facility] for medical management of psych meds; but has not had an opportunity to make any appointments due to being in and out of hospitalization settings. TRUDY: Documented history of drug use (none currently). In the past, he has had a marijuana card. Social History: Until recently, he worked as an [employer]. 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 Family History: The patient mentioned that their paternal grandfather had Parkinson's disease. Past Psychiatric History Previous Psych History: Psychiatric History: 20 year history of mental illness, with a diagnosis of schizoaffective disorder and has been treated with Abilify, Lexapro and lithium. Per chart, pt has long standing chronic SI with no intent or plan. Psychiatry was consulted on 07/05/24, with no acute findings and a recommendation to continue the course of treatment at that time. Excerpt from Dr Mares note: Patient presents a history of Schizoaffective disorder, bipolar type. Does not present active depression, yesenia, psychosis, suicidal or homicidal ideation. He is medication adherent and presents a good understanding of his scheduled medications. He presents no significant dysfunc tion with ADLs/iADLs/social functioning. May benefit from some assistance at home given his physical status. Has stable supports. Presents fair insight and judgement. He is future oriented. On mental status exam, presents a bright and reactive affect with a normal thought process. No acute safety concerns other than his ability to drive a motor vehicle. He presents a reasonable plan regarding this. No gross memory or concentration deficits on interview. Labs reviewed: mild anemia, elevated BUN/Cr, UA unremarkable, Almyra within therapeutic range. Was counseled about diet and housing insecurity. From my perspective, is psychiatrically stable and ready for the next level of care. Pt was admitted to [facility] 08/17/22. During that admission, it was documented that he was taking 2 antipsychotics, Abilify 30 mg and Seroquel, Lexapro 20 mg and lithium. He was discharged on 08/17/22 after the lithium dose was increased to 450 mg bid and seroquel stopped. H/o OCD symptoms which manifest as a need to answer questions in great detail. Pt reports 2 prior admissions around 2017: once at [facility] and once at [facility]. At the time, he was followed up at [facility] and had case management. Current medications reviewed with pt. Denies any drug or alcohol abuse. Outpatient Services: [facility] Allergies Allergy/AdvReac Type Severity Reaction Status Date / Time morphine AdvReac Severe FEELING OF Verified 09/06/24 16:58 "DYING" azithromycin AdvReac Intermediate Diarrhea Verified 09/06/24 16:58 gabapentin AdvReac Intermediate drowsiness Verified 09/06/24 16:58 Home Medications Medication Instructions Recorded Confirmed Type Portable Oxygen #1 ea 06/15/21 09/06/24 Rx escitalopram oxalate 20 mg tablet 20 mg PO QAM 08/16/22 09/06/24 History (Lexapro) cholecalciferol (vitamin D3) 125 62.5 mcg PO DAILY 09/28/22 09/06/24 History mcg (5,000 unit) tablet (Vitamin D3) fluticasone propionate 50 1 spray intranasal BID PRN 09/28/22 09/06/24 History mcg/actuation nasal Congestion spray,suspension (Allergy Relief (fluticasone)) aripiprazole 30 mg tablet 30 mg PO HS 12/29/23 09/06/24 History melatonin 3 mg capsule 3 mg PO HS 12/29/23 09/06/24 History bupropion HCl 300 mg 24 hr tablet, 300 mg PO QAM 01/06/24 09/06/24 History extended release tamsulosin 0.4 mg capsule 0.4 mg PO DAILY #90 caps 03/02/24 09/06/24 Rx ondansetron HCl 4 mg tablet 4 mg PO Q12H PRN nausea and 03/11/24 09/06/24 Rx vomiting #30 tabs levothyroxine 100 mcg tablet 100 mcg PO DAILYBB #90 tabs 03/15/24 09/06/24 Rx amantadine HCl 100 mg capsule 100 mg PO BID #60 caps 03/17/24 09/06/24 Rx primidone 250 mg tablet 250 mg PO BID #60 tabs 03/17/24 09/06/24 Rx meclizine 12.5 mg tablet 12.5 mg PO Q8H PRN Dizziness 05/19/24 09/06/24 History albuterol sulfate 1.25 mg/3 mL 1.25 mg (3 mL) inhalation QID PRN 05/27/24 09/06/24 Rx solution for nebulization shortness of breath or wheezing #75 mL pantoprazole 40 mg tablet,delayed 40 mg PO DAILYBB #90 tabs 05/28/24 09/06/24 Rx release lithium carbonate 300 mg 300 mg PO BID #60 tabs 06/15/24 09/06/24 Rx tablet,extended release ferrous sulfate 325 mg (65 mg 325 mg PO Q48H #0 tabs 07/09/24 09/06/24 Rx iron) tablet (Feosol) sennosides 8.6 mg-docusate sodium 1 tab PO QAM #14 tabs 07/09/24 09/06/24 Rx 50 mg tablet (Senokot-S) Oxygen Home #1 ea 08/10/24 09/06/24 Rx acetaminophen 325 mg tablet 650 mg PO Q6H PRN PAIN/FEVER>101F 09/06/24 09/06/24 History (Tylenol) docusate sodium 100 mg capsule 100 mg PO QAM 09/06/24 09/06/24 History finasteride 5 mg tablet 5 mg PO QAM 09/06/24 09/06/24 History fluticasone 250 mcg-salmeterol 50 1 inh inhalation BID 09/06/24 09/06/24 History mcg/dose blistr powdr for inhalation (Advair Diskus) ipratropium 0.5 mg-albuterol 3 mg 3 ml inhalation QID 09/06/24 09/06/24 History (2.5 mg base)/3 mL nebulization soln lorazepam 0.5 mg tablet 0.5 mg PO Q8H 09/06/24 09/06/24 History midodrine 5 mg tablet 10 mg PO TID 09/06/24 09/06/24 History oxycodone 5 mg tablet 5 mg PO Q12H 09/06/24 09/06/24 History oxycodone 5 mg tablet 5 mg PO Q4H PRN Pain 09/06/24 09/06/24 History prednisone 10 mg tablet 10 mg PO QAM 09/06/24 09/06/24 History Patient History Medical History Vitamin K deficiency Advanced care planning/counseling discussion Transaminitis Acute dehydration COVID-19 Fatigue BPH w urinary obs/LUTS Anasarca SOB (shortness of breath) COPD (chronic obstructive pulmonary disease) Weak urine stream Prediabetes Scar condition and fibrosis of skin Diarrhea Abnormal CT scan of lung Encounter for completion of form with patient Aphthous ulcer Hx of small bowel obstruction On home oxygen therapy O2 AT 2L PRN SHORT OF BREATH Collagenous colitis Rising PSA level Herpes simplex Drug dependence Deviated nasal septum Clear cell carcinoma of kidney Abnormal brain MRI History of colon polyps Respiratory failure with hypoxia Hypoxia Surgical History History of tonsillectomy Hx of inguinal hernia repair BILATERAL 10/07/2012 - Dr. Johns S/P small bowel resection Diagnostic lap with enterolysis; release of SBO 05/28/18 - Dr. Khan H/O partial nephrectomy LEFT History of colonoscopy History of appendectomy WITH EXPLORATORY SURGERY History of tooth extraction Family History Father Lymphoma Mother Neoplasm of brain Family/Other Cardiac arrest Other Diabetes Myocardial infarction No family history of adverse response to anesthesia Social History Smoking Status: Never smoker Tobacco Type: Cigarettes Age Started Using Tobacco: 17; Age Quit Using Tobacco: 59; packs per day: 1; Second Hand Exposure: No; Do You Dip or Chew Tobacco: No; Hx Alcohol Use: No Hx Substance Use: No Preferred Language: Dutch Communication Ability: Effective Visual Impairment: No Limitations Hearing Ability: Normal [employer] Glazier Required: No Beliefs That Will Affect Care: None marital status: Single Current Living Situation: [facility] Current Living Situation Comment: [facility] house Feels Safe at Home: No Is there a partner from a previous relationship who is making you feel unsafe now?: No Safety Concerns: Afraid for Self Childhood Exposure to Second-Hand Smoke: Yes Diet Comment: Meat free caffeine: Yes (pills) Seatbelt Use: always Gender Identity: Male Assistive Devices: Walker Physical Exam Psychiatric: Orientation: alert, oriented x 3 and cooperative Apperance: + disheveled and appeared stated age He appeared old than his stated age. Eye Contact: + fair eye contact Motor Behavior: + tremor Speech: + pressured speech Affect: + anxious affect Mood: + anxious mood Thought Process: + tangential thought process and + perseveration Insight: + limited insight Judgment: good judgement Vital Signs (Past 24 Hours): Last Vital Signs Temp 36.4 C L 09/09/24 11:09 Pulse 103 H 09/09/24 13:16 Resp 18 09/09/24 12:09 BP 120/76 09/09/24 11:09 Pulse Ox 93 09/09/24 12:09 O2 Del Method Nasal Cannula 09/09/24 12:09 O2 Flow Rate 2 09/09/24 12:09 Results & Data (PSY) Medications Administered Albuterol (Albut/Ipratrop 3mg/0.5mg Neb 3 Ml Vial) 3 ml INH Q6R RASHI Stop: 10/06/24 18:59 Last Admin: 09/09/24 12:07 Dose: 3 ml Documented By: Admin: 09/09/24 07:38 Dose: 3 ml Documented By: Admin: 09/09/24 01:08 Dose: 3 ml Documented By: Admin: 09/08/24 19:56 Dose: 3 ml Documented By: Admin: 09/08/24 12:15 Dose: 3 ml Documented By: Admin: 09/08/24 07:26 Dose: 3 ml Documented By: Admin: 09/08/24 01:44 Dose: Not Given Documented By: Admin: 09/07/24 20:50 Dose: 3 ml Documented By: Admin: 09/07/24 13:12 Dose: Not Given Documented By: Admin: 09/07/24 07:08 Dose: 3 ml Documented By: Admin: 09/07/24 00:23 Dose: 3 ml Documented By: Admin: 09/06/24 20:50 Dose: 3 ml Documented By: TMP Amantadine HCl (Amantadine Hcl 100 Mg Capsule) 100 mg PO DAILY@0900,1800 [facility] Stop: 10/06/24 18:44 Last Admin: 09/09/24 08:54 Dose: 100 mg Documented By: Admin: 09/08/24 17:10 Dose: 100 mg Documented By: POLICE AND FIRE DISPATCHER Admin: 09/08/24 08:10 Dose: 100 mg Documented By: POLICE AND FIRE DISPATCHER Admin: 09/07/24 17:31 Dose: 100 mg Documented By: Admin: 09/07/24 08:15 Dose: 100 mg Documented By: Admin: 09/06/24 19:53 Dose: 100 mg Documented By: [id number] Aripiprazole (Aripiprazole 15 Mg Tab) 30 mg PO HS [facility] Stop: 10/06/24 20:59 Last Admin: 09/08/24 20:54 Dose: 30 mg Documented By: [id number] Admin: 09/07/24 21:20 Dose: 30 mg Documented By: Admin: 09/06/24 21:33 Dose: 30 mg Documented By: [id number] Azithromycin (Azithromycin 250 Mg Tab) [facility] Stop: 09/10/24 09:01 Last Admin: 09/09/24 08:54 Dose: 250 mg Documented By: Admin: 09/08/24 08:09 Dose: 250 mg Documented By: Admin: 09/07/24 08:14 Dose: 250 mg Documented By: JOSELIN Budesonide (Budesonide 0.5 Mg/2 Ml Vial (Pulmicort)) 0.5 mg NEB BIDR RASHI Stop: 10/07/24 18:59 Last Admin: 09/09/24 07:38 Dose: 0.5 mg Documented By: Admin: 09/08/24 19:56 Dose: 0.5 mg Documented By: Admin: 09/08/24 07:26 Dose: 0.5 mg Documented By: Admin: 09/07/24 20:50 Dose: 0.5 mg Documented By: [id number] Bupropion HCl (Bupropion Xl 300 Mg Tabcr) 300 mg PO QAM RASHI Stop: 10/07/24 08:59 Last Admin: 09/09/24 08:54 Dose: 300 mg Documented By: Admin: 09/08/24 08:10 Dose: 300 mg Documented By: Admin: 09/07/24 08:13 Dose: 300 mg Documented By: JOSELIN Docusate Sodium (Docusate Sodium 100 Mg Cap) 100 mg [facility] Stop: 10/07/24 08:59 Last Admin: 09/09/24 08:57 Dose: 100 mg Documented By: Admin: 09/08/24 08:17 Dose: 100 mg Documented By: Admin: 09/07/24 08:12 Dose: 100 mg Documented By: JOSELIN Enoxaparin Sodium (Enoxaparin Inj 30 Mg/0.3 Ml Syr) 30 mg SQ Q24H [facility] Stop: 10/06/24 18:59 Last Admin: 09/08/24 20:52 Dose: 30 mg Documented By: Diann Admin: 09/07/24 21:23 Dose: 30 mg Documented By: Admin: 09/06/24 19:55 Dose: 30 mg Documented By: Diann Escitalopram Oxalate (Escitalopram Oxalate 20 Mg Tab) 20 mg [facility] Stop: 10/07/24 08:59 Last Admin: 09/09/24 08:54 Dose: 20 mg Documented By: Admin: 09/08/24 08:11 Dose: 20 mg Documented By: Admin: 09/07/24 08:14 Dose: 20 mg Documented By: JOSELIN Finasteride (Finasteride 5 Mg Tab) 5 mg [facility] Stop: 10/07/24 08:59 Last Admin: 09/09/24 08:54 Dose: 5 mg Documented By: Admin: 09/08/24 08:09 Dose: 5 mg Documented By: Admin: 09/07/24 08:15 Dose: 5 mg Documented By: JOSELIN Fluticasone Propionate (Fluticasone Propionate Na Spr 16 Gm Btl) 1 sprays NA B ID PRN PRN Reason: Congestion Stop: 10/06/24 18:15 Last Admin: 09/06/24 21:33 Dose: 1 sprays Documented By: [id number] Guaifenesin (Guaifenesin 600 Mg Tabcr) 1,200 mg PO BID [facility] Stop: 10/06/24 20:59 Last Admin: 09/09/24 08:54 Dose: 1,200 mg Documented By: Admin: 09/08/24 20:53 Dose: 1,200 mg Documented By: [id number] Admin: 09/08/24 08:09 Dose: 1,200 mg Documented By: Admin: 09/07/24 21:22 Dose: 1,200 mg Documented By: Admin: 09/07/24 08:13 Dose: 1,200 mg Documented By: Admin: 09/06/24 21:33 Dose: 1,200 mg Documented By: [id number] Methylprednisolone 60 mg/ (Syringe) 0.96 mls @ 1.5 mls/min IV Q6H RASHI Stop: 10/06/24 18:59 Last Admin: 09/09/24 14:06 Dose: 1.5 mls/min Documented By: Admin: 09/09/24 08:53 Dose: 1.5 mls/min Documented By: Admin: 09/09/24 02:46 Dose: 1.5 mls/min Documented By: [id number] Admin: 09/08/24 20:49 Dose: 1.5 mls/min Documented By: [id number] Admin: 09/08/24 13:35 Dose: 1.5 mls/min Documented By: Admin: 09/08/24 08:10 Dose: 1.5 mls/min Documented By: Admin: 09/08/24 02:00 Dose: 1.5 mls/min Documented By: Admin: 09/07/24 21:23 Dose: 1.5 mls/min Documented By: Admin: 09/07/24 13:26 Dose: 1.5 mls/min Documented By: Admin: 09/07/24 08:13 Dose: 1.5 mls/min Documented By: Admin: 09/07/24 01:18 Dose: 1.5 mls/min Documented By: [id number] Admin: 09/06/24 20:26 Dose: 1.5 mls/min Documented By: [id number] Levothyroxine Sodium (Levothyroxine Sodium 100 Mcg Tablet) 100 mcg PO DAILYBB RASHI Stop: 10/07/24 06:29 Last Admin: 09/09/24 05:48 Dose: 100 mcg Documented By: [id number] Admin: 09/08/24 05:26 Dose: 100 mcg Documented By: Admin: 09/07/24 05:58 Dose: 100 mcg Documented By: [id number] Almyra Carbonate (Almyra Carbonate Slow Rel 300 Mg Tab) 300 mg PO BID RASHI Stop: 10/06/24 20:59 Last Admin: 09/09/24 08:55 Dose: 300 mg Documented By: Admin: 09/08/24 20:51 Dose: 300 mg Documented By: [id number] Admin: 09/08/24 08:09 Dose: 300 mg Documented By: POLICE AND FIRE DISPATCHER Admin: 09/07/24 21:21 Dose: 300 mg Documented By: Admin: 09/07/24 08:14 Dose: 300 mg Documented By: Admin: 09/06/24 21:33 Dose: 300 mg Documented By: [id number] Lorazepam (Lorazepam 0.5 Mg Tab) 0.5 mg PO Q8 RASHI Stop: 10/06/24 21:59 Last Admin: 09/09/24 14:06 Dose: 0.5 mg Documented By: Admin: 09/09/24 05:48 Dose: 0.5 mg Documented By: [id number] Admin: 09/08/24 22:58 Dose: 0.5 mg Documented By: [id number] Admin: 09/08/24 13:35 Dose: 0.5 mg Documented By: Admin: 09/08/24 05:26 Dose: 0.5 mg Documented By: Admin: 09/07/24 22:27 Dose: 0.5 mg Documented By: Admin: 09/07/24 13:26 Dose: 0.5 mg Documented By: Admin: 09/07/24 05:58 Dose: 0.5 mg Documented By: [id number] Admin: 09/06/24 21:36 Dose: 0.5 mg Documented By: [id number] Melatonin (Melatonin 3 Mg Tab) 3 mg PO HS RASHI Stop: 10/06/24 20:59 Last Admin: 09/08/24 22:58 Dose: 3 mg Documented By: [id number] Admin: 09/07/24 21:21 Dose: 3 mg Documented By: Admin: 09/06/24 21:33 Dose: 3 mg Documented By: [id number] Midodrine (Midodrine Hcl 10 Mg Tab) 10 mg PO DAILY@0800,1300,1700 RASHI Stop: 10/07/24 07:59 Last Admin: 09/09/24 14:06 Dose: 10 mg Documented By: Admin: 09/09/24 08:54 Dose: 10 mg Documented By: POLICE AND FIRE DISPATCHER Admin: 09/08/24 17:10 Dose: 10 mg Documented By: POLICE AND FIRE DISPATCHER Admin: 09/08/24 13:35 Dose: 10 mg Documented By: POLICE AND FIRE DISPATCHER Admin: 09/08/24 08:09 Dose: 10 mg Documented By: POLICE AND FIRE DISPATCHER Admin: 09/07/24 17:31 Dose: 10 mg Documented By: Admin: 09/07/24 13:26 Dose: 10 mg Documented By: Admin: 09/07/24 08:13 Dose: 10 mg Documented By: JOSELIN Oxycodone HCl (Oxycodone Hcl Ir 5 Mg Tab (Immediate Release)) 5 mg PO Q12H RASHI Stop: 09/20/24 20:59 Last Admin: 09/09/24 08:57 Dose: 5 mg Documented By: Admin: 09/08/24 20:51 Dose: 5 mg Documented By: [id number] Admin: 09/08/24 08:15 Dose: 5 mg Documented By: Admin: 09/07/24 21:21 Dose: 5 mg Documented By: Admin: 09/07/24 08:12 Dose: 5 mg Documented By: Admin: 09/06/24 21:36 Dose: 5 mg Documented By: [id number] Pantoprazole Sodium (Pantoprazole 40 Mg Tab) 40 mg PO DAILYBB RASHI Stop: 10/07/24 06:29 Last Admin: 09/09/24 05:48 Dose: 40 mg Documented By: [id number] Admin: 09/08/24 05:26 Dose: 40 mg Documented By: Admin: 09/07/24 05:59 Dose: 40 mg Documented By: [id number] Primidone (Primidone 250 Mg Tab) 250 mg PO DAILY@0900,1800 RASHI Stop: 10/06/24 18:59 Last Admin: 09/09/24 08:55 Dose: 250 mg Documented By: POLICE AND FIRE DISPATCHER Admin: 09/08/24 17:10 Dose: 250 mg Documented By: POLICE AND FIRE DISPATCHER Admin: 09/08/24 08:10 Dose: 250 mg Documented By: POLICE AND FIRE DISPATCHER Admin: 09/07/24 17:31 Dose: 250 mg Documented By: Admin: 09/07/24 08:14 Dose: 250 mg Documented By: Admin: 09/06/24 19:54 Dose: 250 mg Documented By: [id number] Senna/Docusate Sodium (Docusate Sodium/Senna 50/8.6mg Tab) 1 tab PO QAM [facility] Stop: 10/07/24 08:59 Last Admin: 09/09/24 08:57 Dose: 1 tab Documented By: Admin: 09/08/24 08:17 Dose: 1 tab Documented By: Admin: 09/07/24 08:12 Dose: 1 tab Documented By: JOSELIN Tamsulosin HCl (Tamsulosin Hcl 0.4 Mg Cap) 0.4 mg PO DAILY [facility] Stop: 10/07/24 08:59 Last Admin: 09/09/24 08:54 Dose: 0.4 mg Documented By: Admin: 09/08/24 08:08 Dose: 0.4 mg Documented By: Admin: 09/07/24 08:13 Dose: 0.4 mg Documented By: JOSELIN [place] [address] IN/OBS CONSULT LVL 5,80M Patient Type New Exam Expanded Problem Focused Medical Decision Making Moderate Complexity Diagnoses End stage COPD J44.9 Schizoaffective disorder, unspecified type F25.9 Schizoaffective disorder type: unspecified Time Spent (min) 120
[2024-09-09 16:56] LABS: Base Excess VBG 8.9 mEq/L; HCO3 VBG 36 mmol/L; PCO2 VBG 56 mmHg (38-50); PO2 VBG 51 mmHg; pH VBG 7.41 (7.36-7.41)
[2024-09-09 17:02] LABS: Hematocrit (blood only) 34.3 % (42.0-52.0); Hemoglobin 11.3 g/dl (14.0-18.0); Mean Corpuscular Hemoglobin 33.7 pg (25.0-34.0); Mean Corpuscular Hgb Conc 32.9 g/dL (32.0-36.0); Mean Corpuscular Volume 102.4 fL (80.0-100.0); Mean Platelet Volume 9.8 fL (9.4-12.4); Platelet Count 340 K/uL (130-400); RDW Coefficient of Variation 13.2 % (11.5-14.5); RDW Standard Deviation 50.2 fL (36.4-46.3); Red Blood Count 3.35 M/uL (4.70-6.10); White Blood Count 12.35 K/ul (4.8-10.8)
--- NOTE | 2024-09-09 17:08 | XRay Report ---
Clinical History: Altered mental status Technique: 2 frontal views of the chest were obtained Comparison is made to the prior examination dated 09/06/2024 Findings: There are no confluent pulmonary infiltrates. The heart size is within normal limits. No pleural effusion or pneumothorax is seen. There is an unchanged suspected old healed fracture of the mid right clavicle Impression: No active disease Electronically signed by Feroz Manzano 09-09-2024 5:07 PM
[2024-09-09 17:16] LABS: BUN Creatinine Ratio 36.5 (10-20); Calcium 9.1 mg/dl (8.6-10.3); Creatinine Clr Calc Pharmacy 76.4 ml/min; Magnesium 2.1 mg/dl (1.7-2.4)
[2024-09-09 17:20] LABS: Basophils # (auto) 0.01 K/uL (0.00-0.20); Basophils % (auto) 0.1 %; Immature Granulocytes # (auto) 0.07 K/uL (0.01-0.20); Immature Granulocytes % (auto) 0.6 %; Lymphocytes # (auto) 0.39 K/uL (1.20-3.40); Lymphocytes % (auto) 3.2 %; Monocytes # (auto) 0.44 K/uL (0.11-0.59); Monocytes % (auto) 3.6 %; Neutrophils # (auto) 11.44 K/uL (1.40-6.50); Neutrophils % (auto) 92.5 %; RBC Morphology Unremarkable
[2024-09-09 17:45] LABS: Prothrombin Time 10.8 Seconds (9.0-12.0)
[2024-09-09] MEDS: ACETAMINOPHEN 325 MG TAB PO PRN (19:51)
--- NOTE | 2024-09-10 07:55 | Hospitalist Progress Note ---
Date of Service September 10, 2024 Assessment & Plan (1) Acute on chronic respiratory failure with hypoxia and hypercapnia: (2) End stage COPD: (3) Weakness generalized: (4) Tremors of nervous system: (5) Hypotension: (6) Severe protein-calorie malnutrition: (7) Schizoaffective disorder, bipolar type: (8) Multiple pulmonary nodules: (9) Anemia: (10) Generalized anxiety disorder: (11) Hypothyroidism: (12) Aspiration into airway: Plan 69 y/o male PMHx end stage COPD, pulmonary nodules, anemia, schizoaffective disorder (bipolar type), essential tremor, GISELE, hypothyroidism, irritable bowel disease admitted for COPD exacerbation. #Acute on chronic hypoxic, hypercapnic respiratory failure #End Stage COPD Continue supplemental oxygen with O2 goal 88-92%. pulmonary toilet - mucinex, flutter valve, incentive spirometry, duonebs weaning steroids, completed Azithromycin course palliative care consult - appreciate recs will need POLST signed prior to d/c #Schizoaffective disorder/GISELE/Mental Health Continue home medications. Patient concerned for tardive dyskinesia. Psych rec neuro consult - non-urgent matter can be addressed on an outpatient basis. #Hypothyroidism Continue Synthroid #Generalized Weakness/Protein-Calorie Malnutrition PT/OT. Nutrition consult - liberalize diet, boost and ice cream supplementation #Aspiration Repeat swallow study with aspiration of thin and thick liquids. Appreciate speech therapy recommendations #BPH Continue tamsulosin #GERD Pantoprazole Code status: DNR/DNI DVT ppx: Lovenox 30 mg SQ FENGI: appreciate speech input - aspiration precautions, IDDS 6 - bite sized, mouth care Dispo: PT/OT rec SNF, tele unit Precautions: high risk of hospital acquired delirium, comm order for delirium precautions Admission and Anticipated Discharge Date Admission Date: September 06, 2024 Supervising Physician Co-Signing Physician Notes ATTESTATION I also saw the patient and confirmed fisher portions of the history and exam. I agree with the impression and plan in the resident documentation, and as summarized below. Had an episode of not feeling well late yesterday afternoon and early evening, but seems to be back to baseline this morning. He has been staying up late and sleeping during the day; we talked about trying to get back to a normal sleep wake cycle. EXAM VSS, afebrile Lungs with diffuse wheeze, about the same as previous CV regular IMPRESSION & PLAN Acute on chronic hypercapnic RF with hypoxia Advanced COPD Severe protein-calorie malnutrition Supplemental oxygen Transition to prednisone tomorrow Continue azithromycin for five day course Appreciate palliative and psychiatry consultation Referral to [facility] per patient request - pending Additional per resident documentation Subjective Seen at bedside this AM. Resting comfortably. Interactive. No concerns today. Review of Systems Review of Systems: reviewed, per HPI Physical Exam Physical Exam: Constitutional: chronically ill-appearing, no acute distress, cachectic HEENT: NCAT, no conjunctival injection CV: RRR no m/r/g extremities well-perfused, no LE edema Resp: lung sounds diminished, no increased work of breathing GI: nondistended MSK: no gross deformities appreciated Skin: warm, dry, no rash appreciated Neuro: alert, oriented, no focal neurologic deficit appreciated Results & Data Results & Data Vital Signs (Past 12 Hours) Vital Signs Temp Pulse Pulse Resp BP BP Pulse Ox 09/10/24 07:21 79 20 97 09/10/24 07:10 78 09/10/24 04:00 36.5 C 70 18 112/75 97 09/10/24 01:24 72 16 95 09/09/24 23:00 36.7 C 73 18 119/73 93 09/09/24 21:44 78 09/09/24 20:00 09/09/24 19:55 83 24 92 O2 Del Method O2 Flow Rate 09/10/24 07:21 Nasal Cannula 0.5 09/10/24 07:10 09/10/24 04:00 Nasal Cannula 2 09/10/24 01:24 Nasal Cannula 0.5 09/09/24 23:00 Nasal Cannula 2 09/09/24 21:44 09/09/24 20:00 Nasal Cannula 0.5 09/09/24 19:55 Nasal Cannula 0.5 Diagnostic Findings Chest X-Ray 09/09/24 16:31 Findings: There are no confluent pulmonary infiltrates. The heart size is within normal limits. No pleural effusion or pneumothorax is seen. There is an unchanged suspected old healed fracture of the mid right clavicle Impression: No active disease Resident Activity Tracking Resident Involvement: Resident Care Provided Care Provided: Adult Hospital Medicine (9) Anemia Anemia type: unspecified type Qualified Code(s): D64.9 - Anemia, unspecified (11) Hypothyroidism Hypothyroidism type: acquired Qualified Code(s): E03.9 - Hypothyroidism, unspecified
--- NOTE | 2024-09-10 10:14 | Palliative Care Progress Note ---
Date of Service September 10, 2024 Assessment & Plan (1) Dyspnea and respiratory abnormalities: Plan: Heremains on an all nebulizer regimen, tolerating well. No longer a candidate for MDIs, see pulm Clinic note from 08/09 for full details and reccs (2) Weakness generalized: (3) Severe muscle deconditioning: Plan: awaiting dispo, does not want to return to [facility], referral in for [facility] and [facility] per CM Pt expressed primary choice is [facility] - not likely to meet their acute IP criteria (4) Advanced care planning/counseling discussion: Plan: Met with [place] at bedside as continuation of care. Per previous palliative care provider notes: 09/08: He is nervous about the changes he has been experiencing and the overall declining trajectory. He has a lot of distress over the growing realizations of how much he needs to take care of to "handle his affairs" and how he has not started any of this work and now feels overwhelmed. He did not want to complete a POLST but we discussed the form's purpose and intent, to help guide medical teams to assure the right care is delivered to him in the manner/preference he wants for himself. He is persevering about aspiration: Ling from speech came by and agreed to another video swallow likely tomorrow or Friday. I spoke with [place] at length about this conviction he has that hes aspirating all the time. He doesnt want a feeding tube. We agreed that he is ok with some texture and liquid thickness changes but ultimately he wants to eat and drink. Current must haves are vanilla ice cream and ice water. I told him we can see what the repeat study shows but if its unchanged from prior there is no further tx for it other than what he is doing i.e. coughing to clear. Care mgt is helping with his placement, he has made clear his refusal to return to [facility] and preferentially identified alternate facilities 09/10: Today we discussed the pt's repeat swallow study with persistent silent aspiration. He expressed understanding that he remains at high risk for aspiration and PNA but that there are preventatives that he can practice to lessen risk of aspiration PNA. He referred to using straws for liquids, sitting upright and taking smaller bites as things that he can do. He shared that he has difficulty using utensils due to his tremors and that he has adapted to eating many soft foods like scrambled eggs with hi hands. He shared that he has tried adaptive utensils and they are not helpful to him. He expressed desire for placement in a different SNF with hopes of getting stronger and is aware that CM will be assisting him with this. He expressed awareness that [facility] may be a possibility and stated that he still prefers [facility] if possible. His goals of care are clearly established for DNR/DNI but continue all other life prolonging therapies. (5) Severe protein-calorie malnutrition: Plan: continue to encourage PO intake and healthy bowel regime. (6) Palliative care by specialist: Plan: Palliative care will continue to follow for ongoing ACP discussions and patient support. Plan As above DNR/DNI Patient will require POLST completion prior to discharge. Admission and Anticipated Discharge Date Admission Date: September 06, 2024 Subjective Assessed pt at bedside, he was sitting upright and eating his breakfast. He denies any discomfort but shared that he is constipated and has not had a BM in 4 days. He requested senna with colace, which he is already receiving daily. Encouraged his PRN miralax for bowel motility. Review of Systems Review of Systems: All systems reviewed & are unremarkable except as noted in Subjective Physical Exam Constitutional: well developed, + thin, + frail appearing, cooperative and comfortable; no acute distress Eyes: PERRL, conjunctivae normal, anicteric sclerae ENMT: external ear and nose normal, oropharynx normal Respiratory: normal respiratory effort, lungs clear to auscultation Cardiovascular: RRR, no murmur, no edema Gastrointestinal (Abdomen): normal bowel sounds, soft, nontender, no hepatosplenomegaly Skin: no rashes, warm and dry pale Neurologic: PERRL, EOMI, accommodation nl, no face palsy, no dysarthria Psychiatric: A+Ox3, euthymic affect Results & Data Vital Signs (Past 12 Hours) Vital Signs Temp Pulse Pulse Resp BP BP Pulse Ox 09/10/24 08:07 36.4 C L 75 20 124/81 97 09/10/24 07:21 79 20 97 09/10/24 07:10 78 09/10/24 04:00 36.5 C 70 18 112/75 97 09/10/24 01:24 72 16 95 09/09/24 23:00 36.7 C 73 18 119/73 93 O2 Del Method O2 Flow Rate 09/10/24 08:07 Nasal Cannula 0.5 09/10/24 07:21 Nasal Cannula 0.5 09/10/24 07:10 09/10/24 04:00 Nasal Cannula 2 09/10/24 01:24 Nasal Cannula 0.5 09/09/24 23:00 Nasal Cannula 2 Laboratory Results Abnormal lab results 09/09/24 Range/Units 16:44 WBC 12.35 H (4.8-10.8) K/ul RBC 3.35 L (4.70-6.10) M/uL Hgb 11.3 L (14.0-18.0) g/dl Hct 34.3 L (42.0-52.0) % MCV 102.4 H (80.0-100.0) fL RDW Std Deviation 50.2 H (36.4-46.3) fL Neut # (Auto) 11.44 H (1.40-6.50) K/uL Lymph # (Auto) 0.39 L (1.20-3.40) K/uL VBG pCO2 56 H (38-50) mmHg Carbon Dioxide 36 H (21-32) mmol/L Anion Gap 2 L (3-11) BUN 27 H (6-23) mg/dl BUN/Creatinine Ratio 36.5 H (10-20) Glucose 154 H (70-99(Fasting)) mg/dl Diagnostic Findings Videofluoroscopic Swallow 09/09/24 10:30 FL video swallow CLINICAL HISTORY: r/o aspiration COMPARISON STUDY: 06/15/2024 TECHNIQUE: The patient was given a barium mixture to drink a very consistencies by speech pathology. Swallowing function was observed fluoroscopically with rapid sequence filming employed. Total fluoroscopy time 2.26 minutes. Total dose 3.73mGy FINDINGS: Deglutition was hesitant with persistent tongue quivering. There is pronounced premature spill over the base of the tongue with pronounced pharyngeal recess pooling. Repetitive aspiration was demonstrated with the thinner consistencies. Most of these aspiration events were silent although one event triggered a cough response. IMPRESSION: Diffusely demonstrable aspiration with thinner consistencies. Most of the aspiration events were silent. Please refer to the speech pathology report for full discussion of the findings. ACT 112: Negative or not required by law. Electronically signed by: Michelle Araiza M.D. 09/09/2024 11:22 AM Chest X-Ray 09/09/24 16:31 Clinical History: Altered mental status Technique: 2 frontal views of the chest were obtained Comparison is made to the prior examination dated 09/06/2024 Findings: There are no confluent pulmonary infiltrates. The heart size is within normal limits. No pleural effusion or pneumothorax is seen. There is an unchanged suspected old healed fracture of the mid right clavicle Impression: No active disease Electronically signed by Feroz Manzano 09-09-2024 5:07 PM Medications Administered Current Inpatient Medications Acetaminophen (Acetaminophen 325 Mg Tab) 650 mg PO Q4H PRN PRN Reason: Pain or Fever Stop: 10/06/24 18:26 Last Admin: 09/09/24 19:51 Dose: 650 mg Al Hydrox/Mg Hydrox/Simethicone (Aluminum/Magnesium Susp 30 Ml Udc) 15 ml PO Q4H PRN PRN Reason: Dyspepsia Stop: 10/06/24 18:26 Albuterol (Albut/Ipratrop 3mg/0.5mg Neb 3 Ml Vial) 3 ml INH Q6R [facility]I Stop: 10/06/24 18:59 Last Admin: 09/10/24 07:20 Dose: 3 ml Albuterol (Albut/Ipratrop 3mg/0.5mg Neb 3 Ml Vial) 3 ml NEB Q2H PRN PRN Reason: Shortness of Breath/Wheezing Stop: 10/06/24 18:26 Amantadine HCl (Amantadine Hcl 100 Mg Capsule) 100 mg PO DAILY@0900,1800 [facility] Stop: 10/06/24 18:44 Last Admin: 09/10/24 08:59 Dose: 100 mg Aripiprazole (Aripiprazole 15 Mg Tab) 30 mg PO HS [facility]I Stop: 10/06/24 20:59 Last Admin: 09/09/24 20:20 Dose: 30 mg Budesonide (Budesonide 0.5 Mg/2 Ml Vial (Pulmicort)) 0.5 mg NEB BIDR [facility] Stop: 10/07/24 18:59 Last Admin: 09/10/24 07:20 Dose: 0.5 mg Bupropion HCl (Bupropion Xl 300 Mg Tabcr) 300 mg PO QAM [facility] Stop: 10/07/24 08:59 Last Admin: 09/10/24 09:00 Dose: 300 mg Docusate Sodium (Docusate Sodium 100 Mg Cap) 100 mg PO QAM [facility] Stop: 10/07/24 08:59 Last Admin: 09/10/24 08:59 Dose: 100 mg Enoxaparin Sodium (Enoxaparin Inj 30 Mg/0.3 Ml Syr) 30 mg SQ Q24H [facility] Stop: 10/06/24 18:59 Last Admin: 09/09/24 20:20 Dose: 30 mg Escitalopram Oxalate (Escitalopram Oxalate 20 Mg Tab) 20 mg PO QAM [facility] Stop: 10/07/24 08:59 Last Admin: 09/10/24 09:00 Dose: 20 mg Finasteride (Finasteride 5 Mg Tab) 5 mg PO QAM [facility] Stop: 10/07/24 08:59 Last Admin: 09/10/24 09:00 Dose: 5 mg Fluticasone Propionate (Fluticasone Propionate Na Spr 16 Gm Btl) 1 sprays NA BID PRN PRN Reason: Congestion Stop: 10/06/24 18:15 Last Admin: 09/06/24 21:33 Dose: 1 sprays Guaifenesin (Guaifenesin 600 Mg Tabcr) 1,200 mg PO BID [facility] Stop: 10/06/24 20:59 Last Admin: 09/10/24 09:01 Dose: 1,200 mg Methylprednisolone 60 mg/ (Syringe) 0.96 mls @ 1.5 mls/min IV Q6H [facility] Stop: 10/06/24 18:59 Last Admin: 09/10/24 08:59 Dose: 1.5 mls/min Levothyroxine Sodium (Levothyroxine Sodium 100 Mcg Tablet) 100 mcg PO DAILYBB [facility] Stop: 10/07/24 06:29 Last Admin: 09/10/24 05:32 Dose: 100 mcg [place] Carbonate ([place] Carbonate Slow Rel 300 Mg Tab) 300 mg PO BID [facility] Stop: 10/06/24 20:59 Last Admin: 09/10/24 09:00 Dose: 300 mg Lorazepam (Lorazepam 0.5 Mg Tab) 0.5 mg PO Q8 [facility] Stop: 10/06/24 21:59 Last Admin: 09/10/24 05:32 Dose: 0.5 mg Magnesium Hydroxide (Magnesium Hydroxide Susp 30 Ml Udc) 30 ml PO Q12H PRN PRN Reason: Constipation Stop: 10/06/24 18:26 Meclizine HCl (Meclizine 12.5 Mg Tab) 12.5 mg PO Q8H PRN PRN Reason: Dizziness Stop: 10/06/24 18:15 Melatonin (Melatonin 3 Mg Tab) 3 mg PO HS [facility]I Stop: 10/06/24 20:59 Last Admin: 09/10/24 00:00 Dose: 3 mg Melatonin (Melatonin 3 Mg Tab) 6 mg PO HS PRN PRN Reason: Sleep Stop: 10/06/24 18:26 Midodrine (Midodrine Hcl 10 Mg Tab) 10 mg PO DAILY@0800,1300,1700 [facility] Stop: 10/07/24 07:59 Last Admin: 09/10/24 09:00 Dose: 10 mg Ondansetron HCl (Ondansetron Inj 2 Mg/Ml 2 Ml Vial) 4 mg IV Q6H PRN PRN Reason: Nausea Stop: 10/06/24 18:26 Oxycodone HCl (Oxycodone Hcl Ir 5 Mg Tab (Immediate Release)) 5 mg PO Q4H PRN PRN Reason: Pain 5+ Stop: 09/20/24 18:15 Oxycodone HCl (Oxycodone Hcl Ir 5 Mg Tab (Immediate Release)) 5 mg PO Q12H [facility] Stop: 09/20/24 20:59 Last Admin: 09/10/24 08:59 Dose: 5 mg Pantoprazole Sodium (Pantoprazole 40 Mg Tab) 40 mg PO DAILYBB [facility] Stop: 10/07/24 06:29 Last Admin: 09/10/24 05:32 Dose: 40 mg Polyethylene Glycol (Polyethylene (Miralax) 17 Gm Pack) 17 gm PO DAILY PRN PRN Reason: Constipation Stop: 10/06/24 18:26 Primidone (Primidone 250 Mg Tab) 250 mg PO DAILY@0900,1800 [facility] Stop: 10/06/24 18:59 Last Admin: 09/10/24 08:59 Dose: 250 mg Senna/Docusate Sodium (Docusate Sodium/Senna 50/8.6mg Tab) 1 tab PO QAM [facility] Stop: 10/07/24 08:59 Last Admin: 09/10/24 08:59 Dose: 1 tab Tamsulosin HCl (Tamsulosin Hcl 0.4 Mg Cap) 0.4 mg PO DAILY [facility] Stop: 10/07/24 08:59 Last Admin: 09/10/24 09:00 Dose: 0.4 mg PG Care Time/CCT Total # of Minutes Spent Total Time Spent with Patient: Total time spent is greater than 50% in coordination of care (as documented) at patient's floor/unit and/or counseling patient: Coding [place] [address] SUB INP/OBS CARE 2/35MIN Patient Type Established History Problem Focused Exam Problem Focused Medical Decision Making Low Complexity Diagnoses Dyspnea and respiratory abnormalities R06.00; R06.89 Weakness generalized R53.1 Severe muscle deconditioning R29.898 Advanced care planning/counseling discussion Z71.89 Severe protein-calorie malnutrition E43 Palliative care by specialist Z51.5
--- NOTE | 2024-09-10 12:34 | Psychiatric Progress Note ---
Date of Service September 10, 2024 Impression / Recommendations Impression By history, Schizoaffective disorder, GISELE r/o OCD. r/o Drug induced subacute dyskinesia (possible tardive dyskinesia) By history, Essential tremor (1) End stage COPD: (2) Schizoaffective disorder: Plan Plan: No indication for a psychiatric admission at this time. Recommend Neurology consult to evaluate the patient's tremors and rule out the other movement disorder. May benefit from VMAT2 inhibitors. However, In light of his end stage COPD, benefits of this treatment must be carefully weighed against the risks. Will defer this to pt's regular outpatient psychiatric provider. Continue current medication. Check lithium level. Explore non-pharmacological interventions, such as occupational therapy, to help the patient manage their tremors and improve their ability to perform daily tasks. I spent 120 minutes directly interviewing the patient, reviewing records, labs documenting and discussing with clinical team. Interval History Chief Complaint "[]". Subjective Subjective Patient was seen & assessed and interval progress reviewed with [treatment team] [nursing and social work] Physical Exam Psychiatric A+Ox3, euthymic affect Orientation: alert, oriented x 3 and cooperative Apperance: + disheveled and appeared stated age Eye Contact: + fair eye contact Motor Behavior: + tremor Speech: + pressured speech Affect: + anxious affect Mood: + anxious mood Thought Process: + tangential thought process and + perseveration Insight: + limited insight Judgment: good judgement Vital Signs (Past 24 Hours) Last Vital Signs Temp 36.4 C L 09/10/24 11:16 Pulse 89 09/10/24 11:16 Resp 24 09/10/24 11:16 BP 132/76 09/10/24 11:16 Pulse Ox 94 09/10/24 11:16 O2 Del Method Nasal Cannula 09/10/24 11:16 O2 Flow Rate 0.5 09/10/24 11:16 Results & Data ([facility]) Laboratory Results Laboratory Results - last 24 hr 09/09/24 09/09/24 16:44 16:48 WBC 12.35 H RBC 3.35 L Hgb 11.3 L Hct 34.3 L MCV 102.4 H MCH 33.7 MCHC 32.9 RDW Std Deviation 50.2 H RDW Coeff of Josie 13.2 Plt Count 340 MPV 9.8 Immature Gran % (Auto) 0.6 Neut % (Auto) 92.5 Lymph % (Auto) 3.2 [place] % (Auto) 3.6 Eos % (Auto) 0.0 Baso % (Auto) 0.1 Neut # (Auto) 11.44 H Lymph # (Auto) 0.39 L [place] # (Auto) 0.44 Eos # (Auto) 0.00 Baso # (Auto) 0.01 Immature Gran # (Auto) 0.07 RBC Morphology Unremarkable PT 10.8 INR 1.0 VBG pH 7.41 VBG pCO2 56 H VBG pO2 51 VBG HCO3 36 VBG O2 Saturation 84.0 VBG Base Excess 8.9 Sodium 137 Potassium 5.0 Chloride 99 Carbon Dioxide 36 H Anion Gap 2 L BUN 27 H Creatinine 0.74 Est Cr Clr Drug Dosing 76.4 eGFR 98.08 BUN/Creatinine Ratio 36.5 H Glucose 154 H Calcium 9.1 Magnesium 2.1 Current Inpatient Medications Current Inpatient Medications: Current Inpatient Medications Acetaminophen (Acetaminophen 325 Mg Tab) 650 mg PO Q4H PRN PRN Reason: Pain or Fever Stop: 10/06/24 18:26 Last Admin: 09/09/24 19:51 Dose: 650 mg Al Hydrox/Mg Hydrox/Simethicone (Aluminum/Magnesium Susp 30 Ml Udc) 15 ml PO Q4H PRN PRN Reason: Dyspepsia Stop: 10/06/24 18:26 Albuterol (Albut/Ipratrop 3mg/0.5mg Neb 3 Ml Vial) 3 ml INH Q6R [facility]ASHI Stop: 10/06/24 18:59 Last Admin: 09/10/24 07:20 Dose: 3 ml Albuterol (Albut/Ipratrop 3mg/0.5mg Neb 3 Ml Vial) 3 ml NEB Q2H PRN PRN Reason: Shortness of Breath/Wheezing Stop: 10/06/24 18:26 Amantadine HCl (Amantadine Hcl 100 Mg Capsule) 100 mg PO DAILY@0900,1800 [facility] Stop: 10/06/24 18:44 Last Admin: 09/10/24 08:59 Dose: 100 mg Aripiprazole (Aripiprazole 15 Mg Tab) 30 mg PO HS [facility] Stop: 10/06/24 20:59 Last Admin: 09/09/24 20:20 Dose: 30 mg Budesonide (Budesonide 0.5 Mg/2 Ml Vial (Pulmicort)) 0.5 mg NEB BIDR [facility] Stop: 10/07/24 18:59 Last Admin: 09/10/24 07:20 Dose: 0.5 mg Bupropion HCl (Bupropion Xl 300 Mg Tabcr) 300 mg PO QAM [facility] Stop: 10/07/24 08:59 Last Admin: 09/10/24 09:00 Dose: 300 mg Docusate Sodium (Docusate Sodium 100 Mg Cap) 100 mg PO QAM [facility] Stop: 10/07/24 08:59 Last Admin: 09/10/24 08:59 Dose: 100 mg Enoxaparin Sodium (Enoxaparin Inj 30 Mg/0.3 Ml Syr) 30 mg SQ Q24H [facility] Stop: 10/06/24 18:59 Last Admin: 09/09/24 20:20 Dose: 30 mg Escitalopram Oxalate (Escitalopram Oxalate 20 Mg Tab) [facility] Stop: 10/07/24 08:59 Last Admin: 09/10/24 09:00 Dose: 20 mg Finasteride (Finasteride 5 Mg Tab) 5 mg PO QAM [facility] Stop: 10/07/24 08:59 Last Admin: 09/10/24 09:00 Dose: 5 mg Fluticasone Propionate (Fluticasone Propionate Na Spr 16 Gm Btl) 1 sprays NA BID PRN PRN Reason: Congestion Stop: 10/06/24 18:15 Last Admin: 09/06/24 21:33 Dose: 1 sprays Guaifenesin (Guaifenesin 600 Mg Tabcr) 1,200 mg PO BID [facility] Stop: 10/06/24 20:59 Last Admin: 09/10/24 09:01 Dose: 1,200 mg Methylprednisolone 60 mg/ (Syringe) 0.96 mls @ 1.5 mls/min IV Q6H [facility] Stop: 10/06/24 18:59 Last Admin: 09/10/24 08:59 Dose: 1.5 mls/min Levothyroxine Sodium (Levothyroxine Sodium 100 Mcg Tablet) 100 mcg PO DAILYBB [facility] Stop: 10/07/24 06:29 Last Admin: 09/10/24 05:32 Dose: 100 mcg [employer] Carbonate ([employer] Carbonate Slow Rel 300 Mg Tab) 300 mg PO BID [facility] Stop: 10/06/24 20:59 Last Admin: 09/10/24 09:00 Dose: 300 mg Lorazepam (Lorazepam 0.5 Mg Tab) 0.5 mg PO Q8 [facility] Stop: 10/06/24 21:59 Last Admin: 09/10/24 05:32 Dose: 0.5 mg Magnesium Hydroxide (Magnesium Hydroxide Susp 30 Ml Udc) 30 ml PO Q12H PRN PRN Reason: Constipation Stop: 10/06/24 18:26 Meclizine HCl (Meclizine 12.5 Mg Tab) 12.5 mg PO Q8H PRN PRN Reason: Dizziness Stop: 10/06/24 18:15 Melatonin (Melatonin 3 Mg Tab) 3 mg PO HS [facility] Stop: 10/06/24 20:59 Last Admin: 09/10/24 00:00 Dose: 3 mg Melatonin (Melatonin 3 Mg Tab) 6 mg PO HS PRN PRN Reason: Sleep Stop: 10/06/24 18:26 Midodrine (Midodrine Hcl 10 Mg Tab) 10 mg PO DAILY@0800,1300,1700 [facility] Stop: 10/07/24 07:59 Last Admin: 09/10/24 09:00 Dose: 10 mg Ondansetron HCl (Ondansetron Inj 2 Mg/Ml 2 Ml Vial) 4 mg IV Q6H PRN PRN Reason: Nausea Stop: 10/06/24 18:26 Oxycodone HCl (Oxycodone Hcl Ir 5 Mg Tab (Immediate Release)) 5 mg PO Q4H PRN PRN Reason: Pain 5+ Stop: 09/20/24 18:15 Oxycodone HCl (Oxycodone Hcl Ir 5 Mg Tab (Immediate Release)) 5 mg PO Q12H [facility] Stop: 09/20/24 20:59 Last Admin: 09/10/24 08:59 Dose: 5 mg Pantoprazole Sodium (Pantoprazole 40 Mg Tab) 40 mg PO DAILYBB [facility] Stop: 10/07/24 06:29 Last Admin: 09/10/24 05:32 Dose: 40 mg Polyethylene Glycol (Polyethylene (Miralax) 17 Gm Pack) 17 gm PO BID [facility] Stop: 10/10/24 20:59 Primidone (Primidone 250 Mg Tab) 250 mg PO DAILY@0900,1800 [facility] Stop: 10/06/24 18:59 Last Admin: 09/10/24 08:59 Dose: 250 mg Senna/Docusate Sodium (Docusate Sodium/Senna 50/8.6mg Tab) 1 tab PO QAM [facility] Stop: 10/07/24 08:59 Last Admin: 09/10/24 08:59 Dose: 1 tab Tamsulosin HCl (Tamsulosin Hcl 0.4 Mg Cap) 0.4 mg PO DAILY [facility] Stop: 10/07/24 08:59 Last Admin: 09/10/24 09:00 Dose: 0.4 mg (2) Schizoaffective disorder Schizoaffective disorder type: unspecified Qualified Code(s): F25.9 - Schizoaffective disorder, unspecified
[2024-09-10] MEDS: POLYETHYLENE (MIRALAX) 17 GM PACK PO SCH (20:24)
[2024-09-10] MEDS: methylPREDNISolone 60 MG in SYRINGE 0 ML IV SCH (20:24)
--- NOTE | 2024-09-11 07:13 | Hospitalist Progress Note ---
Date of Service September 11, 2024 Assessment & Plan (1) Acute on chronic respiratory failure with hypoxia and hypercapnia: (2) End stage COPD: (3) Weakness generalized: (4) Tremors of nervous system: (5) Hypotension: (6) Severe protein-calorie malnutrition: (7) Schizoaffective disorder, bipolar type: (8) Multiple pulmonary nodules: (9) Anemia: (10) Generalized anxiety disorder: (11) Hypothyroidism: (12) Aspiration into airway: Plan 69 y/o male PMHx end stage COPD, pulmonary nodules, anemia, schizoaffective disorder (bipolar type), essential tremor, GISELE, hypothyroidism, irritable bowel disease admitted for COPD exacerbation now stable for discharge, awaiting placement. #Acute on chronic hypoxic, hypercapnic respiratory failure #End Stage COPD Continue supplemental oxygen with O2 goal 88-92%. pulmonary toilet - mucinex, flutter valve, incentive spirometry, duonebs weaning steroids, completed Azithromycin course palliative care consult - appreciate recs will need POLST signed prior to d/c #Schizoaffective disorder/GISELE/Mental Health Continue home medications. Patient concerned for tardive dyskinesia. Psych rec neuro consult - non-urgent matter can be addressed on an outpatient basis. #Hypothyroidism Continue Synthroid #Generalized Weakness/Protein-Calorie Malnutrition PT/OT. Nutrition consult - liberalize diet, boost and ice cream supplementation #Aspiration Repeat swallow study with aspiration of thin and thick liquids. Appreciate speech therapy recommendations #BPH Continue tamsulosin #GERD Pantoprazole Code status: DNR/DNI DVT ppx: Lovenox 30 mg SQ FENGI: appreciate speech input - aspiration precautions, IDDS 6 - bite sized, mouth care Dispo: PT/OT rec SNF, tele unit Precautions: high risk of hospital acquired delirium, comm order for delirium precautions Admission and Anticipated Discharge Date Admission Date: September 06, 2024 Supervising Physician Co-Signing Physician Notes ATTESTATION I also saw the patient and confirmed fisher portions of the history and exam. I agree with the impression and plan in the resident documentation, and as summarized below. Seems to be at his baseline this morning. Awake and alert - eating breakfast. No new complaints. Provided update regarding case management efforts. EXAM VSS, afebrile Lungs with diffuse wheeze, about the same as previous CV RRR IMPRESSION & PLAN Acute on chronic hypercapnic RF with hypoxia Advanced COPD Severe protein-calorie malnutrition Continue prednisone Appreciate palliative and psychiatry consultation Additional referrals out to multiple facilities Additional per resident documentation Subjective Snoring comfortably. Allowed to sleep. Returned to bedside when patient awake. Patient doing well. Breathing better. Review of Systems Review of Systems: reviewed, per HPI Physical Exam Physical Exam: Constitutional: chronically ill-appearing, no acute distress, cachectic HEENT: NCAT, no conjunctival injection CV: clinically well perfused Resp: no increased work of breathing GI: nondistended MSK: no gross deformities appreciated Skin: dry, no rash appreciated Neuro: alert, oriented, no focal neurologic deficit appreciated Results & Data Results & Data Vital Signs (Past 12 Hours) Vital Signs Temp Pulse Pulse Resp BP Pulse Ox O2 Del Method 09/10/24 23:59 69 18 94 Nasal Cannula 09/10/24 21:44 74 09/10/24 20:00 Nasal Cannula 09/10/24 19:42 36.6 C 92 H 20 149/85 H 93 Nasal Cannula 09/10/24 19:20 18 93 Nasal Cannula O2 Flow Rate 09/10/24 23:59 0.5 09/10/24 21:44 09/10/24 20:00 0.5 09/10/24 19:42 0.5 09/10/24 19:20 0.5 Resident Activity Tracking Resident Involvement: Resident Care Provided Care Provided: Adult Hospital Medicine (9) Anemia Anemia type: unspecified type Qualified Code(s): D64.9 - Anemia, unspecified (11) Hypothyroidism Hypothyroidism type: acquired Qualified Code(s): E03.9 - Hypothyroidism, unspecified
[2024-09-11] MEDS: predniSONE 20 MG TAB PO SCH (09:43)
[2024-09-11] MEDS: ALBUT/IPRATROP 3MG/0.5MG NEB 3 ML VIAL NEB PRN (15:58)
--- NOTE | 2024-09-12 06:57 | Hospitalist Progress Note ---
Date of Service September 12, 2024 Assessment & Plan (1) Acute on chronic respiratory failure with hypoxia and hypercapnia: (2) End stage COPD: (3) Weakness generalized: (4) Tremors of nervous system: (5) Hypotension: (6) Severe protein-calorie malnutrition: (7) Schizoaffective disorder, bipolar type: (8) Multiple pulmonary nodules: (9) Anemia: (10) Generalized anxiety disorder: (11) Hypothyroidism: (12) Aspiration into airway: Plan 69 y/o male PMHx end stage COPD, pulmonary nodules, anemia, schizoaffective disorder (bipolar type), essential tremor, GISELE, hypothyroidism, irritable bowel disease admitted for COPD exacerbation now stable for discharge, awaiting placement. #Acute on chronic hypoxic, hypercapnic respiratory failure #End Stage COPD Continue supplemental oxygen with O2 goal 88-92%. Discussed with nursing and placed communication order. pulmonary toilet - mucinex, flutter valve, incentive spirometry, duonebs will need steroid taper - 40 mg x 3, 30 mg x 3, 20 mg x 3, 10 mg x 3 completed Azithromycin course palliative care consult - will need POLST signed prior to d/c check VBG as HCO3 rising #Schizoaffective disorder/GISELE/Mental Health Continue home medications. Patient concerned for tardive dyskinesia. Psych rec neuro consult - non-urgent matter can be addressed on an outpatient basis. #Hypothyroidism Continue Synthroid #Generalized Weakness/Protein-Calorie Malnutrition PT/OT. Nutrition consult - liberalize diet, boost and ice cream supplementation #Aspiration Repeat swallow study with aspiration of thin and thick liquids. Appreciate speech therapy recommendations #BPH Continue tamsulosin. Utilizing condom cath. #GERD Pantoprazole Code status: DNR/DNI DVT ppx: Lovenox 30 mg SQ FENGI: appreciate speech input - aspiration precautions, IDDS 6 - bite sized, mouth care Dispo: PT/OT rec SNF, tele unit Precautions: high risk of hospital acquired delirium, comm order for delirium precautions Admission and Anticipated Discharge Date Admission Date: September 06, 2024 Supervising Physician Co-Signing Physician Notes ATTESTATION I also saw the patient and confirmed fisher portions of the history and exam. I agree with the impression and plan in the resident documentation, and as summarized below. Awake, eating a late breakfast (vanilla ice cream). No new complaints. Seems improved today. EXAM VSS, afebrile Lungs with diffuse wheeze, about the same as previous CV RRR IMPRESSION & PLAN Acute on chronic hypercapnic RF with hypoxia Advanced COPD Severe protein-calorie malnutrition Continue oral prednisone Appreciate palliative and psychiatry consultation Overnight pulse ox and AM VBG Additional referrals out to multiple facilities Additional per resident documentation Subjective Patient seen at bedside this AM. Doing well. Helped to place a pillow under his leg for comfort. Did mention that he feels like he is in a carpet renovator when he tries to be more active. Wondering if there is something that can be done for that. Breathing is good. He does worry that his oxygen is a bit too high. Review of Systems Review of Systems: reviewed, per HPI Physical Exam Physical Exam: Constitutional: chronically ill-appearing, no acute distress, cachectic HEENT: NCAT, no conjunctival injection CV: clinically well perfused Resp: no increased work of breathing GI: nondistended MSK: no gross deformities appreciated Skin: dry, no rash appreciated Neuro: alert, oriented, no focal neurologic deficit appreciated Resident Activity Tracking Resident Involvement: Resident Care Provided Care Provided: Adult Hospital Medicine (9) Anemia Anemia type: unspecified type Qualified Code(s): D64.9 - Anemia, unspecified (11) Hypothyroidism Hypothyroidism type: acquired Qualified Code(s): E03.9 - Hypothyroidism, unspecified
[2024-09-12 08:07] LABS: Basophils # (auto) 0.04 K/uL (0.00-0.20); Basophils % (auto) 0.3 %; Eosinophils # (auto) 0.42 K/uL (0.00-0.50); Eosinophils % (auto) 3.3 %; Hematocrit (blood only) 37.9 % (42.0-52.0); Hemoglobin 12.2 g/dl (14.0-18.0); Immature Granulocytes # (auto) 0.09 K/uL (0.01-0.20); Immature Granulocytes % (auto) 0.7 %; Lymphocytes # (auto) 1.37 K/uL (1.20-3.40); Lymphocytes % (auto) 10.7 %; Mean Corpuscular Hemoglobin 33.1 pg (25.0-34.0); Mean Corpuscular Hgb Conc 32.2 g/dL (32.0-36.0); Mean Corpuscular Volume 102.7 fL (80.0-100.0); Mean Platelet Volume 9.6 fL (9.4-12.4); Monocytes % (auto) 7.8 %; Neutrophils # (auto) 9.88 K/uL (1.40-6.50); Neutrophils % (auto) 77.2 %; Platelet Count 313 K/uL (130-400); RDW Coefficient of Variation 13.7 % (11.5-14.5); RDW Standard Deviation 51.9 fL (36.4-46.3); Red Blood Count 3.69 M/uL (4.70-6.10)
[2024-09-12 08:26] LABS: Albumin Globulin Ratio 1.5 (0.9-2); Albumin Level 3.5 gm/dl (3.4-5.0); BUN Creatinine Ratio 34.8 (10-20); Bilirubin,Total 0.2 mg/dl (0.2-1.0); Calcium 9.1 mg/dl (8.6-10.3); Creatinine Clr Calc Pharmacy 77.9 ml/min; Globulin 2.3 gm/dl (2.5-4.0); Potassium 4.4 mmol/L (3.5-5.1); Total Protein 5.8 gm/dl (6.0-8.3)
--- NOTE | 2024-09-12 08:44 | Electrocardiogram Report ---
Test Reason : Blood Pressure : */* mmHG Vent. Rate : 69 BPM Atrial Rate : 69 BPM P-R Int : 152 ms QRS Dur : 90 ms QT Int : 386 ms P-R-T Axes : 85 77 76 degrees QTcB Int : 413 ms Normal sinus rhythm Normal ECG When compared with ECG of 06-Sep-2024 14:55, No significant change was found Confirmed by Vivi Gu (Marley) on 09/12/2024 8:44:27 AM Referred By: REFERRED SELF Confirmed By: Vivi Gu
[2024-09-12 09:14] LABS: Base Excess VBG 9.6 mEq/L; HCO3 VBG 39 mmol/L; Oxygen Saturation VBG < 60.0 %; PCO2 VBG 73 mmHg (38-50); PO2 VBG 23 mmHg; pH VBG 7.33 (7.36-7.41)
[2024-09-12] MEDS: oxyCODONE HCL IR 5 MG TAB (IMMEDIATE RELEASE) PO PRN (11:23)
[2024-09-13 06:06] LABS: Base Excess ABG 11.4 mEq/L (-9-1.8); HCO3 ABG 38 mmol/L (19-24); PCO2 ABG 54 mmHg (35-46); PO2 ABG 48 mmHg (80-95); pH ABG 7.45 (7.35-7.45)
[2024-09-13 06:08] LABS: Oxygen Saturation ABG 84.5 % (90-95)
[2024-09-13 06:10] LABS: Allen Test Pos (Pos)
[2024-09-13 07:34] LABS: Hemoglobin 12.3 g/dl (14.0-18.0); Mean Corpuscular Hgb Conc 33.2 g/dL (32.0-36.0); Mean Corpuscular Volume 102.2 fL (80.0-100.0); Platelet Count 349 K/uL (130-400); RDW Coefficient of Variation 13.4 % (11.5-14.5); RDW Standard Deviation 50.9 fL (36.4-46.3); Red Blood Count 3.62 M/uL (4.70-6.10); White Blood Count 18.92 K/ul (4.8-10.8)
[2024-09-13 07:50] LABS: BUN Creatinine Ratio 34.3 (10-20); Calcium 8.9 mg/dl (8.6-10.3); Creatinine Clr Calc Pharmacy 80.6 ml/min; Potassium 4.2 mmol/L (3.5-5.1)
--- NOTE | 2024-09-13 09:19 | Hospitalist Progress Note ---
Date of Service September 13, 2024 Assessment & Plan (1) Acute on chronic respiratory failure with hypoxia and hypercapnia: Plan: 69 y/o male PMHx end stage COPD, pulmonary nodules, anemia, schizoaffective disorder (bipolar type), essential tremor, GISELE, hypothyroidism, irritable bowel disease admitted for COPD exacerbation now stable for discharge, awaiting placement. #Acute on chronic hypoxic, hypercapnic respiratory failure #End Stage COPD Continue supplemental oxygen with O2 goal 88-92%. Discussed with nursing and placed communication order. pulmonary toilet - mucinex, flutter valve, incentive spirometry, duonebs will need steroid taper - 40 mg x 3, 30 mg x 3, 20 mg x 3, 10 mg x 3 completed Azithromycin course palliative care consult - will need POLST signed prior to d/c check VBG as HCO3 rising #Schizoaffective disorder/GISELE/Mental Health Continue home medications. Patient concerned for tardive dyskinesia. Psych rec neuro consult - non-urgent matter can be addressed on an outpatient basis. #Hypothyroidism Continue Synthroid #Generalized Weakness/Protein-Calorie Malnutrition PT/OT. Nutrition consult - liberalize diet, boost and ice cream supplementation #Aspiration Repeat swallow study with aspiration of thin and thick liquids. Appreciate speech therapy recommendations #BPH Continue tamsulosin. Utilizing condom cath. #GERD Pantoprazole Code status: DNR/DNI (2) End stage COPD: (3) Weakness generalized: (4) Tremors of nervous system: (5) Hypotension: (6) Severe protein-calorie malnutrition: (7) Schizoaffective disorder, bipolar type: (8) Multiple pulmonary nodules: (9) Anemia: (10) Generalized anxiety disorder: (11) Hypothyroidism: (12) Aspiration into airway: Plan 69 y/o male PMHx end stage COPD, pulmonary nodules, anemia, schizoaffective disorder (bipolar type), essential tremor, GISELE, hypothyroidism, irritable bowel disease admitted for COPD exacerbation now stable for discharge, awaiting placement. #Acute on chronic hypoxic, hypercapnic respiratory failure #End Stage COPD Continue supplemental oxygen with O2 goal 88-92%. Discussed with nursing and placed communication order. pulmonary toilet - mucinex, flutter valve, incentive spirometry, duonebs will need steroid taper - 40 mg x 3, 30 mg x 3, 20 mg x 3, 10 mg x 3 completed Azithromycin course palliative care consult - will need POLST signed prior to d/c check VBG as HCO3 rising #Schizoaffective disorder/GISELE/Mental Health Continue home medications. Patient concerned for tardive dyskinesia. Psych rec neuro consult - non-urgent matter can be addressed on an outpatient basis. #Hypothyroidism Continue Synthroid #Generalized Weakness/Protein-Calorie Malnutrition PT/OT. Nutrition consult - liberalize diet, boost and ice cream supplementation #Aspiration Repeat swallow study with aspiration of thin and thick liquids. Appreciate speech therapy recommendations #BPH Continue tamsulosin. Utilizing condom cath. #GERD Pantoprazole Code status: DNR/DNI DVT ppx: Lovenox 30 mg SQ FENGI: appreciate speech input - aspiration precautions, IDDS 6 - bite sized, mouth care Dispo: PT/OT rec SNF, tele unit Precautions: high risk of hospital acquired delirium, comm order for delirium precautions Admission and Anticipated Discharge Date Admission Date: September 06, 2024 Supervising Physician Co-Signing Physician Notes ATTESTATION I also saw the patient and confirmed fisher portions of the history and exam. I agree with the impression and plan in the resident documentation, and as summarized below. Awake, eating a late breakfast (vanilla ice cream). No new complaints. Seems improved today. EXAM VSS, afebrile Lungs with diffuse wheeze, about the same as previous CV RRR IMPRESSION & PLAN Acute on chronic hypercapnic RF with hypoxia Advanced COPD Severe protein-calorie malnutrition Continue oral prednisone Appreciate palliative and psychiatry consultation Overnight pulse ox and AM VBG Additional referrals out to multiple facilities Additional per resident documentation Subjective Patient is on phone with a long hold discussed with her about palliative care option when consult palliative care physician. Review of Systems Review of Systems: Positive positive for shortness of breath shortness of Physical Exam Physical Exam: Constitutional: chronically ill-appearing, no acute distress, cachectic HEENT: NCAT, no conjunctival injection CV: clinically well perfused Resp: no increased work of breathing GI: nondistended MSK: no gross deformities appreciated Skin: dry, no rash appreciated Neuro: alert, oriented, no focal neurologic deficit appreciated Results & Data Results & Data Vital Signs (Past 12 Hours) Vital Signs Temp Pulse Pulse Pulse Resp BP Pulse Ox 09/13/24 08:55 94 09/13/24 08:14 09/13/24 08:11 36.8 C 80 17 114/66 92 09/13/24 07:18 77 09/13/24 07:13 78 16 90 09/13/24 05:51 76 09/13/24 02:33 77 09/13/24 01:02 80 09/13/24 01:02 80 18 91 09/12/24 22:40 86 09/12/24 22:34 37.3 C 86 18 122/80 91 09/12/24 21:59 91 H Pulse Ox O2 Del Method O2 Del Method O2 Flow Rate 09/13/24 08:55 Nasal Cannula 0.5 09/13/24 08:14 Nasal Cannula 0.5 09/13/24 08:11 Nasal Cannula 3 09/13/24 07:18 09/13/24 07:13 Nasal Cannula 2 09/13/24 05:51 89 L Room Air 09/13/24 02:33 89 L Room Air 09/13/24 01:02 91 Room Air 09/13/24 01:02 Room Air 09/12/24 22:40 91 Room Air 09/12/24 22:34 Room Air 09/12/24 21:59 PG Care Time/CCT Total # of Minutes Spent Total Time Spent with Patient: Total time spent is greater than 50% in coordination of care (as documented) at patient's floor/unit and/or counseling patient: Coding Level of Care Code 37996 SUB INP/OBS CARE 3/50MIN Diagnoses Acute on chronic respiratory failure with hypoxia and hypercapnia J96.21; J96.22 End stage COPD J44.9 Weakness generalized R53.1 Tremors of nervous system R25.1 Hypotension I95.9 Severe protein-calorie malnutrition E43 Schizoaffective disorder, bipolar type F25.0 Multiple pulmonary nodules R91.8 Anemia, unspecified type D64.9 Anemia type: unspecified type Generalized anxiety disorder F41.1 Acquired hypothyroidism E03.9 Hypothyroidism type: acquired Aspiration into airway T17.908A (9) Anemia Anemia type: unspecified type Qualified Code(s): D64.9 - Anemia, unspecified (11) Hypothyroidism Hypothyroidism type: acquired Qualified Code(s): E03.9 - Hypothyroidism, unspecified
[2024-09-14] MEDS: predniSONE 10 MG TABLET PO SCH (08:03)
--- NOTE | 2024-09-14 08:03 | Hospitalist Progress Note ---
Date of Service September 14, 2024 Assessment & Plan (1) Acute on chronic respiratory failure with hypoxia and hypercapnia: Plan: 69 y/o male PMHx end stage COPD, pulmonary nodules, anemia, schizoaffective disorder (bipolar type), essential tremor, GISELE, hypothyroidism, irritable bowel disease admitted for COPD exacerbation now stable for discharge, awaiting placement. #Acute on chronic hypoxic, hypercapnic respiratory failure #End Stage COPD Continue supplemental oxygen with O2 goal 88-92%. Discussed with nursing and placed communication order. pulmonary toilet - mucinex, flutter valve, incentive spirometry, duonebs will need steroid taper - 40 mg x 3, 30 mg x 3, 20 mg x 3, 10 mg x 3 completed Azithromycin course palliative care consult - will need POLST signed prior to d/c check VBG as HCO3 rising #Schizoaffective disorder/GISELE/Mental Health Continue home medications. Patient concerned for tardive dyskinesia. Psych rec neuro consult - non-urgent matter can be addressed on an outpatient basis. #Hypothyroidism Continue Synthroid #Generalized Weakness/Protein-Calorie Malnutrition PT/OT. Nutrition consult - liberalize diet, boost and ice cream supplementation #Aspiration Repeat swallow study with aspiration of thin and thick liquids. Appreciate speech therapy recommendations #BPH Continue tamsulosin. Utilizing condom cath. #GERD Pantoprazole Code status: DNR/DNI Appreciate palliative care input I will ask case management to do police report for his missing wallet in the morning (2) End stage COPD: (3) Weakness generalized: (4) Tremors of nervous system: (5) Hypotension: (6) Severe protein-calorie malnutrition: (7) Schizoaffective disorder, bipolar type: (8) Multiple pulmonary nodules: (9) Anemia: (10) Generalized anxiety disorder: (11) Hypothyroidism: (12) Aspiration into airway: (13) Dyspnea and respiratory abnormalities: Plan: He is now on an all nebulizer regimen, tolerating very well and feeling improved resp dynamics. No longer a candidate for MDIs, see pulm clinic note from 08/09 and prior pall med notes for full details and reccs (14) Severe muscle deconditioning: Plan: awaiting dispo, does not want to return to [facility] Asking for [facility] though not likely to meet their acute IP criteria - i have advised him of this daily but he remains hopeful they will make an exception for him (15) Advanced care planning/counseling discussion: Plan: Palliative care note A 30 min face to face ACP meeting was held at bedside with [place] and his EOL Arborist Climber, Bernice. The POLST form was reviewed and discussed with patient today. We specifically discussed that POLST is an approach to end-of-life planning that emphasizes patients wishes about the care they receive. The POLST Paradigm, which stands for Physician Orders for Life Sustaining Treatment, is an approach to end-of-life planning emphasizing: (i) advance care planning conversations between patients, health md do resident urgent care and loved ones; (ii) shared decision-making between a patient and his/her health special needs caregiver about the care the patient would like to receive at the end of his/her life and (iii) ensuring patient wishes are honored. We discussed that the POLST form is a medical order indicating a patients wis hes regarding treatments that are commonly used in a medical crisis. It is a medical order, therefore emergency personnel such as paramedics, drive in teller, and emergency physicians must follow these orders. Without a POLST form, paramedics and drive in teller are required to provide every possible medical treatment to sustain life. Patient/family advised that the [place] POLST form is a very bright PINK co lored form designed for immediate, easy location and which gives them a way to tell doctors, nurses, and other health md do resident urgent care what types of treatment they do and do not want. A POLST form was completed today for Jamaica Moore. Please note that today's completed POLST orders reflect patient's preferences, wishes and selections of what treatments HE wants now, in HIS current state of health. He elects DNR/DNI, Allow comfort care, Use Abtx for a time limited trial and no FRANCIS/IVF. Jamaica verbalized understanding and all questions were answered to HIS apparent satisfaction. A copy of the POLST form has been given to unit it help desk technician for HIM scanning. The original and a spare copy for his SNF are with his paper chart in the unit. Additional copies were provided to the patient and for [facility] Nursing and Dr Viviana michelle. (16) Palliative care by specialist: (17) Food insecurity: (18) Patient cannot afford medications: Plan 69 y/o male PMHx end stage COPD, pulmonary nodules, anemia, schizoaffective disorder (bipolar type), essential tremor, GISELE, hypothyroidism, irritable bowel disease admitted for COPD exacerbation now stable for discharge, awaiting placement. #Acute on chronic hypoxic, hypercapnic respiratory failure #End Stage COPD Continue supplemental oxygen with O2 goal 88-92%. Discussed with nursing and placed communication order. pulmonary toilet - mucinex, flutter valve, incentive spirometry, duonebs will need steroid taper - 40 mg x 3, 30 mg x 3, 20 mg x 3, 10 mg x 3 completed Azithromycin course palliative care consult - will need POLST signed prior to d/c check VBG as HCO3 rising #Schizoaffective disorder/GISELE/Mental Health Continue home medications. Patient concerned for tardive dyskinesia. Psych rec neuro consult - non-urgent matter can be addressed on an outpatient basis. #Hypothyroidism Continue Synthroid #Generalized Weakness/Protein-Calorie Malnutrition PT/OT. Nutrition consult - liberalize diet, boost and ice cream supplementation #Aspiration Repeat swallow study with aspiration of thin and thick liquids. Appreciate speech therapy recommendations #BPH Continue tamsulosin. Utilizing condom cath. #GERD Pantoprazole Code status: DNR/DNI DVT ppx: Lovenox 30 mg SQ FENGI: appreciate speech input - aspiration precautions, IDDS 6 - bite sized, mouth care Dispo: PT/OT rec SNF, tele unit Precautions: high risk of hospital acquired delirium, comm order for delirium precautions Admission and Anticipated Discharge Date Admission Date: September 06, 2024 Subjective Patient had discussion with palliative care therapy currently he is sitting in chair has significant movement of his arms and legs Review of Systems Neurologic: Excessive uncontrolled movement of arms and legs patient is requesting to be seen Physical Exam Physical Exam: Constitutional: + ill appearing, + cachectic, + phy sical limitations, + frail appearing and cooperative Eyes: PERRL, conjunctiva e normal, anicteri c sclerae ENMT: Ears: no hearing i mpairment Nose: n o external nose ab normality Mouth: + dental caries, + poor dentition an d + loose teeth T hroat: uvula midli ne Neck: trachea midline, n o thyromegaly Respiratory: + uses accessory muscles (with conv ersation), + cough , able to speak in complete sentence s and symmetric ch est movement Ausc ultation: + dimini shed lung sounds a nd + rhonchi Cardiovascular: Rate/Rhythm: regul ar rate and regula r rhythm Gastrointestinal ( Abdomen): Inspection/Auscult ation: normal abdirizak l sounds and + sca phoid Musculoskeletal: gen weakness Skin: flaking plaques f acial creases c/w psoriasis, erythem atous base Psychiatric: Orientation: alert , oriented x 3 and cooperative Eye Contact: + fair ey e contact Motor B ehavior: + tremor (decreased from pr ior) Speech: + pr essured speech Af fect: + anxious af fect Mood: + anxi ous mood Thought Process: + tangent ial thought proces s and + perseverat ion Insight: + li mited insight Guerline gment: good judgem ent CAMICU scree n negative Results & Data Results & Data Vital Signs (Past 12 Hours) Vital Signs Temp Pulse Pulse Resp BP Pulse Ox O2 Del Method 09/14/24 07:39 36.4 C L 64 18 106/68 96 Nasal Cannula 09/14/24 07:27 71 16 96 Nasal Cannula 09/14/24 07:15 67 09/14/24 03:16 36.3 C L 66 18 125/79 96 Nasal Cannula 09/14/24 01:21 66 16 97 Nasal Cannula 09/13/24 23:24 36.6 C 82 18 121/78 93 Nasal Cannula 09/13/24 22:35 83 09/13/24 21:30 Nasal Cannula O2 Flow Rate 09/14/24 07:39 1 09/14/24 07:27 1 09/14/24 07:15 09/14/24 03:16 1 09/14/24 01:21 0.5 09/13/24 23:24 1 09/13/24 22:35 09/13/24 21:30 0.5 PG Care Time/CCT Total # of Minutes Spent Total Time Spent with Patient: Total time spent is greater than 50% in coordination of care (as documented) at patient's floor/unit and/or counseling patient: Coding Level of Care Code 01592 SUB INP/OBS CARE 3/50MIN Diagnoses Acute on chronic respiratory failure with hypoxia and hypercapnia J96.21; J96.22 End stage COPD J44.9 Weakness generalized R53.1 Tremors of nervous system R25.1 Hypotension I95.9 Severe protein-calorie malnutrition E43 Schizoaffective disorder, bipolar type F25.0 Multiple pulmonary nodules R91.8 Anemia, unspecified type D64.9 Anemia type: unspecified type Generalized anxiety disorder F41.1 Acquired hypothyroidism E03.9 Hypothyroidism type: acquired Aspiration into airway T17.908A Dyspnea and respiratory abnormalities R06.00; R06.89 Severe muscle deconditioning R29.898 Advanced care planning/counseling discussion Z71.89 Palliative care by specialist Z51.5 Food insecurity Z59.41 Patient cannot afford medications Z59.86 (9) Anemia Anemia type: unspecified type Qualified Code(s): D64.9 - Anemia, unspecified (11) Hypothyroidism Hypothyroidism type: acquired Qualified Code(s): E03.9 - Hypothyroidism, unspecified
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
--- NOTE | 2024-09-15 14:31 | Palliative Care Progress Note ---
Date of Service September 15, 2024 Assessment & Plan (1) Dyspnea and respiratory abnormalities: (2) Air hunger: (3) Severe muscle deconditioning: (4) Stage 4 very severe COPD by GOLD classification: (5) Palliative care by specialist: (6) Severe protein-calorie malnutrition: (7) Food insecurity: Plan Awaiting placement AECOPD resolving, he is aware he has terminal COPD Unable to return home, independent living is no loner an option for him POLST completed - see my note from 09/14/24 for details. Thank you for allowing us to participate in the ongoing care of this patient. Please page with any additional concerns. Veronica Moser DNP Director, Palliative Medicine Admission and Anticipated Discharge Date Admission Date: September 06, 2024 Subjective no signif change feeling anxious waiting for a landing place breathing is better pain is managed appetite stable gen weakness unchanged cannot change positions without assistance Review of Systems Review of Systems: All systems reviewed & are unremarkable except as noted in Subjective Physical Exam Constitutional: + ill appearing, + cachectic, + physical limitations, + frail appearing and cooperative Eyes: PERRL, conjunctivae normal, anicteric sclerae ENMT: Ears: no hearing impairment Nose: no external nose abnormality Mouth: + dental caries, + poor dentition and + loose teeth Throat: uvula midline Neck: trachea midline, no thyromegaly Respiratory: + uses accessory muscles (with conversat ion), + cough, able to speak in complete sentences and symmetric chest movement Auscultation: + diminished lung sounds and + rhonchi Cardiovascular: Rate/Rhythm: regular rate and regular rhythm Gastrointestinal (Abdomen): Inspection/Auscultation: normal bowel sounds and + scaphoid Musculoskeletal: gen weakness Skin: flaking plaques facial creases c/w psoriasis, erythematous base Psychiatric: Orientation: alert, oriented x 3 and cooperative Eye Contact: + fair eye contact Motor Behavior: + tremor (decreased from prior) Speech: + pressured speech Affect: + anxious affect Mood: + anxious mood Thought Process: + tangential thought process and + perseveration Insight: + limited insight Judgment: good judgement [facility] screen negative Results & Data Vital Signs (Past 12 Hours) Vital Signs Temp Pulse Pulse Resp BP BP Pulse Ox 09/15/24 13:42 111 H 18 90 09/15/24 11:24 37.0 C 105 H 18 122/76 93 09/15/24 08:12 05/07/25 07:43 36.5 C 91 H 18 103/68 95 09/15/24 07:33 94 H 18 90 09/15/24 06:45 70 O2 Del Method O2 Flow Rate 09/15/24 13:42 Nasal Cannula 0.5 09/15/24 11:24 Nasal Cannula 3 09/15/24 08:12 Nasal Cannula 1 09/15/24 07:43 Nasal Cannula 3 09/15/24 07:33 Nasal Cannula 0.5 09/15/24 06:45 Laboratory Results 09/13/24 09/13/24 09/12/24 Range/Units 06:38 05:42 08:52 WBC 18.92 H (4.8-10.8) K/ul RBC 3.62 L (4.70-6.10) M/uL Hgb 12.3 L (14.0-18.0) g/dl Hct 37.0 L (42.0-52.0) % MCV 102.2 H (80.0-100.0) fL MCH 34.0 (25.0-34.0) pg MCHC 33.2 (32.0-36.0) g/dL RDW Std Deviation 50.9 H (36.4-46.3) fL RDW Coeff of Josie 13.4 (11.5-14.5) % Plt Count 349 (130-400) K/uL MPV 10.0 (9.4-12.4) fL Immature Gran % (Auto) % Neut % (Auto) % Lymph % (Auto) % Swift % (Auto) % Eos % (Auto) % Baso % (Auto) % Neut # (Auto) (1.40-6.50) K/uL Lymph # (Auto) (1.20-3.40) K/uL Swift # (Auto) (0.11-0.59) K/uL Eos # (Auto) (0.00-0.50) K/uL Baso # (Auto) (0.00-0.20) K/uL Immature Gran # (Auto) (0.01-0.20) K/uL RBC Morphology PT (9.0-12.0) Seconds INR (0.9-1.1) ABG pH 7.45 (7.35-7.45) ABG pCO2 54 H (35-46) mmHg ABG pO2 48 L (80-95) mmHg ABG HCO3 38 H (19-24) mmol/L ABG O2 Saturation 84.5 L (90-95) % ABG Base Excess 11.4 H (-9-1.8) mEq/L Timbo Test Pos (Pos) VBG pH 7.33 L (7.36-7.41) VBG pCO2 73 H (38-50) mmHg VBG pO2 23 mmHg VBG HCO3 39 mmol/L VBG O2 Saturation < 60.0 % VBG Base Excess 9.6 mEq/L Oxygen Given ROOM AIR Sodium 138 (136-145) mmol/L Potassium 4.2 (3.5-5.1) mmol/L Chloride 97 L (98-107) mmol/L Carbon Dioxide 38 H (21-32) mmol/L Anion Gap 3 (3-11) BUN 24 H (6-23) mg/dl Creatinine 0.70 (0.6-1.4) mg/dl Est Cr Clr Drug Dosing 80.6 ml/min eGFR 99.74 BUN/Creatinine Ratio 34.3 H (10-20) Glucose 141 H (70-99(Fasting)) mg/dl Calcium 8.9 (8.6-10.3) mg/dl Magnesium (1.7-2.4) mg/dl Total Bilirubin (0.2-1.0) mg/dl AST (13-39) U/L ALT (7-52) U/L Alkaline Phosphatase (34-104) U/L Total Protein (6.0-8.3) gm/dl Albumin (3.4-5.0) gm/dl Globulin (2.5-4.0) gm/dl Albumin/Globulin Ratio (0.9-2) 09/12/24 09/09/24 09/09/24 Range/Units 07:44 16:48 16:44 WBC 12.80 H 12.35 H (4.8-10.8) K/ul RBC 3.69 L 3.35 L (4.70-6.10) M/uL Hgb 12.2 L 11.3 L (14.0-18.0) g/dl Hct 37.9 L 34.3 L (42.0-52.0) % MCV 102.7 H 102.4 H (80.0-100.0) fL MCH 33.1 33.7 (25.0-34.0) pg MCHC 32.2 32.9 (32.0-36.0) g/dL RDW Std Deviation 51.9 H 50.2 H (36.4-46.3) fL RDW Coeff of Josie 13.7 13.2 (11.5-14.5) % Plt Count 313 340 (130-400) K/uL MPV 9.6 9.8 (9.4-12.4) fL Immature Gran % (Auto) 0.7 0.6 % Neut % (Auto) 77.2 92.5 % Lymph % (Auto) 10.7 3.2 % Swift % (Auto) 7.8 3.6 % Eos % (Auto) 3.3 0.0 % Baso % (Auto) 0.3 0.1 % Neut # (Auto) 9.88 H 11.44 H (1.40-6.50) K/uL Lymph # (Auto) 1.37 0.39 L (1.20-3.40) K/uL Swift # (Auto) 1.00 H 0.44 (0.11-0.59) K/uL Eos # (Auto) 0.42 0.00 (0.00-0.50) K/uL Baso # (Auto) 0.04 0.01 (0.00-0.20) K/uL Immature Gran # (Auto) 0.09 0.07 (0.01-0.20) K/uL RBC Morphology Unremarkable PT 10.8 (9.0-12.0) Seconds INR 1.0 (0.9-1.1) ABG pH (7.35-7.45) ABG pCO2 (35-46) mmHg ABG pO2 (80-95) mmHg ABG HCO3 (19-24) mmol/L ABG O2 Saturation (90-95) % ABG Base Excess (-9-1.8) mEq/L Timbo Test (Pos) VBG pH 7.41 (7.36-7.41) VBG pCO2 56 H (38-50) mmHg VBG pO2 51 mmHg VBG HCO3 36 mmol/L VBG O2 Saturation 84.0 % VBG Base Excess 8.9 mEq/L Oxygen Given Sodium 141 137 (136-145) mmol/L Potassium 4.4 5.0 (3.5-5.1) mmol/L Chloride 98 99 (98-107) mmol/L Carbon Dioxide 40 H 36 H (21-32) mmol/L Anion Gap 3 2 L (3-11) BUN 24 H 27 H (6-23) mg/dl Creatinine 0.69 0.74 (0.6-1.4) mg/dl Est Cr Clr Drug Dosing 77.9 76.4 ml/min eGFR 100.18 98.08 BUN/Creatinine Ratio 34.8 H 36.5 H (10-20) Glucose 128 H 154 H (70-99(Fasting)) mg/dl Calcium 9.1 9.1 (8.6-10.3) mg/dl Magnesium 2.1 (1.7-2.4) mg/dl Total Bilirubin 0.2 (0.2-1.0) mg/dl AST 25 (13-39) U/L ALT 48 (7-52) U/L Alkaline Phosphatase 96 (34-104) U/L Total Protein 5.8 L (6.0-8.3) gm/dl Albumin 3.5 (3.4-5.0) gm/dl Globulin 2.3 L (2.5-4.0) gm/dl Albumin/Globulin Ratio 1.5 (0.9-2) Diagnostic Findings Videofluoroscopic Swallow 09/09/24 10:30 FL video swallow CLINICAL HISTORY: r/o aspiration COMPARISON STUDY: 06/15/2024 TECHNIQUE: The patient was given a barium mixture to drink a very consistencies by speech pathology. Swallowing function was observed fluoroscopically with rapid sequence filming employed. Total fluoroscopy time 2.26 minutes. Total dose 3.73mGy FINDINGS: Deglutition was hesitant with persistent tongue quivering. There is pronounced premature spill over the base of the tongue with pronounced pharyngeal recess pooling. Repetitive aspiration was demonstrated with the thinner consistencies. Most of these aspiration events were silent although one event triggered a cough response. IMPRESSION: Diffusely demonstrable aspiration with thinner consistencies. Most of the aspiration events were silent. Please refer to the speech pathology report for full discussion of the findings. ACT 112: Negative or not required by law. Electronically signed by: Michelle Araiza M.D. 09/09/2024 11:22 AM Chest X-Ray 09/09/24 16:31 Clinical History: Altered mental status Technique: 2 frontal views of the chest were obtained Comparison is made to the prior examination dated 09/06/2024 Findings: There are no confluent pulmonary infiltrates. The heart size is within normal limits. No pleural effusion or pneumothorax is seen. There is an unchanged suspected old healed fracture of the mid right clavicle Impression: No active disease Electronically signed by Feroz Manzano 09-09-2024 5:07 PM PG Care Time/CCT Total # of Minutes Spent Total Time Spent with Patient: Total time spent is greater than 50% in coordination of care (as documented) at patient's floor/unit and/or counseling patient: I spent 55 minutes overall addressing this case: 5 min in medical data review/discussion with referring provider(s) and/or preparation for the visit 15 min in direct interaction with the patient/exam 15 min in Advance Care Planning/Goals of Care discussions as detailed above in note (must be >16min) 15 min in subsequent review and synthesis of assessment and plan 5 min communicating with other providers regarding the patient's case: [place] [address] SUB INP/OBS CARE 3/50MIN Patient Type Established History Comprehensive Exam Comprehensive Medical Decision Making Moderate Complexity Diagnoses Dyspnea and respiratory abnormalities R06.00; R06.89 Air hunger R09.89 Severe muscle deconditioning R29.898 Stage 4 very severe COPD by GOLD classification J44.9 Palliative care by specialist Z51.5 Severe protein-calorie malnutrition E43 Food insecurity Z59.41 Comment 10804
--- NOTE | 2024-09-15 16:43 | Hospitalist Progress Note ---
Date of Service September 15, 2024 Assessment & Plan (1) Acute on chronic respiratory failure with hypoxia and hypercapnia: Plan: 69 y/o male PMHx end stage COPD, pulmonary nodules, anemia, schizoaffective disorder (bipolar type), essential tremor, GISELE, hypothyroidism, irritable bowel disease admitted for COPD exacerbation now stable for discharge, awaiting placement. #Acute on chronic hypoxic, hypercapnic respiratory failure #End Stage COPD Continue supplemental oxygen with O2 goal 88-92%. Discussed with nursing and placed communication order. pulmonary toilet - mucinex, flutter valve, incentive spirometry, duonebs will need steroid taper - 40 mg x 3, 30 mg x 3, 20 mg x 3, 10 mg x 3 completed Azithromycin course palliative care consult - done Awaiting placement AECOPD resolving, he is aware he has terminal COPD Unable to return home, independent living is no loner an option for him POLST completed - see my note from 09/14/24 for details. #Schizoaffective disorder/GISELE/Mental Health Continue home medications. Patient concerned for tardive dyskinesia. Psych rec neuro consult - non-urgent matter can be addressed on an outpatient basis. #Hypothyroidism Continue Synthroid #Generalized Weakness/Protein-Calorie Malnutrition PT/OT. Nutrition consult - liberalize diet, boost and ice cream supplementation #Aspiration Repeat swallow study with aspiration of thin and thick liquids. Appreciate speech therapy recommendations #BPH Continue tamsulosin. Utilizing condom cath. #GERD Pantoprazole Code status: DNR/DNI police report for lost wallet is done . He lost his wallet in a [address] drive . going to group home tomorrow am (2) End stage COPD: (3) Weakness generalized: (4) Tremors of nervous system: (5) Hypotension: (6) Severe protein-calorie malnutrition: (7) Schizoaffective disorder, bipolar type: (8) Multiple pulmonary nodules: (9) Anemia: (10) Generalized anxiety disorder: (11) Hypothyroidism: (12) Aspiration into airway: (13) Dyspnea and respiratory abnormalities: Plan: He is now on an all nebulizer regimen, tolerating very well and feeling improved resp dynamics. No longer a candidate for MDIs, see pulm clinic note from 08/09 and prior pall med notes for full details and reccs (14) Severe muscle deconditioning: Plan: awaiting dispo, does not want to return to [facility] Asking for [facility] though not likely to meet their acute IP criteria - i have advised him of this daily but he remains hopeful they will make an exception for him (15) Advanced care planning/counseling discussion: Plan: Palliative care note A 30 min face to face ACP meeting was held at bedside with [place] and his EOL Dry End Tester, Bernice. The POLST form was reviewed and discussed with patient today. We specifically discussed that POLST is an approach to end-of-life planning that emphasizes patients wishes about the care they receive. The POLST Paradigm, which stands for Physician Orders for Life Sustaining Treatment, is an approach to end-of-life planning emphasizing: (i) advance care planning conversations between patients, health home care associate and loved ones; (ii) shared decision-making between a patient and his/her health child care giver about the care the patient would like to receive at the end of his/her life and (iii) ensuring patient wishes are honored. We discussed that the POLST form is a medical order indicating a patients wishes regarding treatments that are commonly used in a medical crisis. It is a medical order, therefore emergency personnel such as paramedics, liquor grinding mill operator, and emergency physicians must follow these orders. Without a POLST form, paramedics and liquor grinding mill operator are required to provide every possible medical treatment to sustain life. Patient/family advised that the [place] POLST form is a very bright PINK colored form designed for immediate, easy location and which gives them a way to tell doctors, nurses, and other health home care associate what types of treatment they do and do not want. A POLST form was completed today for Jamaica Moore. Please note that today's completed POLST orders reflect patient's preferences, wishes and selections of what treatments HE wants now, in HIS current state of health. He elects DNR/DNI, Allow comfort care, Use Abtx for a time limited trial and no FRANCIS/IVF. Jamaica verbalized understanding and all questions were answered to HIS apparent satisfaction. A copy of the POLST form has been given to unit service desk specialist for HIM scanning. The original and a spare copy for his SNF are with his paper chart in the unit. Additional copies were provided to the patient and for Cody who will [facility]. Nursing and Dr Viviana michelle. (16) Palliative care by specialist: (17) Food insecurity: (18) Patient cannot afford medications: Plan 69 y/o male PMHx end stage COPD, pulmonary nodules, anemia, schizoaffective disorder (bipolar type), essential tremor, GISELE, hypothyroidism, irritable bowel disease admitted for COPD exacerbation now stable for discharge, awaiting placement. #Acute on chronic hypoxic, hypercapnic respiratory failure #End Stage COPD Continue supplemental oxygen with O2 goal 88-92%. Discussed with nursing and placed communication order. pulmonary toilet - mucinex, flutter valve, incentive spirometry, duonebs will need steroid taper - 40 mg x 3, 30 mg x 3, 20 mg x 3, 10 mg x 3 completed Azithromycin course palliative care consult - will need POLST signed prior to d/c check VBG as HCO3 rising #Schizoaffective disorder/GISELE/Mental Health Continue home medications. Patient concerned for tardive dyskinesia. Psych rec neuro consult - non-urgent matter can be addressed on an outpatient basis. #Hypothyroidism Continue Synthroid #Generalized Weakness/Protein-Calorie Malnutrition PT/OT. Nutrition consult - liberalize diet, boost and ice cream supplementation #Aspiration Repeat swallow study with aspiration of thin and thick liquids. Appreciate speech therapy recommendations #BPH Continue tamsulosin. Utilizing condom cath. #GERD Pantoprazole Code status: DNR/DNI DVT ppx: Lovenox 30 mg SQ FENGI: appreciate speech input - aspiration precautions, IDDS 6 - bite sized, mouth care Dispo: PT/OT rec SNF, tele unit Precautions: high risk of hospital acquired delirium, comm order for delirium precautions Admission and Anticipated Discharge Date Admission Date: September 06, 2024 Subjective patient is having breakfast resting in chair comfortably Physical Exam Physical Exam: Constitutional: WD/WN, vitals as a homa Respiratory: normal respiratory effort Cardiovascular: Rate/Rhythm: regul ar rate and regula r rhythm Gastrointestinal ( Abdomen): normal bowel sound s, soft, nontender , no hepatosplenom egaly Skin: no rashes, warm an d dry Results & Data Results & Data Vital Signs (Past 12 Hours) Vital Signs Temp Pulse Pulse Resp BP BP Pulse Ox 09/15/24 15:14 37.1 C 110 H 18 109/78 93 09/15/24 13:42 111 H 18 90 09/15/24 13:33 111 H 09/15/24 11:24 37.0 C 105 H 18 122/76 93 09/15/24 08:12 09/15/24 07:43 36.5 C 91 H 18 103/68 95 09/15/24 07:33 94 H 18 90 09/15/24 06:45 70 O2 Del Method O2 Flow Rate 09/15/24 15:14 Room Air 09/15/24 13:42 Nasal Cannula 0.5 09/15/24 13:33 09/15/24 11:24 Nasal Cannula 3 09/15/24 08:12 Nasal Cannula 1 09/15/24 07:43 Nasal Cannula 3 09/15/24 07:33 Nasal Cannula 0.5 09/15/24 06:45 PG Care Time/CCT Total # of Minutes Spent Total Time Spent with Patient: Total time spent is greater than 50% in coordination of care (as documented) at patient's floor/unit and/or counseling patient: Coding Level of Care Code 00001 SUB INP/OBS CARE 2/35MIN Diagnoses Acute on chronic respiratory failure with hypoxia and hypercapnia J96.21; J96.22 End stage COPD J44.9 Weakness generalized R53.1 Tremors of nervous system R25.1 Hypotension I95.9 Severe protein-calorie malnutrition E43 Schizoaffective disorder, bipolar type F25.0 Multiple pulmonary nodules R91.8 Anemia, unspecified type D64.9 Anemia type: unspecified type Generalized anxiety disorder F41.1 Acquired hypothyroidism E03.9 Hypothyroidism type: acquired Aspiration into airway T17.908A Dyspnea and respiratory abnormalities R06.00; R06.89 Severe muscle deconditioning R29.898 Advanced care planning/counseling discussion Z71.89 Palliative care by specialist Z51.5 Food insecurity Z59.41 Patient cannot afford medications Z59.86 (9) Anemia Anemia type: unspecified type Qualified Code(s): D64.9 - Anemia, unspecified (11) Hypothyroidism Hypothyroidism type: acquired Qualified Code(s): E03.9 - Hypothyroidism, unspecified
[2024-09-16 11:37] VITALS: BP 118/73; TEMP 98.1
[2024-09-16 12:26] VITALS: RESP 17; O2SAT 96
[2024-09-16 14:31] VITALS: PULSE 105
--- NOTE | 2024-09-16 17:31 | Discharge Summary ---
Date of Service September 16, 2024 Admission HPI Per Admitting Provider 69 yo male PMHx end stage COPD, pulmonary nodules, anemia, schizoaffective disorder (bipolar type), essential tremor, GISELE, hypothyroidism, irritable bowel disease admitted for COPD exacerbation. Over the last few weeks patient has had increasing difficulty breathing. This was acutely worse this morning and he presented to the emergency department. Denies recent illness. No recent changes in medications. He does follow with pulmonology as an outpatient. During his last admission he met with palliative care in regards to his end stage diagnosis. At the time of admission he continues to endorse shortness of breath. No chest pain. ED Course: CXR without evidence of pneumonia Rec'd ceftriaxone, dexamethasone, and albuterol neb Labs reveal mild leukocytosis (pt is on chronic prednisone), macrocytic anemia, otherwise largely unremarkable Patient finished antibiotics he was seen by palliative care Dr. ) Dyspnea and respiratory abnormalities: (2) Air hunger: (3) Severe muscle deconditioning: (4) Stage 4 very severe COPD by GOLD classification: (5) Palliative care by specialist: (6) Severe protein-calorie malnutrition: (7) Food insecurity: Plan Awaiting placement AECOPD resolving, he is aware he has terminal COPD Unable to return home, independent living is no loner an option for him POLST completed - see Palliative note from 09/14/24 for details. Discharge Data Consultations 09/06/24 16:42 ED Decision to Admit Stat 09/06/24 18:16 Consult Palliative Care Stat 09/07/24 15:11 Consult Psychiatry Routine 09/14/24 15:59 Consult Neurology Routine Hospital Course (1) Acute on chronic respiratory failure with hypoxia and hypercapnia: 69 y/o male PMHx end stage COPD, pulmonary nodules, anemia, schizoaffective disorder (bipolar type), essential tremor, GISELE, hypothyroidism, irritable bowel disease admitted for COPD exacerbation now stable for discharge, awaiting placement. #Acute on chronic hypoxic, hypercapnic respiratory failure #End Stage COPD Continue supplemental oxygen with O2 goal 88-92%. Discussed with nursing and placed communication order. pulmonary toilet - mucinex, flutter valve, incentive spirometry, duonebs will need steroid taper - 40 mg x 3, 30 mg x 3, 20 mg x 3, 10 mg x 3 completed Azithromycin course palliative care consult - done #Schizoaffective disorder/GISELE/Mental Health Continue home medications. Patient is unable to afford medications #Hypothyroidism Continue Synthroid #Generalized Weakness/Protein-Calorie Malnutrition PT/OT. Nutrition consult - liberalize diet, boost and ice cream supplementation #Aspiration Repeat swallow study with aspiration of thin and thick liquids. Appreciate speech therapy recommendations #BPH Continue tamsulosin. Utilizing condom cath. #GERD Pantoprazole Code status: DNR/DNI police report for lost wallet is done . He lost his wallet in a [address] drive . [facility] Today patient had a visit with Rev. Bernice Rodriguez who is a certified conscious dying process coach she [facility] (2) End stage COPD: (3) Weakness generalized: (4) Tremors of nervous system: (5) Hypotension: (6) Severe protein-calorie malnutrition: (7) Schizoaffective disorder, bipolar type: (8) Multiple pulmonary nodules: (9) Anemia: (10) Generalized anxiety disorder: (11) Hypothyroidism: (12) Aspiration into airway: (13) Dyspnea and respiratory abnormalities: He is now on an all nebulizer regimen, tolerating very well and feeling improved resp dynamics. No longer a candidate for MDIs, see pulm clinic note from 08/09 and prior [facility] med notes for full details and reccs (14) Severe muscle deconditioning: awaiting dispo, does not want to return to [facility] Asking for [facility] though not likely to meet their acute IP criteria - i have advised him of this daily but he remains hopeful they will make an exception for him (15) Advanced care planning/counseling discussion: Palliative care note A 30 min face to face ACP meeting was held at bedside with [place] and his EOL Machine Stoppage Frequency CheckerBernice richter. The POLST form was reviewed and discussed with patient today. We specifically discussed that POLST is an approach to end-of-life planning that emphasizes patients wishes about the care they receive. The POLST Paradigm, which stands for Physician Orders for Life Sustaining Treatment, is an approach to end-of-life planning emphasizing: (i) advance care planning conversations between patients, health lead caregiver and loved ones; (ii) shared decision-making between a patient and his/her health youth care professional about the care the patient would like to receive at the end of his/her life and (iii) ensuring patient wishes are honored. We discussed that the POLST form is a medical order indicating a patients wishes regarding treatments that are commonly used in a medical crisis. It is a medical order, therefore emergency personnel such as paramedics, crotch piece baster, and emergency physicians must follow these orders. Without a POLST form, paramedics and crotch piece baster are required to provide every possible medical treatment to sustain life. Patient/family advised that the [place] POLST form is a very bright PINK colored form designed for immediate, easy location and which gives them a way to tell doctors, nurses, and other health lead caregiver what types of treatment they do and do not want. A POLST form was completed today for Jamaica Moore. Please note that today's completed POLST orders reflect patient's preferences, wishes and selections of what treatments HE wants now, in HIS current state of health. He elects DNR/DNI, Allow comfort care, Use Abtx for a time limited trial and no FRANCIS/IVF. Jamaica verbalized understanding and all questions were answered to HIS apparent satisfaction. A copy of the POLST form has been given to unit front desk auxiliary for HIM scanning. The original and a spare copy for his SNF are with his paper chart in the unit. Additional copies were provided to the patient and for Cody who will visit [facility]. (16) Palliative care by specialist: (17) Food insecurity: (18) Patient cannot afford medications: Plan 69 y/o male PMHx end stage COPD, pulmonary nodules, anemia, schizoaffective disorder (bipolar type), essential tremor, GISELE, hypothyroidism, irritable bowel disease admitted for COPD exacerbation now stable for discharge, awaiting placement. #Acute on chronic hypoxic, hypercapnic respiratory failure #End Stage COPD Continue supplemental oxygen with O2 goal 88-92%. Discussed with nursing and placed communication order. pulmonary toilet - mucinex, flutter valve, incentive spirometry, duonebs will need steroid taper - 40 mg x 3, 30 mg x 3, 20 mg x 3, 10 mg x 3 completed Azithromycin course palliative care consult - will need POLST signed prior to d/c check VBG as HCO3 rising #Schizoaffective disorder/GISELE/Mental Health Continue home medications. Patient concerned for tardive dyskinesia. Psych rec neuro consult - non-urgent matter can be addressed on an outpatient basis. #Hypothyroidism Continue Synthroid #Generalized Weakness/Protein-Calorie Malnutrition PT/OT. Nutrition consult - liberalize diet, boost and ice cream supplementation #Aspiration Repeat swallow study with aspiration of thin and thick liquids. Appreciate speech therapy recommendations #BPH Continue tamsulosin. Utilizing condom cath. #GERD Pantoprazole Code status: DNR/DNI DVT ppx: Lovenox 30 mg SQ FENGI: appreciate speech input - aspiration precautions, IDDS 6 - bite sized, mouth care Dispo: PT/OT rec SNF, tele unit Precautions: high risk of hospital acquired delirium, comm order for delirium precautions Coding Level of Care Code 58155 INP/OBS DISCH >30 MIN Diagnoses Acute on chronic respiratory failure with hypoxia and hypercapnia J96.21; J96.22 End stage COPD J44.9 Weakness generalized R53.1 Tremors of nervous system R25.1 Hypotension I95.9 Severe protein-calorie malnutrition E43 Schizoaffective disorder, bipolar type F25.0 Multiple pulmonary nodules R91.8 Anemia, unspecified type D64.9 Anemia type: unspecified type Generalized anxiety disorder F41.1 Acquired hypothyroidism E03.9 Hypothyroidism type: acquired Aspiration into airway T17.908A Dyspnea and respiratory abnormalities R06.00; R06.89 Severe muscle deconditioning R29.898 Advanced care planning/counseling discussion Z71.89 Palliative care by specialist Z51.5 Food insecurity Z59.41 Patient cannot afford medications Z59.86
[2024-09-17] MEDS ORDERED: predniSONE 20 MG TAB PO SCH (09:00)
[2024-09-20] MEDS ORDERED: predniSONE 10 MG TABLET PO SCH (09:00)
== END 2024-09-16 17:46 | DRG 189 ==
LOC: ED 14:35 → SUATTDRO 17:16 → 2N 17:16